=== PATIENT | female | born 1960 | race Caucasian/White ===

== ENCOUNTER 2017-05-23 08:36 | Emergency (ER) | payer MEDICARE, MEDICAID, SELFPAY | END 2017-05-23 10:45 | disposition still patient (30) | PROVIDERS: Emergency Provider Emergency Medicine; Family Provider Emergency Medicine; Visit Provider Emergency Medicine | DX: J10.1 Influenza due to other identified influenza virus with other respiratory manifestations (principal); F17.210 Nicotine dependence, cigarettes, uncomplicated; F41.9 Anxiety disorder, unspecified; I10 Essential (primary) hypertension; Z88.0 Allergy status to penicillin; J44.9 Chronic obstructive pulmonary disease, unspecified; H60.501 Unspecified acute noninfective otitis externa, right ear | CPT/HCPCS: 71020; 87275; 87276; 96372; 99283 ==

== ENCOUNTER → 2017-06-19 08:18 | Outpatient (CLI) | payer MEDICARE, MEDICAID, SELFPAY ==
--- NOTE | 2017-06-19 08:36 | MM_ITS ---
MM Dig screening mamm BI w/CAD CAD Screening COMPARISON: Digital mammograms 10/01/2012 and 09/14/2015 INDICATION: There is no personal or family history of breast cancer TECHNIQUE: Standard CC and MLO images were obtained. R2 CAD reviewed. FINDINGS: The breasts are composed primarily of fat with minimal scattered fibroglandular densities noted. There are prominent veins in each breast as noted previously. There is no suspicious lesion and there are no suspicious microcalcifications. There are stable tiny nodular densities in each breast. IMPRESSION: Fatty type breast parenchyma with no suspicious lesion seen recommend yearly follow-up BI-RADS Category: 2 Benign Finding(s) RECOMMENDED FOLLOW-UP: 1YR - 1 YEAR FOLLOW-UP (A letter has been sent to the patient regarding results of the study.)
[2017-06-20 13:37] LABS: Vitamin D 25 Hydroxy 33.8 ng/mL (30.0-100.0)
== END ==
PROVIDERS: Family Provider Emergency Medicine; PCP Emergency Medicine; Visit Provider Allergy & Immunology
DX: Z12.31 Encounter for screening mammogram for malignant neoplasm of breast (principal)
CPT/HCPCS: 36415; 77067; 82652

== ENCOUNTER → 2017-10-30 09:03 | Outpatient (REF) | payer MEDICARE, MEDICAID, SELFPAY ==
[2017-10-30 14:25] LABS: Basophils # 0.1 K/mm3 (0-0.2); Basophils % 0.6 % (0.1-2.0); Eosinophils # 0.2 K/mm3 (0.0-0.4); Eosinophils % 1.7 % (0.1-12.0); Hematocrit 50.7 % (37.0-47.0); Hemoglobin 15.1 g/dL (12.2-16.2); Lymphocytes # 3.1 K/mm3 (0.7-4.5); Lymphocytes % 30.5 K/mm3 (10-50); Mean Corpuscular HGB Conc 29.9 g/dL (31.8-35.4); Mean Corpuscular Hemoglobin 31.7 pg (27.0-31.2); Mean Corpuscular Volume 105.9 fl (81-99); Mean Platelet Volume 9.1 fl (7.4-10.4); Monocytes # 0.6 K/mm3 (0.1-1.0); Monocytes % 5.5 % (1.7-9.3); Neutrophils # 6.4 K/mm3 (1.8-7.8); Neutrophils % 61.7 % (37.0-80.0); Platelet Count 358 K/mm3 (142-424); Red Blood Count 4.78 M/mm3 (4.20-5.40); Red Cell Distribution Width 13.6 % (11.5-17.5); White Blood Count 10.3 K/mm3 (4.8-10.8)
[2017-10-30 14:26] LABS: Alanine Aminotransferase 23 U/L (12-78); Albumin Level 3.6 gm/dL (3.4-5.0); Albumin/Globulin Ratio 1.1 (1.1-1.8); Alkaline Phosphatase 92 U/L (46-116); Anion Gap 11.7 mEq/L (5-15); Aspartate Amino Transferase 15 U/L (15-37); Bilirubin,Total 0.4 mg/dL (0.2-1.0); Blood Urea Nitrogen 17 mg/dL (7-18); Carbon Dioxide 27 mmol/L (21.0-32.0); Chloride 104 mmol/L (98-107); Chol/HDL Ratio 2.7 (1-3.5); Cholesterol 176 mg/dL (140-200); Creatinine,Serum 0.66 mg/dL (0.55-1.02); Estimated Glomerular Filt Rate 92 ml/min (>60); GFR (African American) 111 ML/MIN (>60); Globulin 3.2 gm/dl (1.3-3.2); Glucose 94 mg/dL (74-106); HDL Cholesterol 65 mg/dL (29-89); LDL Cholesterol 86 mg/dL (0-130); Potassium 4.7 mmoL/L (3.5-5.1); Sodium 138 mmol/L (136-145); T4 (Thyroxine) 7.1 ug/dl (4.7-13.3); Thyroid Stimulating Hormone 0.66 uIU/ml (0.358-3.740); Total Protein,Serum 6.8 gm/dL (6.4-8.2); Triglycerides 126 mg/dL (30-200); VLDL Cholesterol 25 mg/dL (0-40)
[2017-10-31 10:08] LABS: Vitamin D 25 Hydroxy 27.7 ng/mL (30.0-100.0)
== END ==
LOC: LAB 09:03
PROVIDERS: Visit Provider Physician Assistant
DX: E55.9 Vitamin D deficiency, unspecified (principal); R68.89 Other general symptoms and signs; I10 Essential (primary) hypertension
CPT/HCPCS: 80053; 80061; 82652; 84436; 84443; 85025

== ENCOUNTER → 2018-02-01 09:04 | Outpatient (CLI) | payer MEDICARE, MEDICAID, SELFPAY ==
--- NOTE | 2018-02-01 09:04 | XR_ITS ---
XR foot wt bearing RT 3V HISTORY: ITS.REASON: toe pain ORDERING PHYSICIAN: Catrachita Javier DPM PATIENT AGE: 57 years COMPARISON: 08/23/2013 FINDINGS: There are mild osteoarthritic changes at the first metatarsophalangeal junction. No fracture or dislocation. No lytic or blastic change. There is an old fracture of the distal aspect of the proximal phalanx of the great toe. Normal alignment. 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
--- NOTE | 2018-02-01 09:04 | XR_ITS ---
XR foot wt bearing LT 3V HISTORY: ITS.REASON: toe pain ORDERING PHYSICIAN: Catrachita Javier DPM PATIENT AGE: 57 years COMPARISON: None FINDINGS: There are mild osteoarthritic changes at the first metatarsophalangeal joint. Normal alignment. No fracture or dislocation. IMPRESSION: Mild osteoarthritis of the first metatarsophalangeal joint
== END ==
PROVIDERS: Visit Provider Podiatrist
DX: L60.8 Other nail disorders (principal)
CPT/HCPCS: 73630; 87102; 87206; 87220

== ENCOUNTER → 2018-02-06 10:43 | Outpatient (CLI) | payer MEDICARE, MEDICAID, SELFPAY ==
--- NOTE | 2018-02-06 10:47 | US_ITS ---
US Arterial Ankle Brachial Ind History: Diminished pulses, current smoker, hypertension ITS.REASON: skin changes ORDERING PHYSICIAN: Catrachita Javier DPM PATIENT AGE: 57 years TECHNIQUE: Segmental pressures obtained of both right and left leg. These are compared to brachial blood pressure to yield index at each level sampled including summary MICK. The data sheets from the procedure are available in PACS FINDINGS Rest study only performed today No prior studies available for comparison. Blood pressures reported are in millimeters mercury. RIGHT LEG MICK = 0.92. RIGHT LEG TBI=0.57 Brachial BP: 131 Thigh BP: 123 Calf BP: 128 Ankle PT: 120 Ankle DP : 120 Digit =75 LEFT LEG MICK = 0.92 LEFT LEG TBI= 0.56 Brachial BPD: 11 Thigh BP: 117 Calf BP: 123 Ankle PT:121 Ankle DP: 112 Digit = 74 Pulses and waveforms: Normal IMPRESSION: The ABIs as reported above are within normal limits. Waveforms and pulses are also unremarkable. The TBI's are low bilaterally suggesting small vessel disease
== END ==
PROVIDERS: Family Provider Emergency Medicine; PCP Emergency Medicine; Visit Provider Podiatrist
DX: R09.89 Other specified symptoms and signs involving the circulatory and respiratory systems (principal)
CPT/HCPCS: 93922

== ENCOUNTER 2018-08-21 22:51 | Inpatient (IN) ==
--- NOTE | 2018-08-21 23:24 | Emergency Department Note ---
ED Disposition Clinical Impression: Renal colic on right side, Severe sepsis, Overweight (BMI 25.0-29.9), Diverticulosis, Tobacco use CAP (community acquired pneumonia) Qualifiers: Laterality: right Lung location: lower lobe of lung Qualified Code(s): J18.1 - Lobar pneumonia, unspecified organism COPD (chronic obstructive pulmonary disease) Qualifiers: COPD type: COPD with acute lower respiratory infection Qualified Code(s): J44.0 - Chronic obstructive pulmonary disease with acute lower respiratory infection Leukocytosis Qualifiers: Leukocytosis type: bandemia Qualified Code(s): D72.825 - Bandemia UTI (urinary tract infection) Qualifiers: Urinary tract infection type: site unspecified Hematuria presence: without hematuria Qualified Code(s): N39.0 - Urinary tract infection, site not specified Disposition: Admitted as Observation Condition on Discharge: Fair - Critical Care Critical Care Time: No Attestation: On 08/21/18, the high probability of a clinically significant, sudden or life threatening deterioration of the following system(s) required my full and direct attention, intervention and personal management. The time I documented below is in addition to time spent performing reported procedures but includes the following listed in this critical care notation. Medical Decision Making - Medical Records Medical records reviewed: Yes: I reviewed the patient's medical records. - Vikram Inquiry Pt receiving controlled substance: No Vital Signs: 08/21/18 22:52 08/22/18 00:11 Temperature 97.9 F 98.4 F Temperature Source Oral Oral Pulse Rate [Right Radial] 107 H 88 Respiratory Rate 18 22 Blood Pressure [Right Arm] 120/79 106/80 L Blood Pressure Mean [Right Arm] 92 88 Blood Pressure Source [Right Arm] Automatic Cuff Blood Pressure Position [Right Arm] Supine 02 Sat by Pulse Oximetry 100 93 L Oxygen Delivery Method Room Air - Lab Data Lab results reviewed: Yes: I reviewed the patient's lab results. Lab Results 08/21/18 23:15: Urine Color Yellow, Urine Appearance Clear, Urine pH 6.5, Ur Specific [place] <= 1.005, Urine Protein Negative, Urine Glucose (UA) Negative, Urine Ketones Negative, Urine Blood 2+, Urine Nitrate Positive, Urine Bilirubin Negative, Urine Urobilinogen 0.2, Ur Leukocyte Esterase 3+ A, Urine RBC 3-5, Urine WBC 10-20, Ur Squamous Epith Cells Occasional, Urine Bacteria Trace 08/21/18 23:15: WBC 18.8 H, RBC 4.60, Hgb 15.1, Hct 47.4 H, MCV 103.1 H, MCH 32.9 H, MCHC 31.9, RDW 13.4, Plt Count 325, MPV 7.7, Neut % (Auto) 85.5 H, Lymph % (Auto) 9.0 L, [place] % (Auto) 4.9, Eos % (Auto) 0.2, Baso % (Auto) 0.3, Neut # (Auto) 16.1 H, Lymph # (Auto) 1.7, [place] # (Auto) 0.9, Eos # (Auto) 0.0, Baso # (Auto) 0.1, Total Counted 100, Neutrophils % (Manual) 87 H, Lymphocytes % (Manual) 12, Monocytes % (Manual) 1 L, Platelet Estimate Normal, RBC Morphology Not Reportable, Anisocytosis 1+, Stomatocytes 1+ 08/21/18 23:15: Sodium 138, Potassium 3.5, Chloride 101, Carbon Dioxide 26, Anion Gap 14.5, BUN 10, Creatinine 0.66, Estimated Creat Clear 93, Estimated GFR 91, Est GFR ( Amer) 111, Glucose 113 H, Calcium 9.0, Total Bilirubin 0.5, AST 9 L, ALT 18, Alkaline Phosphatase 94, Total Protein 7.5, Albumin 3.4, Globulin 4.1 H, Albumin/Globulin Ratio 0.8 L 08/21/18 23:15: Influenza Type A Ag Negative, Influenza Type B Ag Negative 08/21/18 23:15: Lactate 1.8 Result diagrams: 08/21/18 23:15 08/21/18 23:15 Orders (Tests/Meds): ED MEDICATIONS Generic Name Dose Route Start Last Admin Trade Name Freq PRN Reason Stop Dose Admin Sodium Chloride 1,000 mls @ 999 mls/hr 08/21/18 23:00 08/21/18 23:26 Sod Chlor 0.9% 1000ml Bag IV 08/22/18 00:00 999 mls/hr .Q1H1M MANUEL Administration Clindamycin Phosphate 900 mg/ 106 mls @ 100 mls/hr 08/22/18 01:45 Sodium Chloride IV 09/05/18 01:44 Q8H MANUEL Protocol Ertapenem 1 gm/ Sodium 50 mls @ 100 mls/hr 08/22/18 01:45 Chloride IV 09/05/18 01:44 Q24H MANUEL Protocol Azithromycin 500 mg/ Sodium 250 mls @ 250 mls/hr 08/22/18 01:45 Chloride IV 09/05/18 01:44 Q24H MANUEL Protocol Sodium Chloride 10 ml 08/21/18 23:00 Saline Flush 10ml Syringe IV 09/20/18 22:59 NEEDED PRN Maintain IV Site Discontinued Medications Generic Name Dose Route Start Last Admin Trade Name Freq PRN Reason Stop Dose Admin Ketorolac Tromethamine 30 mg 08/21/18 23:00 08/21/18 23:26 Toradol 30mg/Ml Vial IV 08/21/18 23:01 30 mg ONCE ONE Administration Ondansetron HCl 4 mg 08/21/18 23:00 08/21/18 23:26 Zofran 4mg/2ml Vial IV 08/21/18 23:01 4 mg ONCE ONE Administration ORDERS Category Date Time Status CT abdomen pelvis wo con Stat Cat Scan 08/22/18 Taken XR chest portable Stat Exams 08/22/18 Ordered Blood Culture Stat Micro 08/21/18 21:15 Received Urine Culture Stat Micro 08/21/18 23:15 Received - Radiology Data #1 Image(s): Chest Image Reviewed: Yes I reviewed the patient's radiology image Preliminary Findings: Abnormal (rt lower lobe ) - CT Data CT Scan: Abdomen, Pelvis Time Received: 01:[address] Reviewed: Yes: I have viewed the radiologist's interpretation Preliminary Findings: Abnormal (see report ) Nausea/Vomiting/Diarrhea HPI - General Chief complaint: Abdominal Pain Stated complaint: PAIN WITH URINATION Time Seen by Provider: 08/21/18 23:10 Mode of Arrival: EMS Source of Information: Patient, EMS, Medical Record Limitations: No Limitations Description of Symptoms (Recalled from ER Triage Doc. by RN): PT STATES SHE IS HAVING DIFFICULTY VOIDING AND PAIN/BURNING WITH URINATION. PT STATES SHE HAS HAD A KIDNEY STONE IN THE PAST AND SHE THINKS SHE MAY HAVE ANOTHER. PT C/O RIGHT BACK PAIN BUT STATES THAT IT RADIATES DOWN HER HIP AND LEG. PT STATES SHE WAS RUNNING A FEVER EARLIER TODAY. - History of Present Illness HPI Narrative: pt reports about 2 days ago began with freq and rt flank pain with fever and increased pain which started tonight -has hx of kidney stone 3 yrs ago and has copd and tob use MD complaint: nausea, abdominal pain Onset (ago): day(s) Associated Abdominal Pain: Yes Location of pain: flank Severity: moderate Associated symptoms: cough, loss of appetite, weakness - Related Data Home Medications Medication Instructions Recorded Confirmed fluticasone furoate 200 1 inh INHALATION Q24H 06/19/17 07/27/18 mcg-vilanterol 25 mcg/dose inhalation powder umeclidinium 62.5 mcg/actuation 1 inh INHALATION Q24H 10/30/17 07/27/18 blister powder for inhalation Previous Rx's Medication Instructions Recorded terbinafine HCl 250 mg tablet 250 mg PO DAILY #30 tab 01/30/18 lisinopril 20 mg tablet 20 mg PO QDAY #90 tab 06/05/18 bisoprolol fumarate 5 mg tablet 5 mg PO DAILY #30 tab 06/12/18 phentermine 37.5 mg capsule 37.5 mg PO DAILY #30 cap 07/27/18 Allergies Allergy/AdvReac Type Severity Reaction Status Date / Time aspirin [ASPIRIN] Allergy Unknown STATES Verified 08/21/18 22:59 CHOOSES NOT TO USE BECAUSE NOT EFFECTIVE FOR PAIN levofloxacin [From LEVAQUIN] Allergy Unknown Verified 08/21/18 22:59 Penicillins [PENICILLINS] Allergy Unknown Verified 08/21/18 22:59 ceftriaxone [From Rocephin] Allergy Verified 08/21/18 22:59 [facility] History - Hepatitis A Screen Drug use history?: No High risk sexual behaviors?: No History of sexually transmitted infection?: No Currently employed?: No Childcare worker?: No Do you have indoor plumbing?: No Do you have electricity?: Yes Attestation statement:: This patient has been screened for Hepatitis A risk factors. I have reviewed the patient's past medical history: Yes Medical History: Reports:: Chronic Obstructive Pulmonary Disease (COPD), Hypertension Denies:: Cancer, Diabetes Mellitus Type 1, Diabetes Mellitus Type 2, MRSA Amputation: No Fractures: No Comment: Rt index finger - Social History Smoking Status: Current every day smoker Tobacco Type: cigarettes # Packs/Day (cigarettes): 1 Alcohol Intake: current Alcohol Intake Frequency:: holidays/special occasions only Substance Use Type: denies use Occupational Status: disabled Household Members: spouse - Psychiatric History Expresses thoughts of harming self/others: None Suicide Plan Description: No Plan Family Hx:: No significant family history ROS Obtained: Yes All systems reviewed & no additional complaints - Constitutional Constitutional: Reports fever(s) - Eyes Eyes: Denies change in vision - ENT Ears, Nose, Mouth, and Throat: Denies sore throat - Cardiovascular Cardiovascular: Denies chest pain, Denies dyspnea - Respiratory Respiratory: Yes change in phlegm color, Yes cough, No coughing up blood - Gastrointestinal Gastrointestingal: Reports: abdominal pain, nausea. Denies: diarrhea - Genitourinary Female Genitourinary: Denies hematuria - Musculoskeletal Musculoskeletal: Denies joint pain, Denies joint swelling - Integumentary/Breasts Skin/Breast: Denies rash - Neurologic Neurologic: Denies seizure-like activity Physical Exam - General General appearance: alert, in no apparent distress - Head Head exam: normocephalic - Eye Eye exam: Present: PERRL, EOMI. Absent: scleral icterus - ENT ENT exam: Present: mucous membranes dry - Neck Neck exam: Present: trachea midline - Respiratory Respiratory exam: Present: wheezes, other (rhonchi). Absent: respiratory distress - Cardiovascular Cardiovascular exam: Present: regular rate, systolic murmur, +S4 - Abdominal Exam Abdominal exam: Present: soft. Absent: tenderness - Extremities Exam Extremities exam: Present: full ROM - Back Exam Back exam: Present: CVA tenderness (R) - Neurological Exam Neurological exam: Present: alert, oriented X3, CN II-XII intact - Psychiatric Psychiatric exam: Present: normal affect - Skin Skin exam: Absent: rash
[2018-08-21 23:27] LABS: Basophils # 0.1 K/mm3 (0-0.2); Basophils % 0.3 % (0.1-2.0); Eosinophils % 0.2 % (0.1-12.0); Hematocrit 47.4 % (37.0-47.0); Hemoglobin 15.1 g/dL (12.2-16.2); Lymphocytes # 1.7 K/mm3 (0.7-4.5); Mean Corpuscular HGB Conc 31.9 g/dL (31.8-35.4); Mean Corpuscular Hemoglobin 32.9 pg (27.0-31.2); Mean Corpuscular Volume 103.1 fl (81-99); Mean Platelet Volume 7.7 fl (7.4-10.4); Microscopic, Urine URINE MICROSCOPIC (MICROSCOPIC); Monocytes # 0.9 K/mm3 (0.1-1.0); Monocytes % 4.9 % (1.7-9.3); Neutrophils # 16.1 K/mm3 (1.8-7.8); Neutrophils % 85.5 % (37.0-80.0); Platelet Count 325 K/mm3 (142-424); Red Cell Distribution Width 13.4 % (11.5-17.5); White Blood Count 18.8 K/mm3 (4.8-10.8)
[2018-08-21 23:29] LABS: Appearance,Urine CLEAR (Clear); Bilirubin,Urine Negative (Negative); Blood, Urine 2+ (Negative); Color,Urine YELLOW (Yellow); Glucose,Urine (UA) Negative (Negative); Ketones,Urine Negative (Negative); Leukocyte Esterase,Urine 3+ (Negative); PH,Urine 6.5 (5.0-8.5); Protein,Urine Negative (Negative); Specific Gravity, Urine <= 1.005 (1.005-1.030); Urobilinogen,Urine 0.2 EU/dl (0.2)
[2018-08-21 23:35] LABS: Bacteria,Urine Trace /lpf; Squamous Epithelial Cell,Urine Occasional #/hpf (0-5)
[2018-08-21 23:40] LABS: Albumin Level 3.4 gm/dL (3.4-5.0); Albumin/Globulin Ratio 0.8 (1.1-1.8); Anion Gap 14.5 mEq/L (5-15); Bilirubin,Total 0.5 mg/dL (0.2-1.0); Globulin 4.1 gm/dl (1.3-3.2); Potassium 3.5 mmoL/L (3.5-5.1); Total Protein,Serum 7.5 gm/dL (6.4-8.2)
[2018-08-22 00:39] LABS: Anisocytosis 1+; Lymphocytes % 12 % (10-50); Monocytes % 1 % (2-9); Neutrophils % 87 % (42-76); Stomatocytes 1+; Total Cells Counted 100
[2018-08-22 06:12] LABS: Basophils % 0.1 % (0.1-2.0); Eosinophils % 0.1 % (0.1-12.0); Hematocrit 44.4 % (37.0-47.0); Hemoglobin 14.1 g/dL (12.2-16.2); Lymphocytes # 0.6 K/mm3 (0.7-4.5); Lymphocytes % 3.1 % (10-50); Mean Corpuscular HGB Conc 31.8 g/dL (31.8-35.4); Mean Corpuscular Hemoglobin 32.9 pg (27.0-31.2); Mean Corpuscular Volume 103.4 fl (81-99); Mean Platelet Volume 7.9 fl (7.4-10.4); Monocytes # 0.5 K/mm3 (0.1-1.0); Monocytes % 2.5 % (1.7-9.3); Neutrophils # 19.5 K/mm3 (1.8-7.8); Neutrophils % 94.3 % (37.0-80.0); Platelet Count 297 K/mm3 (142-424); Red Blood Count 4.29 M/mm3 (4.20-5.40); Red Cell Distribution Width 13.4 % (11.5-17.5); White Blood Count 20.7 K/mm3 (4.8-10.8)
[2018-08-22 06:18] LABS: Calcium 8.4 mg/dL (8.5-10.1)
--- NOTE | 2018-08-22 08:09 | Pharmacy Consult Notes ---
[facility] Pharmacy VTE Monitoring - Patient Demographics Admission date: 08/22/18 Report Date: 08/22/18 Time: 08:08 Allergies/Adverse Reactions: Patient Allergies aspirin [ASPIRIN] Allergy (Unknown, Verified 08/21/18 22:59) STATES CHOOSES NOT TO USE BECAUSE NOT EFFECTIVE FOR PAIN levofloxacin [From LEVAQUIN] Allergy (Unknown, Verified 08/21/18 22:59) Penicillins [PENICILLINS] Allergy (Unknown, Verified 08/21/18 22:59) ceftriaxone [From Rocephin] Allergy (Verified 08/21/18 22:59) Height: 1.55 m Weight: 77.366 kg Patient Problems: Current Active Problems (Last Updated 10/31/17 @ 10:47 by SAMPSON Neil) Renal colic on right side (Acute) CAP (community acquired pneumonia) (Acute) COPD (chronic obstructive pulmonary disease) (Acute) Severe sepsis (Acute) Overweight (BMI 25.0-29.9) (Acute) Diverticulosis (Acute) Tobacco use (Acute) Leukocytosis (Acute) UTI (urinary tract infection) (Acute) - VTE Risk Labs: VTE Related Lab Results Hgb 14.1 g/dL (12.2-16.2) 08/22/18 05:25 Hct 44.4 % (37.0-47.0) 08/22/18 05:25 Plt Count 297 K/mm3 (142-424) 08/22/18 05:25 BUN 11 mg/dL (7-18) 08/22/18 05:25 Creatinine 0.90 mg/dL (0.55-1.02) D 08/22/18 05:25 Estimated Creat Clear 81 mL/min (50-200) 08/22/18 05:25 Was VTE Risk Assessment Performed: Yes VTE Risk Level: Low Risk Clinical Trial Participant: No - Prophylaxis VTE Prophylaxis Ordered?: Yes Types of VTE Prophylaxis: TEDS Knee High
--- NOTE | 2018-08-22 16:01 | History & Physical Report ---
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 and had abn ct and u/a and was admitted for ivf and abx and urology eval [facility] History I have reviewed the patient's past medical history: Yes Medical History: Reports:: Chronic Obstructive Pulmonary Disease (COPD), Hypert ension Denies:: Cancer, Diabetes Mellitus Type 1, Diabetes Mellitus Type 2, Internal Pacemaker, MRSA *Have you ever received a pneumonia vaccine?: Yes *Have you received a flu vaccine this season?: Yes Other Surgeries: No: Pacemaker Amputation: No Fractures: No - *Social History Educational Level: Attended High School Smoking Status: Current some day smoker Tobacco Type: cigarettes # Packs/Day (cigarettes): 0 Alcohol Intake: never Alcohol Intake Frequency:: holidays/special occasions only Substance Use Type: denies use *Occupational Status:: disabled Housing: house Household Members: spouse *Travel in the last 8 weeks: None - Psychiatric History Expresses thoughts of harming self/others: None Suicide Plan Description: No Plan Family Hx:: No significant family history Review of Systems - Review of Systems Review of systems:: pertinent systems reviewed and negative unless documented below - Constitutional Reports fever(s) - Eyes Denies change in vision - ENT Denies sore throat - *Cardiovascular Denies chest pain - *Respiratory Reports cough, Denies coughing up blood - *Gastrointestinal Reports abdominal pain, Reports nausea, Reports vomiting - *Genitourinary Denies blood in urine - *Musculoskeletal Denies joint pain - Integumentary/Breasts Denies rash - *Neurologic Denies headache(s), Denies seizure-like activity - Psychiatric Denies anxiety Meds Home Medications Medication Instructions Recorded Confirmed Type fluticasone furoate 200 1 inh INHALATION DAILY 06/19/17 08/22/18 History mcg-vilanterol 25 mcg/dose inhalation powder umeclidinium 62.5 mcg/actuation 1 inh INHALATION DAILY 10/30/17 08/22/18 History blister powder for inhalation bisoprolol fumarate 5 mg tablet 5 mg PO DAILY #30 tab 06/12/18 08/22/18 Rx phentermine 37.5 mg capsule 37.5 mg PO DAILY #30 cap 07/27/18 08/22/18 Rx Cholecalciferol (Vitamin D3) 50,000 unit PO WEEKLY 08/22/18 08/22/18 History [Vitamin D3 50,000 unit Cap] Lisinopril [Lisinopril 20mg Tab] 20 mg PO DAILY 08/22/18 08/22/18 History Allergies Allergy/AdvReac Type Severity Reaction Status Date / Time ceftriaxone [From Rocephin] Allergy Severe Hives Verified 08/22/18 10:00 levofloxacin [From LEVAQUIN] Allergy Severe Fainting Verified 08/22/18 10:00 Penicillins [PENICILLINS] Allergy Mild Rash Verified 08/22/18 10:00 Exam Vital signs and Labs for Last 24 Hours: Temp Pulse Resp BP Pulse Ox 98.8 F 92 H 20 120/62 99 08/22/18 12:00 08/22/18 12:00 08/22/18 12:00 08/22/18 12:00 08/22/18 12:00 Laboratory Results - last 24 hr 08/21/18 23:15: Urine Color Yellow, Urine Appearance Clear, Urine pH 6.5, Ur Specific [place] <= 1.005, Urine Protein Negative, Urine Glucose (UA) Negative, Urine Ketones Negative, Urine Blood 2+, Urine Nitrate Positive, Urine Bilirubin Negative, Urine Urobilinogen 0.2, Ur Leukocyte Esterase 3+ A, Urine RBC 3-5, Urine WBC 10-20, Ur Squamous Epith Cells Occasional, Urine Bacteria Trace 08/21/18 23:15: WBC 18.8 H, RBC 4.60, Hgb 15.1, Hct 47.4 H, MCV 103.1 H, MCH 32.9 H, MCHC 31.9, RDW 13.4, Plt Count 325, MPV 7.7, Neut % (Auto) 85.5 H, Lymph % (Auto) 9.0 L, [place] % (Auto) 4.9, Eos % (Auto) 0.2, Baso % (Auto) 0.3, Neut # (Auto) 16.1 H, Lymph # (Auto) 1.7, [place] # (Auto) 0.9, Eos # (Auto) 0.0, Baso # (Auto) 0.1, Total Counted 100, Neutrophils % (Manual) 87 H, Lymphocytes % (Manual) 12, Monocytes % (Manual) 1 L, Platelet Estimate Normal, RBC Morphology Not Reportable, Anisocytosis 1+, Stomatocytes 1+ 08/21/18 23:15: Sodium 138, Potassium 3.5, Chloride 101, Carbon Dioxide 26, Anion Gap 14.5, BUN 10, Creatinine 0.66, Estimated Creat Clear 93, Estimated GFR 91, Est GFR ( Amer) 111, Glucose 113 H, Calcium 9.0, Total Bilirubin 0.5, AST 9 L, ALT 18, Alkaline Phosphatase 94, Total Protein 7.5, Albumin 3.4, Globulin 4.1 H, Albumin/Globulin Ratio 0.8 L 08/21/18 23:15: Influenza Type A Ag Negative, Influenza Type B Ag Negative 08/21/18 23:15: Lactate 1.8 08/22/18 05:25: Troponin I < 0.02 08/22/18 05:25: WBC 20.7 H*, RBC 4.29, Hgb 14.1, Hct 44.4, MCV 103.4 H, MCH 32.9 H, MCHC 31.8, RDW 13.4, Plt Count 297, MPV 7.9, Neut % (Auto) 94.3 H, Lymph % (Auto) 3.1 L, [place] % (Auto) 2.5, Eos % (Auto) 0.1, Baso % (Auto) 0.1, Neut # (Auto) 19.5 H, Lymph # (Auto) 0.6 L, [place] # (Auto) 0.5, Eos # (Auto) 0.0, Baso # (Auto) 0.0 08/22/18 05:25: Sodium 140, Potassium 4.0, Chloride 106, Carbon Dioxide 25, Anion Gap 13.0, BUN 11, Creatinine 0.90 D, Estimated Creat Clear 81, Estimated GFR 64, Est GFR ( Amer) 77 D, Glucose 130 H, Calcium 8.4 L, Magnesium 1.7 08/22/18 07:55: Troponin I < 0.02 I & O for Last 24 hours: Intake & Output 08/20/18 08/21/18 08/22/18 08/23/18 11:59 11:59 11:59 11:59 Intake Total 1480 / 1480 240 / 240 Output Total 400 / 400 Balance 1080 / 1080 240 / 240 Weight 170 lb 9 oz Microbiology Reports for the Last 24 Hours: Microbiology 08/21/18 23:15 Urine,Clean Catch Urine Culture - Preliminary Gram Negative Rods 08/22/18 02:00 Sputum - Expectorated Sputum Gram Stain - Final - Constitutional no acute distress, obese - *Routine HEENT Exam Head: Present: normocephalic Eye: Present: EOMI, PERRL ENT: Present: mucous membranes dry - *Routine Neck Exam Absent: JVD - *Routine Respiratory Exam Present: rhonchi. Absent: respiratory distress - *Routine Cardiovascular Exam Present: RRR, murmur - *Routine Abdominal Exam Present: soft - *Routine Extremities Exam Absent: calf tenderness - Routine Back/Spine/Pelvis Exam Back/Spine: Present: CVA tenderness - *Routine Skin Exam Present: intact - *Routine Neurological Exam Present: alert, CN II-XII intact - Routine Psychiatric Exam Present: normal affect Assessment and Plan (1) Obesity (BMI 30.0-34.9) Current visit: Yes Status: Acute Category: Medical Code(s): E66.9 - Obesity, unspecified (2) Renal colic on right side Current visit: Yes Status: Acute Category: Medical Code(s): N23 - Unspecified renal colic (3) CAP (community acquired pneumonia) Current visit: Yes Status: Acute Qualifiers: Laterality: right Lung location: lower lobe of lung Qualified Code(s): J18.1 - Lobar pneumonia, unspecified organism Category: Medical Code(s): J18.9 - Pneumonia, unspecified organism (4) COPD (chronic obstructive pulmonary disease) Current visit: Yes Status: Acute Qualifiers: COPD type: COPD with acute lower respiratory infection Qualified Code(s): J44.0 - Chronic obstructive pulmonary disease with acute lower respiratory infection Category: Medical Code(s): J44.9 - Chronic obstructive pulmonary disease, unspecified (5) Severe sepsis Current visit: Yes Status: Acute Category: Medical Code(s): A41.9 - Sepsis, unspecified organism; R65.20 - Severe sepsis without septic shock (6) Tobacco use Current visit: Yes Status: Acute Category: Medical Code(s): Z72.0 - Tobacco use (7) Leukocytosis Current visit: Yes Status: Acute Qualifiers: Leukocytosis type: bandemia Qualified Code(s): D72.825 - Bandemia Category: Medical Code(s): D72.829 - Elevated white blood cell count, unspecified
[2018-08-23 11:36] LABS: Basophils % 0.2 % (0.1-2.0); Eosinophils # 0.1 K/mm3 (0.0-0.4); Eosinophils % 0.7 % (0.1-12.0); Hematocrit 38.6 % (37.0-47.0); Hemoglobin 12.2 g/dL (12.2-16.2); Lymphocytes # 1.4 K/mm3 (0.7-4.5); Lymphocytes % 8.5 % (10-50); Mean Corpuscular HGB Conc 31.6 g/dL (31.8-35.4); Mean Corpuscular Hemoglobin 32.9 pg (27.0-31.2); Mean Platelet Volume 8.9 fl (7.4-10.4); Monocytes # 0.6 K/mm3 (0.1-1.0); Monocytes % 3.6 % (1.7-9.3); Neutrophils # 13.8 K/mm3 (1.8-7.8); Platelet Count 266 K/mm3 (142-424); Red Blood Count 3.71 M/mm3 (4.20-5.40); Red Cell Distribution Width 13.5 % (11.5-17.5); White Blood Count 15.9 K/mm3 (4.8-10.8)
[2018-08-23 12:05] LABS: Lymphocytes % 8 % (10-50); Macrocytosis 1+; Monocytes % 4 % (2-9); Neutrophils % 88 % (42-76); Total Cells Counted 100
--- NOTE | 2018-08-23 12:54 | Consult Report ---
*Admission Date: 08/23/18 *Chief complaint: Right distal ureteral stone *History of present illness: This is a 66-year-old white female admitted 2 days ago with right renal colic. Her CT scan showed a 5 mm distal ureteral stone with evidence of hydronephrosis. Her white count on admission was elevated to 18.8. Yesterday it was 20.7 and today it is lower at 15.9. There was evidence of a urinary tract infection as well and her urine culture is growing out E. coli which is sensitive to her current antibiotic. Her creatinine was within normal limits. She looks well today and states she has had no significant pain since her admission from the emergency room. KUB today reveals that there remains a calcification that is 3 mm in the distal right ureter. [facility] History Medical History: Reports:: Chronic Obstructive Pulmonary Disease (COPD), Hypertension Denies:: Cancer, Diabetes Mellitus Type 1, Diabetes Mellitus Type 2, Internal Pacemaker, MRSA *Have you ever received a pneumonia vaccine?: Yes *Have you received a flu vaccine this season?: Yes Other Surgeries: No: Pacemaker Amputation: No Fractures: No - *Social History Educational Level: Attended High School Smoking Status: Current some day smoker Tobacco Type: cigarettes # Packs/Day (cigarettes): 0 Alcohol Intake: never Alcohol Intake Frequency:: holidays/special occasions only Substance Use Type: denies use *Occupational Status:: disabled Housing: house Household Members: spouse *Travel in the last 8 weeks: None - Psychiatric History Expresses thoughts of harming self/others: None Suicide Plan Description: No Plan Family Hx:: No significant family history Review of Systems - Constitutional Reports fatigue - *Gastrointestinal Reports nausea - *Genitourinary Reports side pain, Denies difficulty urinating, Denies blood in urine - *Musculoskeletal Reports joint pain - *Neurologic Denies headache(s), Denies seizure-like activity Meds Home Medications Medication Instructions Recorded Confirmed Type fluticasone furoate 200 1 inh INHALATION DAILY 06/19/17 08/22/18 History mcg-vilanterol 25 mcg/dose inhalation powder umeclidinium 62.5 mcg/actuation 1 inh INHALATION DAILY 10/30/17 08/22/18 History blister powder for inhalation bisoprolol fumarate 5 mg tablet 5 mg PO DAILY #30 tab 06/12/18 08/22/18 Rx phentermine 37.5 mg capsule 37.5 mg PO DAILY #30 cap 07/27/18 08/22/18 Rx Cholecalciferol (Vitamin D3) 50,000 unit PO WEEKLY 08/22/18 08/22/18 History [Vitamin D3 50,000 unit Cap] Lisinopril [Lisinopril 20mg Tab] 20 mg PO DAILY 08/22/18 08/22/18 History Allergies Allergy/AdvReac Type Severity Reaction Status Date / Time ceftriaxone [From Rocephin] Allergy Severe Hives Verified 08/22/18 10:00 levofloxacin [From LEVAQUIN] Allergy Severe Fainting Verified 08/22/18 10:00 Penicillins [PENICILLINS] Allergy Mild Rash Verified 08/22/18 10:00 Exam Vital signs and Labs for Last 24 Hours: Temp Pulse Resp BP Pulse Ox 98.3 F 72 16 104/78 L 98 08/23/18 11:42 08/23/18 11:42 08/23/18 11:42 08/23/18 11:42 08/23/18 11:42 Laboratory Results - last 24 hr 08/23/18 11:10: WBC 15.9 H, RBC 3.71 L, Hgb 12.2, Hct 38.6, MCV 104.0 H, MCH 32.9 H, MCHC 31.6 L, RDW 13.5, Plt Count 266, MPV 8.9, Neut % (Auto) 87.0 H, Lymph % (Auto) 8.5 L, [place] % (Auto) 3.6, Eos % (Auto) 0.7, Baso % (Auto) 0.2, Neut # (Auto) 13.8 H, Lymph # (Auto) 1.4, [place] # (Auto) 0.6, Eos # (Auto) 0.1, Baso # (Auto) 0.0, Total Counted 100, Neutrophils % (Manual) 88 H, Lymphocytes % (Manual) 8 L, Monocytes % (Manual) 4, Platelet Estimate Normal, Macrocytosis 1+ I & O for Last 24 hours: Intake & Output 08/20/18 08/21/18 08/22/18 08/23/18 23:59 23:59 23:59 23:59 Intake Total 3502 / 3502 3018 / 3018 Output Total 1100 / 1100 Balance 2402 / 2402 3018 / 3018 Weight 65.317 kg 77.366 kg 78.953 kg Microbiology Reports for the Last 24 Hours: Microbiology 08/22/18 02:00 Sputum - Expectorated Sputum Gram Stain - Final 08/22/18 02:00 Sputum - Expectorated Sputum Sputum Culture - Preliminary 08/21/18 23:15 Urine,Clean Catch Urine Culture - Final Escherichia coli Narrative: Well-nourished white female in no apparent distress Pupils equal round reactive to light Abdomen soft and normal visual inspection Normal respiratory effort Alert and oriented x3 Internal Medicine - CN: Reslt - Labs CBC & Chem 7: 08/23/18 11:10 08/22/18 05:25 Labs: Short CBC 08/23/18 Range/Units 11:10 WBC 15.9 H (4.8-10.8) K/mm3 Hgb 12.2 (12.2-16.2) g/dL Hct 38.6 (37.0-47.0) % Plt Count 266 (142-424) K/mm3 Assessment and Plan (1) Obesity (BMI 30.0-34.9) Current visit: Yes Status: Acute Category: Medical Code(s): E66.9 - Obesity, unspecified (2) Renal colic on right side Current visit: Yes Status: Acute Category: Medical Code(s): N23 - Unspecified renal colic (3) CAP (community acquired pneumonia) Current visit: Yes Status: Acute Qualifiers: Laterality: right Lung location: lower lobe of lung Qualified Code(s): J18.1 - Lobar pneumonia, unspecified organism Category: Medical Code(s): J18.9 - Pneumonia, unspecified organism (4) COPD (chronic obstructive pulmonary disease) Current visit: Yes Status: Acute Qualifiers: COPD type: COPD with acute lower respiratory infection Qualified Code(s): J44.0 - Chronic obstructive pulmonary disease with acute lower respiratory infection Category: Medical Code(s): J44.9 - Chronic obstructive pulmonary disease, unspecified (5) Severe sepsis Current visit: Yes Status: Acute Category: Medical Code(s): A41.9 - Sepsis, unspecified organism; R65.20 - Severe sepsis without septic shock (6) Tobacco use Current visit: Yes Status: Acute Category: Medical Code(s): Z72.0 - Tobacco use (7) Leukocytosis Current visit: Yes Status: Acute Qualifiers: Leukocytosis type: bandemia Qualified Code(s): D72.825 - Bandemia Category: Medical Code(s): D72.829 - Elevated white blood cell count, unspecified - Assessment and plan all Dx Assessment and Plan for all problems:: 58-year-old white female with a distal right ureteral stone. Her white blood cell count is trending downwards today and she looks well and denies any pain fevers nausea or hematuria. Discussed continuing a trial of passage at home and she is to strain her urine at home and push fluids. I gave her a prescription for Percocet and she should go home with appropriate antibiotics as well. She is to return to see Dr. Eaton next Monday as I am out of town.
--- NOTE | 2018-08-23 13:15 | Discharge Summary ---
General - General Admission date:: 08/22/18 Discharge date: 08/23/18 HPI HPI: this wf has progressive rt flank pain with fever and urinary sx and presented to ed for eval - pt also with diamond setter cough and had dec po intake and had abn ct and u/a and was admitted for ivf and abx and urology eval Hospital Course Hospital Course: kub:IMPRESSION: 3 mm right ureterovesical junction stone ct scan: IMPRESSION: 1. 5 mm right ureterovesical junction stone with moderate right hydroureteronephrosis and stranding in the right perinephric and periureteral fat. 2. Bilateral nephrolithiasis. 3. Other nonacute findings as described above urology consult- see note, per note Discussed continuing a trial of passage at home and she is to strain her urine at home and push fluids. I gave her a prescription for Percocet and she should go home with appropriate antibiotics as well. She is to return to see Dr. Eaton next Monday as I am out of town. Will dc home on Bactrim ds and follow up with yehuda and in office after antibiotics to have c&s to ensure ecoli has been completely clear. Objective Vital signs: Temp Pulse Resp BP Pulse Ox 98.3 F 72 16 104/78 L 98 08/23/18 11:42 08/23/18 11:42 08/23/18 11:42 08/23/18 11:42 08/23/18 11:42 no acute distress - *Routine HEENT Exam Head: Present: normocephalic Eye: Present: PERRL ENT: Present: mucous membranes moist - *Routine Neck Exam Present: full ROM - *Routine Respiratory Exam Present: CTA bilaterally - *Routine Cardiovascular Exam Present: RRR - *Routine Abdominal Exam Present: soft, normoactive bowel sounds - *Routine Extremities Exam Present: full ROM - *Routine Skin Exam Present: intact - *Routine Neurological Exam Present: alert, oriented X3 - Routine Psychiatric Exam Present: normal affect Results Labs on day of discharge: Labs from last 24 hours 08/23/18 11:10 WBC 15.9 H RBC 3.71 L Hgb 12.2 Hct 38.6 MCV 104.0 H MCH 32.9 H MCHC 31.6 L RDW 13.5 Plt Count 266 MPV 8.9 Neut % (Auto) 87.0 H Lymph % (Auto) 8.5 L [place] % (Auto) 3.6 Eos % (Auto) 0.7 Baso % (Auto) 0.2 Neut # (Auto) 13.8 H Lymph # (Auto) 1.4 [place] # (Auto) 0.6 Eos # (Auto) 0.1 Baso # (Auto) 0.0 Total Counted 100 Neutrophils % (Manual) 88 H Lymphocytes % (Manual) 8 L Monocytes % (Manual) 4 Platelet Estimate Normal Macrocytosis 1+ Preliminary micro results at discharge 08/22/18 02:00 Sputum Culture - Preliminary Sputum - Expectorated Sputum - Additional Comments rounded with emil all orders per meil DS: Diagnosis - Discharge Diagnosis (1) Obesity (BMI 30.0-34.9) Status: Acute (2) Renal colic on right side Status: Acute (3) CAP (community acquired pneumonia) Status: Acute (4) COPD (chronic obstructive pulmonary disease) Status: Acute (5) Severe sepsis Status: Acute (6) Tobacco use Status: Acute (7) Leukocytosis Status: Acute (8) E-coli UTI Status: Acute Discharge Plan - Patient Discharge Instructions ACTIVITY: Continue current activity DIET: continue same diet Patient Instructions: DI for Chronic Obstructive Pulmonary Disease, DI for Pneumonia -- Adult, DI for Urinary Tract Infection (UTI) - Follow up Plan Follow up with: Mingo Bryant MD [Emergency Provider] - 08/28/18 Estevan Eaton MD [Staff Physician] - 08/28/18 Disposition: Home, Self-Snf Medications: Home Medications Medication Instructions Recorded Confirmed Type fluticasone furoate 200 1 inh INHALATION DAILY 06/19/17 08/22/18 History mcg-vilanterol 25 mcg/dose inhalation powder umeclidinium 62.5 mcg/actuation 1 inh INHALATION DAILY 10/30/17 08/22/18 History blister powder for inhalation bisoprolol fumarate 5 mg tablet 5 mg PO DAILY #30 tab 06/12/18 08/22/18 Rx phentermine 37.5 mg capsule 37.5 mg PO DAILY #30 cap 07/27/18 08/22/18 Rx Cholecalciferol (Vitamin D3) 50,000 unit PO WEEKLY 08/22/18 08/22/18 History [Vitamin D3 50,000 unit Cap] Lisinopril [Lisinopril 20mg Tab] 20 mg PO DAILY 08/22/18 08/22/18 History Sulfamethoxazole/Trimethoprim 1 each PO BID 7 Days #14 tablet 08/23/18 Rx [Bactrim DS tablet] Prescriptions/Medication Reconciliation: New Albuterol Sulfate [Albuterol 0.083% 2.5mg/3mL neb] 2.5 mg IH Q6RT vial.neb Sulfamethoxazole/Trimethoprim [Bactrim DS tablet] 1 each PO BID 7 Days #14 tablet Continue fluticasone furoate 200 mcg-vilanterol 25 mcg/dose inhalation powder 1 inh INHALATION DAILY bisoprolol fumarate 5 mg tablet 5 mg PO DAILY #30 tab phentermine 37.5 mg capsule 37.5 mg PO DAILY #30 cap umeclidinium 62.5 mcg/actuation blister powder for inhalation 1 inh INHALATION DAILY Lisinopril [Lisinopril 20mg Tab] 20 mg PO DAILY Cholecalciferol (Vitamin D3) [Vitamin D3 50,000 unit Cap] 50,000 unit PO WEEKLY
== END 2018-08-23 14:15 | disposition home or self-care (01) | DRG 190 ==
LOC: 2ND 22:51 → ER 22:51 → 2ND 08-22 02:23
PROVIDERS: ADMIT Emergency Medicine; ATTEND Emergency Medicine
CPT/HCPCS: 36415; 71010; 71045; 74000; 74018; 74176; 80048; 80053; 81001; 83605; 83735; 84484; 85007; 85025; 87040; 87070; 87086; 87088; 87186; 87205; 87275; 87276; 94640; 94761; 96365; 96367; 96375; 99285; J0456; J1335; J2405

== ENCOUNTER → 2018-08-28 12:19 | Outpatient (CLI) | payer MEDICARE, MEDICAID, SELFPAY ==
--- NOTE | 2018-08-28 12:27 | XR_ITS ---
XR KUB HISTORY: ITS.REASON: kidney stones ORDERING PHYSICIAN: Estevan Eaton MD PATIENT AGE: 58 years COMPARISON: KUB 08/23/2018 FINDINGS: The bowel gas pattern is unremarkable. No obvious obstruction.. The tiny possible calcification near the expected UV junction seen on the KUB of 08/23/2018 is not deftly seen though could possibly be obscured by overlying stool within the rectum. No other suspicious calcifications are seen overlying either kidney or in the pelvis. IMPRESSION: Probable interval passage of the right-sided distal ureteral calculus
== END ==
PROVIDERS: PCP Emergency Medicine; Visit Provider Urology
DX: N20.0 Calculus of kidney (principal)
CPT/HCPCS: 74018

== ENCOUNTER → 2019-06-05 11:11 | Outpatient (CLI) | payer MEDICARE, MEDICAID, SELFPAY ==
--- NOTE | 2019-06-05 11:24 | XR_ITS ---
PROCEDURE: XR CHEST 2V CLINICAL HISTORY: Puffiness in neck COMPARISON: CXR-PICC CHEST PORTABLE-PICC PLACEMENT from 04/27/2016 CXR-PICC CHEST PORTABLE-PICC PLACEMENT from 04/27/[address] CHEST W/WO CONTRAST from 03/21/2017 CXR CHEST(2 VIEWS-NOT PORTABLE) from 05/23/2017 CXR1VP XR chest portable from 08/22/2018 FINDINGS: The cardiomediastinal silhouette and pulmonary vascularity are within normal limits. There is increased density in the right lung base medially consistent with a prominent pericardial fat pad. In addition, there is superimposed increased density in the right perihilar region. This may be related to perihilar infiltrate or even mass. Consider chest CT with contrast for further evaluation. No acute bony abnormalities. IMPRESSION: Increased density in the right mid lung zone which may be due to an area of pneumonia versus developing nodule or fibrosis. Recommend chest CT with contrast for further evaluation Dictated by: Elfego Gastelum MD 06/05/2019 12:41 Electronically signed by Elfego Gastelum MD in [place] 06/05/2019 12:41
== END ==
PROVIDERS: PCP Physician Assistant; Visit Provider Physician Assistant
DX: R22.1 Localized swelling, mass and lump, neck (principal)
CPT/HCPCS: 71046

== ENCOUNTER → 2019-07-01 10:28 | Outpatient (CLI) | payer MEDICARE, MEDICAID, SELFPAY ==
--- NOTE | 2019-07-01 10:39 | CT_ITS ---
PROCEDURE: CT CHEST W CON CLINCAL INDICATION: increased lung density right mid lobe Follow-up abnormal chest x-ray COMPARISON: [facility]WO CT CHEST W/WO CONTRAST from 03/21/2017 CXR1VP XR chest portable from 08/22/[id number] abdomen pelvis wo con from 08/22/2018 XR CHEST 2V from 06/05/2019 TECHNIQUE: IV Contrast: 75ml Optiray 350 Axial images obtained with sagittal and coronal reformats. All CT scans at the facility use one or more dose reduction, viz: automated exposure control, ma/kV adjustment per patient size (including targeted exams where dose is matched to indication, i.e. head), or iterative reconstruction technique. FINDINGS: No mediastinal or hilar mass or adenopathy. Normal heart size without evidence of pericardial effusion. There are mild centrilobular and paraseptal emphysematous changes. There has been interval development of an irregular spiculated nodule in the right middle lobe laterally and anteriorly abutting the minor fissure measuring 1.7 by 1.9 cm. There is some mild cavitation posteriorly. There is some mild scarring in the right middle lobe medially. Calcified granulomas present in the left lung base posteriorly. The left lung is clear. No acute finding in the upper abdomen. No acute bony findings. IMPRESSION: 1. 1.9 cm spiculated lesion in the right middle lobe with some peripheral cavitation. This is suspicious for neoplasm. Suggest PET-CT and pulmonary consult. 2. Centrilobular emphysema with COPD Dictated by: Elfego Gastelum MD 07/02/2019 08:21 Electronically signed by Elfego Gastelum MD in [facility] 07/02/2019 08:21
[2019-07-01 10:55] LABS: Blood Urea Nitrogen 21 mg/dL (7-18); Creatinine,Serum 0.82 mg/dL (0.55-1.02); Estimated Glomerular Filt Rate 71 ml/min (>60); GFR (African American) 86 ML/MIN (>60)
== END ==
PROVIDERS: PCP Physician Assistant; Visit Provider Physician Assistant
DX: R93.89 Abnormal findings on diagnostic imaging of other specified body structures (principal)
CPT/HCPCS: 36415; 71260; 82565; 84520; Q9967

== ENCOUNTER → 2019-08-08 15:18 | Outpatient (CLI) | payer MEDICARE, MEDICAID, SELFPAY ==
--- NOTE | 2019-08-08 15:30 | ECG_ITS ---
APPROVED REPORT Exam: Resting ECG HR:109 bpm ECG Measurements Heart Rate 109 AXES SC 138 P 66 QRSd 76 QRS -25 QT 364 T 26 QTc 490 <Conclusion> Sinus tachycardia with frequent premature ventricular complexes Low voltage QRS Borderline ECG Electronically signed by : Ji Muñiz, 08/16/2019 08:00:58
[2019-08-08 15:33] LABS: Basophils # 0.1 K/mm3 (0-0.2); Basophils % 0.6 % (0.1-2.0); Eosinophils # 0.3 K/mm3 (0.0-0.4); Hematocrit 44.9 % (37.0-47.0); Hemoglobin 14.4 g/dL (12.2-16.2); Lymphocytes # 3.1 K/mm3 (0.7-4.5); Lymphocytes % 23.2 % (10-50); Mean Corpuscular HGB Conc 32.1 g/dL (31.8-35.4); Mean Corpuscular Hemoglobin 32.7 pg (27.0-31.2); Mean Corpuscular Volume 101.7 fl (81-99); Mean Platelet Volume 8.1 fl (7.4-10.4); Monocytes # 0.9 K/mm3 (0.1-1.0); Monocytes % 6.7 % (1.7-9.3); Neutrophils # 9.1 K/mm3 (1.8-7.8); Neutrophils % 67.4 % (37.0-80.0); Platelet Count 357 K/mm3 (142-424); Red Blood Count 4.41 M/mm3 (4.20-5.40); Red Cell Distribution Width 13.1 % (11.5-17.5); White Blood Count 13.5 K/mm3 (4.8-10.8)
[2019-08-08 17:04] LABS: Alanine Aminotransferase 23 U/L (12-78); Albumin Level 4.3 g/dl (3.5-5.0); Albumin/Globulin Ratio 1.7 (1.1-1.8); Alkaline Phosphatase 76 U/L (38-126); Anion Gap 16.9 mEq/L (5-15); Aspartate Amino Transferase 23 U/L (14-36); Blood Urea Nitrogen 21 mg/dl (7-17); Calcium 10.2 mg/dl (8.4-10.2); Carbon Dioxide 24 mmol/L (22.0-30.0); Chloride 103 mmol/L (98-107); Estimated Glomerular Filt Rate 85 ml/min (>60); GFR (African American) 103 ML/MIN (>60); Globulin 2.5 g/dL (1.3-3.2); Glucose 99 mg/dl (74-100); Potassium 4.9 mmoL/L (3.5-5.1); Sodium 139 mmol/L (136-145); Total Protein,Serum 6.8 g/dl (6.3-8.2)
[2019-08-08 17:09] LABS: Bilirubin,Total < 0.1 mg/dl (0.2-1.3)
== END ==
PROVIDERS: Visit Provider Otolaryngology
DX: Z01.818 Encounter for other preprocedural examination (principal); C09.9 Malignant neoplasm of tonsil, unspecified
CPT/HCPCS: 36415; 80053; 85025; 93005

== ENCOUNTER → 2019-09-24 08:40 | Outpatient (CLI) | payer MEDICARE, MEDICAID, SELFPAY ==
--- NOTE | 2019-09-24 08:40 | MR_ITS ---
PROCEDURE: MR HEAD/BRAIN W CON CLINICAL INDICATION: lung cancer Lung cancer, evaluate for metastatic disease COMPARISON: LDCTLCAS LDCT FOR LUNG CA SCREEN from 12/19/[address] CHEST W/WO CONTRAST from 03/21/2017 CT CHEST W CON from 07/01/2019 TECHNIQUE: Routine multiplanar multi echo sequences are performed without and with gadolinium enhancement. FINDINGS: No midline shift, mass effect, intracranial hemorrhage, or hydrocephalus is evident.. There are a few scattered periventricular and subcortical T2 white matter hyperintensities. A small area T2 white matter hyperintensities noted in the mid aspect of the right parietal lobe. This area shows some very faint contrast enhancement. This is not as well circumscribed as what 1 would expect for mass lesion. Continued follow-up is suggested. This could represent a subacute area of ischemia as there is only slight increased diffusion signal at this area. On series 9, image 20 there is a small focus of rounded increased signal intensity in the para fall seen region which is felt to be due to partial volume averaging artifact from an overlying vessel and not a true enhancing lesion. This is not duplicated on the coronal images The cerebellopontine angle, cerebellum, and brainstem are unremarkable there is partial empty sella as a normal variant. The optic chiasm, corpus callosum, and craniocervical junction have an unremarkable appearance. No mastoid effusion or sinus air-fluid level. There is some mild mucosal thickening of the right and left maxillary sinus with retention cyst in the right maxillary sinus at 1 cm. IMPRESSION: 1. There is a faint area of contrast enhancement in the central white matter of the right parietal lobe showing some slight increased T2 signal at this area. This is of questionable clinical significance and not a typical appearance for metastatic focus possibly due to subacute ischemic change. Suggest 3 month follow-up without and with contrast. 2. Otherwise essentially negative MRI of the brain without and with contrast Dictated by: Elfego Gastelum MD 09/25/2019 11:17 Electronically signed by Elfego Gastelum MD in [facility] 09/25/2019 11:17
[2019-09-24 09:24] LABS: Chloride 103 mmol/L (98-107); Potassium 4.7 mmoL/L (3.5-5.1); Sodium 138 mmol/L (136-145)
[2019-09-24 09:27] LABS: Anion Gap 10.7 mEq/L (5-15); Blood Urea Nitrogen 23 mg/dl (7-17); Calcium 9.9 mg/dl (8.4-10.2); Carbon Dioxide 29 mmol/L (22.0-30.0); Estimated Glomerular Filt Rate 50 ml/min (>60); GFR (African American) 61 ML/MIN (>60); Glucose 100 mg/dl (74-100)
--- NOTE | 2019-10-16 14:19 | SW/DCPLANNER ---
I have provided this patient with information via Dr Bryant office staff regarding [employer].
== END ==
PROVIDERS: PCP Physician Assistant; Visit Provider Physician Assistant
DX: C34.90 Malignant neoplasm of unspecified part of unspecified bronchus or lung (principal); Z01.818 Encounter for other preprocedural examination
CPT/HCPCS: 36415; 70552; 80048; A9576

== ENCOUNTER → 2019-12-07 08:49 | Outpatient (CLI) | payer MEDICARE, MEDICAID, SELFPAY ==
[2019-12-07 11:02] LABS: 25-OH Vitamin D, Total 77.4 ng/mL (30-100)
== END ==
PROVIDERS: Visit Provider Nurse Practitioner
DX: E55.9 Vitamin D deficiency, unspecified (principal)
CPT/HCPCS: 36415; 82306

== ENCOUNTER → 2020-02-05 09:13 | Outpatient (CLI) | payer MEDICARE, MEDICAID, SELFPAY ==
[2020-02-05 09:33] LABS: Chloride 107 mmol/L (98-107); Potassium 4.4 mmoL/L (3.5-5.1); Sodium 138 mmol/L (136-145)
[2020-02-05 09:36] LABS: Anion Gap 14.4 mEq/L (5-15); Blood Urea Nitrogen 27 mg/dl (7-17); Carbon Dioxide 21 mmol/L (22.0-30.0); Estimated Glomerular Filt Rate 85 ml/min (>60); GFR (African American) 103 ML/MIN (>60); Glucose 150 mg/dl (74-100)
[2020-02-05 09:37] LABS: Calcium 8.9 mg/dl (8.4-10.2)
--- NOTE | 2020-02-05 10:22 | MR_ITS ---
PROCEDURE: MR HEAD/BRAIN WO/W CON CLINICAL INDICATION: Lung cancer, evaluate for metastatic disease, follow-up abnormal brain MRI 3 month f/u to prior MRI brain done 09/24/19. 17 ml prohance used for contrast lot#[id number] EXP:2022. BUN: 27 CREAT:.07 GFR:85 COMPARISON: MR MR HEAD/BRAIN W CON from 09/24/2019 TECHNIQUE: Routine multiplanar multi echo sequences are performed without gadolinium enhancement. FINDINGS: There is mild degree of motion artifact. No midline shift or acute infarction evident. There remains a small area increased FLAIR signal in the right parietal lobe white matter similar to the previous exam. This does demonstrate some minimal contrast enhancement as before overall not significantly changed. No new areas of enhancement are apparent. The cerebellopontine angles, cerebellum, and brainstem are unremarkable. The pituitary, optic chiasm, corpus callosum, and craniocervical junction have an unremarkable appearance. No mastoid effusion or sinus air-fluid level. IMPRESSION: Stable MRI appearance of the brain. There remains a small area of increased STIR signal with minimal enhancement in the deep white matter of the right parietal lobe not significantly changed the with no new lesions apparent. Dictated by: Elfego Gastelum MD 02/06/2020 12:03 Elfego Gastelum MD in [facility] 02/06/2020 12:03
== END ==
PROVIDERS: PCP Physician Assistant; Visit Provider Physician Assistant
DX: Z01.818 Encounter for other preprocedural examination (principal); C34.90 Malignant neoplasm of unspecified part of unspecified bronchus or lung; R93.0 Abnormal findings on diagnostic imaging of skull and head, not elsewhere classified
CPT/HCPCS: 36415; 70553; 80048; A9576

== ENCOUNTER → 2020-02-18 15:10 | Outpatient (CLI) | payer MEDICARE, MEDICAID, SELFPAY ==
--- NOTE | 2020-02-18 15:18 | XR_ITS ---
PROCEDURE: XR CHEST PORTABLE CLINICAL HISTORY: COVID TESTING COMPARISON: CR CXR CHEST(2 VIEWS-NOT PORTABLE) from 05/23/2017 CR CXR1VP XR chest portable from 08/22/2018 DX XR CHEST 2V from 06/05/[address] CHEST W CON from 07/01/2019 FINDINGS: The cardiomediastinal silhouette and pulmonary vascularity are within normal limits. There are prominent bilateral pericardial fat pads with resultant increased density in the pericardial region on both sides. In addition there is increased density in the right lower lung zone. This may be related to superimposed pulmonary mass which was seen on 07/01/[address] may confirm. Upper lobes are clear. No acute bony abnormalities. IMPRESSION: Prominent pericardial fat pads with superimpose density in the right lower lung zone which may be related to superimposed mass which may be confirmed with CT. Dictated by: Elfego Gastelum MD 02/18/2020 16:15 Elfego Gastelum MD in [facility] 02/18/2020 16:15
[2020-02-20 15:16] LABS: Covid-19 Nasal PCR Sendout Lex Not Detected
== END ==
PROVIDERS: PCP Physician Assistant; Visit Provider Physician Assistant
DX: Z20.828 Contact with and (suspected) exposure to other viral communicable diseases (principal)
CPT/HCPCS: 71045; U0004

== ENCOUNTER → 2020-04-17 08:09 | Outpatient (CLI) | payer MEDICARE, MEDICAID, SELFPAY ==
--- NOTE | 2020-04-17 08:09 | MM_ITS ---
PROCEDURE: MM DIG SCREENING MAMM BI W/CAD Digital Breast Tomosynthesis Included CLINICAL INDICATION: breast cancer screenig COMPARISON: MG DMSB DIGITAL MAMM-SCREEN BILATERAL from 10/01/2012 MG DMSB DIG MAMM-SCREEN VANIA from 09/14/2015 MG SCBI MM Dig screening mamm BI w/CAD from 06/19/2017 TECHNIQUE: Standard CC and MLO images and 3D Tomosynthesis was obtained. R2 CAD reviewed. FINDINGS: Average fibroglandular tissue. No malignant appearing mass or malignant-appearing microcalcification. Bilateral benign-appearing nodular opacities unchanged. Small nodes in the axilla IMPRESSION: BI-RAD Category: 2 Benign Finding(s) FOLLOW-UP: 1YR 1 Year Follow-up (A letter has been sent to the patient regarding results of the study.) Dictated by: Elfego Gastelum MD 04/22/2020 11:37 Elfego Gastelum MD in [place] 04/22/2020 11:37
--- NOTE | 2020-04-17 08:09 | XR_ITS ---
PROCEDURE: XR DEXA AXIAL SKELETON CLINICAL HISTORY: osteoporosis screening The patient is postmenopausal and currently taking vitamin-D. The patient has had recent radiation treatments to the upper abdomen COMPARISON: No exams were available for comparison FINDINGS: The right hip BMD is 0.737 grams/centimeters squared with a T-score of -1.7. The left hip BMD is 0.673 grams/centimeter squared with a T-score of -2.2. The lumbar spine BMD is 0.685 grams/centimeter squared with a T-score of -3.3. IMPRESSION: Right hip osteopenia Left hip Lumbar spine osteoporosis Based on these results a follow-up exam is recommended in 1-2 years year. Dictated by: Dr. Ronak Graham MD 04/17/2020 11:51 Dr. Ronak Graham MD in [facility] 04/17/2020 11:51
== END ==
PROVIDERS: PCP Physician Assistant; Visit Provider Physician Assistant
DX: Z12.31 Encounter for screening mammogram for malignant neoplasm of breast (principal); Z78.0 Asymptomatic menopausal state
CPT/HCPCS: 77063; 77067; 77080

== ENCOUNTER → 2020-06-01 13:25 | Outpatient (CLI) | payer MEDICARE, MEDICAID, SELFPAY ==
[2020-06-01 13:40] LABS: Basophils # 0.1 K/mm3 (0-0.2); Basophils % 0.8 % (0.1-2.0); Eosinophils # 0.1 K/mm3 (0.0-0.4); Eosinophils % 1.3 % (0.1-12.0); Hemoglobin 16.2 g/dL (12.2-16.2); Lymphocytes # 1.1 K/mm3 (0.7-4.5); Lymphocytes % 15.1 % (10-50); Mean Corpuscular HGB Conc 31.3 g/dL (31.8-35.4); Mean Corpuscular Hemoglobin 33.1 pg (27.0-31.2); Mean Corpuscular Volume 106.1 fl (81-99); Monocytes # 0.5 K/mm3 (0.1-1.0); Monocytes % 7.2 % (1.7-9.3); Neutrophils # 5.3 K/mm3 (1.8-7.8); Neutrophils % 75.6 % (37.0-80.0); Platelet Count 347 K/mm3 (142-424); Red Cell Distribution Width 14.5 % (11.5-17.5)
[2020-06-01 14:09] LABS: Alanine Aminotransferase 21 U/L (12-78); Albumin Level 4.1 g/dl (3.5-5.0); Albumin/Globulin Ratio 1.5 (1.1-1.8); Alkaline Phosphatase 97 U/L (38-126); Anion Gap 13.7 mEq/L (5-15); Aspartate Amino Transferase 24 U/L (14-36); Bilirubin,Total 0.4 mg/dl (0.2-1.3); Blood Urea Nitrogen 12 mg/dl (7-17); Calcium 9.2 mg/dl (8.4-10.2); Carbon Dioxide 25 mmol/L (22.0-30.0); Chloride 104 mmol/L (98-107); Chol/HDL Ratio 2.9 (1-3.5); Cholesterol 213 mg/dl (140-200); Estimated Glomerular Filt Rate 85 ml/min (>60); GFR (African American) 103 ML/MIN (>60); Globulin 2.7 g/dL (1.3-3.2); Glucose 104 mg/dl (74-100); HDL Cholesterol 74 mg/dl (40-60); Potassium 4.7 mmoL/L (3.5-5.1); Sodium 138 mmol/L (136-145); Total Protein,Serum 6.8 g/dl (6.3-8.2); Triglycerides 287 mg/dl (30-150); VLDL Cholesterol 57 mg/dL (0-40)
[2020-06-01 14:20] LABS: Direct LDL Cholesterol 101.19 mg/dL (100-129)
[2020-06-01 14:25] LABS: 25-OH Vitamin D, Total 71.8 ng/mL (30-100)
[2020-06-01 14:26] LABS: Free T4 (Free Thyroxine) 1.21 ng/dl (0.78-2.19)
[2020-06-01 14:39] LABS: Thyroid Stimulating Hormone 1.32 uIU/mL (0.465-4.68)
== END ==
PROVIDERS: Visit Provider Physician Assistant
DX: C34.90 Malignant neoplasm of unspecified part of unspecified bronchus or lung (principal); E55.9 Vitamin D deficiency, unspecified; I10 Essential (primary) hypertension
CPT/HCPCS: 80053; 80061; 82306; 84439; 84443; 85025

== ENCOUNTER → 2020-07-29 14:08 | Outpatient (CLI) | payer MEDICARE, MEDICAID, SELFPAY ==
[2020-07-29 14:40] LABS: Amphetamine/Metha Screen,Urine Negative ng/ml (<1000)
[2020-07-29 14:41] LABS: Barbiturates Screen,Urine Negative ng/ml (<200)
[2020-07-29 14:42] LABS: Benzodiazepines Screen,Urine Negative ng/ml (<200); Cannabinoid Screen,Urine Positive ng/ml (<50)
[2020-07-29 14:45] LABS: Cocaine Screen,Urine Negative ng/ml (<300); Methadone Screen,Urine Negative ng/ml (<300)
[2020-07-29 14:46] LABS: Opiate Screen,Urine Negative ng/ml (<300)
[2020-07-29 14:47] LABS: Phencyclidine Screen,Urine Negative ng/ml (<25)
== END ==
PROVIDERS: Visit Provider Physician Assistant
DX: Z79.899 Other long term (current) drug therapy (principal)
CPT/HCPCS: 80305

== ENCOUNTER 2020-08-03 08:05 | Outpatient (CLI) | payer MEDICARE, MEDICAID, SELFPAY ==
[2020-08-03 08:13] VITALS: BMI 34.0
[2020-08-03 08:46] LABS: Basophils # 0.1 K/mm3 (0-0.2); Basophils % 0.6 % (0.1-2.0); Eosinophils # 0.1 K/mm3 (0.0-0.4); Eosinophils % 0.9 % (0.1-12.0); Hematocrit 42.5 % (37.0-47.0); Hemoglobin 13.4 g/dL (12.2-16.2); Lymphocytes # 1.5 K/mm3 (0.7-4.5); Lymphocytes % 11.4 % (10-50); Mean Corpuscular HGB Conc 31.6 g/dL (31.8-35.4); Mean Corpuscular Hemoglobin 32.8 pg (27.0-31.2); Mean Corpuscular Volume 103.9 fl (81-99); Monocytes # 0.8 K/mm3 (0.1-1.0); Monocytes % 6.1 % (1.7-9.3); Neutrophils # 10.9 K/mm3 (1.8-7.8); Platelet Count 356 K/mm3 (142-424); Red Blood Count 4.09 M/mm3 (4.20-5.40); Red Cell Distribution Width 14.8 % (11.5-17.5); White Blood Count 13.4 K/mm3 (4.8-10.8)
[2020-08-03 08:50] LABS: Alanine Aminotransferase 21 U/L (12-78); Albumin Level 3.8 g/dl (3.5-5.0); Albumin/Globulin Ratio 1.5 (1.1-1.8); Alkaline Phosphatase 71 U/L (38-126); Anion Gap 9.1 mEq/L (5-15); Aspartate Amino Transferase 22 U/L (14-36); Bilirubin,Total 0.3 mg/dl (0.2-1.3); Blood Urea Nitrogen 24 mg/dl (7-17); Calcium 9.2 mg/dl (8.4-10.2); Carbon Dioxide 26 mmol/L (22.0-30.0); Chloride 108 mmol/L (98-107); Creatinine Clearance Estimated 76 mL/min (50-200); Estimated Glomerular Filt Rate 85 ml/min (>60); GFR (African American) 103 ML/MIN (>60); Globulin 2.5 g/dL (1.3-3.2); Glucose 99 mg/dl (74-100); Potassium 4.1 mmoL/L (3.5-5.1); Sodium 139 mmol/L (136-145); Total Protein,Serum 6.3 g/dl (6.3-8.2)
[2020-08-03 09:40] VITALS: BP 116/72; PULSE 86; RESP 18; TEMP 36.3; O2SAT 96
[2020-08-03 09:55] VITALS: BP 136/78; PULSE 98; RESP 18
[2020-08-03 10:10] VITALS: BP 119/79; PULSE 83; RESP 18
[2020-08-03 10:25] VITALS: BP 126/78; PULSE 80; RESP 18
[2020-08-03 10:50] VITALS: BP 122/73; PULSE 81; RESP 18
[2020-08-04 17:35] LABS: Adrenocorticotropic Hormone 2.9 pg/mL (7.2-63.3)
== END 2020-08-03 10:50 | disposition home or self-care (01) ==
LOC: INF 08:11
PROVIDERS: Visit Provider Internal Medicine Medical Oncology
DX: Z51.11 Encounter for antineoplastic chemotherapy (principal); C34.91 Malignant neoplasm of unspecified part of right bronchus or lung; Z79.899 Other long term (current) drug therapy
CPT/HCPCS: 80053; 82024; 82533; 84443; 85025; 96413; J9173

== ENCOUNTER 2020-08-27 08:13 | Outpatient (CLI) | payer MEDICARE, MEDICAID, SELFPAY ==
[2020-08-27 08:17] VITALS: BMI 32.1
[2020-08-27 09:02] LABS: Basophils % 0.4 % (0.1-2.0); Eosinophils # 0.1 K/mm3 (0.0-0.4); Hematocrit 41.3 % (37.0-47.0); Hemoglobin 12.5 g/dL (12.2-16.2); Lymphocytes # 0.6 K/mm3 (0.7-4.5); Lymphocytes % 5.8 % (10-50); Mean Corpuscular HGB Conc 30.3 g/dL (31.8-35.4); Mean Corpuscular Hemoglobin 32.7 pg (27.0-31.2); Mean Corpuscular Volume 107.9 fl (81-99); Monocytes # 0.5 K/mm3 (0.1-1.0); Monocytes % 4.4 % (1.7-9.3); Neutrophils # 9.6 K/mm3 (1.8-7.8); Neutrophils % 88.4 % (37.0-80.0); Platelet Count 352 K/mm3 (142-424); Red Blood Count 3.83 M/mm3 (4.20-5.40); Red Cell Distribution Width 14.9 % (11.5-17.5); White Blood Count 10.8 K/mm3 (4.8-10.8)
[2020-08-27 09:06] LABS: MANUAL DIFFERENTIAL MANUAL DIFFERENTIAL (MANUAL DIFF)
[2020-08-27 09:19] LABS: Eosinophils % 4 % (0-3); Lymphocytes % 8 % (10-50); Monocytes % 6 % (2-9); Neutrophils % 82 % (42-76); Total Cells Counted 100
[2020-08-27 09:20] LABS: Macrocytosis 2+; Platelet Estimate Normal
[2020-08-27 09:59] LABS: Chloride 107 mmol/L (98-107); Potassium 4.2 mmoL/L (3.5-5.1); Sodium 138 mmol/L (136-145)
[2020-08-27 10:02] LABS: Alanine Aminotransferase 19 U/L (12-78); Albumin Level 3.9 g/dl (3.5-5.0); Albumin/Globulin Ratio 1.4 (1.1-1.8); Alkaline Phosphatase 78 U/L (38-126); Anion Gap 7.2 mEq/L (5-15); Aspartate Amino Transferase 24 U/L (14-36); Bilirubin,Total 0.6 mg/dl (0.2-1.3); Blood Urea Nitrogen 14 mg/dl (7-17); Carbon Dioxide 28 mmol/L (22.0-30.0); Creatinine Clearance Estimated 71 mL/min (50-200); Estimated Glomerular Filt Rate 101 ml/min (>60); GFR (African American) 123 ML/MIN (>60); Globulin 2.7 g/dL (1.3-3.2); Total Protein,Serum 6.6 g/dl (6.3-8.2)
[2020-08-27 10:03] LABS: Calcium 9.4 mg/dl (8.4-10.2); Glucose 124 mg/dl (74-100)
[2020-08-27 10:10] VITALS: BP 116/57; PULSE 95; RESP 20; TEMP 36.4; O2SAT 96
[2020-08-27 10:25] VITALS: BP 113/77; PULSE 91; RESP 18
[2020-08-27 10:34] LABS: Thyroid Stimulating Hormone 0.75 uIU/mL (0.465-4.68)
[2020-08-27 10:40] VITALS: BP 123/78; PULSE 87; RESP 18
[2020-08-27 10:55] VITALS: BP 102/70; PULSE 95; RESP 18
[2020-08-27 11:10] VITALS: BP 139/94; PULSE 102; RESP 18
[2020-08-27 11:25] VITALS: BP 117/78; PULSE 96; RESP 18
[2020-08-29 14:51] LABS: Adrenocorticotropic Hormone 35.5 pg/mL (7.2-63.3)
== END 2020-08-27 11:25 | disposition home or self-care (01) ==
LOC: INF 08:16
PROVIDERS: Visit Provider Internal Medicine Medical Oncology
DX: Z51.11 Encounter for antineoplastic chemotherapy (principal); Z79.899 Other long term (current) drug therapy; C34.91 Malignant neoplasm of unspecified part of right bronchus or lung
CPT/HCPCS: 80053; 82024; 82533; 84443; 85007; 85025; 96413; J2405; J9173

== ENCOUNTER 2020-10-15 08:38 | Outpatient (CLI) | payer MEDICARE, MEDICAID, SELFPAY ==
[2020-10-15 08:42] VITALS: BMI 32.8
[2020-10-15 08:57] LABS: Basophils # 0.1 K/mm3 (0-0.2); Basophils % 1.1 % (0.1-2.0); Eosinophils # 0.3 K/mm3 (0.0-0.4); Eosinophils % 2.9 % (0.1-12.0); Hematocrit 46.9 % (37.0-47.0); Hemoglobin 15.3 g/dL (12.2-16.2); Lymphocytes # 1.5 K/mm3 (0.7-4.5); Lymphocytes % 16.6 % (10-50); Mean Corpuscular HGB Conc 32.5 g/dL (31.8-35.4); Mean Corpuscular Hemoglobin 33.5 pg (27.0-31.2); Mean Platelet Volume 7.9 fl (7.4-10.4); Monocytes # 0.6 K/mm3 (0.1-1.0); Monocytes % 6.9 % (1.7-9.3); Neutrophils # 6.6 K/mm3 (1.8-7.8); Neutrophils % 72.6 % (37.0-80.0); Platelet Count 413 K/mm3 (142-424); Red Blood Count 4.55 M/mm3 (4.20-5.40); Red Cell Distribution Width 14.6 % (11.5-17.5); White Blood Count 9.1 K/mm3 (4.8-10.8)
[2020-10-15 09:05] LABS: Chloride 104 mmol/L (98-107); Potassium 4.4 mmoL/L (3.5-5.1); Sodium 138 mmol/L (136-145)
[2020-10-15 09:08] LABS: Alanine Aminotransferase 22 U/L (12-78); Albumin Level 4.4 g/dl (3.5-5.0); Albumin/Globulin Ratio 1.6 (1.1-1.8); Alkaline Phosphatase 75 U/L (38-126); Anion Gap 11.4 mEq/L (5-15); Aspartate Amino Transferase 24 U/L (14-36); Bilirubin,Total 0.3 mg/dl (0.2-1.3); Blood Urea Nitrogen 17 mg/dl (7-17); Carbon Dioxide 27 mmol/L (22.0-30.0); Creatinine Clearance Estimated 73 mL/min (50-200); Estimated Glomerular Filt Rate 73 ml/min (>60); GFR (African American) 88 ML/MIN (>60); Globulin 2.7 g/dL (1.3-3.2); Total Protein,Serum 7.1 g/dl (6.3-8.2)
[2020-10-15 09:09] LABS: Calcium 9.4 mg/dl (8.4-10.2); Glucose 108 mg/dl (74-100)
[2020-10-15 09:39] LABS: Thyroid Stimulating Hormone 1.27 uIU/mL (0.465-4.68)
[2020-10-15 10:55] VITALS: BP 89/64; PULSE 94; RESP 20; TEMP 36.4; O2SAT 95
[2020-10-15 11:15] VITALS: BP 97/57; PULSE 94; RESP 18
[2020-10-15 11:30] VITALS: BP 89/63; PULSE 97; RESP 18
[2020-10-15 11:45] VITALS: BP 101/63; PULSE 98; RESP 18
[2020-10-15 13:24] VITALS: BP 104/68; PULSE 100; RESP 18
== END 2020-10-15 12:00 | disposition home or self-care (01) ==
LOC: INF 08:38
PROVIDERS: Visit Provider Internal Medicine Medical Oncology
DX: C34.90 Malignant neoplasm of unspecified part of unspecified bronchus or lung (principal); Z79.899 Other long term (current) drug therapy; Z51.11 Encounter for antineoplastic chemotherapy
CPT/HCPCS: 80053; 82024; 82533; 84443; 85025; 96413; J2405; J9173

== ENCOUNTER → 2020-10-29 08:07 | Outpatient (CLI) | payer MEDICARE, MEDICAID, SELFPAY ==
[2020-10-29 09:02] LABS: Blood Urea Nitrogen 19 mg/dl (7-17); Estimated Glomerular Filt Rate 85 ml/min (>60); GFR (African American) 103 ML/MIN (>60)
== END ==
PROVIDERS: Visit Provider Internal Medicine Medical Oncology
DX: Z01.812 Encounter for preprocedural laboratory examination (principal); C34.90 Malignant neoplasm of unspecified part of unspecified bronchus or lung
CPT/HCPCS: 36415; 82565; 84520

== ENCOUNTER → 2020-11-06 08:37 | Outpatient (CLI) | payer MEDICARE, MEDICAID, SELFPAY ==
--- NOTE | 2020-11-06 08:47 | CT_ITS ---
PROCEDURE INFORMATION: Exam: CT Chest With Contrast; Diagnostic Exam date and time: 11/06/2020 8:47 AM Age: 60 years old Clinical indication: Condition or disease; Lung condition and disease; Cancer of the lung; Right; Other: . ; Follow-up oncological assessment; Patient HX: Follow up lung CA, PT on immunotherapy TECHNIQUE: Imaging protocol: Diagnostic computed tomography of the chest with contrast. Radiation optimization: All CT scans at this facility use at least one of these dose optimization techniques: automated exposure control; mA and/or kV adjustment per patient size (includes targeted exams where dose is matched to clinical indication); or iterative reconstruction. Contrast material: ISOVUE 370; Contrast volume: 75 ml; Contrast route: IV; COMPARISON: CT CHEST W CON 07/01/2019 11:08 AM FINDINGS: Thyroid: A hyperdense/hyperenhancing left thyroid nodule of approximately 1.4 cm series 4, image 3, unchanged in the interval. Lungs: A spiculated nodular density in the right middle lobe seen on the previous CT from 07/01/2019 appears much less well-defined compared with the prior exam, this measured approximate 1.9 x 1.9 x 1.2 cm diameter by my measurement on the prior exam (axial image 41 and coronal image 29 of the prior study) but today the lesion is not well differentiated from adjacent dense platelike atelectasis in the right middle lobe; compare sagittal series 602, image 26 of the prior study to sagittal series 602, image 30 of today's exam.. Cannot accurately measure the lesion on this exam. PET CT may help to differentiate atelectasis from underlying neoplasm. There are also increased areas of linear subsegmental atelectasis in the anterior right upper lobe, see series 4, images 36-40. There is a chronic calcified granuloma at the posterior left lung base series 4, image 61, and another lateral to the left hilum series 4, image 33. No new masses . Overall pulmonary hyperinflation, diaphragms appear flattened on the release coordinator topogram. Pleural spaces: Unremarkable. No pneumothorax. No pleural effusion. Heart: The heart is not enlarged. No significant pericardial effusion. A few coronary artery calcifications. Aorta: Some calcified plaques in the aorta.There is no aortic aneurysm.. Lymph nodes: Chronic calcified left hilar lymph nodes and tiny calcified mediastinal nodes.No significantly enlarged lymph nodes by short axis criteria. Kidneys and ureters: Left renal cortical thinning/atrophy, e.g. series 4, images 77-80. Bones/joints: Thoracic spine degenerative changes with multilevel disc disease, spondylosis, vacuum phenomenon. No acute appearing fracture or high-grade listhesis, as visualized.There are no lytic skeletal lesions seen. Soft tissues: There are no soft tissue masses or fluid collections. IMPRESSION: 1. There is new dense subsegmental atelectasis/partial collapse in the anteromedial right middle lobe and new atelectasis in the anterior right upper lobe, compared with 07/01/2019. 2. A 1.9 cm right middle lobe nodule seen on the prior exam is poorly delineated today, likely located within dense collapsed lung; cannot accurately measure this to determine if the lesion has enlarged, decreased or remained stable due to the surrounding atelectasis. Comparison with PET-CT may help to more accurately differentiate underlying neoplasm from atelectatic lung. 3. Chronic pulmonary hyperinflation and granulomatous changes. No new masses. 4. Chronic calcified mediastinal and left hilar nodes, no suspicious adenopathy in the interval. 5. Additional nonemergency and chronic findings as above. COMMENTS: Consistent with the [facility]
--- NOTE | 2020-11-06 08:47 | CT_ITS ---
PROCEDURE INFORMATION: Exam: CT Abdomen And Pelvis With Contrast Exam date and time: 11/06/2020 8:47 AM Age: 60 years old Clinical indication: Condition or disease; Cancer; Follow-up oncological assessment; Patient HX: F/u lung CA; PT on immunotherapy TECHNIQUE: Imaging protocol: Computed tomography of the abdomen and pelvis with contrast. Radiation optimization: All CT scans at this facility use at least one of these dose optimization techniques: automated exposure control; mA and/or kV adjustment per patient size (includes targeted exams where dose is matched to clinical indication); or iterative reconstruction. Contrast material: ISOVUE 370; Contrast volume: 75 ml; Contrast route: IV; Other contrast: Oral, redicat, 450ml; COMPARISON: ABDPELWO CT abdomen pelvis wo con 08/22/2018 12:19 AM FINDINGS: Liver: The liver is normal size. Parenchyma is slightly heterogeneous which could be due to mild patchy fatty change. No discrete mass. Gallbladder and bile ducts: The gallbladder is unremarkable. No calcified stones or biliary dilatation. Pancreas: Fatty atrophic changes in the pancreas. No mass or ductal dilatation. Spleen: The spleen is normal. Adrenal glands: The adrenal glands are normal. Kidneys and ureters: Areas of left renal cortical atrophy/scarring which are new compared with 2016, most prominent in the medial upper pole series 5, images 31-33. Multiple small left renal cortical cystic appearing lesions, largest approximately 1.4 cm in the anterior left kidney series 5, image 40 with simple benign appearance and enhanced HU density of 14. Subcentimeter lesions in the kidney are too small to accurately characterize. Some likely punctate nonobstructing right renal calculi, versus artifact from dense excreted contrast, see coronal series 604, images 52-53. A 4 x 3 x 3 mm calcified stone in the distal right ureter, located approximately 3-4 cm above the right ureterovesical junction, coronal series 604 image 58 and axial series 5 image 87. This has HU density measurement of 368, but is poorly seen on the service counter cashier topogram due to tiny size of the stone. There is minimal right pyelocaliectasis and proximal right ureterectasis compared with left. No calcified obstructing stones, hydronephrosis or hydroureter on the left. Stomach and bowel: Mild diverticulosis coli, no CT findings of acute diverticulitis.There is no evidence of intestinal perforation or obstruction. The stomach is normal. Appendix: No findings of appendicitis. Intraperitoneal space: There is no significant free intraperitoneal fluid. There is no free intraperitoneal air. Vasculature: The vasculature demonstrates scattered mild atherosclerotic calcification. There is no aortic aneurysm. No portal venous gas. Lymph nodes: No significantly enlarged lymph nodes by short axis criteria. Urinary bladder: The bladder is normal. Reproductive: Uterus and adnexa are unremarkable for age. No acute findings. Bones/joints: Spinal degenerative changes, multilevel disc disease, spondylosis and facet arthropathy. No acute appearing fracture or high-grade listhesis. Soft tissues: There is a tiny fatty umbilical hernia; no herniated bowel loops. There are no soft tissue masses or fluid collections. Other findings: For chest findings, please see the chest CT report. IMPRESSION: 1. 4 mm distal right ureteral stone, with minimal right pyelocaliectasis and ureterectasis compared with left. Some additional tiny punctate nonobstructing right renal calculi. 2. No other acute findings or metastatic disease seen in the abdomen or pelvis. 3. Additional nonemergency and chronic findings as above, including
== END ==
PROVIDERS: PCP Physician Assistant; Visit Provider Internal Medicine Medical Oncology
DX: C34.90 Malignant neoplasm of unspecified part of unspecified bronchus or lung (principal); Z03.89 Encounter for observation for other suspected diseases and conditions ruled out
CPT/HCPCS: 71260; 74177; Q9967

== ENCOUNTER 2020-11-13 08:16 | Outpatient (CLI) | payer MEDICARE, MEDICAID, SELFPAY ==
[2020-11-13 08:19] VITALS: BMI 33.2
[2020-11-13 08:42] LABS: Basophils # 0.1 K/mm3 (0-0.2); Basophils % 0.6 % (0.1-2.0); Eosinophils # 0.1 K/mm3 (0.0-0.4); Eosinophils % 1.1 % (0.1-12.0); Hemoglobin 14.7 g/dL (12.2-16.2); Lymphocytes # 1.4 K/mm3 (0.7-4.5); Lymphocytes % 11.8 % (10-50); Mean Corpuscular HGB Conc 32.7 g/dL (31.8-35.4); Mean Corpuscular Hemoglobin 33.6 pg (27.0-31.2); Mean Corpuscular Volume 102.8 fl (81-99); Mean Platelet Volume 7.8 fl (7.4-10.4); Monocytes # 0.6 K/mm3 (0.1-1.0); Monocytes % 5.2 % (1.7-9.3); Neutrophils # 9.4 K/mm3 (1.8-7.8); Neutrophils % 81.3 % (37.0-80.0); Platelet Count 308 K/mm3 (142-424); Red Blood Count 4.38 M/mm3 (4.20-5.40); Red Cell Distribution Width 14.3 % (11.5-17.5); White Blood Count 11.6 K/mm3 (4.8-10.8)
[2020-11-13 08:51] LABS: Chloride 107 mmol/L (98-107); Potassium 3.7 mmoL/L (3.5-5.1); Sodium 140 mmol/L (136-145)
[2020-11-13 08:53] LABS: Alanine Aminotransferase 18 U/L (12-78); Aspartate Amino Transferase 21 U/L (14-36); Blood Urea Nitrogen 17 mg/dl (7-17); Creatinine Clearance Estimated 74 mL/min (50-200); Estimated Glomerular Filt Rate 101 ml/min (>60); GFR (African American) 123 ML/MIN (>60)
[2020-11-13 08:54] LABS: Albumin Level 3.9 g/dl (3.5-5.0); Albumin/Globulin Ratio 1.5 (1.1-1.8); Alkaline Phosphatase 63 U/L (38-126); Anion Gap 10.7 mEq/L (5-15); Bilirubin,Total 0.4 mg/dl (0.2-1.3); Calcium 9.1 mg/dl (8.4-10.2); Carbon Dioxide 26 mmol/L (22.0-30.0); Globulin 2.6 g/dL (1.3-3.2); Glucose 111 mg/dl (74-100); Total Protein,Serum 6.5 g/dl (6.3-8.2)
[2020-11-13 09:25] LABS: Thyroid Stimulating Hormone 1.32 uIU/mL (0.465-4.68)
[2020-11-13 10:01] VITALS: BP 124/83; PULSE 86; RESP 17; TEMP 36.4; O2SAT 96
[2020-11-13 10:15] VITALS: BP 114/76; PULSE 90; O2SAT 99
[2020-11-13 10:30] VITALS: BP 116/83; PULSE 83; O2SAT 96
[2020-11-13 10:45] VITALS: BP 130/92; PULSE 85; O2SAT 99
[2020-11-13 11:00] VITALS: BP 134/90; PULSE 86; O2SAT 98
[2020-11-13 11:18] VITALS: BP 122/86; PULSE 87; RESP 17; TEMP 36.4; O2SAT 97
== END 2020-11-13 11:21 | disposition home or self-care (01) ==
LOC: INF 08:16
PROVIDERS: Visit Provider Internal Medicine Medical Oncology
DX: C34.90 Malignant neoplasm of unspecified part of unspecified bronchus or lung (principal); Z51.11 Encounter for antineoplastic chemotherapy; Z79.899 Other long term (current) drug therapy
CPT/HCPCS: 80053; 82024; 82533; 84443; 85025; 96413; J9173

== ENCOUNTER → 2020-12-08 09:30 | Outpatient (CLI) | payer MEDICARE, MEDICAID, SELFPAY ==
--- NOTE | 2020-12-08 09:32 | XR_ITS ---
PROCEDURE: XR KUB CLINICAL INDICATION: kidney stone COMPARISON: CT CT ABDOMEN PELVIS W CON from 11/06/2020 FINDINGS: Faint areas of increased density are present overlying the left kidney 1 of which is felt to be due to a kidney stone at 2 mm. The other areas may be due to contrast within the bowel within diverticula. Two calcific densities are present in the right pelvic region 1 which is felt to be due to phleboliths at 4 mm. A 3 mm calcific density is noted superior to this region and could be due to a distal ureteral stone. There is some cortical irregularity of the symphysis pubis suggesting osteitis pubis. IMPRESSION: Suspect residual right distal ureteral stone and left nephrolithiasis Dictated by: Elfego Gastelum MD 12/08/2020 10:00 Elfego Gastelum MD in [facility] 12/08/2020 10:00
== END ==
PROVIDERS: PCP Physician Assistant; Visit Provider Urology
DX: N20.0 Calculus of kidney (principal)
CPT/HCPCS: 74018

== ENCOUNTER 2020-12-10 08:10 | Outpatient (CLI) | payer MEDICARE, MEDICAID, SELFPAY ==
[2020-12-10] VITALS (7 sets, daily range): BP systolic 107–128; BP diastolic 71–88; PULSE 83–91; RESP 16–17; TEMP 36.9; O2SAT 97–98; BMI 32.1
[2020-12-10 08:31] LABS: Basophils # 0.1 K/mm3 (0-0.2); Basophils % 0.6 % (0.1-2.0); Eosinophils # 0.1 K/mm3 (0.0-0.4); Hematocrit 44.8 % (37.0-47.0); Hemoglobin 13.9 g/dL (12.2-16.2); Lymphocytes # 0.9 K/mm3 (0.7-4.5); Mean Corpuscular HGB Conc 30.9 g/dL (31.8-35.4); Mean Corpuscular Hemoglobin 32.8 pg (27.0-31.2); Monocytes # 0.5 K/mm3 (0.1-1.0); Monocytes % 4.5 % (1.7-9.3); Neutrophils # 8.8 K/mm3 (1.8-7.8); Neutrophils % 84.9 % (37.0-80.0); Platelet Count 313 K/mm3 (142-424); Red Blood Count 4.23 M/mm3 (4.20-5.40); Red Cell Distribution Width 14.1 % (11.5-17.5); White Blood Count 10.4 K/mm3 (4.8-10.8)
[2020-12-10 08:40] LABS: Alanine Aminotransferase 19 U/L (12-78); Albumin/Globulin Ratio 1.5 (1.1-1.8); Alkaline Phosphatase 67 U/L (38-126); Anion Gap 9.9 mEq/L (5-15); Aspartate Amino Transferase 20 U/L (14-36); Bilirubin,Total 0.6 mg/dl (0.2-1.3); Blood Urea Nitrogen 17 mg/dl (7-17); Calcium 8.6 mg/dl (8.4-10.2); Carbon Dioxide 27 mmol/L (22.0-30.0); Chloride 108 mmol/L (98-107); Creatinine Clearance Estimated 71 mL/min (50-200); Estimated Glomerular Filt Rate 85 ml/min (>60); GFR (African American) 103 ML/MIN (>60); Globulin 2.6 g/dL (1.3-3.2); Glucose 94 mg/dl (74-100); Potassium 3.9 mmoL/L (3.5-5.1); Sodium 141 mmol/L (136-145); Total Protein,Serum 6.6 g/dl (6.3-8.2)
[2020-12-10 09:11] LABS: Thyroid Stimulating Hormone 0.78 uIU/mL (0.465-4.68)
--- NOTE | 2020-12-10 10:08 | PC.NURSE ---
1008-pt refused Zofran at this time. she stated she has medication at home she can take if she doesnt feel well.
[2020-12-11 16:26] LABS: Adrenocorticotropic Hormone 9.1 pg/mL (7.2-63.3)
== END 2020-12-10 12:07 | disposition home or self-care (01) ==
LOC: INF 08:10
PROVIDERS: Visit Provider Internal Medicine Medical Oncology
DX: Z51.11 Encounter for antineoplastic chemotherapy (principal); C34.91 Malignant neoplasm of unspecified part of right bronchus or lung; Z79.899 Other long term (current) drug therapy
CPT/HCPCS: 80053; 82024; 82533; 84443; 85025; 96413; 96415; J9173

== ENCOUNTER → 2021-01-04 14:12 | Outpatient (CLI) | payer MEDICARE, MEDICAID, SELFPAY | PROVIDERS: Visit Provider Physician Assistant | DX: R35.0 Frequency of micturition (principal) | CPT/HCPCS: 87086; 87088; 87186 ==

== ENCOUNTER 2021-01-08 08:29 | Outpatient (CLI) | payer MEDICARE, MEDICAID, SELFPAY ==
[2021-01-08 08:30] VITALS: BMI 32.1
[2021-01-08 09:04] LABS: Chloride 109 mmol/L (98-107); Potassium 4.3 mmoL/L (3.5-5.1); Sodium 141 mmol/L (136-145)
[2021-01-08 09:07] LABS: Alanine Aminotransferase 22 U/L (12-78); Albumin Level 3.9 g/dl (3.5-5.0); Albumin/Globulin Ratio 1.5 (1.1-1.8); Alkaline Phosphatase 70 U/L (38-126); Anion Gap 11.3 mEq/L (5-15); Aspartate Amino Transferase 32 U/L (14-36); Basophils # 0.1 K/mm3 (0-0.2); Basophils % 0.8 % (0.1-2.0); Bilirubin,Total 0.4 mg/dl (0.2-1.3); Blood Urea Nitrogen 11 mg/dl (7-17); Carbon Dioxide 25 mmol/L (22.0-30.0); Creatinine Clearance Estimated 71 mL/min (50-200); Eosinophils # 0.2 K/mm3 (0.0-0.4); Eosinophils % 2.1 % (0.1-12.0); Estimated Glomerular Filt Rate 85 ml/min (>60); GFR (African American) 103 ML/MIN (>60); Globulin 2.6 g/dL (1.3-3.2); Hematocrit 40.9 % (37.0-47.0); Hemoglobin 13.7 g/dL (12.2-16.2); Lymphocytes % 13.2 % (10-50); Mean Corpuscular HGB Conc 33.4 g/dL (31.8-35.4); Mean Corpuscular Hemoglobin 34.5 pg (27.0-31.2); Mean Corpuscular Volume 103.1 fl (81-99); Mean Platelet Volume 8.4 fl (7.4-10.4); Monocytes # 0.4 K/mm3 (0.1-1.0); Monocytes % 4.8 % (1.7-9.3); Neutrophils % 79.1 % (37.0-80.0); Platelet Count 364 K/mm3 (142-424); Red Blood Count 3.96 M/mm3 (4.20-5.40); Red Cell Distribution Width 15.8 % (11.5-17.5); Total Protein,Serum 6.5 g/dl (6.3-8.2); White Blood Count 7.6 K/mm3 (4.8-10.8)
[2021-01-08 09:08] LABS: Calcium 8.4 mg/dl (8.4-10.2); Glucose 87 mg/dl (74-100)
[2021-01-08 09:39] LABS: Thyroid Stimulating Hormone 0.98 uIU/mL (0.465-4.68)
[2021-01-08 10:15] VITALS: BP 104/67; PULSE 104; RESP 18; TEMP 36.8; O2SAT 98
[2021-01-08 10:30] VITALS: BP 109/78; PULSE 97; RESP 18
[2021-01-08 10:45] VITALS: BP 91/38; PULSE 104; RESP 18
[2021-01-08 11:00] VITALS: BP 112/76; PULSE 96; RESP 18
[2021-01-08 11:15] VITALS: BP 115/78; PULSE 99; RESP 16
[2021-01-11 14:39] LABS: Adrenocorticotropic Hormone 13.8 pg/mL (7.2-63.3)
== END 2021-01-08 11:30 | disposition home or self-care (01) ==
LOC: INF 08:29
PROVIDERS: Visit Provider Internal Medicine Medical Oncology
DX: Z51.11 Encounter for antineoplastic chemotherapy (principal); C34.91 Malignant neoplasm of unspecified part of right bronchus or lung; Z79.899 Other long term (current) drug therapy
CPT/HCPCS: 80053; 82024; 82533; 84443; 85025; 96413; J9173

== ENCOUNTER → 2021-01-22 08:08 | Outpatient (CLI) | payer MEDICARE, MEDICAID, SELFPAY ==
--- NOTE | 2021-01-22 08:20 | CT_ITS ---
PROCEDURE: CT CHEST W CON CLINCAL INDICATION: LUNG CA Follow-up lung cancer COMPARISON: CT CT CHEST W CON from 07/01/[address] CHEST W CON from 11/06/2020 TECHNIQUE: IV Contrast: 75ml Isovue 370 Axial images obtained with sagittal and coronal reformats. All CT scans at the facility use one or more dose reduction, viz: automated exposure control, ma/kV adjustment per patient size (including targeted exams where dose is matched to indication, i.e. head), or iterative reconstruction technique. FINDINGS: HEART AND MEDIASTINAL STRUCTURES: Hyperenhancing left thyroid nodule incompletely imaged on today's exam measuring 1.2 cm in AP dimension. No mediastinal or hilar mass or adenopathy. No evidence of aortic aneurysm or dissection or central pulmonary embolus. LUNGS AND PLEURAL SPACES: COPD changes with paraseptal and centrilobular emphysema with scattered areas of scarring. Increased bronchovascular markings noted in the right upper lobe in the perihilar region centrally and anteriorly. This could be inflammatory or infectious or post radiation changes. Has the patient had interval radiation therapy? Volume loss once again noted in the right middle lobe similar to the previous exam. The previously noted mass in the right middle lobe is obscured by the underlying volume loss similar to the previous exam. No new nodules apparent. No effusions. BONY STRUCTURES: No acute bony abnormalities apparent. UPPER ABDOMEN: Unremarkable. ADDITIONAL FINDINGS: No other significant abnormalities. IMPRESSION: Overall no significant change in the partial collapse of the right middle lobe. Previously noted right middle lobe lesion is mostly obscured by the right middle lobe volume loss. No mediastinal or hilar adenopathy. There are new increased markings in the right perihilar region which could be post inflammatory or infectious or due to radiation changes. Dictated by: Elfego Gastelum MD 01/25/2021 08:37 Elfego Gastelum MD in [facility] 01/25/2021 08:37
--- NOTE | 2021-01-22 08:20 | CT_ITS ---
PROCEDURE: CT ABDOMEN PELVIS W CON CLINICAL INDICATION: LUNG CA COMPARISON: CT CT ABDOMEN PELVIS W CON from 11/06/2020 TECHNIQUE: IV Contrast: 75ML Isovue 370 Oral Contrast 450ml Redicat Axial images obtained with sagittal and coronal reformats. All CT scans at the facility use one or more dose reduction, viz: automated exposure control, ma/kV adjustment per patient size (including targeted exams where dose is matched to indication, i.e. head), or iterative reconstruction technique. FINDINGS: The liver, spleen, adrenal glands, and pancreas have an unremarkable appearance. Nonobstructing stone is present in the mid polar region of the right kidney at 4 mm. Left renal cortical cyst noted with left renal cortical scarring. No intestinal obstruction or free air. Unremarkable appendix. There is colonic diverticulosis but no evidence of diverticulitis. Previously noted right distal ureteral calculus no longer apparent. No pelvic mass or abnormal fluid collection. There is a small umbilical hernia containing fat. No acute bony anomalies. IMPRESSION: No evidence intra-abdominal or pelvic metastasis. Dictated by: Elfego Gastelum MD 01/25/2021 08:43 Elfego Gastelum MD in [facility] 01/25/2021 08:43
[2021-01-22 08:34] LABS: Basophils # 0.1 K/mm3 (0-0.2); Eosinophils # 0.2 K/mm3 (0.0-0.4); Eosinophils % 1.4 % (0.1-12.0); Hematocrit 46.9 % (37.0-47.0); Hemoglobin 14.9 g/dL (12.2-16.2); Lymphocytes # 1.4 K/mm3 (0.7-4.5); Lymphocytes % 12.9 % (10-50); Mean Corpuscular HGB Conc 31.8 g/dL (31.8-35.4); Mean Corpuscular Hemoglobin 34.6 pg (27.0-31.2); Mean Corpuscular Volume 108.7 fl (81-99); Mean Platelet Volume 8.9 fl (7.4-10.4); Monocytes # 0.5 K/mm3 (0.1-1.0); Monocytes % 4.9 % (1.7-9.3); Neutrophils # 8.7 K/mm3 (1.8-7.8); Neutrophils % 79.8 % (37.0-80.0); Platelet Count 376 K/mm3 (142-424); Red Blood Count 4.31 M/mm3 (4.20-5.40); Red Cell Distribution Width 15.1 % (11.5-17.5); White Blood Count 10.9 K/mm3 (4.8-10.8)
[2021-01-22 08:41] LABS: Alanine Aminotransferase 21 U/L (12-78); Albumin Level 4.2 g/dl (3.5-5.0); Albumin/Globulin Ratio 1.4 (1.1-1.8); Alkaline Phosphatase 70 U/L (38-126); Aspartate Amino Transferase 24 U/L (14-36); Bilirubin,Total 0.4 mg/dl (0.2-1.3); Blood Urea Nitrogen 14 mg/dl (7-17); Calcium 9.1 mg/dl (8.4-10.2); Carbon Dioxide 24 mmol/L (22.0-30.0); Chloride 101 mmol/L (98-107); Estimated Glomerular Filt Rate 73 ml/min (>60); GFR (African American) 88 ML/MIN (>60); Glucose 104 mg/dl (74-100); Sodium 136 mmol/L (136-145); Total Protein,Serum 7.2 g/dl (6.3-8.2)
== END ==
PROVIDERS: PCP Physician Assistant; Visit Provider Internal Medicine Medical Oncology
DX: C34.91 Malignant neoplasm of unspecified part of right bronchus or lung (principal)
CPT/HCPCS: 36415; 71260; 74177; 80053; 85025; Q9967

== ENCOUNTER 2021-02-18 08:24 | Outpatient (CLI) | payer MEDICARE, MEDICAID, SELFPAY ==
[2021-02-18 08:30] VITALS: BMI 32.5
[2021-02-18 08:53] LABS: Basophils # 0.1 K/mm3 (0-0.2); Basophils % 0.9 % (0.1-2.0); Eosinophils # 0.2 K/mm3 (0.0-0.4); Eosinophils % 2.2 % (0.1-12.0); Hematocrit 47.8 % (37.0-47.0); Hemoglobin 14.6 g/dL (12.2-16.2); Lymphocytes # 1.5 K/mm3 (0.7-4.5); Lymphocytes % 14.9 % (10-50); Mean Corpuscular HGB Conc 30.6 g/dL (31.8-35.4); Mean Corpuscular Hemoglobin 34.6 pg (27.0-31.2); Mean Corpuscular Volume 113.3 fl (81-99); Mean Platelet Volume 8.6 fl (7.4-10.4); Monocytes # 0.6 K/mm3 (0.1-1.0); Monocytes % 5.9 % (1.7-9.3); Neutrophils # 7.7 K/mm3 (1.8-7.8); Neutrophils % 76.1 % (37.0-80.0); Platelet Count 404 K/mm3 (142-424); Red Blood Count 4.22 M/mm3 (4.20-5.40); Red Cell Distribution Width 15.2 % (11.5-17.5); White Blood Count 10.1 K/mm3 (4.8-10.8)
[2021-02-18 08:57] LABS: Chloride 108 mmol/L (98-107)
[2021-02-18 08:58] LABS: Potassium 4.2 mmoL/L (3.5-5.1); Sodium 142 mmol/L (136-145)
[2021-02-18 09:00] LABS: Blood Urea Nitrogen 14 mg/dl (7-17); Creatinine Clearance Estimated 72 mL/min (50-200); Estimated Glomerular Filt Rate 73 ml/min (>60); GFR (African American) 88 ML/MIN (>60)
[2021-02-18 09:01] LABS: Alanine Aminotransferase 21 U/L (12-78); Albumin Level 3.9 g/dl (3.5-5.0); Albumin/Globulin Ratio 1.6 (1.1-1.8); Alkaline Phosphatase 76 U/L (38-126); Anion Gap 12.2 mEq/L (5-15); Aspartate Amino Transferase 26 U/L (14-36); Bilirubin,Total 0.3 mg/dl (0.2-1.3); Calcium 8.7 mg/dl (8.4-10.2); Carbon Dioxide 26 mmol/L (22.0-30.0); Globulin 2.5 g/dL (1.3-3.2); Glucose 98 mg/dl (74-100); Total Protein,Serum 6.4 g/dl (6.3-8.2)
[2021-02-18 09:32] LABS: Thyroid Stimulating Hormone 0.79 uIU/mL (0.465-4.68)
[2021-02-18 10:45] VITALS: BP 104/64; PULSE 95; RESP 18; TEMP 35.9; O2SAT 94
[2021-02-18 11:00] VITALS: BP 113/76; PULSE 98; RESP 16
[2021-02-18 11:15] VITALS: BP 114/78; PULSE 92; RESP 16
[2021-02-18 11:30] VITALS: BP 109/79; PULSE 89; RESP 16
[2021-02-18 11:45] VITALS: BP 111/74; PULSE 96; RESP 16
[2021-02-19 13:09] LABS: Adrenocorticotropic Hormone 27.1 pg/mL (7.2-63.3)
== END 2021-02-18 12:00 | disposition home or self-care (01) ==
LOC: INF 08:26
PROVIDERS: PCP Physician Assistant; Visit Provider Internal Medicine Medical Oncology
DX: Z51.11 Encounter for antineoplastic chemotherapy (principal); C34.90 Malignant neoplasm of unspecified part of unspecified bronchus or lung; Z79.899 Other long term (current) drug therapy
CPT/HCPCS: 80053; 82024; 82533; 84443; 85025; 96413; J9173

== ENCOUNTER 2021-03-18 08:24 | Outpatient (CLI) | payer MEDICARE, MEDICAID, SELFPAY ==
[2021-03-18 08:33] VITALS: BMI 31.5
[2021-03-18 08:56] LABS: Basophils # 0.1 K/mm3 (0-0.2); Basophils % 0.6 % (0.1-2.0); Eosinophils # 0.2 K/mm3 (0.0-0.4); Eosinophils % 1.5 % (0.1-12.0); Hematocrit 46.3 % (37.0-47.0); Hemoglobin 14.6 g/dL (12.2-16.2); Lymphocytes # 1.4 K/mm3 (0.7-4.5); Lymphocytes % 12.6 % (10-50); Mean Corpuscular HGB Conc 31.5 g/dL (31.8-35.4); Mean Corpuscular Hemoglobin 35.9 pg (27.0-31.2); Mean Corpuscular Volume 113.9 fl (81-99); Mean Platelet Volume 8.2 fl (7.4-10.4); Monocytes # 0.6 K/mm3 (0.1-1.0); Monocytes % 5.3 % (1.7-9.3); Neutrophils # 8.7 K/mm3 (1.8-7.8); Platelet Count 361 K/mm3 (142-424); Red Blood Count 4.06 M/mm3 (4.20-5.40); Red Cell Distribution Width 14.7 % (11.5-17.5); White Blood Count 10.9 K/mm3 (4.8-10.8)
[2021-03-18 09:14] LABS: Chloride 106 mmol/L (98-107); Sodium 140 mmol/L (136-145)
[2021-03-18 09:15] LABS: Potassium 4.1 mmoL/L (3.5-5.1)
[2021-03-18 09:17] LABS: Alanine Aminotransferase 20 U/L (12-78); Albumin Level 3.6 g/dl (3.5-5.0); Albumin/Globulin Ratio 1.4 (1.1-1.8); Alkaline Phosphatase 73 U/L (38-126); Anion Gap 8.1 mEq/L (5-15); Aspartate Amino Transferase 26 U/L (14-36); Bilirubin,Total 0.2 mg/dl (0.2-1.3); Blood Urea Nitrogen 15 mg/dl (7-17); Carbon Dioxide 30 mmol/L (22.0-30.0); Creatinine Clearance Estimated 70 mL/min (50-200); Estimated Glomerular Filt Rate 101 ml/min (>60); GFR (African American) 123 ML/MIN (>60); Globulin 2.6 g/dL (1.3-3.2); Total Protein,Serum 6.2 g/dl (6.3-8.2)
[2021-03-18 09:18] LABS: Calcium 9.4 mg/dl (8.4-10.2); Glucose 104 mg/dl (74-100)
[2021-03-18 09:49] LABS: Thyroid Stimulating Hormone 1.02 uIU/mL (0.465-4.68)
[2021-03-18 09:51] VITALS: BP 117/81; PULSE 87; RESP 17; TEMP 36.4; O2SAT 94
[2021-03-18 10:30] VITALS: BP 121/82; PULSE 68
[2021-03-18 10:51] VITALS: BP 129/82; PULSE 83
[2021-03-18 11:12] VITALS: BP 141/84; PULSE 82; RESP 17; TEMP 36.6; O2SAT 98
[2021-03-19 13:10] LABS: Adrenocorticotropic Hormone 27.9 pg/mL (7.2-63.3)
== END 2021-03-18 11:15 | disposition home or self-care (01) ==
LOC: INF 08:26
PROVIDERS: PCP Physician Assistant; Visit Provider Internal Medicine Medical Oncology
DX: Z51.11 Encounter for antineoplastic chemotherapy (principal); C34.90 Malignant neoplasm of unspecified part of unspecified bronchus or lung; Z79.899 Other long term (current) drug therapy
CPT/HCPCS: 80053; 82024; 82533; 84443; 85025; 96413; J9173

== ENCOUNTER 2021-04-16 08:04 | Outpatient (CLI) | payer MEDICARE, MEDICAID, SELFPAY ==
[2021-04-16 08:12] VITALS: BMI 32.1
[2021-04-16 08:35] LABS: Basophils # 0.1 K/mm3 (0-0.2); Basophils % 0.7 % (0.1-2.0); Eosinophils # 0.1 K/mm3 (0.0-0.4); Eosinophils % 0.7 % (0.1-12.0); Hemoglobin 13.8 g/dL (12.2-16.2); Lymphocytes # 1.5 K/mm3 (0.7-4.5); Lymphocytes % 11.8 % (10-50); Mean Corpuscular HGB Conc 32.8 g/dL (31.8-35.4); Mean Corpuscular Hemoglobin 36.1 pg (27.0-31.2); Mean Corpuscular Volume 109.8 fl (81-99); Mean Platelet Volume 8.4 fl (7.4-10.4); Monocytes # 0.7 K/mm3 (0.1-1.0); Monocytes % 5.8 % (1.7-9.3); Neutrophils # 10.2 K/mm3 (1.8-7.8); Neutrophils % 80.9 % (37.0-80.0); Platelet Count 358 K/mm3 (142-424); Red Blood Count 3.83 M/mm3 (4.20-5.40); Red Cell Distribution Width 14.5 % (11.5-17.5); White Blood Count 12.6 K/mm3 (4.8-10.8)
[2021-04-16 08:48] LABS: Alanine Aminotransferase 19 U/L (12-78); Albumin Level 3.9 g/dl (3.5-5.0); Albumin/Globulin Ratio 1.6 (1.1-1.8); Alkaline Phosphatase 58 U/L (38-126); Anion Gap 7.7 mEq/L (5-15); Aspartate Amino Transferase 24 U/L (14-36); Bilirubin,Total 0.3 mg/dl (0.2-1.3); Blood Urea Nitrogen 15 mg/dl (7-17); Calcium 8.5 mg/dl (8.4-10.2); Carbon Dioxide 27 mmol/L (22.0-30.0); Chloride 108 mmol/L (98-107); Creatinine Clearance Estimated 71 mL/min (50-200); Estimated Glomerular Filt Rate 101 ml/min (>60); GFR (African American) 123 ML/MIN (>60); Globulin 2.4 g/dL (1.3-3.2); Glucose 94 mg/dl (74-100); Potassium 3.7 mmoL/L (3.5-5.1); Sodium 139 mmol/L (136-145); Total Protein,Serum 6.3 g/dl (6.3-8.2)
[2021-04-16 09:18] LABS: Thyroid Stimulating Hormone 1.42 uIU/mL (0.465-4.68)
[2021-04-16 10:17] VITALS: BP 125/82; PULSE 86; RESP 18; TEMP 36.2; O2SAT 98
[2021-04-16 10:35] VITALS: BP 123/68; PULSE 92; RESP 18
[2021-04-16 10:50] VITALS: BP 118/74; PULSE 87; RESP 18
[2021-04-16 11:05] VITALS: BP 123/78; PULSE 84; RESP 18
[2021-04-16 11:30] VITALS: BP 122/73; PULSE 84; RESP 18
[2021-04-17 13:29] LABS: Adrenocorticotropic Hormone 34.4 pg/mL (7.2-63.3)
== END 2021-04-16 11:30 | disposition home or self-care (01) ==
LOC: INF 08:06
PROVIDERS: Internal Medicine Medical Oncology; PCP Internal Medicine Adolescent Medicine; Visit Provider Internal Medicine Adolescent Medicine
DX: Z51.11 Encounter for antineoplastic chemotherapy (principal); C34.90 Malignant neoplasm of unspecified part of unspecified bronchus or lung; Z79.899 Other long term (current) drug therapy
CPT/HCPCS: 80053; 82024; 82533; 84443; 85025; 96413; J9173

== ENCOUNTER 2021-05-13 08:23 | Outpatient (CLI) | payer MEDICARE, MEDICAID, SELFPAY ==
[2021-05-13 08:27] VITALS: BMI 31.7
[2021-05-13 08:51] LABS: Basophils # 0.1 K/mm3 (0-0.2); Basophils % 0.5 % (0.1-2.0); Eosinophils # 0.2 K/mm3 (0.0-0.4); Eosinophils % 1.6 % (0.1-12.0); Hemoglobin 14.2 g/dL (12.2-16.2); Lymphocytes # 1.1 K/mm3 (0.7-4.5); Lymphocytes % 9.5 % (10-50); Mean Corpuscular HGB Conc 32.3 g/dL (31.8-35.4); Mean Corpuscular Hemoglobin 35.4 pg (27.0-31.2); Mean Corpuscular Volume 109.5 fl (81-99); Mean Platelet Volume 8.4 fl (7.4-10.4); Monocytes # 0.7 K/mm3 (0.1-1.0); Monocytes % 5.8 % (1.7-9.3); Neutrophils # 9.2 K/mm3 (1.8-7.8); Neutrophils % 82.6 % (37.0-80.0); Platelet Count 407 K/mm3 (142-424); Red Blood Count 4.02 M/mm3 (4.20-5.40); White Blood Count 11.2 K/mm3 (4.8-10.8)
[2021-05-13 08:53] LABS: Chloride 108 mmol/L (98-107); Potassium 3.8 mmoL/L (3.5-5.1); Sodium 140 mmol/L (136-145)
[2021-05-13 08:56] LABS: Alanine Aminotransferase 19 U/L (12-78); Albumin Level 3.8 g/dl (3.5-5.0); Albumin/Globulin Ratio 1.4 (1.1-1.8); Alkaline Phosphatase 69 U/L (38-126); Anion Gap 9.8 mEq/L (5-15); Aspartate Amino Transferase 22 U/L (14-36); Bilirubin,Total 0.6 mg/dl (0.2-1.3); Blood Urea Nitrogen 14 mg/dl (7-17); Calcium 8.7 mg/dl (8.4-10.2); Carbon Dioxide 26 mmol/L (22.0-30.0); Creatinine Clearance Estimated 70 mL/min (50-200); Estimated Glomerular Filt Rate 101 ml/min (>60); GFR (African American) 123 ML/MIN (>60); Globulin 2.7 g/dL (1.3-3.2); Glucose 98 mg/dl (74-100); Total Protein,Serum 6.5 g/dl (6.3-8.2)
[2021-05-13 09:28] LABS: Thyroid Stimulating Hormone 0.82 uIU/mL (0.465-4.68)
[2021-05-13 09:33] VITALS: BP 112/73; PULSE 91; RESP 18; TEMP 36.3; O2SAT 97
[2021-05-13 10:04] VITALS: BP 110/80; PULSE 89; RESP 18; O2SAT 97
[2021-05-13 10:34] VITALS: BP 111/73; PULSE 80; RESP 18; O2SAT 98
[2021-05-13 11:20] VITALS: BP 112/86; PULSE 84; RESP 18; O2SAT 98
[2021-05-14 12:26] LABS: Adrenocorticotropic Hormone 21.8 pg/mL (7.2-63.3)
== END 2021-05-13 11:25 | disposition home or self-care (01) ==
LOC: INF 08:24
PROVIDERS: PCP Physician Assistant; Visit Provider Internal Medicine Medical Oncology
DX: Z51.11 Encounter for antineoplastic chemotherapy (principal); C34.90 Malignant neoplasm of unspecified part of unspecified bronchus or lung; Z79.899 Other long term (current) drug therapy
CPT/HCPCS: 80053; 82024; 82533; 84443; 85025; 96413; J9173

== ENCOUNTER 2021-06-21 08:25 | Outpatient (CLI) | payer MEDICARE, MEDICAID, SELFPAY ==
[2021-06-21 08:37] VITALS: BMI 31.7
[2021-06-21 08:54] LABS: Basophils # 0.1 K/mm3 (0-0.2); Basophils % 0.9 % (0.1-2.0); Eosinophils # 0.2 K/mm3 (0.0-0.4); Eosinophils % 1.8 % (0.1-12.0); Hematocrit 46.6 % (37.0-47.0); Hemoglobin 14.7 g/dL (12.2-16.2); Lymphocytes # 1.2 K/mm3 (0.7-4.5); Lymphocytes % 11.1 % (10-50); Mean Corpuscular HGB Conc 31.6 g/dL (31.8-35.4); Mean Platelet Volume 8.6 fl (7.4-10.4); Monocytes # 0.6 K/mm3 (0.1-1.0); Monocytes % 5.6 % (1.7-9.3); Neutrophils # 8.9 K/mm3 (1.8-7.8); Neutrophils % 80.5 % (37.0-80.0); Platelet Count 419 K/mm3 (142-424); Red Blood Count 4.09 M/mm3 (4.20-5.40); Red Cell Distribution Width 14.4 % (11.5-17.5); White Blood Count 11.1 K/mm3 (4.8-10.8)
[2021-06-21 09:03] LABS: Alanine Aminotransferase 19 U/L (12-78); Albumin/Globulin Ratio 1.7 (1.1-1.8); Alkaline Phosphatase 73 U/L (38-126); Anion Gap 10.8 mEq/L (5-15); Aspartate Amino Transferase 22 U/L (14-36); Bilirubin,Total 0.3 mg/dl (0.2-1.3); Blood Urea Nitrogen 19 mg/dl (7-17); Calcium 9.1 mg/dl (8.4-10.2); Carbon Dioxide 27 mmol/L (22.0-30.0); Chloride 102 mmol/L (98-107); Creatinine Clearance Estimated 70 mL/min (50-200); Estimated Glomerular Filt Rate 101 ml/min (>60); GFR (African American) 123 ML/MIN (>60); Globulin 2.4 g/dL (1.3-3.2); Glucose 101 mg/dl (74-100); Potassium 3.8 mmoL/L (3.5-5.1); Sodium 136 mmol/L (136-145); Total Protein,Serum 6.4 g/dl (6.3-8.2)
[2021-06-21 09:34] LABS: Thyroid Stimulating Hormone 1.13 uIU/mL (0.465-4.68)
[2021-06-21 10:24] VITALS: BP 108/76; PULSE 78; RESP 20; TEMP 36.4; O2SAT 96
[2021-06-21 11:32] VITALS: BP 99/78; PULSE 98; RESP 20; O2SAT 97
[2021-06-22 13:26] LABS: Adrenocorticotropic Hormone 24.4 pg/mL (7.2-63.3)
== END 2021-06-21 11:32 | disposition home or self-care (01) ==
LOC: INF 08:28
PROVIDERS: PCP Physician Assistant; Visit Provider Internal Medicine Medical Oncology
DX: Z51.11 Encounter for antineoplastic chemotherapy (principal); C34.90 Malignant neoplasm of unspecified part of unspecified bronchus or lung; Z79.899 Other long term (current) drug therapy
CPT/HCPCS: 80053; 82024; 82533; 84443; 85025; 96413; J9173

== ENCOUNTER 2021-06-30 10:01 | Outpatient (CLI) | payer MEDICARE, MEDICAID, SELFPAY ==
[2021-06-30 10:21] VITALS: BMI 31.9
[2021-06-30 10:46] LABS: Chloride 103 mmol/L (98-107); Potassium 4.4 mmoL/L (3.5-5.1); Sodium 133 mmol/L (136-145)
[2021-06-30 10:48] LABS: Alanine Aminotransferase 24 U/L (12-78); Aspartate Amino Transferase 29 U/L (14-36); Blood Urea Nitrogen 18 mg/dl (7-17); Creatinine Clearance Estimated 71 mL/min (50-200); Estimated Glomerular Filt Rate 73 ml/min (>60); GFR (African American) 88 ML/MIN (>60)
[2021-06-30 10:49] LABS: Albumin Level 4.2 g/dl (3.5-5.0); Albumin/Globulin Ratio 1.5 (1.1-1.8); Alkaline Phosphatase 82 U/L (38-126); Anion Gap 8.4 mEq/L (5-15); Bilirubin,Total 0.8 mg/dl (0.2-1.3); Calcium 10.1 mg/dl (8.4-10.2); Carbon Dioxide 26 mmol/L (22.0-30.0); Globulin 2.8 g/dL (1.3-3.2); Glucose 113 mg/dl (74-100)
--- NOTE | 2021-06-30 13:35 | PC.NURSE ---
06/30/21 1030 pt here to pickup oral contrast for ct scan scheduled for next monday07/09/21. 1 bottle of oral contrast given. pt requests blood be drawn for labs for the ct to be done today so that the day of the procedure goes faster. Cmp drawn today per md order.
== END 2021-06-30 10:35 | disposition home or self-care (01) ==
LOC: INF 10:03
PROVIDERS: PCP Internal Medicine Medical Oncology; Visit Provider Internal Medicine Medical Oncology
DX: C34.90 Malignant neoplasm of unspecified part of unspecified bronchus or lung (principal)
CPT/HCPCS: 80053

== ENCOUNTER → 2021-06-30 17:50 | Outpatient (CLI) | payer MEDICARE, MEDICAID, SELFPAY | PROVIDERS: Visit Provider Physician Assistant | DX: R43.2 Parageusia (principal); Z11.52 Encounter for screening for COVID-19 | CPT/HCPCS: 80053; C9803; U0003; U0005 ==

== ENCOUNTER → 2021-07-09 08:22 | Outpatient (CLI) | payer MEDICARE, MEDICAID, SELFPAY ==
--- NOTE | 2021-07-09 08:28 | CT_ITS ---
FINAL REPORT CLINICAL HISTORY: LUNG CA COMPARISON: January 22, 2021 FINDINGS: Axial CT images of the chest were obtained with contrast. Coronal reformatted images were also obtained. This study was performed with techniques to keep radiation doses as low as reasonably achievable, (ALARA). Individualized dose reduction techniques using automated exposure control or adjustment of mA and/or KV according to the patient's size were employed. There are small mediastinal lymph nodes, stable. No mediastinal mass or adenopathy is identified. There is no evidence of hilar mass or adenopathy.No axillary mass or adenopathy is identified. On lung window images, there is moderate emphysema. There is significant worsening of right lung opacities favoring post treatment change. There is increasing consolidation of the right middle lobe and right lower lobe which could obscure a mass or nodule. There is new mild patchy ground-glass opacities in the left lung which may represent edema or pneumonia. IMPRESSION: Significant worsening of right lung opacities favoring post treatment change. Increasing consolidation the right middle and right lower lobes which could obscure a mass or nodule. New, mild patchy ground-glass opacities in the left lung, may represent edema or pneumonia. Reviewed, Interpreted and Dictated by Bran Domínguez III, MD Transcribed by Fanta Neumann Authenticated by Bran Domínguez III, MD on 07/09/2021 11:04:49 AM [facility]
--- NOTE | 2021-07-09 08:28 | CT_ITS ---
FINAL REPORT CLINICAL HISTORY: LUNG CA COMPARISON: January 22, 2021 FINDINGS: CT OF THE ABDOMEN AND PELVIS WITH CONTRAST Axial CT images of the abdomen and pelvis were obtained after the administration of oral and iv contrast. Coronal reformatted images were also obtained and reviewed.This study was performed with techniques to keep radiation doses as low as reasonably achievable (ALARA). Individualized dose reduction techniques using automated exposure control or adjustment of mA and/or kV according to the patient's size were employed. Abdomen: The heart is normal in size. The liver has an unremarkable appearance, without evidence of mass or biliary ductal dilatation. The gallbladder is present. The spleen is unremarkable. No adrenal mass is present. The pancreas has an unremarkable appearance. There is a small nonobstructing right renal stone. There is moderate left renal scarring. There are small left renal cysts, stable. The aorta is normal in caliber. There is no free fluid or adenopathy. No mass or abnormal fluid collection is seen. Pelvis: The appendix is normal appearing. The urinary bladder is unremarkable. There is descending and sigmoid diverticulosis without evidence of diverticulitis. There is no evidence of mass or adenopathy. There is no evidence of bowel obstruction. IMPRESSION: Stable left renal scarring. Small nonobstructing right renal stones. No new masses or adenopathy to suggest neoplastic involvement. Reviewed, Interpreted and Dictated by Bran Domínguez III, MD Transcribed by Fanta Neumann Authenticated by Bran Domínguez III, MD on 07/09/2021 11:05:11 AM [facility]
== END ==
PROVIDERS: PCP Physician Assistant; Visit Provider Internal Medicine Medical Oncology
DX: C34.90 Malignant neoplasm of unspecified part of unspecified bronchus or lung (principal); Z03.89 Encounter for observation for other suspected diseases and conditions ruled out
CPT/HCPCS: 71260; 74177; Q9967

== ENCOUNTER 2021-07-16 08:00 | Outpatient (CLI) | payer MEDICARE, MEDICAID, SELFPAY ==
[2021-07-16 08:09] VITALS: BMI 37.0
[2021-07-16 08:29] LABS: Basophils # 0.1 K/mm3 (0-0.2); Basophils % 0.5 % (0.1-2.0); Eosinophils # 0.2 K/mm3 (0.0-0.4); Eosinophils % 1.9 % (0.1-12.0); Hematocrit 44.9 % (37.0-47.0); Hemoglobin 14.3 g/dL (12.2-16.2); Lymphocytes # 1.1 K/mm3 (0.7-4.5); Lymphocytes % 11.2 % (10-50); Mean Corpuscular HGB Conc 31.9 g/dL (31.8-35.4); Mean Corpuscular Hemoglobin 34.5 pg (27.0-31.2); Mean Corpuscular Volume 108.3 fl (81-99); Monocytes # 0.5 K/mm3 (0.1-1.0); Monocytes % 5.5 % (1.7-9.3); Neutrophils # 7.9 K/mm3 (1.8-7.8); Platelet Count 423 K/mm3 (142-424); Red Blood Count 4.15 M/mm3 (4.20-5.40); Red Cell Distribution Width 13.4 % (11.5-17.5); White Blood Count 9.7 K/mm3 (4.8-10.8)
[2021-07-16 08:43] LABS: Chloride 105 mmol/L (98-107); Potassium 4.3 mmoL/L (3.5-5.1); Sodium 135 mmol/L (136-145)
[2021-07-16 08:45] LABS: Alanine Aminotransferase 19 U/L (12-78); Aspartate Amino Transferase 25 U/L (14-36); Blood Urea Nitrogen 16 mg/dl (7-17); Creatinine Clearance Estimated 82 mL/min (50-200); Estimated Glomerular Filt Rate 73 ml/min (>60); GFR (African American) 88 ML/MIN (>60)
[2021-07-16 08:46] LABS: Albumin Level 3.9 g/dl (3.5-5.0); Albumin/Globulin Ratio 1.4 (1.1-1.8); Alkaline Phosphatase 78 U/L (38-126); Anion Gap 6.3 mEq/L (5-15); Bilirubin,Total 0.6 mg/dl (0.2-1.3); Calcium 8.4 mg/dl (8.4-10.2); Carbon Dioxide 28 mmol/L (22.0-30.0); Globulin 2.7 g/dL (1.3-3.2); Glucose 99 mg/dl (74-100); Total Protein,Serum 6.6 g/dl (6.3-8.2)
[2021-07-16 09:17] LABS: Thyroid Stimulating Hormone 1.75 uIU/mL (0.465-4.68)
[2021-07-16 09:56] VITALS: BP 111/78; PULSE 67; RESP 18; TEMP 36.4; O2SAT 97
[2021-07-16 11:17] VITALS: BP 101/71; PULSE 83; RESP 20; O2SAT 99
[2021-07-17 14:25] LABS: Adrenocorticotropic Hormone 23.1 pg/mL (7.2-63.3)
== END 2021-07-16 11:18 | disposition home or self-care (01) ==
LOC: INF 08:02
PROVIDERS: PCP Physician Assistant; Visit Provider Internal Medicine Medical Oncology
DX: Z51.11 Encounter for antineoplastic chemotherapy (principal); C34.90 Malignant neoplasm of unspecified part of unspecified bronchus or lung; Z79.899 Other long term (current) drug therapy
CPT/HCPCS: 80053; 82024; 82533; 84443; 85025; 96413; J9173

== ENCOUNTER → 2021-07-30 11:32 | Outpatient (CLI) | payer MEDICARE, MEDICAID, SELFPAY | PROVIDERS: PCP Physician Assistant; Visit Provider Internal Medicine Pulmonary Disease | DX: C34.90 Malignant neoplasm of unspecified part of unspecified bronchus or lung (principal) ==

== ENCOUNTER → 2021-08-09 08:41 | Outpatient (CLI) | payer MEDICARE, MEDICAID, SELFPAY | PROVIDERS: Visit Provider Internal Medicine Pulmonary Disease | DX: Z01.812 Encounter for preprocedural laboratory examination (principal); Z11.52 Encounter for screening for COVID-19 | CPT/HCPCS: C9803; U0003; U0005 ==

== ENCOUNTER 2021-08-11 08:31 | Day surgery (SDC) | payer MEDICARE, MEDICAID, SELFPAY ==
[2021-08-10 11:48] VITALS: BMI 28.3
[2021-08-11] VITALS (11 sets, daily range): BP systolic 103–141; BP diastolic 58–85; PULSE 96–101; RESP 18–22; TEMP 36.2–36.9; O2SAT 90–96
--- NOTE | 2021-08-11 | XR_ITS ---
FINAL REPORT TECHNIQUE: Fluoroscopy was provided for the surgical services CLINICAL HISTORY: LUNG BX IN OR 55.47 mGy 2.17 fluoro time FINDINGS: Limited images of the lung were obtained. Three spot films were obtained. Fluoroscopy Time: 2.17 minutes IMPRESSION: 2.17 minutes of fluoroscopy time. Reviewed, Interpreted and Dictated by Bran Domínguez III, MD Transcribed by Asa Barros Authenticated by Bran Domínguez III, MD on 08/11/2021 12:31:07 PM [facility]
--- NOTE | 2021-08-11 09:23 | HMH.ANESCL ---
[facility] Anesthesia Checklist - Patient Identification Patient Identification: Arm Band - Structural Data Planned Operative Procedure/s: Bronch Consent for Planned Operative Procedure(s) Verified: Yes - NPO Status Verified Time NPO: 06:00 (Water) - Additional verifications Anesthesia Reactions: No Hx Blood Transfusions: No - Cardiovascular Assessment Heart Sounds: S1 & S2 Pulse Strength: Baseline Pulse Rhythm: Regular - Respiratory Assessment Bilateral Throughout Breath Sounds: Clear - Airway Assessment C-Spine Mobility Assessed: Yes TMJ Mobility Assessed: Yes Dentition: Poor Dentition (Few teeth remaining. None loose) - Neurological Assessment Level of Consciousness: Awake Hx Seizures: No Numbness or tingling in extremities: No - Anesthesia Plan Anesthesia Risk discussed: Yes Anesthesia Plan: Verified ASA Class: III Anesthesia Type: General [facility] History I have reviewed the patient's past medical history: Yes Medical History: Reports:: Cancer, Chronic Obstructive Pulmonary Disease (COPD), Coronary Artery Disease, Hyperlipidemia, Hypertension Denies:: Diabetes Mellitus Type 1, Diabetes Mellitus Type 2, Internal Pacemaker, MRSA, Seizures *Have you ever received a pneumonia vaccine?: Yes *Have you received a flu vaccine this season?: No Other Medical History: Reports: Chemotherapy, Radiation Therapy Anesthesia experience/problems:: None Laterality Cases: Bilateral: Tonsillectomy Other Surgeries: Yes: No Previous Surgery, Cancer Surgery, Colonoscopy, Other. No: Pacemaker Amputation: No Fractures: Yes (right middle finger) - *Social History Last grade of school completed: 11th or 12th Smoking Status: Current every day smoker Tobacco Type: cigarettes # Packs/Day (cigarettes): 1 Alcohol Intake: current Alcohol Intake Frequency:: holidays/special occasions only Substance Use Type: denies use *Occupational Status:: disabled Housing: house Household Members: spouse *Travel in the last 8 weeks: None Family Hx:: No significant family history
--- NOTE | 2021-08-11 10:54 | HMH.ANESI ---
[facility] Anesthesia Record Part I Intake, IV Amount: 900 Estimated blood loss (mL): 10 Urine output (mL): 0 Blood Pressure: 141/76 SaO2: 93 Pulse Rate: 101 Respiratory Rate: 22 Temperature: 97.9 F Patient is:: Drowsy Stable to PACU at:: 10:51
--- NOTE | 2021-08-11 11:04 | HMH.BRONCH ---
- Procedure: Date: 08/11/21 Patient Date of :: 1960 Procedure Performed:: Bronchoscopy with airway examination, bronchoalveolar lavage and transbronchial biopsy Indications:: Atypical pneumonia, history of cancer Performing Provider:: Jason Anglin MD Referring Provider:: Dr. Diego Sedation:: General anesthesia Procedure:: Bronchoscopy with airway examination, bronchoalveolar lavage and transbronchial biopsy Clean therapeutic bronchoscope advanced ET tube and airways were examined up to segmental bronchi. No mucous plugging or copious secretions noted. No evidence of bleeding or blood clots noted. BAL was performed the right lower lobe superior segment with a total of 60 cc of normal saline instilled with return of 20 cc. BAL fluid were sent for cell count differential, Gram stain fungal AFB stain culture along with cytopathology. Transbronchial biopsies were performed the right middle lobe with a total of 5 biopsies which were sent in formalin for cytopathological examination. Transbronchial biopsies were also performed in the right lower lobe superior segment with a total of 7 biopsies performed, 5 biopsy samples were sent in formalin for cytopathological examination, 2 biopsy samples, 1 biopsy sample in each was sent in normal saline for AFB fungal and bacterial stain culture. I have also requested to perform AFB and fungal staining's on the cytopathological examination specimens on the cytopathology sheet. Findings:: Please see the procedure note. Recommendations:: Please see the procedure note. Follow in pulmonary clinic as previously scheduled. Complications:: None Estimated blood obtained (mL): 10
--- NOTE | 2021-08-11 11:11 | PC.NURSE ---
1105-respiratory therapy at bedside at this time administering duoneb breathing treatment as ordered by anesthesia
--- NOTE | 2021-08-11 11:21 | PC.NURSE ---
1118-detailed report called to TRISTON Emmanuel 1121-pt transported to post op via stretcher w/maira rails up and left in care of TRISTON Emmanuel with bed locked in lowest position, vss, pt stable
[2021-08-12 13:29] VITALS: BP 108/60; PULSE 99; TEMP 36.4
--- NOTE | 2021-08-12 13:29 | P.PN_ITS ---
[facility] Anesthesia Record Part II Discharge Time: 11:21 Destination: Surgical Day Care (OP Surgery) PACU nurse assessment reviewed?: Yes Patient Condition:: Good Anesthesia Complications:: None Swallowing reflex intact?: Yes Cyanosis?: No Blood Pressure: 108/60 Pulse Rate: 99 Temperature: 97.6 F Mental Status: Alert & Oriented Pain level:: 0 Nausea and/or vomitting:: None Intake, IV Amount: 0
== END 2021-08-11 12:18 | disposition home or self-care (01) ==
LOC: OR 08:33
PROVIDERS: PCP Physician Assistant; Visit Provider Internal Medicine Pulmonary Disease
DX: J18.9 Pneumonia, unspecified organism (principal); R06.00 Dyspnea, unspecified; C34.92 Malignant neoplasm of unspecified part of left bronchus or lung; Z87.01 Personal history of pneumonia (recurrent); Z88.0 Allergy status to penicillin; Z79.899 Other long term (current) drug therapy; F17.210 Nicotine dependence, cigarettes, uncomplicated; J44.9 Chronic obstructive pulmonary disease, unspecified; I25.10 Atherosclerotic heart disease of native coronary artery without angina pectoris; I10 Essential (primary) hypertension
CPT/HCPCS: 31624; 31628; 71045; 76000; 87070; 87077; 87102; 87116; 87186; 87205; 87206; 88112; 88305; 89051; 94640

== ENCOUNTER 2021-08-19 10:47 | Outpatient (CLI) | payer MEDICARE, MEDICAID, SELFPAY ==
--- NOTE | 2021-08-19 10:55 | PC.NURSE ---
1055-COLLECTED LABS VIA PERIPHERAL STICK. PT D/C HOME
[2021-08-19 11:16] LABS: Basophils # 0.1 K/mm3 (0-0.2); Basophils % 0.8 % (0.1-2.0); Eosinophils # 0.2 K/mm3 (0.0-0.4); Eosinophils % 1.4 % (0.1-12.0); Hematocrit 44.7 % (37.0-47.0); Hemoglobin 14.2 g/dL (12.2-16.2); Lymphocytes # 1.5 K/mm3 (0.7-4.5); Lymphocytes % 14.6 % (10-50); Mean Corpuscular HGB Conc 31.6 g/dL (31.8-35.4); Mean Corpuscular Hemoglobin 34.4 pg (27.0-31.2); Mean Corpuscular Volume 108.7 fl (81-99); Mean Platelet Volume 8.7 fl (7.4-10.4); Monocytes # 0.8 K/mm3 (0.1-1.0); Monocytes % 7.6 % (1.7-9.3); Neutrophils # 7.8 K/mm3 (1.8-7.8); Neutrophils % 75.6 % (37.0-80.0); Platelet Count 357 K/mm3 (142-424); Red Blood Count 4.12 M/mm3 (4.20-5.40); Red Cell Distribution Width 13.7 % (11.5-17.5); White Blood Count 10.3 K/mm3 (4.8-10.8)
== END 2021-08-19 11:00 | disposition home or self-care (01) ==
LOC: LAB 10:48 → INF 10:53
PROVIDERS: PCP Physician Assistant; Visit Provider Internal Medicine Pulmonary Disease
DX: J45.909 Unspecified asthma, uncomplicated (principal); R06.00 Dyspnea, unspecified
CPT/HCPCS: 85025; 86140

== ENCOUNTER → 2021-09-29 07:57 | Outpatient (CLI) | payer MEDICARE, MEDICAID, SELFPAY ==
--- NOTE | 2021-09-29 07:57 | MM_ITS ---
PROCEDURE INFORMATION: Exam: MG Bilateral Screening 3D Mammography Exam date and time: 09/29/2021 7:59 AM Age: 61 years old Clinical indication: Screening examination. Personal history of lung cancer. No family history of breast cancer. TECHNIQUE: Imaging protocol: Bilateral Screening tomosynthesis and 2D mammography including computer-aided detection (CAD) when performed. COMPARISON: 1. MG MM DIG SCREENING MAMM BI W/CAD 04/17/2020 8:29 AM 2. MG SCBI MM Dig screening mamm BI w/CAD 06/19/2017 8:42 AM 3. MG DMSB DIG MAMM-SCREEN VANIA 09/14/2015 8:16 AM 4. MG DMSB DIGITAL MAMM-SCREEN BILATERAL 10/01/2012 8:24 AM FINDINGS: MAMMOGRAPHY: Breast composition: The breasts are almost entirely fatty. Mass: No suspicious mass. Architectural distortion: None. Calcifications: No suspicious calcifications. Asymmetric density: None. Skin thickening: None. Axillary adenopathy: None. IMPRESSION: No mammographic evidence of malignancy. Annual screening is recommended unless otherwise clinically indicated. ASSESSMENT: BI-RADS Category 1: Negative
== END ==
PROVIDERS: PCP Physician Assistant; Visit Provider Physician Assistant
DX: Z12.31 Encounter for screening mammogram for malignant neoplasm of breast (principal)
CPT/HCPCS: 77063; 77067

== ENCOUNTER 2021-09-29 08:58 | Emergency (ER) | payer MEDICARE, MEDICAID, SELFPAY ==
[2021-09-29 09:05] VITALS: BP 119/76; PULSE 95; RESP 18; TEMP 37.1; O2SAT 94; BMI 27.4
--- NOTE | 2021-09-29 09:30 | CA_ITS ---
FINAL REPORT TECHNIQUE: Color Doppler, duplex Doppler and compression sonography of the right lower extremity venous system was performed. CLINICAL HISTORY: pain and swelling right lower extremity FINDINGS: There is no evidence of deep venous thrombosis from the level of the groin to the calf. The veins are patent and compressible. IMPRESSION: No evidence of deep venous thrombosis right lower extremity. Reviewed, Interpreted and Dictated by Bran Domínguez III, MD Transcribed by Tiara Pepe Authenticated by Bran Domínguez III, MD on 09/29/2021 11:58:35 AM [facility]
[2021-09-29 09:44] LABS: Uric Acid 4.5 mg/dl (2.5-6.2)
--- NOTE | 2021-09-29 09:45 | HMH.EDUTC ---
[facility] [place] Clinical Impression: Swelling of left foot Disposition: Home, Self-Care Condition on Discharge: Good Instructions: DI for Dependent Edema, DI for Foot Pain Additional Instructions: Follow up with your Family Doctor Return if needed Straight to ER if any life threatening symptoms Referrals: Felisa Brown PA [Primary Care Provider] - As needed Time of Disposition: 10:43 Medical Decision Making - Vikram Inquiry Pt receiving controlled substance: No Vikram was queried for this patient: No Vital Signs: 09/29/21 09:05 09/29/21 10:35 Temperature 98.7 F 98.7 F Temperature Source Oral Pulse Rate 95 H Pulse Rate [Right Brachial] 95 H Respiratory Rate 18 18 Blood Pressure 119/76 Blood Pressure [Right Arm] 119/76 Blood Pressure Mean [Right Arm] 90 Blood Pressure Source [Right Arm] Automatic Cuff Blood Pressure Position [Right Arm] Sitting 02 Sat by Pulse Oximetry 94 L Oxygen Delivery Method Room Air - Lab Data Lab Results 09/29/21 09:30: Uric Acid 4.5 - US Data US Images: Lower Extremity ED US Reviewed: Yes: I have viewed radiologist's interpretation Findings Narrative: IMPRESSION: No evidence of deep venous thrombosis right lower extremity. Medical Decision Narrative: Patient not wanting to stay for venous Doppler and as she was leaving staff arrived to do the doppler and patient agreed to stay to get it completed Patient reporting to staff of CV lab that she did not want to return to the [facility] after her test CV if it was negative test, CV called and patient results neg and patient wanting to leave from the lab she said she had to go home she had other errands Patient advised to make sure to follow up with her PCP for further treatment and testing [facility] [place] - General Stated complaint: right foot swollen and painful, no accident Time Seen by Provider: 09/29/21 09:45 Mode of Arrival: Ambulatory Source of Information: Patient Limitations: No Limitations Description of Symptoms (Recalled from Triage Doc. by RN): PATIENT C/O SWELLING TO RIGHT FOOT X 3 WEEKS HEENT Symptoms (Recalled from RN notes): No Resp Symptoms (Recalled from RN notes): No Skin Symptoms (Recalled from RN notes): No MS Symptoms (Recalled from RN notes): Yes Functional Status (Recalled from RN notes): WNL - History of Present Illness Provider Complaint: Patient states that she has been having pain and swelling on and off in her right foot for about 3 weeks and hurts when it acts up States that she has spoken with her PCP and they told her she needed to come in and get it checked several days ago but she was unable to get here until today States that swelling is better today after she kept it up last night - Related Data Home Medications Medication Instructions Recorded Confirmed ipratropium 20 mcg-albuterol 100 1 spray INHALATION DAILY 08/08/19 08/25/21 mcg/actuation mist for inhalation Atorvastatin Calcium [Lipitor 10mg 10 mg PO DAILY 12/10/20 08/25/21 Tab] guaiFENesin [Mucinex] 1,200 mg PO BID 12/10/20 08/25/21 Ergocalciferol (Vitamin D2) 50,000 unit PO WEEKLY 08/03/21 08/25/21 [Vitamin D2] calcium carbonate 600 mg-vitamin See Rx Instructions .ROUTE .COMPLEX 08/25/21 08/25/21 D3 10 mcg (400 unit) tablet Previous Rx's Medication Instructions Recorded ipratropium 20 mcg-albuterol 100 1 puff INHALATION Q6H PRN 90 Days 07/30/21 mcg/actuation mist for inhalation #4 g doxycycline hyclate 100 mg capsule 100 mg PO BID 5 Days #10 cap 08/19/21 prednisone 20 mg tablet 20 mg PO DAILY 14 Days #14 tab 08/19/21 prednisone 20 mg tablet 40 mg PO DAILY 28 Days #56 tab 08/19/21 ipratropium 0.5 mg-albuterol 3 mg See Rx Instructions .ROUTE 08/24/21 (2.5 mg base)/3 mL nebulization .COMPLEX #180 ml soln alendronate 70 mg tablet 70 mg PO WEEKLY #14 tab 08/25/21 lorazepam 0.5 mg tablet 0.5 mg PO BID PRN #40 tab 08/25/21 nystatin 100,000 unit/mL oral 10 ml PO QID 10 Days #400 ml 08/25/21
[2021-09-29 10:35] VITALS: BP 119/76; PULSE 95; RESP 18; TEMP 37.1; O2SAT 94
== END 2021-09-29 10:40 | disposition home or self-care (01) ==
PROVIDERS: Emergency Provider Nurse Practitioner; PCP Physician Assistant
DX: M79.89 Other specified soft tissue disorders; M79.671 Pain in right foot; Z12.31 Encounter for screening mammogram for malignant neoplasm of breast; Z85.118 Personal history of other malignant neoplasm of bronchus and lung; I10 Essential (primary) hypertension; J44.9 Chronic obstructive pulmonary disease, unspecified; E78.5 Hyperlipidemia, unspecified; Z79.899 Other long term (current) drug therapy; Z79.51 Long term (current) use of inhaled steroids; I25.10 Atherosclerotic heart disease of native coronary artery without angina pectoris; Z88.0 Allergy status to penicillin; Z88.1 Allergy status to other antibiotic agents; Z87.891 Personal history of nicotine dependence
CPT/HCPCS: 77063; 77067; 84550; 93971; 99284

== ENCOUNTER → 2021-10-18 10:04 | Outpatient (CLI) | payer MEDICARE, MEDICAID, SELFPAY ==
--- NOTE | 2021-10-18 10:04 | CA_ITS ---
APPROVED REPORT EXAM: Comprehensive 2D, Doppler, and color-flow Echocardiogram [employer] Tester: Selam Whitaker RVT Ht: 5 ft 4 in Wt: 181lbs BSA: 1.88 BP: 110/78 mmHg Indications: DYSPENA,CAD,COPD,HTN,SMOKER,EDEMA,HLD 2D Dimensions LVOT 1.92 cm (M/F) 1.5-2.5 LA Volume 20.40 mL LA Volume Index 10.90 mL/m2 (M/F) 16-34 M-Mode Dimensions RVDd 3.69 cm (0.9-2.6) LA Diam 3.37 cm (1.9-4.0) LVDd 4.18 cm (3.5-5.7) Ao Diam 3.18 cm (2.0-3.7) LVDs 2.55 cm (3.5-5.7) IVSd 1.18 cm (0.6-1.1) PWd 0.95 cm (0.6-1.1) EF (Teich) 69.90% FS 39.00% EDV (Teich) 77.70 mL TAPSE 1.78 (<1.7) ESV (Teich) 23.40 mL LV Diastology E Decel Time 240.00 (160-240 msec) E/A Ratio 0.6 MED E' 7.00 (< 7 cm/sec) E'/MED E' Ratio 9.56 (>14) LAT E' 10.10 (<10 cm/sec) E/LAT E' Ratio 6.62 (>14) Aortic Valve AO Peak GR. 6.00 mmHg Mitral Valve MV E Max Robert. 67.00 (40-130 cm/s) MV A Velocity 108.00 (40-130 cm/s) E/A Ratio 0.62 MV Decel. Time 240.00 (160-240 ms) MV PHT 70.00 ms Pulmonary Valve PV Peak Velocity 98.00 (50-150 cm/s) Left Ventricle Left atrium is mildly enlarged, left ventricle is normal size, mild concentric left ventricular hypertrophy, estimated ejection fraction 55% with no regional wall motion abnormality, grade 1 diastolic dysfunction seen without tissue Doppler evidence of raise left atrial pressure. Right Ventricle Right atrium and right ventricle are mildly enlarged with normal contractility. Aortic Valve Aortic valve is minimally thickened and fibrosed, there is no aortic stenosis or aortic insufficiency. Mitral Valve Mitral valve grossly normal, there is trace mitral regurgitation. Tricuspid Valve Tricuspid valve grossly normal, there is trace tricuspid regurgitation, tricuspid regurgitation jet velocity is inadequate for calculation of the right ventricular systolic pressure. Pulmonic Valve Pulmonic valve is poorly visualized. Great Vessels Aortic root is normal size. Inferior vena cava is poorly visualized. Pericardium No significant pericardial effusion noted. Conclusion 1. Mild biatrial enlargement, normal left ventricular size, mild concentric left ventricular hypertrophy, estimated ejection fraction 55% with no regional wall motion abnormality, grade 1 diastolic dysfunction seen without tissue Doppler evidence of raise left atrial pressure. 2. Mildly enlarged right ventricle with normal contractility. 3. Trace mitral and tricuspid regurgitation. 4. No significant pericardial effusion noted. 5. Inferior vena cava is poorly visualized. Electronically signed by : Hunter Marin MD 10/18/2021 20:43:13
--- NOTE | 2021-10-18 10:04 | US_ITS ---
FINAL REPORT CLINICAL HISTORY: diminsihed pulses feet, hyperlipidemia, current smoker, HTN, right claudication, right rest pain, bilateral skin color changes. FINDINGS: BILATERAL ANKLE BRACHIAL INDICES HISTORY: Claudication. Pressure indices are as follows are: RIGHT LOWER EXTREMITY Ankle brachial pressure index: 1.12 Toe brachial pressure index: 0.78 COMMENTS: Normal LEFT LOWER EXTREMITY Ankle brachial pressure index: 1.2 Toe brachial pressure index: 0.8 COMMENTS: Normal IMPRESSION: No evidence of significant obstructive peripheral vascular disease of the lower extremities. Reviewed, Interpreted and Dictated by Seema Ibarra MD Transcribed by Anais Munoz Authenticated by Seema Ibarra MD on 10/18/2021 01:22:04 PM [facility]
== END ==
PROVIDERS: PCP Physician Assistant; Visit Provider Physician Assistant
DX: R06.00 Dyspnea, unspecified (principal); M79.606 Pain in leg, unspecified; R09.89 Other specified symptoms and signs involving the circulatory and respiratory systems
CPT/HCPCS: 93306; 93923

== ENCOUNTER → 2021-11-26 06:25 | Outpatient (CLI) | payer MEDICARE, MEDICAID, SELFPAY ==
--- NOTE | 2021-11-26 06:25 | CT_ITS ---
FINAL REPORT TECHNIQUE: Axial images were obtained from the lung apex to the mid abdomen by computed tomography. Coronal reformatted images were obtained. This study was performed with techniques to keep radiation doses as low as reasonably achievable, (ALARA). Individualized dose reduction techniques using automated exposure control or adjustment of mA and/or kV according to the patient''s size were employed. CLINICAL HISTORY: History of lung cancer, radiation and chemo, smoker COMPARISON: July 09, 2021 and November 06, 2020 FINDINGS: There is a left thyroid nodule measuring 10 mm which is stable to slightly smaller. There is no axillary adenopathy. There is no hilar or mediastinal adenopathy. Heart size is normal. There is no pericardial or pleural effusion. Limited images of the upper abdomen demonstrates 3 mm or less right renal stones. On the lung window images there are moderate changes of emphysema and moderate pulmonary scarring. There is persistent medial right thorax consolidation favoring post treatment fibrosis. Alveolar opacities in both lungs have resolved. There are several calcified granulomas. IMPRESSION: Stable medial right thorax opacities consistent with post treatment change. Resolved alveolar opacities. No new abnormality identified. Reviewed, Interpreted and Dictated by Bran Domínguez III, MD Transcribed by Fanta Neumann Authenticated and [facility]
== END ==
PROVIDERS: PCP Physician Assistant; Visit Provider Internal Medicine Pulmonary Disease
DX: Z85.118 Personal history of other malignant neoplasm of bronchus and lung (principal)
CPT/HCPCS: 71250

== ENCOUNTER → 2021-12-22 15:54 | Outpatient (CLI) | payer MEDICARE, MEDICAID, SELFPAY ==
--- NOTE | 2021-12-22 16:11 | XR_ITS ---
PROCEDURE INFORMATION: Exam: XR Chest Exam date and time: 12/22/2021 4:06 PM Age: 61 years old Clinical indication: Condition or disease; Other: Possible covid patient; Additional info: Cough with HX if lung cancer TECHNIQUE: Imaging protocol: Radiologic exam of the chest. Views: 2 views. COMPARISON: CT CHEST WO CON 11/26/2021 6:28 AM FINDINGS: Lungs: No acute airspace consolidation. Atelectasis in the right perihilar region. Pleural spaces: Unremarkable. No pleural effusion. No pneumothorax. Heart/Mediastinum: Unremarkable. No cardiomegaly. Vasculature: Aortic tortuosity. Bones/joints: Unremarkable. IMPRESSION: Right perihilar region atelectasis.
[2021-12-22 16:32] LABS: Adenovirus,PCR Not Detected (NotDetected); Bordetella Pertussis Not Detected (NotDetected); Chlamydophila Pneumoniae, PCR Not Detected (NotDetected); Coronavirus 19, PCR Not Detected (NotDetected); Coronavirus 229E Not Detected (NotDetected); Coronavirus NL63 Not Detected (NotDetected); Coronavirus OC43 Not Detected (NotDetected); Coronovirus HKU1,PCR Not Detected (NotDetected); Human Metapneumovirus Not Detected (NotDetected); Influenza A, PCR Not Detected (NotDetected); Influenza AH1, 2009 Not Detected (NotDetected); Influenza AH1, PCR Not Detected (NotDetected); Influenza AH3,PCR Not Detected (NotDetected); Influenza B, PCR Not Detected (NotDetected); Mycoplasma Pneumoniae, PCR Not Detected (NotDetected); Parainfluenza 1, PCR Not Detected (NotDetected); Parainfluenza 2, PCR Not Detected (NotDetected); Parainfluenza 3, PCR Not Detected (NotDetected); Parainfluenza 4, PCR Not Detected (NotDetected); Respiratory Syncytial Virus Not Detected (NotDetected); Rhinovirus/Enterovirus Not Detected (NotDetected)
== END ==
PROVIDERS: PCP Physician Assistant; Visit Provider Physician Assistant
DX: R05.9 Cough, unspecified (principal); Z85.118 Personal history of other malignant neoplasm of bronchus and lung; R69 Illness, unspecified; Z20.822 Contact with and (suspected) exposure to COVID-19
CPT/HCPCS: 71046; 87581; 87632; 87798; C9803; U0003; U0005

== ENCOUNTER → 2022-01-21 13:50 | Outpatient (CLI) | payer MEDICARE, MEDICAID, SELFPAY ==
[2022-01-21 17:21] LABS: Blood Urea Nitrogen 12 mg/dl (7-17); Estimated Glomerular Filt Rate 85 ml/min (>60); GFR (African American) 102 ML/MIN (>60)
== END ==
PROVIDERS: PCP Physician Assistant; Visit Provider Physician Assistant
DX: Z01.812 Encounter for preprocedural laboratory examination (principal)
CPT/HCPCS: 36415; 82565; 84520

== ENCOUNTER → 2022-01-28 08:08 | Outpatient (CLI) | payer MEDICARE, MEDICAID, SELFPAY ==
--- NOTE | 2022-01-28 08:08 | CT_ITS ---
FINAL REPORT CLINICAL HISTORY: abn MICK, small vessel disease, painful/purple feet FINDINGS: Thin section axial CT images of the abdomen, pelvis and lower extremities were obtained with contrast. Multiplanar reformatted images were also obtained and reviewed. ABDOMEN AND PELVIS: There is no abdominal aortic aneurysm or dissection. The inferior mesenteric artery is patent. There is no significant stenosis of the right common iliac artery or external right iliac artery. There is no significant stenosis of the left common iliac artery or external left iliac artery. The internal iliac arteries are patent. RIGHT LOWER EXTREMITY: There is no significant stenosis of the right common femoral or superficial femoral arteries. The right deep femoral artery is patent. The right popliteal artery is patent. There is three-vessel runoff to the distal lower leg. LEFT LOWER EXTREMITY: There is no significant stenosis of the left common femoral or superficial femoral arteries. The left deep femoral artery is patent. The left popliteal artery is patent. There is three-vessel runoff to the distal lower leg. OTHER FINDINGS: Left renal atrophy is noted. There is a 15 mm cyst in the left kidney. A 4 mm nonobstructing stone is seen in the right kidney. The appendix is normal. There is diverticulosis of the descending and sigmoid colon. IMPRESSION: No significant vascular disease. Reviewed, Interpreted and Dictated by Bran Domínguez III, MD Transcribed by Asa Barros Authenticated and [facility]
== END ==
PROVIDERS: PCP Physician Assistant; Visit Provider Physician Assistant
DX: I73.9 Peripheral vascular disease, unspecified (principal); M79.671 Pain in right foot; M79.672 Pain in left foot; R68.89 Other general symptoms and signs
CPT/HCPCS: 73701; Q9967

== ENCOUNTER 2022-02-10 07:36 | Emergency (ER) | payer MEDICARE, MEDICAID, SELFPAY ==
[2022-02-10] VITALS (9 sets, daily range): BP systolic 98–196; BP diastolic 70–140; PULSE 20–117; RESP 17–19; TEMP 36.9–37.1; O2SAT 91–99; BMI 32.5
--- NOTE | 2022-02-10 07:39 | PC.NURSE ---
pt stopping at restroom for ua sample
--- NOTE | 2022-02-10 07:51 | PC.NURSE ---
will recheck pt bp. pt exacerbated from walking to room from restroom. pt reports she gets winded on exertion at baseline.
--- NOTE | 2022-02-10 07:58 | PC.NURSE ---
IV established and blood sent to the lab.
[2022-02-10 08:04] LABS: Appearance,Urine SL CLOUDY (Clear); Blood, Urine Negative (Negative); Color,Urine YELLOW (Yellow); Glucose,Urine (UA) Negative (Negative); Ketones,Urine TRACE (Negative); Leukocyte Esterase,Urine Negative (Negative); Nitrate,Urine Negative (Negative); Protein,Urine 2+ (Negative); Specific Gravity, Urine 1.025 (1.005-1.030); Urobilinogen,Urine 0.2 EU/dl (0.2)
[2022-02-10 08:05] LABS: Microscopic, Urine URINE MICROSCOPIC (MICROSCOPIC)
[2022-02-10 08:05] LABS: Coronavirus 19, PCR Not Detected (NotDetected); Influenza A, PCR Not Detected (NotDetected); Influenza B, PCR Not Detected (NotDetected)
[2022-02-10 08:08] LABS: Basophils # 0.2 K/mm3 (0-0.2); Basophils % 1.7 % (0.1-2.0); Eosinophils # 0.2 K/mm3 (0.0-0.4); Eosinophils % 1.6 % (0.1-12.0); Hematocrit 51.8 % (37.0-47.0); Hemoglobin 16.4 g/dL (12.2-16.2); Lymphocytes # 1.5 K/mm3 (0.7-4.5); Lymphocytes % 12.1 % (10-50); Mean Corpuscular HGB Conc 31.6 g/dL (31.8-35.4); Mean Corpuscular Hemoglobin 32.2 pg (27.0-31.2); Mean Platelet Volume 8.3 fl (7.4-10.4); Monocytes % 8.4 % (1.7-9.3); Neutrophils # 9.2 K/mm3 (1.8-7.8); Neutrophils % 76.2 % (37.0-80.0); Platelet Count 409 K/mm3 (142-424); Red Blood Count 5.08 M/mm3 (4.20-5.40); Red Cell Distribution Width 14.3 % (11.5-17.5); White Blood Count 12.1 K/mm3 (4.8-10.8)
[2022-02-10 08:13] LABS: Chloride 101 mmol/L (98-107)
[2022-02-10 08:16] LABS: Alanine Aminotransferase 24 U/L (12-78); Albumin Level 4.2 g/dl (3.5-5.0); Albumin/Globulin Ratio 1.4 (1.1-1.8); Alkaline Phosphatase 100 U/L (38-126); Anion Gap 16.1 mEq/L (5-15); Aspartate Amino Transferase 25 U/L (14-36); Bilirubin,Total 0.3 mg/dl (0.2-1.3); Blood Urea Nitrogen 15 mg/dl (7-17); Calcium 9.3 mg/dl (8.4-10.2); Carbon Dioxide 27 mmol/L (22.0-30.0); Creatinine Clearance Estimated 71 mL/min (50-200); Estimated Glomerular Filt Rate 72 ml/min (>60); GFR (African American) 88 ML/MIN (>60); Glucose 109 mg/dl (74-100); Potassium 4.1 mmoL/L (3.5-5.1); Sodium 140 mmol/L (136-145); Total Protein,Serum 7.2 g/dl (6.3-8.2)
[2022-02-10 08:17] LABS: Lipase 134 U/L (23-300)
[2022-02-10 08:18] LABS: Bacteria,Urine Trace /lpf; Bilirubin,Urine 1+ (Negative); Calcium Oxalate Crystals,Urine 1+ /lpf; WBC,Urine Occasional #/hpf (0-3)
--- NOTE | 2022-02-10 08:19 | PC.NURSE ---
at the bedside
--- NOTE | 2022-02-10 08:22 | CT_ITS ---
FINAL REPORT CLINICAL HISTORY: R flank and abdo pain FINDINGS: CT OF THE ABDOMEN AND PELVIS WITH CONTRAST Axial CT images of the abdomen and pelvis were obtained after the administration of oral and iv contrast. Coronal reformatted images were also obtained and reviewed.This study was performed with techniques to keep radiation doses as low as reasonably achievable (ALARA). Individualized dose reduction techniques using automated exposure control or adjustment of mA and/or kV according to the patient's size were employed. Abdomen: There is bibasilar atelectasis or scarring. The heart is normal in size. The liver has an unremarkable appearance, without evidence of mass or biliary ductal dilatation. The gallbladder is present. The spleen is unremarkable. No adrenal mass is present. The pancreas has an unremarkable appearance. There is a 3 mm nonobstructing right renal stone. There is moderate left renal scarring. There is a small cyst in the left kidney. The aorta is normal in caliber. There is no free fluid or adenopathy. There is mild vascular calcification. Pelvis: The appendix is normal. There is descending and sigmoid diverticulosis without evidence of diverticulitis. The urinary bladder is unremarkable. There is no evidence of bowel obstruction. IMPRESSION: 3 mm nonobstructing right renal stone. Small left renal cyst. Moderate left renal scarring. Reviewed, Interpreted and Dictated by Bran Domínguez III, MD Transcribed by Fanta Neumann Authenticated and . [facility]
--- NOTE | 2022-02-10 08:23 | HMH.EDGENADL ---
Discharge Plan Disposition Patient Disposition: Home, Self-Care Condition: Good Chief Complaint: Nausea/Vomiting/Diarrhea Prescriptions Prescriptions: No Action alendronate 70 mg tablet 70 mg PO WEEKLY Qty: 14 3RF Combivent Respimat 20-100 mcg/actuation mist 1 puff INHALATION Q6H PRN (Reason: shortness of breath or wheezing) 90 Days Qty: 4 3RF atorvastatin 10 mg tablet 10 mg PO DAILY Qty: 90 1RF Rx Instructions: TAKE ONE TABLET BY MOUTH AT BEDTIME Breo Ellipta 200-25 mcg/dose blister with device See Rx Instructions .ROUTE .COMPLEX Qty: 60 2RF Dose Instruction: INHALE 1 PUFF BY MOUTH ONCE A DAY Rx Instructions: INHALE 1 PUFF BY MOUTH ONCE A DAY ergocalciferol (vitamin D2) 1,250 mcg (50,000 unit) capsule See Rx Instructions .ROUTE .COMPLEX Qty: 4 3RF Dose Instruction: TAKE ONE CAPSULE BY MOUTH EVERY WEEK Rx Instructions: TAKE ONE CAPSULE BY MOUTH EVERY WEEK fluticasone propionate [Flonase Allergy Relief] 50 mcg/actuation spray,suspension 1 spray NS QDAY 30 Days Qty: 9.9 0RF Rx Instructions: administer into each nostril furosemide [Lasix] 20 mg tablet 20 mg PO DAILY Qty: 90 3RF nystatin 100,000 unit/mL suspension 10 ml PO QID 10 Days Qty: 400 0RF Rx Instructions: swish and swallow Biotene Dry Mouth Oral Rinse Mouthwash 15 ml MUCOUS MEM 5XD PRN (Reason: dry mouth) Qty: 1000 0RF Rx Instructions: swish for 15-30 secs , then spit out; do not swallow Spiriva Respimat 2.5 mcg/actuation mist See Rx Instructions .ROUTE .COMPLEX Qty: 4 2RF Dose Instruction: INHALE 1 PUFF BY MOUTH ONCE A DAY FOR BREATHING PROBLEMS Rx Instructions: INHALE 1 PUFF BY MOUTH ONCE A DAY FOR BREATHING PROBLEMS lisinopril 20 mg tablet See Rx Instructions .ROUTE .COMPLEX Qty: 90 3RF Dose Instruction: TAKE ONE TABLET BY MOUTH ONCE A DAY FOR HYPERTENSION Rx Instructions: TAKE ONE TABLET BY MOUTH ONCE A DAY FOR HYPERTENSION calcium carbonate-vitamin D3 600 mg-10 mcg (400 unit) tablet 1 tab PO DAILY Qty: 90 3RF lorazepam [Ativan] 0.5 mg tablet 0.5 mg PO BID PRN (Reason: anxiety) Qty: 40 1RF ipratropium-albuterol 0.5 mg-3 mg(2.5 mg base)/3 mL solution for nebulization See Rx Instructions .ROUTE .COMPLEX Qty: 180 3RF Dose Instruction: INHALE CONTENTS OF 1 VIAL VIA NEBULIZER FOUR TIMES A DAY NEEDED FOR SHORTNESS OF BREATH OR WHEEZING Rx Instructions: INHALE CONTENTS OF 1 VIAL VIA NEBULIZER FOUR TIMES A DAY NEEDED FOR SHORTNESS OF BREATH OR WHEEZING oxycodone-acetaminophen [Percocet] 5-325 mg tablet 1 tab PO Q8H PRN (Reason: pain) Qty: 60 0RF Referrals Follow up/Referrals: Felisa Brown PA [Primary Care Provider] - See instructions Activity Restrictions/Add. Instructions Additional Instructions/Restrictions: Tylenol or ibuprofen for pain or fever. Zofran as needed for nausea and vomiting. Follow-up with primary care provider, call to make appointment. Return to the emergency department if symptoms worsen. Clinical Impressions Clinical Impression: Acute flank pain, Vomiting, Fever Instructions Patient Instructions: DI for Nausea -- Adult, DI for Flank Pain, DI for Fever (Symptom) -- Adult, DI for Vomiting -- Adult Discharge ED Provider: Jordin Looney General Adult HPI General Chief complaint: Nausea/Vomiting/Diarrhea Stated complaint: Vomitting, fever, RT side abdominal pain Time Seen by Provider: 02/10/22 08:10 Mode of Arrival: Ambulatory Source of Information: Patient Limitations: No Limitations Description of Symptoms (Recalled from ER Triage Doc. by RN): pt to ed c/o right sided flank pain, abd discomfort, nausea and vomiting sincy yesterday. pt reports a headache that started today. pt denies diarrhea. pt denies cp. pt reports feeling more soa today, however pt reports copd and a hx of lung cancer. pt states she is typically soa at baseline. History of Prese
--- NOTE | 2022-02-10 08:26 | PC.NURSE ---
pt resting, continues to c/o pain. pt states nausea improved with meds given. call light within reach
--- NOTE | 2022-02-10 08:33 | PC.NURSE ---
pt to ct at this time
--- NOTE | 2022-02-10 08:39 | XR_ITS ---
FINAL REPORT CLINICAL HISTORY: recent pneumonia, fever COMPARISON: December 22, 2021 FINDINGS: TWO-VIEW CHEST Two views of the chest were obtained. The heart size and pulmonary vascularity are within normal limits. The mediastinum is normal. There are linear opacities in both lungs which likely represent atelectasis. There is no pneumothorax. The bony thorax is intact. IMPRESSION: Linear opacities in both lungs, likely represents atelectasis and is similar to the prior exam. Reviewed, Interpreted and Dictated by Bran Domínguez III, MD Transcribed by Fanta Neumann Authenticated and [facility]
--- NOTE | 2022-02-10 09:27 | PC.NURSE ---
assesed pt pain at this time. pt reports she is comfortable. gave pt a blanket for comfort. no other needs voiced at this time.
--- NOTE | 2022-02-10 09:32 | US_ITS ---
FINAL REPORT CLINICAL HISTORY: R flank and abdo pain, fever COMPARISON: CT from the same day FINDINGS: Sonographic images of the right upper quadrant were obtained. The pancreas is partially obscured. There is mild fatty infiltration of the liver. There is a small amount of sludge in the gallbladder. There is no evidence of biliary ductal dilatation.The common duct measures 3 mm. Limited images of the right kidney are unremarkable. IMPRESSION: Mild fatty infiltration of the liver. Small amount of sludge in the gallbladder. Reviewed, Interpreted and Dictated by Bran Domínguez III, MD Transcribed by Asa Barros Authenticated and [facility]
--- NOTE | 2022-02-10 09:40 | PC.NURSE ---
pt states she has not had oral intake since 0600. pt states she has had sips of water since then but nothing to eat. notified for u/s
--- NOTE | 2022-02-10 09:49 | PC.NURSE ---
pt placed in a gown for u/s
--- NOTE | 2022-02-10 09:50 | PC.NURSE ---
u/s notified of order
--- NOTE | 2022-02-10 09:53 | PC.NURSE ---
fluids finished. pt IV saline locked at this time.
--- NOTE | 2022-02-10 10:19 | PC.NURSE ---
updated pt u/s will be down shortly, per ton
--- NOTE | 2022-02-10 10:31 | PC.NURSE ---
Yadi from /s here to transport pt via wheelchair to radiology
--- NOTE | 2022-02-10 10:54 | PC.NURSE ---
pt back from ultrasound
--- NOTE | 2022-02-10 11:13 | PC.NURSE ---
spoke with ton in u/s for preliminary u/s report. notified of findings. acknowledged.
--- NOTE | 2022-02-10 11:52 | PC.NURSE ---
pt given verbal and written d/c instructions. IV d/c
== END 2022-02-10 11:54 | disposition home or self-care (01) ==
PROVIDERS: Emergency Provider Emergency Medicine; PCP Physician Assistant
DX: R10.9 Unspecified abdominal pain (principal); R06.02 Shortness of breath; J44.9 Chronic obstructive pulmonary disease, unspecified; N28.1 Cyst of kidney, acquired; N20.0 Calculus of kidney; Z85.118 Personal history of other malignant neoplasm of bronchus and lung; Z20.822 Contact with and (suspected) exposure to COVID-19
CPT/HCPCS: 71046; 74177; 76705; 80053; 81001; 83690; 85025; 96361; 96374; 96375; 96376; 99285; C9803; J2405; Q9967; U0003; U0005

== ENCOUNTER → 2022-03-01 08:35 | Outpatient (CLI) | payer MEDICARE, MEDICAID, SELFPAY ==
--- NOTE | 2022-03-01 08:40 | CT_ITS ---
FINAL REPORT CLINICAL HISTORY: LUNG CANCER COMPARISON: 11/26/2021 FINDINGS: Axial images through the chest was performed with and without contrast by computed tomography. Sagittal and coronal images were obtained and reviewed. This study was performed with techniques to keep radiation doses as low as reasonably achievable (ALARA). Individualized dose reduction techniques using automated exposure control or adjustment of mA and/or kV according to the patient's size were employed. There are small mediastinal nodes, stable. The heart is normal in size. There is no pleural or pericardial effusion. There are moderate changes of emphysema. There opacities in the right lung which are stable, favor post treatment change. There is a mild opacity in the lingula, favor scarring. There is a calcified granuloma in the left lung base. Limited images of the upper abdomen reveal left renal scarring. There are multiple presumed hemangiomas in the thoracic spine, stable. IMPRESSION: No acute process. Reviewed, Interpreted and Dictated by Bran Domínguez III, MD Transcribed by Tiara Pepe Authenticated and [facility]
== END ==
PROVIDERS: PCP Physician Assistant; Visit Provider Internal Medicine Medical Oncology
DX: C34.91 Malignant neoplasm of unspecified part of right bronchus or lung (principal)
CPT/HCPCS: 71270; Q9967

== ENCOUNTER → 2022-03-14 14:19 | Outpatient (CLI) | payer MEDICARE, MEDICAID, SELFPAY ==
[2022-03-14 13:49] LABS: Amphetamine/Metha Screen,Urine Negative ng/ml (<1000)
[2022-03-14 13:50] LABS: Barbiturates Screen,Urine Negative ng/ml (<200); Benzodiazepines Screen,Urine Negative ng/ml (<200)
[2022-03-14 13:51] LABS: Cannabinoid Screen,Urine Negative ng/ml (<50)
[2022-03-14 13:52] LABS: Cocaine Screen,Urine Negative ng/ml (<300); Methadone Screen,Urine Negative ng/ml (<300)
[2022-03-14 13:54] LABS: Phencyclidine Screen,Urine Negative ng/ml (<25)
[2022-03-14 13:55] LABS: Opiate Screen,Urine Negative ng/ml (<300)
== END ==
PROVIDERS: PCP Physician Assistant; Visit Provider Physician Assistant
DX: Z79.899 Other long term (current) drug therapy (principal)
CPT/HCPCS: 80305

== ENCOUNTER → 2022-08-25 07:48 | Outpatient (CLI) | payer MEDICARE, MEDICAID, SELFPAY ==
--- NOTE | 2022-08-25 07:49 | US_ITS ---
FINAL REPORT TECHNIQUE: Sonographic images of the right upper quadrant were obtained. CLINICAL HISTORY: postprandial vomiting COMPARISON: 02/10/2022 FINDINGS: PANCREAS: Unremarkable. LIVER: There is mild fatty infiltration.. No focal hepatic lesion. No intrahepatic biliary ductal dilatation. GALLBLADDER: No gallstones. No gallbladder wall thickening or pericholecystic fluid. COMMON DUCT: 3 mm. Normal for age. RIGHT KIDNEY: The right kidney measures 10.8 cm. There is mild right hydronephrosis.. FREE FLUID: None. IMPRESSION: Fatty infiltration of the liver. Mild right hydronephrosis. Reviewed, Interpreted and Dictated by Seema Ibarra MD Transcribed by Izabel Hanna Authenticated and [facility]
== END ==
PROVIDERS: PCP Physician Assistant; Visit Provider Physician Assistant
DX: R11.10 Vomiting, unspecified (principal)
CPT/HCPCS: 76705

== ENCOUNTER → 2022-08-27 08:09 | Outpatient (CLI) | payer MEDICARE, MEDICAID, SELFPAY ==
[2022-08-27 08:24] LABS: Microscopic, Urine URINE MICROSCOPIC (MICROSCOPIC)
[2022-08-27 09:27] LABS: Appearance,Urine CLEAR (Clear); Bilirubin,Urine Negative (Negative); Blood, Urine Negative (Negative); Color,Urine YELLOW (Yellow); Glucose,Urine (UA) Negative (Negative); Ketones,Urine Negative (Negative); Leukocyte Esterase,Urine Negative (Negative); Nitrate,Urine Negative (Negative); Protein,Urine Negative (Negative); Specific Gravity, Urine 1.015 (1.005-1.030); Urobilinogen,Urine 0.2 EU/dl (0.2)
[2022-08-27 10:14] LABS: WBC,Urine Occasional #/hpf (0-3)
== END ==
PROVIDERS: PCP Physician Assistant; Visit Provider Physician Assistant
DX: N13.30 Unspecified hydronephrosis (principal)
CPT/HCPCS: 81001

== ENCOUNTER 2022-09-16 22:32 | Emergency (ER) | payer MEDICARE, MEDICAID, SELFPAY ==
[2022-09-16 22:33] VITALS: BP 110/68; PULSE 93; RESP 16; TEMP 36.7; O2SAT 96; BMI 28.3
--- NOTE | 2022-09-16 22:47 | XR_ITS ---
PROCEDURE INFORMATION: Exam: XR Right Wrist Exam date and time: 09/16/2022 11:02 PM Age: 62 years old Clinical indication: Injury or trauma; Fall TECHNIQUE: Imaging protocol: Radiologic exam of the right wrist. Views: 3 or more views. COMPARISON: CR Hand R 09/16/2022 11:00 PM FINDINGS: Bones/joints: There is comminuted distal radial metaphyseal fracture with dorsal angulation of the distal fragment. The ulna is intact. The carpal bones are normally aligned and unremarkable. Soft tissues: Soft tissue swelling is evident. IMPRESSION: Comminuted distal right radial metaphyseal fracture with dorsal angulation of the distal fragment.
--- NOTE | 2022-09-16 22:47 | XR_ITS ---
PROCEDURE INFORMATION: Exam: XR Right Hand Exam date and time: 09/16/2022 11:00 PM Age: 62 years old Clinical indication: Injury or trauma; Fall TECHNIQUE: Imaging protocol: Radiologic exam of the right hand. Views: 3 or more views. COMPARISON: No relevant prior studies available. FINDINGS: Bones/joints: The phalanges and metacarpals are intact. There is no acute fracture. The carpal bones are normally aligned without acute fracture. Comminuted radial metaphyseal fracture is noted with dorsal angulation of the distal fragment. Soft tissues: Ventral soft tissue swelling of the wrist and distal forearm. IMPRESSION: 1. No fracture of the metacarpals or phalanges. 2. Comminuted distal radial metaphyseal fracture with dorsal angulation of the distal fragment.
--- NOTE | 2022-09-16 22:47 | XR_ITS ---
PROCEDURE INFORMATION: Exam: XR Right Forearm Exam date and time: 09/16/2022 11:05 PM Age: 62 years old Clinical indication: Injury or trauma; Fall TECHNIQUE: Imaging protocol: Radiologic exam of the right forearm. Views: 2 views. COMPARISON: CR XR WRIST RT MIN 3V 09/16/2022 11:02 PM FINDINGS: Bones/joints: There is a comminuted distal right radial metaphyseal fracture with dorsal angulation distal fragment. The proximal extent of the radius is normal. The ulna is intact and unremarkable. Carpal bones are normally aligned. The elbow is normally aligned. Soft tissues: Soft tissue swelling of the wrist. IMPRESSION: Comminuted distal right radial metaphyseal fracture with dorsal angulation of the distal fragment.
--- NOTE | 2022-09-16 23:12 | HMH.EDUPEXT ---
Discharge Plan Disposition Patient Disposition: Home, Self-Care Chief Complaint: Extremity Injury, Upper Prescriptions Prescriptions: No Action fluticasone propionate [Flonase Allergy Relief] 50 mcg/actuation spray,suspension 1 spray NS QDAY 30 Days Qty: 9.9 0RF Rx Instructions: administer into each nostril nystatin 100,000 unit/mL suspension 10 ml PO QID 10 Days Qty: 400 0RF Rx Instructions: swish and swallow Biotene Dry Mouth Oral Rinse Mouthwash 15 ml MUCOUS MEM 5XD PRN (Reason: dry mouth) Qty: 1000 0RF Rx Instructions: swish for 15-30 secs , then spit out; do not swallow famotidine [Pepcid] 20 mg tablet 20 mg PO DAILY Qty: 90 0RF Lactaid Fast Act 9,000 unit tablet,chewable 9,000 unit PO QAC Qty: 90 0RF Rx Instructions: administer with first bite of dairy food calcium carbonate-vitamin D3 600 mg-10 mcg (400 unit) tablet 1 tab PO DAILY Qty: 90 3RF Breo Ellipta 200-25 mcg/dose blister with device See Rx Instructions .ROUTE .COMPLEX Qty: 60 2RF Dose Instruction: INHALE 1 PUFF BY MOUTH ONCE A DAY Rx Instructions: INHALE 1 PUFF BY MOUTH ONCE A DAY Spiriva Respimat 2.5 mcg/actuation mist See Rx Instructions .ROUTE .COMPLEX Qty: 4 2RF Dose Instruction: INHALE 1 PUFF BY MOUTH ONCE A DAY FOR BREATHING PROBLEMS Rx Instructions: INHALE 1 PUFF BY MOUTH ONCE A DAY FOR BREATHING PROBLEMS Combivent Respimat 20-100 mcg/actuation mist 1 puff INHALATION Q6H PRN (Reason: shortness of breath or wheezing) 90 Days Qty: 4 3RF furosemide [Lasix] 20 mg tablet 20 mg PO DAILY Qty: 90 3RF lisinopril 20 mg tablet See Rx Instructions .ROUTE .COMPLEX Qty: 90 3RF Dose Instruction: TAKE ONE TABLET BY MOUTH ONCE A DAY FOR HYPERTENSION Rx Instructions: TAKE ONE TABLET BY MOUTH ONCE A DAY FOR HYPERTENSION ergocalciferol (vitamin D2) 1,250 mcg (50,000 unit) capsule See Rx Instructions .ROUTE .COMPLEX Qty: 4 0RF Dose Instruction: TAKE ONE CAPSULE BY MOUTH EVERY WEEK Rx Instructions: TAKE ONE CAPSULE BY MOUTH EVERY WEEK atorvastatin 10 mg tablet 10 mg PO DAILY Qty: 90 1RF Rx Instructions: TAKE ONE TABLET BY MOUTH AT BEDTIME lorazepam [Ativan] 0.5 mg tablet 0.5 mg PO BID PRN (Reason: anxiety) Qty: 40 1RF oxycodone-acetaminophen [Percocet] 5-325 mg tablet 1 tab PO Q8H PRN (Reason: pain) Qty: 60 0RF ipratropium-albuterol 0.5 mg-3 mg(2.5 mg base)/3 mL solution for nebulization See Rx Instructions .ROUTE .COMPLEX Qty: 180 2RF Dose Instruction: INHALE CONTENTS OF 1 VIAL VIA NEBULIZER FOUR TIMES A DAY NEEDED FOR SHORTNESS OF BREATH OR WHEEZING Rx Instructions: INHALE CONTENTS OF 1 VIAL VIA NEBULIZER FOUR TIMES A DAY NEEDED FOR SHORTNESS OF BREATH OR WHEEZING alendronate 70 mg tablet See Rx Instructions .ROUTE .COMPLEX Qty: 4 0RF Dose Instruction: TAKE ONE TABLET BY MOUTH ONCE EVERY WEEK FOR BONES Rx Instructions: TAKE ONE TABLET BY MOUTH ONCE EVERY WEEK FOR BONES Referrals Follow up/Referrals: Felisa Brown PA [Primary Care Provider] - See instructions Jayson Hazel JR, MD [Physician] - See instructions Clinical Impressions Clinical Impression: Fracture of wrist, closed Instructions Patient Instructions: DI for Wrist Fracture Discharge ED Provider: Annette (ED)Mingo Upper Extremity HPI General Chief Complaint: Extremity Injury, Upper Stated Complaint: AO 09/16@2130 R hand and arm Time Seen by Provider: 09/16/22 23:12 Mode of Arrival: Ambulatory Source of Information: Patient and Medical Record Limitations: Physical Limitations Description of Symptoms (Recalled from ER Triage Doc. by RN): Pt arrives to ED with c/o right hand/wrist/arm pain r/t falling outside tonight around 2200 and landing on that extremity. Pt denies LOC and does not use blood thinners. Pt states her fall was r/t the ground being wet and muddy due to the rain.
--- NOTE | 2022-09-16 23:38 | PC.NURSE ---
paged Dr. Hazel at this time
--- NOTE | 2022-09-16 23:53 | XR_ITS ---
PROCEDURE INFORMATION: Exam: XR Right Wrist Exam date and time: 09/16/2022 11:55 PM Age: 62 years old Clinical indication: Injury or trauma; Fall; Additional info: Post reduction TECHNIQUE: Imaging protocol: Radiologic exam of the right wrist. Views: 1 or 2 views. COMPARISON: CR XR WRIST RT MIN 3V 09/16/2022 11:02 PM FINDINGS: Bones/joints: The right wrist is now in a cast. The dorsal angulation of the distal radial metaphyseal fracture fragment has been reduced. The distal fragment is displaced dorsally approximately 2 mm. The remainder of the osseous structures are intact. Soft tissues: Soft tissue swelling is evident. IMPRESSION: A cast is now in place over the right wrist with reduction of the dorsally angulated distal metaphyseal fracture fragment. The distal fragment is dorsally displaced approximally 2 mm.
[2022-09-17 00:27] VITALS: BP 105/66; PULSE 66; RESP 16; TEMP 36.9; O2SAT 98
== END 2022-09-17 00:29 | disposition home or self-care (01) ==
PROVIDERS: Emergency Provider Emergency Medicine; PCP Physician Assistant
DX: S52.511A Displaced fracture of right radial styloid process, initial encounter for closed fracture (principal); F17.210 Nicotine dependence, cigarettes, uncomplicated; W19.XXXA Unspecified fall, initial encounter
CPT/HCPCS: 25605; 29125; 73090; 73100; 73110; 73130; 99284

== ENCOUNTER → 2022-09-23 07:40 | Outpatient (CLI) | payer MEDICARE, MEDICAID, SELFPAY ==
--- NOTE | 2022-09-23 07:52 | XR_ITS ---
FINAL REPORT CLINICAL HISTORY: pre op- right wrist surgery. htn, smoker FINDINGS: Two views of the chest were obtained. The heart size and pulmonary vascularity are within normal limits. The mediastinum is normal. Bilateral pulmonary opacities may represent atelectasis or scarring.. There is no pneumothorax. The bony thorax is intact. IMPRESSION: Bilateral pulmonary opacities favored to represent atelectasis or scarring. Reviewed, Interpreted and Dictated by Bran Domínguez III, MD Transcribed by Anais Munoz Authenticated and [facility]
[2022-09-23 07:54] LABS: Basophils # 0.1 K/mm3 (0-0.2); Basophils % 0.5 % (0.1-2.0); Eosinophils # 0.3 K/mm3 (0.0-0.4); Eosinophils % 2.4 % (0.1-12.0); Hematocrit 45.1 % (37.0-47.0); Hemoglobin 13.6 g/dL (12.2-16.2); Lymphocytes # 1.7 K/mm3 (0.7-4.5); Mean Corpuscular HGB Conc 30.3 g/dL (31.8-35.4); Mean Corpuscular Hemoglobin 31.9 pg (27.0-31.2); Mean Corpuscular Volume 105.4 fl (81-99); Mean Platelet Volume 8.2 fl (7.4-10.4); Monocytes # 0.6 K/mm3 (0.1-1.0); Monocytes % 5.5 % (1.7-9.3); Neutrophils # 8.7 K/mm3 (1.8-7.8); Neutrophils % 76.6 % (37.0-80.0); Platelet Count 407 K/mm3 (142-424); Red Blood Count 4.28 M/mm3 (4.20-5.40); Red Cell Distribution Width 14.1 % (11.5-17.5); White Blood Count 11.4 K/mm3 (4.8-10.8)
--- NOTE | 2022-09-23 08:12 | ECG_ITS ---
APPROVED REPORT Exam: Resting ECG HR:96 bpm ECG Measurements Heart Rate 96 AXES AR 148 P 57 QRSd 86 QRS -15 QT 340 T 18 QTc 393 Conclusion SINUS RHYTHM LOW QRS VOLTAGE IN PRECORDIAL LEADS [QRS DEFLECTION < 1.0 mV IN CHEST LEADS] POSSIBLE RIGHT VENTRICULAR CONDUCTION DELAY [RSR (QR) IN V1/V2] BORDERLINE ECG UNCONFIRMED REPORT Electronically signed by : Ji Muñiz MD 09/23/2022 14:26:00
[2022-09-23 08:26] LABS: Chloride 103 mmol/L (98-107); Potassium 4.2 mmoL/L (3.5-5.1); Sodium 138 mmol/L (136-145)
[2022-09-23 08:28] LABS: Alanine Aminotransferase 23 U/L (12-78); Aspartate Amino Transferase 23 U/L (14-36); Blood Urea Nitrogen 13 mg/dl (7-17); Estimated Glomerular Filt Rate 101 ml/min (>60); GFR (African American) 122 ML/MIN (>60)
[2022-09-23 08:29] LABS: Albumin Level 3.8 g/dl (3.5-5.0); Albumin/Globulin Ratio 1.6 (1.1-1.8); Alkaline Phosphatase 70 U/L (38-126); Anion Gap 12.2 mEq/L (5-15); Bilirubin,Total 0.5 mg/dl (0.2-1.3); Carbon Dioxide 27 mmol/L (22.0-30.0); Globulin 2.4 g/dL (1.3-3.2); Glucose 112 mg/dl (74-100); Total Protein,Serum 6.2 g/dl (6.3-8.2)
== END ==
PROVIDERS: PCP Physician Assistant; Visit Provider Physician Assistant Surgical
DX: I10 Essential (primary) hypertension; S62.101A Fracture of unspecified carpal bone, right wrist, initial encounter for closed fracture; Z01.818 Encounter for other preprocedural examination
CPT/HCPCS: 36415; 71046; 80053; 85025; 93005

== ENCOUNTER 2022-09-26 09:56 | Day surgery (SDC) | payer MEDICARE, MEDICAID, SELFPAY ==
[2022-09-26] VITALS (9 sets, daily range): BP systolic 90–143; BP diastolic 53–92; PULSE 74–108; RESP 18–25; TEMP 36.6–37.3; O2SAT 93–96; BMI 30.2
--- NOTE | 2022-09-26 13:36 | P.PN_ITS ---
[facility] Disclaimer: The information contained in this section may have been updated after the patient was seen, as this information can be updated by other users. 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 Depression Diverticulosis History of chemotherapy History of fracture of finger History of radiation therapy Hypertension Lung cancer Primary lung adenocarcinoma Toenail deformity Vitamin D deficiency Surgical History History of lung biopsy History of tonsillectomy Family History Other No significant family history Social History Smoking Status: Current every day smoker tobacco type: cigarettes packs per day: 1 years smoked: 40 second hand exposure: Yes alcohol intake: current substance use type: denies use current occupational status: disabled Travel in the last 8 weeks: None household members: spouse housing: house lives independently: No marital status: education level: high school service: No mcc: No caffeine: No special hector needs: No agree to transfusion: No do you feel safe at home: Yes victim of physical abuse: No victim of emotional abuse: No victim of sexual abuse: No would you like helpful sources: No [facility] Anesthesia Checklist Patient Identification Patient Identification: Arm Band and Verbal (Name & ) Structural Data Admitted From: Home Planned Operative Procedure/s: ORIF wrist Consent for Planned Operative Procedure(s) Verified: Yes NPO Status Verified Time NPO: 00:00 Additional verifications Anesthesia Reactions: No Hx Blood Transfusions: No Blood Transfusion Reaction: No Airway Assessment C-Spine Mobility Assessed: Yes TMJ Mobility Assessed: Yes Dentition: Poor Dentition Neurological Assessment Level of Consciousness: Awake Hx Seizures: No Numbness or tingling in extremities: No Anesthesia Plan Anesthesia Risk discussed: Yes Anesthesia Plan: Verified ASA Class: III Anesthesia Type: General w/block
--- NOTE | 2022-09-26 14:34 | XR_ITS ---
FINAL REPORT CLINICAL HISTORY: ORIF using c-arm guidance FINDINGS: FLUORO TIME PROCEDURE: Fluoroscopy in the operating room. FINDINGS: Fluoroscopy time was provided by the radiology department for the clinical service. Two films were obtained for ORIF of the right wrist. Fluoroscopy exposure time: 0.7 seconds IMPRESSION: See above Reviewed, Interpreted and Dictated by Buddy Hsu MD Transcribed by Anais Munoz Authenticated and [facility]
--- NOTE | 2022-09-26 14:54 | EXP.OP.NOTE ---
Date of procedure: 09/26/22 Pre-op Diagnosis:: Right distal radius fracture Post-op Diagnosis:: Same Procedure performed:: Open reduction internal fixation right distal radius fracture with volar plating Surgeon:: Max Gómez DO CERTIFIED MASTER SAFECRACKER:: Justin Harding Anesthesia: GETA and regional Estimated blood loss (mL): 0 Clinical Note:: 62-year-old female who fell on her wrist suffering a unstable distal radius fracture she was splinted and seen in the clinic and indicated for surgical intervention given the unstable nature of the fracture. Presented today for such. Operative findings:: Implants Synthes distal radius set narrow plate right side Operative note:: Patient is identified preoperatively. Left wrist marked with a yes and my initials. Underwent a block with anesthesia. Then transferred operative suite placed upon the operating bed. General anesthesia administered airway secured. Right upper extremity was then prepped and draped in normal sterile fashion. Once prepped and draped final operative timeout performed. To identify proper patient procedure and extremity. Everyone involved in the case agreed. No counter indications to beginning. She did receive preoperative antibiotics with clindamycin. Marking pen was used to toney plan incision over the volar wrist. The radial artery was marked. Esmarch was used to exsanguinate extremity pneumatic tourniquet inflated to 150 mmHg. Skin knife is used to incise through skin to identify the FCR tendon. FCR tendon sheath was opened. FCR tendon was retracted radially throughout the procedure to protect the radial artery. Floor of the FCR was opened. Pronator quadratus was split in L-type fashion off the distal radius and fracture site was encountered hematoma was evacuated. Preliminary reduction was performed with the help of a freer elevator and reduction maneuver. This got the radius out to length with proper alignment. This was preliminarily held with K wire. Narrow plate was selected from the Synthes volar plate set. Plate was placed on the radius with a cortical screw proper alignment was confirmed AP lateral views of the x-ray. And then distal holes were filled. 2 additional screws were then placed in the shaft this gave good amish of length and alignment of the wrist. Wrist was taken through range of motion and found to be very stable. Copious irrigation of the wound was performed. Skin was closed with deep layers with Vicryl stitch. 3-0 nylon stitch in the skin for closure. Sterile dressing placed with a well-padded volar splint placed in a sling. Patient waken anesthesia taken recovery in stable condition. Condition: stable Disposition: PACU Complications:: None apparent
--- NOTE | 2022-09-26 14:59 | EXP.ANES.I ---
[facility] Anesthesia Record Part I Anesthesia Record I Intake, IV Amount: 800 Estimated blood loss (mL): 10 Urine output (mL): 0 Blood Pressure: 143/92 SaO2: 93 Pulse Rate: 103 Respiratory Rate: 25 Temperature: 97.8 F Patient is:: Awake Stable to PACU at:: 14:57
--- NOTE | 2022-09-26 15:37 | SUR.PHASEII ---
multiple attempts to call surgery office to make follow up appointment, unable to get ahold of anyone. will instruct patient and family on calling office when they open tomorrow.
--- NOTE | 2022-09-28 09:11 | P.PNANES_ITS ---
[facility] Anesthesia Record Part II Anesthesia Record Part II Discharge Time: 15:27 Destination: Surgical Day Care (OP Surgery) PACU nurse assessment reviewed?: Yes Patient Condition:: Good Anesthesia Complications:: None Swallowing reflex intact?: Yes Cyanosis?: No Blood Pressure: 107/64 Pulse Rate: 92 Temperature: 97.8 F Mental Status: Alert & Oriented Pain level:: 0 Nausea and/or vomitting:: None Intake, IV Amount: 0
[2022-09-28 09:12] VITALS: BP 107/64; PULSE 92; TEMP 36.6
== END 2022-09-26 16:00 | disposition home or self-care (01) ==
PROVIDERS: PCP Physician Assistant; Visit Provider Orthopaedic Surgery
PROC: (CPT 25608; principal; 2022-09-26 12:00)
DX: S52.511A Displaced fracture of right radial styloid process, initial encounter for closed fracture (principal); F17.210 Nicotine dependence, cigarettes, uncomplicated; S52.591A Other fractures of lower end of right radius, initial encounter for closed fracture; W01.0XXA Fall on same level from slipping, tripping and stumbling without subsequent striking against object, initial encounter; Y92.017 Garden or yard in single-family (private) house as the place of occurrence of the external cause
CPT/HCPCS: 25608; 73100; 76000; 94640; 96372; 96374; C1713; C1776; J2405

== ENCOUNTER → 2022-10-13 08:17 | Outpatient (CLI) | payer MEDICARE, MEDICAID, SELFPAY ==
--- NOTE | 2022-10-13 08:21 | XR_ITS ---
FINAL REPORT CLINICAL HISTORY: right wrist fx, follow-up FINDINGS: RIGHT FOREARM Two views of the right forearm were obtained. There has been interval postoperative change from ORIF of the comminuted distal radial fracture. A screw plate and multiple screws are seen. A splint obscures some of the detail. There are [id number] degenerative changes of the wrist. IMPRESSION: Interval postoperative changes of a comminuted distal radial fracture. Reviewed, Interpreted and Dictated by Bran Domínguez III, MD Transcribed by Anais Munoz Authenticated and [facility]
== END ==
PROVIDERS: PCP Physician Assistant; Visit Provider Orthopaedic Surgery
DX: S62.101A Fracture of unspecified carpal bone, right wrist, initial encounter for closed fracture (principal)
CPT/HCPCS: 73090

== ENCOUNTER 2022-10-13 09:30 | Outpatient (RCR) | payer MEDICARE, MEDICAID, SELFPAY | END 2022-10-13 10:30 | disposition home or self-care (01) | LOC: OT 09:30 | PROVIDERS: Visit Provider Orthopaedic Surgery | DX: M25.531 Pain in right wrist (principal); S52.91XA Unspecified fracture of right forearm, initial encounter for closed fracture; S62.101A Fracture of unspecified carpal bone, right wrist, initial encounter for closed fracture | CPT/HCPCS: 97763 ==

== ENCOUNTER → 2022-10-27 08:41 | Outpatient (CLI) | payer MEDICARE, MEDICAID, SELFPAY ==
--- NOTE | 2022-10-27 08:57 | XR_ITS ---
FINAL REPORT CLINICAL HISTORY: rt wrist pain COMPARISON: 10/13/2022 FINDINGS: RIGHT WRIST Three views of the right wrist were obtained. Since the prior examination of 518 the cast has been removed. The orthopedic plate and screws noted bridging the distal radial fracture on the prior exam remain present. There is healing fracture deformity of the distal radial metaphysis. There is slight irregularity of the ulnar styloid and there may be a small ulnar styloid fracture present as well. IMPRESSION: No acute bony abnormality. Cast removal and healing fracture deformity of the distal right radial metaphysis with bridging orthopedic plate and screws remains present. Reviewed, Interpreted and Dictated by Buddy Hsu MD Transcribed by Patricia Pickens Authenticated and [facility]
== END ==
PROVIDERS: PCP Physician Assistant; Visit Provider Orthopaedic Surgery
DX: M25.531 Pain in right wrist (principal)
CPT/HCPCS: 73110

== ENCOUNTER → 2022-11-24 08:15 | Outpatient (CLI) | payer MEDICARE, MEDICAID, SELFPAY ==
--- NOTE | 2022-11-24 08:19 | XR_ITS ---
FINAL REPORT CLINICAL HISTORY: Rt wrist fx COMPARISON: 10/27/2022 FINDINGS: RIGHT WRIST Three views demonstrate postoperative changes in the distal radius. There is osteopenia. Degenerative changes are noted. IMPRESSION: Postoperative and degenerative changes similar to the prior exam. Reviewed, Interpreted and Dictated by Bran Domínguez III, MD Transcribed by Anais Munoz Authenticated and [facility]
== END ==
PROVIDERS: PCP Physician Assistant; Visit Provider Orthopaedic Surgery
DX: S52.91XA Unspecified fracture of right forearm, initial encounter for closed fracture (principal); M25.531 Pain in right wrist
CPT/HCPCS: 73110

== ENCOUNTER 2023-06-01 10:18 | Outpatient (CLI) | payer MEDICARE, MEDICAID, SELFPAY ==
[2023-06-01 22:22] LABS: Amphetamine/Metha Screen,Urine Negative ng/ml (<1000); Barbiturates Screen,Urine Negative ng/ml (<200); Cannabinoid Screen,Urine Positive ng/ml (<50); Cocaine Screen,Urine Negative ng/ml (<300); Methadone Screen,Urine Negative ng/ml (<300); Phencyclidine Screen,Urine Negative ng/ml (<25)
[2023-06-01 22:33] LABS: Benzodiazepines Screen,Urine Negative ng/ml (<200); Opiate Screen,Urine Negative ng/ml (<300)
[2023-06-07 11:05] LABS: Opiates Negative (Cutoff=100); Oxycodone (GC/MS) 303 ng/mL (Cutoff=100); Oxymorphone (GC/MS) 391 ng/mL (Cutoff=100)
== END 2023-06-01 23:59 ==
LOC: LAB.DROPOF 06-02 10:50
PROVIDERS: PCP Physician Assistant; Visit Provider Physician Assistant
DX: Z79.899 Other long term (current) drug therapy (principal); G89.3 Neoplasm related pain (acute) (chronic)
CPT/HCPCS: 80307; 80361; 80365; G0480

== ENCOUNTER 2023-08-09 09:47 | Outpatient (CLI) | payer MEDICARE, MEDICAID, SELFPAY ==
--- NOTE | 2023-08-09 09:49 | NM_ITS ---
FINAL REPORT CLINICAL HISTORY: postprandial nausea/vomiting 10:10am 8.88 mci tc choletec 1.6 mcg cck slight nausea with cck, no pain COMPARISON: None FINDINGS: Sequential anterior projection images of the abdomen were obtained after the intravenous injection of 8.88 mCi technetium 99m Choletec. There is normal uptake of radiotracer by the liver. The bile ducts are visualized by 10 minutes. Gallbladder activity is seen by 10 minutes. Bowel activity is noted by 25 minutes. After 1 hour, 1.6 ?g of CCK was injected intravenously for calculation of gallbladder ejection fraction. The gallbladder ejection fraction is 77%, which is within normal limits. IMPRESSION: No evidence of cystic duct or bile duct obstruction. Normal gallbladder ejection fraction of 77%. Reviewed, Interpreted and Dictated by Bran Domínguez III, MD Transcribed by Patricia Pickens Authenticated and [facility]
[2023-08-09] MEDS: SODIUM CHLORIDE 0.9% 10ML SYR (RAD ONLY) 10 ML IV (10:10)
[2023-08-09] MEDS: SINCALIDE 1.6 MCG in 0.9 % SODIUM CHLORIDE 50 ML 100 MCG IV (11:10)
[2023-08-09] MEDS: ISOTOPE CHOLETECH;1 DOSE (UP TO 15 MCI) IV (11:42)
== END 2023-08-09 23:59 ==
LOC: RAD 09:49
PROVIDERS: PCP Physician Assistant; Visit Provider Physician Assistant
DX: R11.10 Vomiting, unspecified (principal)
CPT/HCPCS: 78227; A9537; J2805

== ENCOUNTER 2023-08-18 07:45 | Outpatient (CLI) | payer MEDICARE, MEDICAID, SELFPAY ==
--- NOTE | 2023-08-18 07:46 | MM_ITS ---
PROCEDURE INFORMATION: Exam: MG Bilateral Screening 3D Mammography Exam date and time: 08/18/2023 7:52 AM Age: 63 years old Clinical indication: Screening examination TECHNIQUE: Imaging protocol: Bilateral Screening tomosynthesis and 2D mammography including computer-aided detection (CAD) when performed. COMPARISON: 1. MG MM DIG SCREENING MAMM BI W/CAD 09/29/2021 7:59 AM 2. MG MM DIG SCREENING MAMM BI W/CAD 04/17/2020 8:29 AM FINDINGS: MAMMOGRAPHY: Breast composition: There are scattered areas of fibroglandular density. Mass: None. Architectural distortion: None. Calcifications: No suspicious calcifications. Asymmetric density: None. Skin thickening: None. Axillary adenopathy: None. IMPRESSION: No mammographic evidence of malignancy. Annual screening is recommended unless otherwise clinically indicated. ASSESSMENT: BI-RADS Category 1: Negative
== END 2023-08-18 23:59 ==
LOC: RAD 07:46
PROVIDERS: PCP Physician Assistant; Visit Provider Physician Assistant
DX: Z12.31 Encounter for screening mammogram for malignant neoplasm of breast (principal)
CPT/HCPCS: 77063; 77067

== ENCOUNTER 2023-12-13 02:29 | Emergency (ER) | payer MEDICARE, MEDICAID, SELFPAY ==
[2023-12-13 02:30] VITALS: BP 99/69; PULSE 73; RESP 20; TEMP 36.4; O2SAT 95; BMI 30.2
--- NOTE | 2023-12-13 02:32 | XR_ITS ---
PROCEDURE INFORMATION: Exam: XR Right Forearm Exam date and time: 12/13/2023 2:47 AM Age: 63 years old Clinical indication: Pain; Lower or forearm; Right; Additional info: Fall, R shoulder pain TECHNIQUE: Imaging protocol: Radiologic exam of the right forearm. Views: 2 views. COMPARISON: CR XR FOREARM RT 2V 10/13/2022 :23 AM FINDINGS: Bones/joints: Osteoarthritic degenerative changes of the hand. Diffuse osteopenia. Prior ORIF distal radius. Soft tissues: Normal. IMPRESSION: Osteoarthritic degenerative changes of the hand. Diffuse osteopenia. Prior ORIF distal radius.
--- NOTE | 2023-12-13 02:32 | XR_ITS ---
PROCEDURE INFORMATION: Exam: XR Right Humerus Exam date and time: 12/13/2023 2:47 AM Age: 63 years old Clinical indication: Pain; Upper arm; Right; Additional info: Fall, R shoulder pain TECHNIQUE: Imaging protocol: Radiologic exam of the right humerus. Views: 2 or more views. COMPARISON: CR XR SHOULDER RT MIN 2V 12/13/2023 2:47 AM FINDINGS: Bones/joints: Fracture through the neck of the humerus is identified. There is angulation at the fracture site. Soft tissues: Normal. IMPRESSION: Fracture through the neck of the humerus is identified. There is angulation at the fracture site.
--- NOTE | 2023-12-13 02:32 | XR_ITS ---
PROCEDURE INFORMATION: Exam: XR Chest Exam date and time: 12/13/2023 2:47 AM Age: 63 years old Clinical indication: Chest wall pain; Additional info: Fall, R shoulder pain TECHNIQUE: Imaging protocol: Radiologic exam of the chest. Views: 1 view. COMPARISON: CR XR CHEST PORTABLE 12/13/2023 2:47 AM FINDINGS: Lungs: Stable mid chest atelectasis. Pleural spaces: Unremarkable. No pleural effusion. No pneumothorax. Heart/Mediastinum: Unremarkable. No cardiomegaly. Bones/joints: Right humeral fracture. IMPRESSION: Stable mid chest atelectasis. Right humeral fracture.
--- NOTE | 2023-12-13 02:32 | XR_ITS ---
PROCEDURE INFORMATION: Exam: XR Right Shoulder Exam date and time: 12/13/2023 2:47 AM Age: 63 years old Clinical indication: Pain; Shoulder; Right; Additional info: Fall, R shoulder pain TECHNIQUE: Imaging protocol: Radiologic exam of the right shoulder. Views: 2 or more views. COMPARISON: CR XR HUMERUS RT 12/13/2023 2:47 AM FINDINGS: Bones/joints: Fracture through the humeral neck. There is distraction and angulation at the fracture site. Soft tissues: Normal. IMPRESSION: Fracture through the humeral neck. There is distraction and angulation at the fracture site.
--- NOTE | 2023-12-13 02:34 | ED_ITS ---
Discharge Plan Disposition Patient Disposition: Home, Self-Care Condition: Good Prescriptions Prescriptions: New oxycodone 5 mg tablet 5 mg PO Q8H PRN (Reason: pain) Qty: 10 0RF No Action Linzess 72 mcg capsule 72 mcg PO DAILY Qty: 30 2RF propranolol 60 mg capsule,extended release 24 hr 60 mg PO DAILY Qty: 30 2RF diclofenac sodium [Arthritis Pain (diclofenac)] 1 % gel 2 g topical QID PRN (Reason: pain) Qty: 100 2RF Rx Instructions: apply to single elbow, wrist or hand; for hand includes palm/fingers/back of hand oxycodone-acetaminophen 5-325 mg tablet 1 tab PO TID Qty: 90 0RF calcium carbonate-vitamin D3 600 mg-10 mcg (400 unit) tablet See Rx Instructions .ROUTE .COMPLEX Qty: 30 3RF Dose Instruction: TAKE ONE TABLET BY MOUTH ONCE A DAY FOR SUPPLEMENT Rx Instructions: TAKE ONE TABLET BY MOUTH ONCE A DAY FOR SUPPLEMENT ipratropium-albuterol 0.5 mg-3 mg(2.5 mg base)/3 mL solution for nebulization See Rx Instructions .ROUTE .COMPLEX Qty: 180 3RF Dose Instruction: INHALE CONTENTS OF 1 VIAL VIA NEBULIZER FOUR TIMES A DAY NEEDED FOR SHORTNESS OF BREATH OR WHEEZING Rx Instructions: INHALE CONTENTS OF 1 VIAL VIA NEBULIZER FOUR TIMES A DAY NEEDED FOR SHORTNESS OF BREATH OR WHEEZING atorvastatin 10 mg tablet See Rx Instructions .ROUTE .COMPLEX Qty: 90 3RF Dose Instruction: TAKE ONE TABLET BY MOUTH AT BEDTIME Rx Instructions: TAKE ONE TABLET BY MOUTH AT BEDTIME alendronate 70 mg tablet See Rx Instructions .ROUTE .COMPLEX Qty: 14 3RF Dose Instruction: TAKE ONE TABLET BY MOUTH ONCE EVERY WEEK FOR BONES Rx Instructions: TAKE ONE TABLET BY MOUTH ONCE EVERY WEEK FOR BONES famotidine 20 mg tablet See Rx Instructions .ROUTE .COMPLEX Qty: 90 3RF Dose Instruction: TAKE ONE TABLET BY MOUTH ONCE A DAY Rx Instructions: TAKE ONE TABLET BY MOUTH ONCE A DAY lisinopril 20 mg tablet See Rx Instructions .ROUTE .COMPLEX Qty: 90 2RF Dose Instruction: TAKE ONE TABLET BY MOUTH ONCE A DAY FOR HYPERTENSION Rx Instructions: TAKE ONE TABLET BY MOUTH ONCE A DAY FOR HYPERTENSION Combivent Respimat 20-100 mcg/actuation mist See Rx Instructions .ROUTE .COMPLEX Qty: 4 0RF Dose Instruction: INHALE 1 PUFF BY MOUTH EVERY 6 HOURS NEEDED FOR SHORTNESS OF BREATH OR WHEEZING Rx Instructions: INHALE 1 PUFF BY MOUTH EVERY 6 HOURS NEEDED FOR SHORTNESS OF BREATH OR WHEEZING fluticasone furoate-vilanterol [Breo Ellipta] 200-25 mcg/dose blister with device 1 inh inhalation DAILY Qty: 60 4RF ergocalciferol (vitamin D2) 1,250 mcg (50,000 unit) capsule See Rx Instructions .ROUTE .COMPLEX Qty: 4 0RF Dose Instruction: TAKE ONE CAPSULE BY MOUTH EVERY WEEK Rx Instructions: TAKE ONE CAPSULE BY MOUTH EVERY WEEK Spiriva Respimat 2.5 mcg/actuation mist See Rx Instructions .ROUTE .COMPLEX Qty: 4 0RF Dose Instruction: INHALE 1 PUFF BY MOUTH ONCE A DAY FOR BREATHING PROBLEMS Rx Instructions: INHALE 1 PUFF BY MOUTH ONCE A DAY FOR BREATHING PROBLEMS ondansetron 8 mg tablet,disintegrating See Rx Instructions .ROUTE .COMPLEX Qty: 30 0RF Dose Instruction: DISSOLVE 1 TABLET ON THE TONGUE EVERY 8 HOURS NEEDED FOR NAUSEA/VOMITING Rx Instructions: DISSOLVE 1 TABLET ON THE TONGUE EVERY 8 HOURS NEEDED FOR NAUSEA/VOMITING fluticasone propionate 50 mcg/actuation spray,suspension See Rx Instructions .ROUTE .COMPLEX Qty: 16 2RF Dose Instruction: USE 1 SPRAY IN EACH NOSTRIL ONCE A DAY Rx Instructions: USE 1 SPRAY IN EACH NOSTRIL ONCE A DAY furosemide [Lasix] 20 mg tablet 20 mg PO DAILY Lactaid Fast Act 9,000 unit tablet,chewable 9,000 unit PO QAC Rx Instructions: administer with first bite of dairy food Referrals Follow up/Referrals: Max Gómez DO [Staff Physician] - See instructions Provider,Referral, [Referring] - See instructions Activity Restrictions/Add. Instructions Additional Instructions/Restrictions: You were evaluated in the emergency department today. It is important to note that you declined CT scans of your head and cervical spine at this time, so we were not able to exclude other traumatic injuries such as brain bleed or neck fracture. Please keep your cuff and collar in place on the right upper extremity for support. Follow-up closely with orthopedics. Call their clinic in the morning to schedule an appointment. 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 Use caution, especially considering you already take narcotic pain medication at home. Follow-up with your primary care provider as well. Please refrain from using alcohol. Return to the emergency department for new or worsening symptoms. Clinical Impressions Clinical Impression: Closed fracture of proximal end of right humerus Qualifiers: Encounter type: initial encounter Stand Alone Forms Stand Alone Forms: Work/School Release Instructions Patient Instructions: How to Prevent Falls, DI for Arm Pain, Humeral Shaft Fracture Discharge ED Provider: Dora Anne General Adult HPI General Chief complaint: Fall Stated complaint: Fall r/t EOTH Time Seen by Provider: 12/13/23 02:32 History of Present Illness HPI narrative: This patient is a 63-year-old female with a history of COPD, obesity, prior right wrist injury presenting to the emergency department for evaluation with concern for fall with right shoulder pain. Patient reports that she had had 2 mixed drinks this evening and went to her bathroom with socks on. She states she had just mopped the floor earlier, slipped on the floor, and fell onto her right elbow. She did not hit her head or lose consciousness. No concerns or complaints aside from right shoulder/upper arm pain. She was well prior to the fall and denies any issues otherwise. Patient arrives by EMS who noted that she was stable en route. They states she does have soft pressures, but responded well to IV fluids. She also had nausea, for which they gave her IV Zofran. She had some wheezing in the setting of chronic COPD, so they gave her a breathing treatment prior to arrival. Related Data Home Medications Medication Instructions Recorded Confirmed furosemide 20 mg tablet (Lasix) 20 mg PO DAILY Fluid 09/23/22 11/29/23 lactase 9,000 unit chewable tablet 9,000 unit PO QAC probiotic 09/23/22 11/29/23 (Lactaid Fast Act) Previous Rx's Medication Instructions Recorded calcium carbonate 600 mg-vitamin See Rx Instructions .Route 06/06/23 D3 10 mcg (400 unit) tablet .COMPLEX #30 tabs ipratropium 0.5 mg-albuterol 3 mg See Rx Instructions .Route 06/06/23 (2.5 mg base)/3 mL nebulization .COMPLEX #180 mL soln alendronate 70 mg tablet See Rx Instructions .Route 07/24/23 .COMPLEX #14 tabs atorvastatin 10 mg tablet See Rx Instructions .Route 07/24/23 .COMPLEX #90 tabs famotidine 20 mg tablet See Rx Instructions .Route 08/23/23 .COMPLEX #90 tabs lisinopril 20 mg tablet See Rx Instructions .Route 09/29/23 .COMPLEX #90 tabs linaclotide 72 mcg capsule 72 mcg PO DAILY #30 caps 10/03/23 (Linzess) ipratropium 20 mcg-albuterol 100 See Rx Instructions .Route 11/07/23 mcg/actuation mist for inhalation .COMPLEX #4 grams (Combivent Respimat) fluticasone furoate 200 1 inh inhalation DAILY COPD #60 ea 11/13/23 mcg-vilanterol 25 mcg/dose inhalation powder (Breo Ellipta) diclofenac sodium 1 % topical gel 2 g topical QID PRN pain #100 grams 11/29/23 (Arthritis Pain (diclofenac)) oxycodone-acetaminophen 5 mg-325 1 tab PO TID #90 tabs 11/29/23 mg tablet propranolol 60 mg capsule,24 60 mg PO DAILY #30 caps 11/29/23 hr,extended release ergocalciferol (vitamin D2) 1,250 See Rx Instructions .Route 12/04/23 mcg (50,000 unit) capsule .COMPLEX #4 caps fluticasone propionate 50 See Rx Instructions .Route 12/06/23 mcg/actuation nasal .COMPLEX #16 grams spray,suspension ondansetron 8 mg disintegrating See Rx Instructions .Route 12/06/23 tablet .COMPLEX #30 tabs tiotropium bromide 2.5 See Rx Instructions .Route 12/06/23 mcg/actuation mist for inhalation .COMPLEX #4 grams (Spiriva Respimat) oxycodone 5 mg tablet 5 mg PO Q8H PRN pain #10 tabs 12/13/23 Allergies Allergy/AdvReac Type Severity Reaction Status Date / Time ceftriaxone [From Rocephin] Allergy Severe Hives Verified 11/29/23 08:27 levofloxacin [From LEVAQUIN] Allergy Severe Fainting Verified 11/29/23 08:27 Penicillins [PENICILLINS] Allergy Mild Rash Verified 11/29/23 08:27 [facility] Disclaimer: The information contained in this section may have been updated after the patient was seen, as this information can be updated by other users. Medical History History of chemotherapy History of radiation therapy Lung cancer History of fracture of finger Bronchiolitis obliterans organizing pneumonia Depression Cancer related pain Anxiety Primary lung adenocarcinoma BMI 32.0-32.9,adult Abnormal weight Diverticulosis Toenail deformity BMI 31.0-31.9,adult Vitamin D deficiency Hypertension Surgical History History of lung biopsy History of tonsillectomy Family History Other No significant family history Social History Smoking Status: Current every day smoker tobacco type: cigarettes packs per day: 1 years smoked: 40 second hand exposure: Yes alcohol intake: current alcohol intake frequency: holidays/special occasions only substance use type: denies use current occupational status: disabled Travel in the last 8 weeks: None household members: spouse housing: house lives independently: No marital status: education level: high school service: No [place] [facility]: No caffeine: No special hector needs: No agree to transfusion: No do you feel safe at home: Yes victim of physical abuse: No victim of emotional abuse: No victim of sexual abuse: No would you like helpful sources: No ROS Obtained: Yes All systems reviewed & no additional complaints except as documented Physical Exam General General appearance: alert and in no apparent distress Head Head exam: atraumatic and normocephalic Eye Eye exam: Present normal appearance, PERRL and EOMI ENT ENT exam: Present normal exam, normal oropharynx, mucous membranes moist and normal external ear exam Neck Neck exam: Present normal inspection, full ROM and trachea midline; Absent tenderness Chest Chest inspection: Present normal inspection and symmetric chest wall rise; Absent tenderness Respiratory Respiratory exam: Present normal lung sounds bilaterally; Absent respiratory distress, wheezes, stridor or accessory muscle use Cardiovascular Cardiovascular exam: Present regular rate and normal rhythm Abdominal Exam Abdominal exam: Present soft; Absent distention, tenderness or guarding Extremities Exam Extremities exam: Present tenderness (Tenderness to palpation of the proximal right humerus.), normal capillary refill and other (All compartments soft, neurovascularly intact distally in all 4 extremities); Absent full ROM (Limited range of motion of right upper extremity secondary to pain) or edema Back Exam Back exam: Present normal inspection and full ROM; Absent tenderness Neurological Exam Neurological exam: Present alert, oriented X3, CN II-XII intact and normal gait; Absent motor sensory deficit Psychiatric Psychiatric exam: Present normal affect and normal mood Skin Skin exam: Present warm and dry Medical Decision Making Medical Records Medical records reviewed: Yes I reviewed the patient's medical records. Vikram Inquiry Pt receiving controlled substance: Yes Vikram was queried for this patient: Yes Risks and benefits of using a controlled substance: were discussed with pt by me Vital Signs: 12/13/23 02:30 Temperature 97.6 F Temperature Source Oral Pulse Rate [Left Radial] 73 Respiratory Rate 20 Blood Pressure [Left Arm] 99/69 L Blood Pressure Mean [Left Arm] 79 Blood Pressure Source [Left Arm] Automatic Cuff Blood Pressure Position [Left Arm] Sitting 02 Sat by Pulse Oximetry 95 Oxygen Delivery Method Room Air Lab Data Lab results reviewed: Yes I reviewed the patient's lab results. Orders (Tests/Meds): ED MEDICATIONS Generic Name Dose Route Start Last Admin Trade Name Freq PRN Reason Stop Dose Admin Oxycodone HCl 5 mg 12/13/23 03:26 Oxycodone 5mg Immediate Release Tablet PO 12/13/23 03:27 ONCE ONE Discontinued Medications Generic Name Dose Route Start Last Admin Trade Name Freq PRN Reason Stop Dose Admin Acetaminophen 1,000 mg 12/13/23 02:32 12/13/23 02:44 Acetaminophen 500mg Tab PO 12/13/23 02:33 1,000 mg ONCE ONE Administration Fentanyl Citrate 25 mcg 12/13/23 02:32 12/13/23 02:47 Fentanyl 100mcg/2ml Vial IV 12/13/23 02:33 25 mcg ONCE ONE Administration ORDERS Category Date Time Status CXR --portable [XR chest portable] Stat Exams 12/13/23 02:32 Taken Forearm XR right 2 views [XR forearm RT 2V] Stat Exams 12/13/23 02:32 Taken Humerus XR right [XR humerus RT] Stat Exams 12/13/23 02:32 Taken Shoulder XR right miminum 2 views [XR shoulder RT min Exams 12/13/23 02:32 Taken 2V] Stat Medical Decision Narrative: In summary, this patient is a 63-year-old female presenting to the Emergency Department for evaluation of right arm pain after a mechanical ground-level fall. Differential diagnoses considered include but are not limited to fracture, contusion, strain/pain, intracranial hemorrhage, C-spine fracture, polytrauma. Ruling out the most morbid conditions drove assessment. It should be noted patient's history includes COPD which may or may not be at goal therapy. This complicates all aspects of care by increasing patient's risk for morbidity. On exam, the patient is well-appearing. She is alert and oriented and neurologically intact with vital signs normal on cardiac telemetry. She does not appear clinically intoxicated. Workup included head, CT C-spine, chest x- ray, and x-rays of the injured right upper extremity. She was given oral Ty lenol and a small dose of IV fentanyl for pain control for x-rays. Patient refused CT scans, stating she is only here for her shoulder and just wants shoulder x-rays to save money for insurance purposes. I advised the patient of risk of missed injury, such as intracranial hemorrhage, C-spine fracture, or other issues resulting in permanent neurologic dysfunction and potentially even . She expressed understanding agreement and states that she still does not want CT scans, as she is certain nothing is wrong. Patient demonstrates good competency and understanding, so CT scans were canceled. She also refused XR of the distal RUE including elbow once she got to XR, so only shoulder and humerus were done. I independently interpreted x-ray prior to the radiologist read and noted proxi mal humerus fracture. Please see their read for final interpretation. Patient was placed in a cuff and collar given her proximal humerus fracture for stabilization. She remained neurovascularly intact afterward. She was given oral oxycodone for continued pain. At this time, after reassuring workup and exam, I feel that she is appropriate for discharge home. I did advise to her that we did not exclude brain bleed, cervical spine fracture, or other acute pathology since she declined CT scans. She expressed understanding and agreement. She called a ride and was discharged home to the care of family in stable condition. She was given prescription for oxycodone to take at home for severe breakthrough pain, though on review of her Vikram I do see that she takes Percocet daily. She was counseled on opiate use and safety precautions. Strict return precautions were given as well as instructions for close follow-up with orthopedics. Procedures Orthopedic Splinting/Casting Injury #1: Side: right Upper Extremity Injury Location: shoulder Upper Extremity Immobilizer: sling/shoulder immobilizer Post Cast/Splinting Neuro Status: intact and no change Post Cast/Splinting Vasc Status: intact and no change Critical Care Critical Care Time Critical Care Time: No
[2023-12-13] MEDS: ACETAMINOPHEN 500MG TAB 1000 MG PO (02:44)
[2023-12-13] MEDS: FENTANYL 100MCG/2ML VIAL 25 MCG IV (02:47)
--- NOTE | 2023-12-13 02:49 | PC.NURSE ---
Pt refusing Head and neck CT provider speaking with pt
--- NOTE | 2023-12-13 02:56 | PC.NURSE ---
Pt refused ct scans after speaking with provider
[2023-12-13 03:46] VITALS: BP 85/60; PULSE 64; RESP 21; TEMP 36.6; O2SAT 93
[2023-12-13] MEDS: OXYCODONE 5MG IMMEDIATE RELEASE TABLET 5 MG PO (03:51)
== END 2023-12-13 04:37 | disposition home or self-care (01) ==
PROVIDERS: Emergency Provider Emergency Medicine; PCP Physician Assistant
DX: S42.201A Unspecified fracture of upper end of right humerus, initial encounter for closed fracture (principal); M25.511 Pain in right shoulder; F17.210 Nicotine dependence, cigarettes, uncomplicated; W01.10XA Fall on same level from slipping, tripping and stumbling with subsequent striking against unspecified object, initial encounter
CPT/HCPCS: 71045; 73030; 73060; 73090; 96372; 96374; 99284; J3010

== ENCOUNTER 2023-12-14 09:53 | Outpatient (CLI) | payer MEDICARE, MEDICAID, SELFPAY ==
--- NOTE | 2023-12-14 10:00 | CT_ITS ---
FINAL REPORT TECHNIQUE: Thin section axial images were obtained through the right upper extremity without contrast. Reconstruction images were obtained from the axial data. Exam was performed using dose reduction technique. CLINICAL HISTORY: Rt Humerus Fx COMPARISON: None FINDINGS: There is a comminuted fracture of the humeral neck with medial and anterior displacement of the dominant fragment. No dislocation is identified. The acromioclavicular joint is unremarkable. There is mild degenerative change present. There is hemarthrosis of the shoulder, as well as soft tissue edema in the anterior muscles and subcutaneous soft tissues. The portions of the right lung visualized are unremarkable in appearance. IMPRESSION: Comminuted fracture of the humeral neck as described, without evidence of dislocation. Hemarthrosis of the shoulder and marked soft tissue edema as described. Reviewed, Interpreted and Dictated by Seema Ibarra MD Transcribed by Patricia Pickens Authenticated and [facility]
== END 2023-12-14 23:59 | disposition home or self-care (01) ==
LOC: RAD 09:56
PROVIDERS: PCP Physician Assistant; Visit Provider Orthopaedic Surgery
DX: M79.621 Pain in right upper arm (principal); S42.211A Unspecified displaced fracture of surgical neck of right humerus, initial encounter for closed fracture
CPT/HCPCS: 73200

== ENCOUNTER 2023-12-27 10:28 | Observation (INO) | payer MEDICARE, MEDICAID, SELFPAY ==
[2023-12-27] VITALS (11 sets, daily range): BP systolic 93–118; BP diastolic 55–77; PULSE 62–87; RESP 17–22; TEMP 36.5–37.5; O2SAT 90–96; BMI 31.7; BMI 33.8
--- NOTE | 2023-12-27 10:32 | ECG_ITS ---
APPROVED REPORT Exam: Resting ECG HR:85 bpm ECG Measurements Heart Rate 85 AXES KS 147 P 68 QRSd 90 QRS -7 QT 344 T 19 QTc 387 Conclusion SINUS RHYTHM LOW QRS VOLTAGE IN PRECORDIAL LEADS [QRS DEFLECTION < 1.0 mV IN CHEST LEADS] MODERATE ST DEPRESSION [0.05+ mV ST DEPRESSION] ABNORMAL ECG Artifact in baseline difficult to interpret, no STEMI Electronically signed by : JONO CHAKRABORTY, 12/27/2023 16:13:39
--- NOTE | 2023-12-27 10:45 | XR_ITS ---
FINAL REPORT CLINICAL HISTORY: recent surgery/pain COMPARISON: 12/13/2023 FINDINGS: Right shoulder Four views were obtained. There has been interval sideplate and screw fixation of the proximal humerus. Fracture fragments have been reduced. The glenohumeral joint is intact. There is linear atelectasis in the right mid lung, probably due to atelectasis. This is new since previous. IMPRESSION: Postsurgical changes as above. Reviewed, Interpreted and Dictated by Buddy Hsu MD Transcribed by Tiara Pepe Authenticated and . [facility]
--- NOTE | 2023-12-27 10:45 | CT_ITS ---
FINAL REPORT TECHNIQUE: The patient was injected with IV contrast. Axial images were obtained through the chest in a PE protocol. 3-D reconstruction images were also performed. Individualized dose reduction techniques using automated exposure control or adjustment of the MA and/or KV according to patient's size were employed. CLINICAL HISTORY: chest pain-recent surgery COMPARISON: 03/01/2022 FINDINGS: Mediastinal vasculature is adequately opacified. No pulmonary artery filling defects are identified to suggest PE. There is no aortic dissection. There is no axillary adenopathy. There are few small scattered mediastinal lymph nodes. The heart size is normal. There is no pericardial effusion. There is consolidation in the right middle lobe and left lower lobe. Trace left effusion is identified. Streak artifact is seen in the proximal right humerus consistent with fixation hardware. Limited images of the upper abdomen reveal a benign-appearing left renal cyst. IMPRESSION: No pulmonary embolus or dissection. Consolidation in the right middle lobe and left lower lobe. Reviewed, Interpreted and Dictated by Buddy Hsu MD Transcribed by Tiara Pepe Authenticated and [facility]
[2023-12-27 10:49] LABS: Lactate Venous 1.2 mmol/L (0.4-2.0); VBG Base Excess 3.9 mmol/L (-2.4-2.3); VBG HCO3 28.6 mmol/L (23-30); VBG Oxygen Saturation 72.4 % (50-70); VBG PCO2 46.3 mmol/L (35-51); VBG PH 7.41 mmol/L (7.31-7.41); VBG PO2 37.6 mmol/L (28-40)
[2023-12-27 10:50] LABS: Adenovirus,PCR Not Detected (NotDetected); Bordetella Pertussis Not Detected (NotDetected); Chlamydophila Pneumoniae, PCR Not Detected (NotDetected); Coronavirus 19, PCR Not Detected (NotDetected); Coronavirus 229E Not Detected (NotDetected); Coronavirus NL63 Not Detected (NotDetected); Coronavirus OC43 Not Detected (NotDetected); Coronovirus HKU1,PCR Not Detected (NotDetected); Human Metapneumovirus Not Detected (NotDetected); Influenza A, PCR Not Detected (NotDetected); Influenza AH1, 2009 Not Detected (NotDetected); Influenza AH1, PCR Not Detected (NotDetected); Influenza AH3,PCR Not Detected (NotDetected); Influenza B, PCR Not Detected (NotDetected); Mycoplasma Pneumoniae, PCR Not Detected (NotDetected); Parainfluenza 1, PCR Not Detected (NotDetected); Parainfluenza 2, PCR Not Detected (NotDetected); Parainfluenza 3, PCR Not Detected (NotDetected); Parainfluenza 4, PCR Not Detected (NotDetected); Respiratory Syncytial Virus Not Detected (NotDetected); Rhinovirus/Enterovirus Not Detected (NotDetected)
--- NOTE | 2023-12-27 10:54 | PC.NURSE ---
notified provider of CODE SEPSIS
[2023-12-27 10:56] LABS: Basophils # 0.1 K/mm3 (0-0.2); Basophils % 0.4 % (0.1-2.0); Eosinophils # 0.1 K/mm3 (0.0-0.4); Eosinophils % 0.7 % (0.1-12.0); Hematocrit 39.2 % (37.0-47.0); Hemoglobin 12.2 g/dL (12.2-16.2); Lymphocytes # 1.4 K/mm3 (0.7-4.5); Lymphocytes % 7.3 % (10-50); Mean Corpuscular Hemoglobin 34.3 pg (27.0-31.2); Mean Corpuscular Volume 110.5 fl (81-99); Mean Platelet Volume 8.2 fl (7.4-10.4); Monocytes # 1.1 K/mm3 (0.1-1.0); Monocytes % 6.1 % (1.7-9.3); Neutrophils # 15.6 K/mm3 (1.8-7.8); Neutrophils % 85.4 % (37.0-80.0); Platelet Count 504 K/mm3 (142-424); Red Blood Count 3.55 M/mm3 (4.20-5.40); Red Cell Distribution Width 15.4 % (11.5-17.5); White Blood Count 18.3 K/mm3 (4.8-10.8)
[2023-12-27 10:59] LABS: INR 0.99 (0.9-1.1); Prothrombin Time 11.1 seconds (10.1-12.5)
[2023-12-27 11:00] LABS: MANUAL DIFFERENTIAL MANUAL DIFFERENTIAL (MANUAL DIFF)
[2023-12-27] MEDS: OXYCODONE 7.5MG W/APAP 325MG TABLET 1 EACH PO (11:01)
[2023-12-27 11:05] LABS: Alanine Aminotransferase 24 U/L (12-78); Albumin Level 3.5 g/dl (3.5-5.0); Albumin/Globulin Ratio 1.2 (1.1-1.8); Alkaline Phosphatase 82 U/L (38-126); Anion Gap 6.1 mEq/L (5-15); Aspartate Amino Transferase 17 U/L (14-36); Bilirubin,Total 0.7 mg/dl (0.2-1.3); Blood Urea Nitrogen 10 mg/dl (7-17); Calcium 8.7 mg/dl (8.4-10.2); Carbon Dioxide 30 mmol/L (22.0-30.0); Chloride 102 mmol/L (98-107); Creatinine Clearance Estimated 67 mL/min (50-200); Estimated Glomerular Filt Rate 100 ml/min (>60); GFR (African American) 121 ML/MIN (>60); Glucose 105 mg/dl (74-100); Potassium 4.1 mmoL/L (3.5-5.1); Sodium 134 mmol/L (136-145); Total Protein,Serum 6.5 g/dl (6.3-8.2)
[2023-12-27] MEDS: SODIUM CHLORIDE 0.9% 10ML SYR (RAD ONLY) 10 ML IV (11:17)
[2023-12-27] MEDS: IOPAMIDOL-370 (76%);100ML BOTTLE 70 ML IV (11:17)
[2023-12-27] MEDS: 0.9 % SODIUM CHLORIDE 50 ML VIAL 40 ML IV (11:17)
[2023-12-27 11:23] LABS: Troponin I < 0.01 ng/ml (0.00-0.034)
--- NOTE | 2023-12-27 11:25 | ED_ITS ---
Discharge Plan Disposition Patient Disposition: Admitted Prescriptions Prescriptions: No Action Linzess 72 mcg capsule 72 mcg PO DAILY Qty: 30 2RF propranolol 60 mg capsule,extended release 24 hr 60 mg PO DAILY Qty: 30 2RF diclofenac sodium [Arthritis Pain (diclofenac)] 1 % gel 2 g topical QID PRN (Reason: pain) Qty: 100 2RF Rx Instructions: apply to single elbow, wrist or hand; for hand includes palm/fingers/back of hand oxycodone-acetaminophen 5-325 mg tablet 1 tab PO TID Qty: 90 0RF calcium carbonate-vitamin D3 600 mg-10 mcg (400 unit) tablet See Rx Instructions .ROUTE .COMPLEX Qty: 30 3RF Dose Instruction: TAKE ONE TABLET BY MOUTH ONCE A DAY FOR SUPPLEMENT Rx Instructions: TAKE ONE TABLET BY MOUTH ONCE A DAY FOR SUPPLEMENT ipratropium-albuterol 0.5 mg-3 mg(2.5 mg base)/3 mL solution for nebulization See Rx Instructions .ROUTE .COMPLEX Qty: 180 3RF Dose Instruction: INHALE CONTENTS OF 1 VIAL VIA NEBULIZER FOUR TIMES A DAY NEEDED FOR SHORTNESS OF BREATH OR WHEEZING Rx Instructions: INHALE CONTENTS OF 1 VIAL VIA NEBULIZER FOUR TIMES A DAY NEEDED FOR SHORTNESS OF BREATH OR WHEEZING atorvastatin 10 mg tablet See Rx Instructions .ROUTE .COMPLEX Qty: 90 3RF Dose Instruction: TAKE ONE TABLET BY MOUTH AT BEDTIME Rx Instructions: TAKE ONE TABLET BY MOUTH AT BEDTIME alendronate 70 mg tablet See Rx Instructions .ROUTE .COMPLEX Qty: 14 3RF Dose Instruction: TAKE ONE TABLET BY MOUTH ONCE EVERY WEEK FOR BONES Rx Instructions: TAKE ONE TABLET BY MOUTH ONCE EVERY WEEK FOR BONES famotidine 20 mg tablet See Rx Instructions .ROUTE .COMPLEX Qty: 90 3RF Dose Instruction: TAKE ONE TABLET BY MOUTH ONCE A DAY Rx Instructions: TAKE ONE TABLET BY MOUTH ONCE A DAY lisinopril 20 mg tablet See Rx Instructions .ROUTE .COMPLEX Qty: 90 2RF Dose Instruction: TAKE ONE TABLET BY MOUTH ONCE A DAY FOR HYPERTENSION Rx Instructions: TAKE ONE TABLET BY MOUTH ONCE A DAY FOR HYPERTENSION Combivent Respimat 20-100 mcg/actuation mist See Rx Instructions .ROUTE .COMPLEX Qty: 4 0RF Dose Instruction: INHALE 1 PUFF BY MOUTH EVERY 6 HOURS NEEDED FOR SHORTNESS OF BREATH OR WHEEZING Rx Instructions: INHALE 1 PUFF BY MOUTH EVERY 6 HOURS NEEDED FOR SHORTNESS OF BREATH OR WHEEZING fluticasone furoate-vilanterol [Breo Ellipta] 200-25 mcg/dose blister with device 1 inh inhalation DAILY Qty: 60 4RF Spiriva Respimat 2.5 mcg/actuation mist See Rx Instructions .ROUTE .COMPLEX Qty: 4 0RF Dose Instruction: INHALE 1 PUFF BY MOUTH ONCE A DAY FOR BREATHING PROBLEMS Rx Instructions: INHALE 1 PUFF BY MOUTH ONCE A DAY FOR BREATHING PROBLEMS ondansetron 8 mg tablet,disintegrating See Rx Instructions .ROUTE .COMPLEX Qty: 30 0RF Dose Instruction: DISSOLVE 1 TABLET ON THE TONGUE EVERY 8 HOURS NEEDED FOR NAUSEA/VOMITING Rx Instructions: DISSOLVE 1 TABLET ON THE TONGUE EVERY 8 HOURS NEEDED FOR NAUSEA/VOMITING fluticasone propionate 50 mcg/actuation spray,suspension See Rx Instructions .ROUTE .COMPLEX Qty: 16 2RF Dose Instruction: USE 1 SPRAY IN EACH NOSTRIL ONCE A DAY Rx Instructions: USE 1 SPRAY IN EACH NOSTRIL ONCE A DAY ergocalciferol (vitamin D2) 1,250 mcg (50,000 unit) capsule See Rx Instructions .ROUTE .COMPLEX Qty: 14 3RF Dose Instruction: TAKE ONE CAPSULE BY MOUTH EVERY WEEK Rx Instructions: TAKE ONE CAPSULE BY MOUTH EVERY WEEK furosemide [Lasix] 20 mg tablet 20 mg PO DAILY Lactaid Fast Act 9,000 unit tablet,chewable 9,000 unit PO QAC Rx Instructions: administer with first bite of dairy food lidocaine [Lidoderm] 5 % adhesive patch,medicated 1 patch topical DAILY Qty: 15 0RF Rx Instructions: leave on most painful area for up to 12 hrs oxycodone-acetaminophen 10-325 mg tablet 1 tab PO Q4H PRN (Reason: post op pain) Qty: 42 0RF Referrals Follow up/Referrals: Provider,Referral, [Referring] - See instructions Clinical Impressions Clinical Impression: Sepsis, Pneumonia Print Language Print Language: Tajik Discharge ED Provider: Erica Pruitt General Chief Complaint: Chest Pain Stated Complaint: Chest Pain Time Seen by Provider: 12/27/23 10:48 Mode of Arrival: Wheelchair Source of Information: Patient Limitations: No Limitations Description of Symptoms (Recalled from ER Triage Doc. by RN): pt reports she had R shoulder surgery here by Dr. Gómez on 12/21. pt states since she woke up she has been having R chest pain that radiates from that R shoulder. pt states the pain is excruciating, sharp and a 10/10. pt also reports a cough, chest congestion, and SOA. pt reports that she thinks she has pneumonia. pt reports on 12/21 she was started on home oxygen by her PCP Juanito BRADEN. pt states she was SOA after surgery and they wanted to admit her, however, she refused. pt reports her chest pain worsens with coughing. pt was 89-90% on RA and 95% on 2LNC History of Present Illness HPI narrative: 63-year-old female presents to the ER for concerns of right-sided chest pain radiating from her right shoulder. Patient states she had right shoulder surgery here with plates and screws by Dr. Gómez on 12/21. She woke up from surgery with this pain. She has also been having worsening cough. Patient states cough, chest congestion, shortness of breath have been ongoing since before surgery but were dramatically worse after surgery. Her friend at bedside states patient was not supposed to leave after surgery, however she insisted so she went home with oxygen which she has never required before. Patient does have a history of COPD and takes rescue inhaler as needed. Patient is concerned she has pneumonia, she states she gets it annually and her symptoms are identical at this time. Patient's chest pain is worse with coughing. Patient reports she has not taken her oxycodone today. Related Data Home Medications ?Medication ?Instructions ?Recorded ?Confirmed furosemide 20 mg tablet (Lasix) 20 mg PO DAILY Fluid 09/23/22 12/27/23 lactase 9,000 unit chewable tablet 9,000 unit PO QAC probiotic 09/23/22 12/27/23 (Lactaid Fast Act) Previous Rx's ?Medication ?Instructions ?Recorded calcium carbonate 600 mg-vitamin See Rx Instructions .Route 06/06/23 D3 10 mcg (400 unit) tablet .COMPLEX #30 tabs ipratropium 0.5 mg-albuterol 3 mg See Rx Instructions .Route 06/06/23 (2.5 mg base)/3 mL nebulization .COMPLEX #180 mL soln alendronate 70 mg tablet See Rx Instructions .Route 07/24/23 .COMPLEX #14 tabs atorvastatin 10 mg tablet See Rx Instructions .Route 07/24/23 .COMPLEX #90 tabs famotidine 20 mg tablet See Rx Instructions .Route 08/23/23 .COMPLEX #90 tabs lisinopril 20 mg tablet See Rx Instructions .Route 09/29/23 .COMPLEX #90 tabs linaclotide 72 mcg capsule 72 mcg PO DAILY #30 caps 10/03/23 (Linzess) ipratropium 20 mcg-albuterol 100 See Rx Instructions .Route 11/07/23 mcg/actuation mist for inhalation .COMPLEX #4 grams (Combivent Respimat) fluticasone furoate 200 1 inh inhalation DAILY COPD #60 ea 11/13/23 mcg-vilanterol 25 mcg/dose inhalation powder (Breo Ellipta) diclofenac sodium 1 % topical gel 2 g topical QID PRN pain #100 grams 11/29/23 (Arthritis Pain (diclofenac)) oxycodone-acetaminophen 5 mg-325 1 tab PO TID #90 tabs 11/29/23 mg tablet propranolol 60 mg capsule,24 60 mg PO DAILY #30 caps 11/29/23 hr,extended release fluticasone propionate 50 See Rx Instructions .Route 12/06/23 mcg/actuation nasal .COMPLEX #16 grams spray,suspension ondansetron 8 mg disintegrating See Rx Instructions .Route 12/06/23 tablet .COMPLEX #30 tabs tiotropium bromide 2.5 See Rx Instructions .Route 12/06/23 mcg/actuation mist for inhalation .COMPLEX #4 grams (Spiriva Respimat) lidocaine 5 % topical patch 1 patch topical DAILY #15 ea 12/13/23 (Lidoderm) oxycodone-acetaminophen 10 mg-325 1 tab PO Q4H PRN post op pain #42 12/22/23 mg tablet tabs ergocalciferol (vitamin D2) 1,250 See Rx Instructions .Route 12/23/23 mcg (50,000 unit) capsule .COMPLEX #14 caps Allergies Allergy/AdvReac Type Severity Reaction Status Date / Time ceftriaxone [From Rocephin] Allergy Severe Hives Verified 12/27/23 11:02 levofloxacin [From LEVAQUIN] Allergy Severe Fainting Verified 12/27/23 11:02 Penicillins [PENICILLINS] Allergy Mild Hives Verified 12/27/23 11:02 [facility] Disclaimer: The information contained in this section may have been updated after the patient was seen, as this information can be updated by other users. Medical History History of chemotherapy History of radiation therapy Lung cancer History of fracture of finger right middle Bronchiolitis obliterans organizing pneumonia Depression Cancer related pain Patient needs f/u with Dr Cramer to establish care here but is currently in remission Anxiety Primary lung adenocarcinoma BMI 32.0-32.9,adult Abnormal weight Diverticulosis Toenail deformity BMI 31.0-31.9,adult Vitamin D deficiency Hypertension Surgical History History of lung biopsy History of tonsillectomy Family History Other No significant family history Social History Smoking Status: Current every day smoker tobacco type: cigarettes packs per day: 1 years smoked: 40 second hand exposure: Yes alcohol intake: never substance use type: denies use current occupational status: disabled Travel in the last 8 weeks: None household members: spouse housing: house lives independently: No marital status: education level: high school service: No half-way: No caffeine: No special hector needs: No agree to transfusion: No do you feel safe at home: Yes victim of physical abuse: No victim of emotional abuse: No victim of sexual abuse: No would you like helpful sources: No ROS Obtained: Yes All systems reviewed & no additional complaints except as documented Constitutional Constitutional: Reports chills, Denies fever(s), Denies headache(s) and Denies weakness Eyes Eyes: Denies change in vision ENT Ears, Nose, Mouth, and Throat: Denies dizziness, Denies headache(s), Denies nasal congestion and Denies sore throat Cardiovascular Cardiovascular: Reports chest pain, Reports dyspnea and Denies leg edema Respiratory Respiratory: Reports cough and Reports dyspnea Gastrointestinal Gastrointestingal: Denies constipation, diarrhea, nausea or vomiting Genitourinary Female Genitourinary: Denies dysuria Musculoskeletal Musculoskeletal: Denies arthralgias, Denies myalgias, Denies numbness and Denies tingling Integumentary/Breasts Skin/Breast: Denies change in pigmentation Neurologic Neurologic: Denies dizziness, Denies headache(s), Denies numbness, Denies tingling and Denies weakness Physical Exam General General appearance: alert and in no apparent distress Head Head exam: atraumatic and normocephalic Eye Eye exam: Present PERRL and EOMI ENT ENT exam: Present mucous membranes moist Neck Neck exam: Present normal inspection and full ROM Chest Chest inspection: Present symmetric chest wall rise and tenderness (Anterior chest wall) Respiratory Respiratory exam: Present wheezes (Right lung worse than left); Absent respiratory distress or stridor Cardiovascular Cardiovascular exam: Present regular rate and normal rhythm Abdominal Exam Abdominal exam: Present soft; Absent distention, tenderness, guarding or rebound Extremities Exam Extremities exam: Present other (Right shoulder in sling, has pain and tenderness.); Absent edema Neurological Exam Neurological exam: Present alert and oriented X3; Absent motor sensory deficit Psychiatric Psychiatric exam: Present normal affect and normal mood Skin Skin exam: Present warm and dry HEART Score HEART Score HEART Score assessment performed?: Yes History (anamnesis): Slightly suspicious ECG: Non-specific disturbance Age: 45-65 years Risk factors: 3 or more risk factors Troponin: </= normal limit HEART Score: 4 Critical Care Critical Care Time Critical Care Time: Yes Attestation: On 12/27/23, the high probability of a clinically significant, sudden or life threatening deterioration of the following system(s) (respiratory, cardiac) required my full and direct attention, intervention and personal management. The time I documented below is in addition to time spent performing reported procedures but includes the following listed in this critical care notation. Total Time Total Critical Care Time: 35 Medical Decision Making Medical Records Medical records reviewed: Yes I reviewed the patient's medical records. Vikram Inquiry Pt receiving controlled substance: No Vital Signs Vital Signs: 12/27/23 10:34 12/27/23 10:48 12/27/23 11:31 Temperature 99.5 F Temperature Source Oral Pulse Rate 87 Pulse Rate [Left] 85 Respiratory Rate 22 17 Blood Pressure 118/77 102/61 L Blood Pressure [Right Arm] 118/77 Blood Pressure Mean [Right Arm] 90 Blood Pressure Source [Right Arm] Automatic Cuff Blood Pressure Position [Right Arm] Sitting 02 Sat by Pulse Oximetry 90 L 90 L 94 L Oxygen Delivery Method Nasal Cannula Room Air Nasal Cannula Oxygen Flow Rate (LPM) 2 2 12/27/23 11:40 12/27/23 11:52 Temperature Temperature Source Pulse Rate 84 Pulse Rate [Left] Respiratory Rate 19 Blood Pressure 93/67 L Blood Pressure [Right Arm] Blood Pressure Mean [Right Arm] Blood Pressure Source [Right Arm] Blood Pressure Position [Right Arm] 02 Sat by Pulse Oximetry Oxygen Delivery Method Oxygen Flow Rate (LPM) Lab Data Labs: Lab Results 12/27/23 10:40: WBC 18.3 H, RBC 3.55 L, Hgb 12.2, Hct 39.2, MCV 110.5 H, MCH 34.3 H, MCHC 31.0 L, RDW 15.4, Plt Count 504 H, MPV 8.2, Neut % (Auto) 85.4 H, L ymph % (Auto) 7.3 L, [place] % (Auto) 6.1, Eos % (Auto) 0.7, Baso % (Auto) 0.4, N eut # (Auto) 15.6 H, Lymph # (Auto) 1.4, [place] # (Auto) 1.1 H, Eos # (Auto) 0.1, Baso # (Auto) 0.1, Total Counted 100, Neutrophils % (Manual) 87 H, Lymphocytes % (Manual) 10, Monocytes % (Manual) 3, Platelet Estimate Slight increase, Anisocytosis 1+, Macrocytosis 2+, PT 11.1, INR 0.99, Sodium 134 L, Potassium 4.1, Chloride 102, Carbon Dioxide 30, Anion Gap 6.1, BUN 10, Creatinine 0.60, Estimated Creat Clear 67, Estimated GFR 100, Est GFR ( Amer) 121, Glucose 105 H, Calcium 8.7, Total Bilirubin 0.7, AST 17, ALT 24, Alkaline Phosphatase 82, Troponin I < 0.01, Total Protein 6.5, Albumin 3.5, Globulin 3.0, Albumin/Globulin Ratio 1.2 12/27/23 10:45: VBG pH 7.41, VBG pCO2 46.3, VBG pO2 37.6, VBG HCO3 28.6, VBG Total CO2 30.0 H, VBG O2 Saturation 72.4 H, VBG Base Excess 3.9 H, VBG Lactic Acid 1.2 12/27/23 10:40 12/27/23 10:40 Response Orders (Tests/Meds): ED MEDICATIONS Generic Name Dose Route Start Last Admin Trade Name Freq PRN Reason Stop Dose Admin Lactated Ringer's 2,290 mls @ 1,145 mls/hr 12/27/23 12:24 Lactated Ringer's 1000 Ml Bag 30 ml/kg infuse over 2 hr (2290 ml) 12/27/23 14:23 IV .Q2H ONE Vancomycin/PEG/NADA/Lysine/Water 1.75 gm in 350 mls @ 175 mls/hr 12/27/23 12:30 Vancomycin 1.75gm/350ml (Peg) Premix IV 12/27/23 14:29 ONCE ONE Meropenem 1 gm/ Sodium 100 mls @ 100 mls/hr 12/27/23 13:00 Chloride IV 01/06/24 12:59 Q8H MANUEL Discontinued Medications Generic Name Dose Route Start Last Admin Trade Name Freq PRN Reason Stop Dose Admin Albuterol/Ipratropium 9 ml 12/27/23 11:27 12/27/23 11:39 Ipratropium/Albuterol 3 Ml Neb IH 12/27/23 11:28 9 ml ONCE ONE Administration Iopamidol 70 ml 12/27/23 11:15 12/27/23 11:17 Iopamidol-370 (76%);100ml Bottle IV 12/27/23 11:16 70 ml ONCE ONE Administration Methocarbamol 500 mg 12/27/23 11:31 12/27/23 11:52 Methocarbamol 500mg Tablet PO 12/27/23 11:32 500 mg ONCE ONE Administration Miscellaneous 1 each 12/27/23 12:30 Vancomycin Consult Request NOTAPPLIC 01/26/24 12:29 CONSULT PHARM[facility]Y [facility] Oxycodone/Acetaminophen 1 each 12/27/23 10:47 12/27/23 11:01 Oxycodone 7.5mg W/Apap 325mg Tablet PO 12/27/23 10:48 1 each ONCE ONE Administration Sodium Chloride 40 ml 12/27/23 11:15 12/27/23 11:17 0.9 % Sodium Chloride 50 Ml Vial IV 12/27/23 11:16 40 ml ONCE ONE Administration Sodium Chloride 10 ml 12/27/23 11:15 12/27/23 11:17 Sodium Chloride 0.9% 10ml Syr (Rad Only) IV 12/27/23 11:16 10 ml ONCE ONE Administration ORDERS Category Date Time Status CT angio chest PE protocol Stat Cat Scan 12/27/23 10:45 Completed XR shoulder RT min 2V Stat Exams 12/27/23 10:45 Completed BNP [NT Pro Brain Natriuretic Pep.] Stat Lab 12/27/23 10:40 Received Complete Blood Count Auto Diff AMLAB Lab 12/28/23 06:00 Ordered Complete Blood Count Auto Diff Stat Lab 12/27/23 10:40 Completed Comprehensive Metabolic Panel AMLAB Lab 12/28/23 06:00 Ordered Comprehensive Metabolic Panel Stat Lab 12/27/23 10:40 Completed Full Resp Panel w/COVID ([facility]) Routine Lab 12/27/23 10:58 Ordered Magnesium AMLAB Lab 12/28/23 06:00 Ordered Prothrombin Time INR Stat Lab 12/27/23 10:40 Completed Troponin I Q3H Lab 12/27/23 14:00 Ordered Troponin I Q3H Lab 12/27/23 17:00 Ordered Troponin I Stat Lab 12/27/23 10:40 Completed Urinalysis and Microscopic Stat Lab 12/27/23 12:24 Ordered Blood Culture Stat Micro 12/27/23 11:34 Received VBG [Venous Blood Gas] Stat RT 12/27/23 10:45 Completed MDM Narrative Medical Decision Narrative: In summary, this 63-year-old female presents to the emergency department today with right-sided chest pain, cough. On initial evaluation patient is hemodynamically stable, afebrile, mildly tachypneic, slightly hypoxic, requiring 2 L nasal cannula, wheezes in the right lung as well as presence of cough, tenderness to the anterior chest wall, no peripheral edema or leg swelling. Differential diagnosis includes but is not limited to ACS, PE, pneumonia, pneumothorax, postoperative pain, muscle spasm. Patient has multiple comorbidities of her current condition including a history of COPD, hypertension, previous pneumonia, recent surgery. These increase her risk of pneumonia and COPD exacerbation, ACS, and PE. Based on these concerns, I ordered cardiac workup, serum labs, CTA PE. ECG personally interpreted demonstrates normal sinus rhythm, rate 85, patient has abnormalities of the ST segment in leads I and aVL but these do not meet criteria and she does not have reciprocal or contiguous changes.. Patient received DuoNebs, oxycodone, methocarbamol for treatment. Labs personally reviewed demonstrate significant increase leukocytosis now 18.3 compared to 11.3 on the day of surgery, patient does not have any findings of anemia, mild thrombocythemia, PT/INR normal, lactate normal at 1.2, pH normal at 7.41, CMP nonactionable at this time without findings of kidney or liver dysfunction, initial troponin undetectably low at less than 0.01. X-ray right shoulder demonstrates postoperative changes on my personal interpretation, see radiology read for final interpretation. CTA PE personally interpreted does not demonstrate findings of PE, however there are multiple consolidation areas in the right and left lung consistent with pneumonia. While in the ER, patient's blood pressure started to downtrend and with the identification of a source given patient's abnormalities in the lungs on CT, patient now meets criteria for sepsis. She is receiving a full sepsis bolus. I consulted pharmacy and discussed with them patient's multiple antibiotic allergies. They are recommending vancomycin and meropenem at this time until cultures and other labs have finalized. I told the patient I wanted her to be admitted for continued management of sepsis, oxygen requirement, chest pain, shortness of breath, pneumonia. She stated she wanted to go home. I had a blunt conversation with the patient that she had already demanded to be discharged after her surgery despite the recommendation to be admitted and then only 5 days later she wound up in the ER due to her symptoms. I explained to her that it did not seem suresh to go home with the symptoms that brought her to the ER, especially now with a diagnosis of sepsis that could rapidly progress. I explained to her that she would have to sign out AGAINST MEDICAL ADVICE if she wanted to do discharge since it was strongly against my recommendation. Patient agreed to admission. I had interactive discussion with Dr. Dunaway the hospitalist regarding patient's symptoms, sepsis criteria, oxygen requirement, and slightly soft blood pressures. He excepted the patient for admission.
[2023-12-27 11:33] LABS: Lymphocytes % 10 % (10-50); Monocytes % 3 % (2-9); Neutrophils % 87 % (42-76); Total Cells Counted 100
[2023-12-27 11:34] LABS: Anisocytosis 1+; Macrocytosis 2+; Platelet Estimate Slight Increase
[2023-12-27] MEDS: IPRATROPIUM/ALBUTEROL 3 ML NEB 9 ML IH (11:39)
[2023-12-27] MEDS: METHOCARBAMOL 500MG TABLET 500 MG PO (11:52)
[2023-12-27] MEDS: LACTATED RINGERS 1145 ML IV (12:24)
--- NOTE | 2023-12-27 12:24 | PC.NURSE ---
pt is sitting in the chair and refusing to wear ekg monitor and pulse ox. She will allow to wearing bp cuff.
--- NOTE | 2023-12-27 12:43 | PC.NURSE ---
I s/w Toni Anderson in the pharmacy for vancomycin dosing. I also discussed with him his recommendation for gram negative infections and broad coverage. He recommends Invanz 1 g q day or Meropenem 1g q8h. He suggests the Meropenem. I let Dr. Pruitt know this and she will place these orders.
[2023-12-27 12:49] LABS: NT Pro Brain Natriuretic Pep. 1640 pg/mL (0-125)
[2023-12-27] MEDS: MEROPENEM 1 GM in 0.9 % SODIUM CHLORIDE 100 ML IV ×2 (13:04→20:05)
--- NOTE | 2023-12-27 13:12 | [facility].PHAINT1 ---
Pharmacy Intervention Comments: MEDICATION RECONCILIATION COMPLETED ON PATIENT USING EXTERNAL FILL HISTORY FROM PHARMACY AND [facility]ACH REPORT. -PEDRO GUTIÉRREZ, ROWENAD
--- NOTE | 2023-12-27 13:35 | PC.NURSE ---
arrived by w/c from ED
[2023-12-27 13:50] LABS: Microscopic, Urine URINE MICROSCOPIC (MICROSCOPIC)
[2023-12-27 13:57] LABS: Appearance,Urine CLEAR (Clear); Bilirubin,Urine Negative (Negative); Blood, Urine Negative (Negative); Color,Urine YELLOW (Yellow); Glucose,Urine (UA) Negative (Negative); Ketones,Urine Negative (Negative); Leukocyte Esterase,Urine 2+ (Negative); Nitrate,Urine Negative (Negative); PH,Urine 7.5 (5.0-8.5); Protein,Urine Negative (Negative)
[2023-12-27 14:15] LABS: Bacteria,Urine Trace /lpf
--- NOTE | 2023-12-27 14:29 | PC.NURSE ---
Message left for SAMPSON Romero per patient request informing her that patient has been admitted to [facility].
[2023-12-27] MEDS: VANCOMYCIN/WATER FOR INJ (PEG) 1.75 GM/350 ML PIGGYBACK IV (14:34)
--- NOTE | 2023-12-27 14:43 | PC.NURSE ---
Family member will bring home medications in this evening.
[2023-12-27 15:32] LABS: Troponin I < 0.01 ng/ml (0.00-0.034)
--- NOTE | 2023-12-27 15:57 | P.HP_ITS ---
History of Present Illness *Admission Date: 12/27/23 *Reason for visit:: Shortness of breath, chest pain *History of present illness: Ms. Houston is a 3-year-old female who presented to the ER because of worsening right-sided chest pain and shortness of breath. She had surgery on Thursday 12/[address] Gómez on her right shoulder. Attempts were made at that time to admit her to the hospital because of shortness of breath thought to be due to her nerve block. She did not want to stay and went home. States her congestion and shortness of breath is gotten worse over the past few days. Was started on oxygen by her primary care when she went home last Monday. On arrival to the ER, she is 95% on 2 L oxygen. She denies any nausea, vomiting, diarrhea. Having pain in her shoulder but also in her right chest. Nonproductive cough for the past few days. Workup in the ER with CTA of her chest showed right upper and left lower lobe consolidations. Found to have elevated white count at 18. Respiratory rate of 22 on arrival. Given image findings, leukocytosis, tachypnea, meeting criteria for sepsis. Initiated on antibiotics and fluids. Medicine consulted for admission and further management of sepsis and pneumonia. Upon arrival to the floor, patient is stable on 2 L oxygen. Currently on meropenem and vancomycin due to penicillin, ceftriaxone, fluoroquinolone allergy. Cultures obtained and pending. [facility] Disclaimer: The information contained in this section may have been updated after the patient was seen, as this information can be updated by other users. Medical History History of chemotherapy History of radiation therapy Lung cancer History of fracture of finger Bronchiolitis obliterans organizing pneumonia Depression Cancer related pain Anxiety Primary lung adenocarcinoma BMI 32.0-32.9,adult Abnormal weight Diverticulosis Toenail deformity BMI 31.0-31.9,adult Vitamin D deficiency Hypertension Surgical History History of lung biopsy History of tonsillectomy Family History Other No significant family history Social History Smoking Status: Current every day smoker tobacco type: cigarettes packs per day: 1 years smoked: 40 second hand exposure: Yes alcohol intake: never substance use type: denies use current occupational status: disabled Travel in the last 8 weeks: None household members: spouse housing: house lives independently: No marital status: education level: high school service: No intermediate: No caffeine: No special hector needs: No agree to transfusion: No do you feel safe at home: Yes victim of physical abuse: No victim of emotional abuse: No victim of sexual abuse: No would you like helpful sources: No Review of Systems Review of Systems Review of systems (narrative): 14 point review of systems performed, pertinent positives and negatives as per HPI Constitutional Constitutional: Denies headache(s) and Denies weakness ENT Ears, Nose, Mouth, and Throat: Denies dizziness and Denies headache(s) *Musculoskeletal Musculoskeletal: Denies numbness and Denies tingling *Neurologic Neurologic: Denies dizziness, Denies headache(s), Denies numbness, Denies tingling and Denies weakness Meds Home Medications and Allergies Home Medications ?Medication ?Instructions ?Recorded ?Confirmed ?Type linaclotide 72 mcg capsule 72 mcg PO DAILY #30 caps 10/03/23 12/27/23 Rx (Linzess) fluticasone furoate 200 1 inh inhalation DAILY COPD #60 ea 11/13/23 12/27/23 Rx mcg-vilanterol 25 mcg/dose inhalation powder (Breo Ellipta) propranolol 60 mg capsule,24 60 mg PO DAILY #30 caps 11/29/23 12/27/23 Rx hr,extended release lidocaine 5 % topical patch 1 patch topical DAILY #15 ea 12/13/23 12/27/23 Rx (Lidoderm) alendronate 70 mg tablet 70 mg PO WEEKLY 12/27/23 12/27/23 History atorvastatin 10 mg tablet 10 mg PO HS 12/27/23 12/27/23 History diclofenac sodium 1 % topical gel 2 g topical QIDP PRN Mild Pain 12/27/23 12/27/23 History (Arthritis Pain (diclofenac)) (Scale Score 1-4) ergocalciferol (vitamin D2) 1,250 1,250 mcg PO WEEKLY 12/27/23 12/27/23 History mcg (50,000 unit) capsule famotidine 20 mg tablet 20 mg PO DAILY 12/27/23 12/27/23 History ipratropium 20 mcg-albuterol 100 1 puff inhalation Q6HP PRN 12/27/23 12/27/23 History mcg/actuation mist for inhalation Shortness Of Breath (Combivent Respimat) lisinopril 20 mg tablet 20 mg PO DAILY 12/27/23 12/27/23 History ondansetron 8 mg disintegrating 8 mg PO TIDP PRN Nausea And 12/27/23 12/27/23 History tablet Vomiting oxycodone-acetaminophen 5 mg-325 1 tab PO TID 12/27/23 12/27/23 History mg tablet tiotropium bromide 2.5 1 puff inhalation DAILY 12/27/23 12/27/23 History mcg/actuation mist for inhalation (Spiriva Respimat) New Prescriptions to Start Prescriptions: Allergies Allergy/AdvReac Type Severity Reaction Status Date / Time ceftriaxone [From Rocephin] Allergy Severe Hives Verified 12/27/23 11:02 levofloxacin [From LEVAQUIN] Allergy Severe Fainting Verified 12/27/23 11:02 Penicillins [PENICILLINS] Allergy Mild Hives Verified 12/27/23 11:02 Exam Data for Last 24 hours Vital signs and Labs for Last 24 Hours: Temp Pulse Resp BP Pulse Ox O2 Del Method O2 Flow Rate 99.5 F 82 18 105/62 L 96 Room Air 2 12/27/23 14:00 12/27/23 14:00 12/27/23 14:00 12/27/23 14:00 12/27/23 14:00 12/27/23 14:48 12/27/23 13:40 Laboratory Results - last 24 hr 12/27/23 10:40: WBC 18.3 H, RBC 3.55 L, Hgb 12.2, Hct 39.2, MCV 110.5 H, MCH 34.3 H, MCHC 31.0 L, RDW 15.4, Plt Count 504 H, MPV 8.2, Neut % (Auto) 85.4 H, Lymph % (Auto) 7.3 L, [place] % (Auto) 6.1, Eos % (Auto) 0.7, Baso % (Auto) 0.4, Neut # (Auto) 15.6 H, Lymph # (Auto) 1.4, [place] # (Auto) 1.1 H, Eos # (Auto) 0.1, Baso # (Auto) 0.1, Total Counted 100, Neutrophils % (Manual) 87 H, Lymphocytes % (Manual) 10, Monocytes % (Manual) 3, Platelet Estimate Slight increase, Anisocytosis 1+, Macrocytosis 2+, PT 11.1, INR 0.99, Sodium 134 L, Potassium 4.1, Chloride 102, Carbon Dioxide 30, Anion Gap 6.1, BUN 10, Creatinine 0.60, Estimated Creat Clear 67, Estimated GFR 100, Est GFR ( Amer) 121, Glucose 105 H, Calcium 8.7, Total Bilirubin 0.7, AST 17, ALT 24, Alkaline Phosphatase 82, Troponin I < 0.01, NT-Pro-B Natriuret Pep 1640 H, Total Protein 6.5, Albumin 3.5, Globulin 3.0, Albumin/Globulin Ratio 1.2 12/27/23 10:44: Chlamy pneumoniae PCR Not detected, Adenovirus (PCR) Not detected, B. pertussis DNA (PCR) Not detected, Coronavirus OC43 (PCR) Not detected, Coronavirus HKU1 (PCR) Not detected, Coronavirus 229E (PCR) Not detected, SARS-CoV-2 (PCR) Not detected, Coronavirus NL63 (PCR) Not detected, Human Metapneumovir PCR Not detected, Influenza A (H1) PCR Not detected, Influ A (H1N1/09) PCR Not detected, Influenza A (H3) PCR Not detected, Influenza Type A (PCR) Not detected, Influenza Type B (PCR) Not detected, M. pneumoniae (PCR) Not detected, Parainfluenza 1 (PCR) Not detected, Parainfluenza 2 (PCR) Not detected, Parainfluenza 3 (PCR) Not detected, Parainfluenza 4 (PCR) Not detected, RSV (PCR) Not detected, Entero/Rhino (PCR) Not detected 12/27/23 10:45: VBG pH 7.41, VBG pCO2 46.3, VBG pO2 37.6, VBG HCO3 28.6, VBG Total CO2 30.0 H, VBG O2 Saturation 72.4 H, VBG Base Excess 3.9 H, VBG Lactic Acid 1.2 12/27/23 13:45: Urine Color Yellow, Urine Appearance Clear, Urine pH 7.5, Ur Specific [place] 1.010, Urine Protein Negative, Urine Glucose (UA) Negative, Urine Ketones Negative, Urine Blood Negative, Urine Nitrate Negative, Urine Bilirubin Negative, Urine Urobilinogen 2.0, Ur Leukocyte Esterase 2+ A, Urine RBC None, Urine WBC 10-20, Ur Squamous Epith Cells 3-5, Urine Bacteria Trace 12/27/23 14:50: Troponin I < 0.01 I & O for Last 24 hours: Intake & Output 12/24/23 12/25/23 12/26/23 12/27/23 23:59 23:59 23:59 23:59 Output Total 250 / 250 Balance -250 / -250 Weight 81.221 kg Constitutional Constitutional: no acute distress, obese, chronically ill appearing, disheveled and cooperative Comments: Smells of smoke *Routine HEENT Exam Head: Present normocephalic Eye: Present EOMI and PERRL ENT: Present mucous membranes moist *Routine Neck Exam Neck: Present supple; Absent lymphadenopathy *Routine Respiratory Exam Respiratory: Present prolonged expiratory phase and crackles (Left posterior lung field); Absent respiratory distress, rhonchi, wheezes or diminished air movement *Routine Cardiovascular Exam Cardiovascular: Present RRR *Routine Abdominal Exam Abdominal: Present soft and normoactive bowel sounds; Absent tenderness *Routine Rectal Exam Rectal:: deferred *Routine Genitalia Exam Genitalia:: deferred *Routine Extremities Exam Extremities: Absent cyanosis, clubbing or edema Comments: Right arm in sling, right shoulder with clean dry and intact incision from recent shoulder surgery. *Routine Skin Exam Skin: Present intact and warm; Absent cyanosis or rash *Routine Neurological Exam Neurological: Present alert, oriented X3 and moving all extremities; Absent altered mental status Assessment and Plan *Assessment and plan (1) Sepsis: Status: Acute Category: Medical Code(s): A41.9 - Sepsis, unspecified organism (2) Pneumonia: Status: Acute Category: Medical Code(s): J18.9 - Pneumonia, unspecified organism (3) COPD (chronic obstructive pulmonary disease): Problem Comment: Currently stable. No recent exacerbations. Status: Chronic Qualifiers: COPD type: COPD with acute lower respiratory infection Qualified Code(s): J44.0 - Chronic obstructive pulmonary disease with acute lower respiratory infection Category: Medical Code(s): J44.9 - Chronic obstructive pulmonary disease, unspecified (4) Obesity (BMI 30.0-34.9): Status: Acute Category: Medical Code(s): E66.9 - Obesity, unspecified (5) Depression: Status: Chronic Qualifiers: Active/Remission status: currently active Depression Type: major depressive disorder Major depression episode severity: moderate Major depression recurrence: single episode Qualified Code(s): F32.1 - Major depressive disorder, single episode, moderate Category: Medical Code(s): F32.9 - Major depressive disorder, single episode, unspecified (6) Anxiety: Status: Chronic Category: Medical Code(s): F41.9 - Anxiety disorder, unspecified (7) Primary lung adenocarcinoma: Status: Chronic Qualifiers: Laterality: left Qualified Code(s): C34.92 - Malignant neoplasm of unspecified part of left bronchus or lung Category: Medical Code(s): C34.90 - Malignant neoplasm of unspecified part of unspecified bronchus or lung (8) Hypertension: Status: Chronic Qualifiers: Hypertension type: essential hypertension Qualified Code(s): I10 - Essential (primary) hypertension Category: Medical Code(s): I10 - Essential (primary) hypertension (9) Status post shoulder surgery: Status: Acute Category: Surgical Code(s): Z98.890 - Other specified postprocedural states (10) Tobacco use: Status: Acute Category: Social Hx Code(s): Z72.0 - Tobacco use Plan 63-year-old female with recent shoulder surgery who presented with shortness of breath. Found to have sepsis criteria and pneumonia on imaging. Initiated on meropenem and vancomycin. Continues to require inpatient management. Discussed case with ER physician, request admission for IV antibiotics and further treatment of her sepsis. I agreed to admit. Currently on 2 L oxygen. Problems addressed as follows: Sepsis Healthcare associated pneumonia -Per my review of chest imaging, consolidation in right upper lobe and left lower lobe. Initiated on meropenem every 8 hours IV and vancomycin due to antibiotic allergies and healthcare acquired risks -White count of 18,000, repeat ordered for the morning. -Supplemental oxygen as needed, goal sats greater than 90%. Wean as tolerated. Currently on 2 L -Blood cultures pending, sputum culture -Status post bolus IV fluids. Tolerating p.o. intake. Holding on further fluids. COPD History of lung cancer - adenocarcinoma of lung- stage III; pet positive 2.4 cm rul lung mass and 2 hilar lymph nodes; treated with radiation only at completed 03/2020; consolidation IO using durvulamab completed 07/16/2021 -Has not seen oncology since March 2022. Needs follow-up when stable at discharge. -DuoNebs every 6 hours scheduled -Continue Breo Allyson daily Status post right shoulder surgery: -Surgery performed on Monday. Shoulder stable. Wound clean dry and intact. -Resume oxycodone every 6 hours as needed for pain, monitor for toxicity Hyperlipidemia: Continue Lipitor 10 mg nightly GERD: Continue famotidine 10mg daily Holding home hypertensive regimen in the setting of hypotension. Tobacco use disorder: Smokes half pack week; Initiate nicotine patch 14 mg daily Class I obesity, complicates all aspects of her care Full code Lovenox 40 mg subcu daily Cardiac diet
--- NOTE | 2023-12-27 16:40 | PC.NURSE ---
Pt resting in bed. Currently on 2L O2 NC. Rhonchi and wheezing noted to lung black. Pt c/o soa at times. DSG to (R) shoulder changed. Incision site site looks clean and dry. No erythema noted. Call light within reach.
[2023-12-27] MEDS: OXYCODONE 5MG W/APAP 325MG TABLET 1 EACH PO (17:35)
[2023-12-27] MEDS: IPRATROPIUM/ALBUTEROL 3 ML NEB IH (18:08)
[2023-12-27 18:42] LABS: Troponin I < 0.01 ng/ml (0.00-0.034)
[2023-12-27] MEDS: ATORVASTATIN 10MG TABLET 10 MG PO (20:06)
[2023-12-28] VITALS (12 sets, daily range): BP systolic 97–107; BP diastolic 61–70; PULSE 43–89; RESP 16–19; TEMP 36.6–37.1; O2SAT 92–98; BMI 33.8
[2023-12-28] MEDS: IPRATROPIUM/ALBUTEROL 3 ML NEB IH ×4 (00:49→18:19)
[2023-12-28] MEDS: OXYCODONE 5MG W/APAP 325MG TABLET 1 EACH PO ×3 (01:22→19:49)
[2023-12-28] MEDS: MEROPENEM 1 GM in 0.9 % SODIUM CHLORIDE 100 ML IV ×3 (04:08→22:51)
--- NOTE | 2023-12-28 05:50 | PC.NURSE ---
MEDICATED AT 0122 WITH PERCOCET 5/325 MG PO FOR C/O RIGHT SHOULDER PAIN. DRSG C/D/I AND ARM IN SLING. 02 AT 1LNC.02 SATS HIGH 90s.
--- NOTE | 2023-12-28 06:13 | PC.NURSE ---
Sputum collected and sent to lab at 0620.
[2023-12-28 07:04] LABS: Basophils # 0.1 K/mm3 (0-0.2); Basophils % 0.6 % (0.1-2.0); Eosinophils # 0.2 K/mm3 (0.0-0.4); Eosinophils % 1.6 % (0.1-12.0); Hematocrit 37.7 % (37.0-47.0); Lymphocytes # 1.3 K/mm3 (0.7-4.5); Lymphocytes % 9.6 % (10-50); Mean Corpuscular HGB Conc 31.7 g/dL (31.8-35.4); Mean Corpuscular Hemoglobin 36.6 pg (27.0-31.2); Mean Corpuscular Volume 115.3 fl (81-99); Mean Platelet Volume 9.1 fl (7.4-10.4); Monocytes # 0.9 K/mm3 (0.1-1.0); Neutrophils # 10.7 K/mm3 (1.8-7.8); Neutrophils % 81.2 % (37.0-80.0); Platelet Count 308 K/mm3 (142-424); Red Blood Count 3.27 M/mm3 (4.20-5.40); Red Cell Distribution Width 16.1 % (11.5-17.5); White Blood Count 13.2 K/mm3 (4.8-10.8)
--- NOTE | 2023-12-28 07:59 | EXP.PHA.CONS ---
Pharmacy Consult Date: 12/28/23 Time: 07:59 Referring provider: DR. NG Reason for Consult:: VANCOMYCIN DOSING Allergies Allergy/AdvReac Type Severity Reaction Status Date / Time ceftriaxone [From Rocephin] Allergy Severe Hives Verified 12/27/23 11:02 levofloxacin [From LEVAQUIN] Allergy Severe Fainting Verified 12/27/23 11:02 Penicillins [PENICILLINS] Allergy Mild Hives Verified 12/27/23 11:02 Home Medications ?Medication ?Instructions ?Recorded ?Confirmed ?Type linaclotide 72 mcg capsule 72 mcg PO DAILY #30 caps 10/03/23 12/27/23 Rx (Linzess) fluticasone furoate 200 1 inh inhalation DAILY COPD #60 ea 11/13/23 12/27/23 Rx mcg-vilanterol 25 mcg/dose inhalation powder (Breo Ellipta) propranolol 60 mg capsule,24 60 mg PO DAILY #30 caps 11/29/23 12/27/23 Rx hr,extended release lidocaine 5 % topical patch 1 patch topical DAILY #15 ea 12/13/23 12/27/23 Rx (Lidoderm) alendronate 70 mg tablet 70 mg PO WEEKLY 12/27/23 12/27/23 History atorvastatin 10 mg tablet 10 mg PO HS 12/27/23 12/27/23 History diclofenac sodium 1 % topical gel 2 g topical QIDP PRN Mild Pain 12/27/23 12/27/23 History (Arthritis Pain (diclofenac)) (Scale Score 1-4) ergocalciferol (vitamin D2) 1,250 1,250 mcg PO WEEKLY 12/27/23 12/27/23 History mcg (50,000 unit) capsule famotidine 20 mg tablet 20 mg PO DAILY 12/27/23 12/27/23 History ipratropium 20 mcg-albuterol 100 1 puff inhalation Q6HP PRN 12/27/23 12/27/23 History mcg/actuation mist for inhalation Shortness Of Breath (Combivent Respimat) lisinopril 20 mg tablet 20 mg PO DAILY 12/27/23 12/27/23 History ondansetron 8 mg disintegrating 8 mg PO TIDP PRN Nausea And 12/27/23 12/27/23 History tablet Vomiting oxycodone-acetaminophen 5 mg-325 1 tab PO TID 12/27/23 12/27/23 History mg tablet tiotropium bromide 2.5 1 puff inhalation DAILY 12/27/23 12/27/23 History mcg/actuation mist for inhalation (Spiriva Respimat) New Prescriptions to Start Prescriptions: Height: 1.55 m Weight: 81.25 kg Laboratory Results:: Laboratory Results - last 24 hr 12/27/23 10:40: WBC 18.3 H, RBC 3.55 L, Hgb 12.2, Hct 39.2, MCV 110.5 H, MCH 34.3 H, MCHC 31.0 L, RDW 15.4, Plt Count 504 H, MPV 8.2, Neut % (Auto) 85.4 H, Lymph % (Auto) 7.3 L, [place] % (Auto) 6.1, Eos % (Auto) 0.7, Baso % (Auto) 0.4, Neut # (Auto) 15.6 H, Lymph # (Auto) 1.4, [place] # (Auto) 1.1 H, Eos # (Auto) 0.1, Baso # (Auto) 0.1, Total Counted 100, Neutrophils % (Manual) 87 H, Lymphocytes % (Manual) 10, Monocytes % (Manual) 3, Platelet Estimate Slight increase, Anisocytosis 1+, Macrocytosis 2+, PT 11.1, INR 0.99, Sodium 134 L, Potassium 4.1, Chloride 102, Carbon Dioxide 30, Anion Gap 6.1, BUN 10, Creatinine 0.60, Estimated Creat Clear 67, Estimated GFR 100, Est GFR ( Amer) 121, Glucose 105 H, Calcium 8.7, Total Bilirubin 0.7, AST 17, ALT 24, Alkaline Phosphatase 82, Troponin I < 0.01, NT-Pro-B Natriuret Pep 1640 H, Total Protein 6.5, Albumin 3.5, Globulin 3.0, Albumin/Globulin Ratio 1.2 12/27/23 10:44: Chlamy pneumoniae PCR Not detected, Adenovirus (PCR) Not detected, B. pertussis DNA (PCR) Not detected, Coronavirus OC43 (PCR) Not detected, Coronavirus HKU1 (PCR) Not detected, Coronavirus 229E (PCR) Not detected, SARS-CoV-2 (PCR) Not detected, Coronavirus NL63 (PCR) Not detected, Human Metapneumovir PCR Not detected, Influenza A (H1) PCR Not detected, Influ A (H1N1/09) PCR Not detected, Influenza A (H3) PCR Not detected, Influenza Type A (PCR) Not detected, Influenza Type B (PCR) Not detected, M. pneumoniae (PCR) Not detected, Parainfluenza 1 (PCR) Not detected, Parainfluenza 2 (PCR) Not detected, Parainfluenza 3 (PCR) Not detected, Parainfluenza 4 (PCR) Not detected, RSV (PCR) Not detected, Entero/Rhino (PCR) Not detected 12/27/23 10:45: VBG pH 7.41, VBG pCO2 46.3, VBG pO2 37.6, VBG HCO3 28.6, VBG Total CO2 30.0 H, VBG O2 Saturation 72.4 H, VBG Base Excess 3.9 H, VBG Lactic Acid 1.2 12/27/23 13:45: Urine Color Yellow, Urine Appearance Clear, Urine pH 7.5, Ur Specific [place] 1.010, Urine Protein Negative, Urine Glucose (UA) Negative, Urine Ketones Negative, Urine Blood Negative, Urine Nitrate Negative, Urine Bilirubin Negative, Urine Urobilinogen 2.0, Ur Leukocyte Esterase 2+ A, Urine RBC None, Urine WBC 10-20, Ur Squamous Epith Cells 3-5, Urine Bacteria Trace 12/27/23 14:50: Troponin I < 0.01 12/27/23 17:58: Troponin I < 0.01 12/28/23 05:24: WBC 13.2 H D, RBC 3.27 L, Hgb 12.0 L, Hct 37.7, MCV 115.3 H, MCH 36.6 H, MCHC 31.7 L, RDW 16.1, Plt Count 308 D, MPV 9.1, Neut % (Auto) 81.2 H, Lymph % (Auto) 9.6 L, [place] % (Auto) 7.0, Eos % (Auto) 1.6, Baso % (Auto) 0.6, Neut # (Auto) 10.7 H, Lymph # (Auto) 1.3, [place] # (Auto) 0.9, Eos # (Auto) 0.2, Baso # (Auto) 0.1 Medical History: Medical History (Updated 12/27/23 @ 12:50 by Erica Pruitt MD) History of chemotherapy History of radiation therapy Lung cancer History of fracture of finger Bronchiolitis obliterans organizing pneumonia Depression Cancer related pain Anxiety Primary lung adenocarcinoma BMI 32.0-32.9,adult Abnormal weight Diverticulosis Toenail deformity BMI 31.0-31.9,adult Vitamin D deficiency Hypertension Assessment and Plan Assessment and plan all Dx Assessment and Plan for all problems:: Pharmacokinetic dosing service Objective: Patient: Floor: Age: 63 yo Serum creatinine: 0.60 mg/dL Height: 61.0 Inches Weight (kg): 81.3 Assessment: IBW (kg): 47.80 Dosing wt(kg): 81.3 Estimated Creatinine clearance (ml/min): 70.5 CRCL method: Cockcroft and Gault using ibw(default). Drug selected: Vancomycin Loading dose (mg): Vd (liters): 65.0 (factor used: 0.8 L/kg) Tristin (hr-1): 0.063 Half life (hrs): 11.00 CLvanco=?? 4.095 L/hr Recommended dose: 1000 mg Interval: 12 hrs Infusion time (hrs): 2.0 Predicted peak (mcg/mL): 27.2 Predicted trough (mcg/mL): 14.49 Total body weight is being used for vancomycin dosing. Recommendations: Give Vancomycin 1000 mg q 12 hrs with an expected Cpeak of 27.2 mcg/ml and an expected Ctrough of 14.49 mcg/ml AUC 0-24 /MICHELLE Data: MICHELLE 0.5 mcg/mL:?? AUC/MICHELLE:? 976.8 MICHELLE 1.0 mcg/mL:?? AUC/MICHELLE:? 488.4 --------- MICHELLE 1.5 mcg/mL:?? AUC/MICHELLE:? 325.6 MICHELLE 2.0 mcg/mL:?? AUC/MICHELLE:? 244.2 Thank you for the consult, will continue to follow. -PEDRO GUTIÉRREZ, ROWENAD
[2023-12-28 08:39] LABS: Alanine Aminotransferase 24 U/L (12-78); Albumin Level 3.4 g/dl (3.5-5.0); Albumin/Globulin Ratio 1.1 (1.1-1.8); Alkaline Phosphatase 82 U/L (38-126); Aspartate Amino Transferase 21 U/L (14-36); Bilirubin,Total 0.7 mg/dl (0.2-1.3); Blood Urea Nitrogen 12 mg/dl (7-17); Calcium 8.6 mg/dl (8.4-10.2); Carbon Dioxide 25 mmol/L (22.0-30.0); Chloride 106 mmol/L (98-107); Creatinine Clearance Estimated 72 mL/min (50-200); Estimated Glomerular Filt Rate 124 ml/min (>60); GFR (African American) 150 ML/MIN (>60); Globulin 3.1 g/dL (1.3-3.2); Glucose 106 mg/dl (74-100); Magnesium 1.9 mg/dl (1.6-2.3); Sodium 138 mmol/L (136-145); Total Protein,Serum 6.5 g/dl (6.3-8.2)
[2023-12-28] MEDS: VANCOMYCIN HCL 1,000 MG in 0.9 % SODIUM CHLORIDE 250 ML 125 MG IV ×2 (08:40→20:35)
[2023-12-28] MEDS: BUMETANIDE 1MG/4ML VIAL 1 MG IV (08:41)
[2023-12-28] MEDS: FAMOTIDINE 20MG TABLET 20 MG PO (08:41)
[2023-12-28] MEDS: PROPRANOLOL 20MG TAB 20 MG PO ×2 (10:04→20:35)
[2023-12-28] MEDS: TIOTROPIUM 18MCG/PUFF INHALER 1 CAP IH (10:04)
--- NOTE | 2023-12-28 13:43 | P.PN_ITS ---
Subjective *Date: 12/28/23 *Time: 13:49 Interval history: 63-year-old who presented yesterday with pneumonia. Doing better today. Still requiring oxygen. Chest pain improving. No nausea or vomiting. Disappointed she is not going home today however encouraged her that she is showing im provement and response to antibiotics. Cough nonproductive. Tolerating p.o. intake. No fevers Medical Exam Vital signs and Labs for Last 24 Hours: Vital Signs Temp Pulse Pulse Resp BP Pulse Ox O2 Del Method 12/28/23 13:00 Room Air 12/28/23 12:00 98.1 F 43 L 19 106/70 L 94 L Room Air 12/28/23 11:16 85 12/28/23 11:16 78 12/28/23 11:16 98 Nasal Cannula 12/28/23 11:00 Nasal Cannula 12/28/23 09:00 Room Air 12/28/23 07:58 98.2 F 68 18 106/61 L 94 L Room Air 12/28/23 07:45 94 L Room Air 12/28/23 06:39 Nasal Cannula 12/28/23 06:12 76 16 12/28/23 06:07 81 12/28/23 06:07 76 12/28/23 06:07 95 Nasal Cannula 12/28/23 05:00 Nasal Cannula 12/28/23 04:00 97.9 F 77 18 102/70 L 95 Nasal Cannula 12/28/23 03:00 Nasal Cannula 12/28/23 01:00 Nasal Cannula 12/28/23 00:49 84 12/28/23 00:49 89 12/28/23 00:00 98.2 F 79 18 97/68 L 95 Nasal Cannula 12/27/23 23:00 Nasal Cannula 12/27/23 21:00 Nasal Cannula 12/27/23 20:17 79 18 12/27/23 20:00 94 L Nasal Cannula 12/27/23 20:00 97.7 F 76 18 93/55 L 94 L Nasal Cannula 12/27/23 18:35 Nasal Cannula 12/27/23 18:09 79 12/27/23 18:09 83 12/27/23 18:09 94 L Nasal Cannula 12/27/23 16:40 Nasal Cannula 12/27/23 16:00 98.3 F 81 18 97/59 L 95 Nasal Cannula 12/27/23 14:48 Room Air 12/27/23 14:00 99.5 F 82 18 105/62 L 96 Room Air O2 Flow Rate 12/28/23 13:00 12/28/23 12:00 12/28/23 11:16 12/28/23 11:16 12/28/23 11:16 1 12/28/23 11:00 1.5 12/28/23 09:00 12/28/23 07:58 12/28/23 07:45 12/28/23 06:39 12/28/23 06:12 12/28/23 06:07 12/28/23 06:07 12/28/23 06:07 1 12/28/23 05:00 1 12/28/23 04:00 12/28/23 03:00 1 12/28/23 01:00 1 12/28/23 00:49 12/28/23 00:49 12/28/23 00:00 1 12/27/23 23:00 1 12/27/23 21:00 1 12/27/23 20:17 12/27/23 20:00 1 12/27/23 20:00 1 12/27/23 18:35 1 12/27/23 18:09 12/27/23 18:09 12/27/23 18:09 1 12/27/23 16:40 1 12/27/23 16:00 1 12/27/23 14:48 12/27/23 14:00 Intake and Output 12/27/23 12/28/23 12/28/23 23:59 07:59 15:59 Intake Total 510 / 850 440 / 1000 560 / 1000 Output Total 0 / 250 0 / 1100 1100 / 1100 Balance 510 / 600 440 / -100 -540 / -100 Intake: Intake, Oral Amount 510 / 750 240 / 800 560 / 800 Intake, Total IV Amount 200 / 200 Meropenem 1 gm In 0.9 % Sodium 200 / 200 Chloride 100 ml @ 100 mls/hr IV Q8H [facility] Rx#:[id number] Output: Output, Urine Amount 0 / 250 0 / 1100 1100 / 1100 Other: Number of Unmeasured Voids 1 1 1 Weight 81.25 kg 81.25 kg Patient Weight 12/28/23 23:59 Weight 81.25 kg Laboratory Results - last 24 hr 12/27/23 13:45: Urine Color Yellow, Urine Appearance Clear, Urine pH 7.5, Ur Specific Mosier 1.010, Urine Protein Negative, Urine Glucose (UA) Negative, Urine Ketones Negative, Urine Blood Negative, Urine Nitrate Negative, Urine Bilirubin Negative, Urine Urobilinogen 2.0, Ur Leukocyte Esterase 2+ A, Urine RBC None, Urine WBC 10-20, Ur Squamous Epith Cells 3-5, Urine Bacteria Trace 12/27/23 14:50: Troponin I < 0.01 12/27/23 17:58: Troponin I < 0.01 12/28/23 05:24: WBC 13.2 H D, RBC 3.27 L, Hgb 12.0 L, Hct 37.7, MCV 115.3 H, MCH 36.6 H, MCHC 31.7 L, RDW 16.1, Plt Count 308 D, MPV 9.1, Neut % (Auto) 81.2 H, Lymph % (Auto) 9.6 L, Lyman % (Auto) 7.0, Eos % (Auto) 1.6, Baso % (Auto) 0.6, Neut # (Auto) 10.7 H, Lymph # (Auto) 1.3, Lyman # (Auto) 0.9, Eos # (Auto) 0.2, Baso # (Auto) 0.1 12/28/23 07:38: Sodium 138, Potassium 4.0, Chloride 106, Carbon Dioxide 25, Anion Gap 11.0, BUN 12, Creatinine 0.50 L, Estimated Creat Clear 72, Estimated GFR 124, Est GFR ( Amer) 150 D, Glucose 106 H, Calcium 8.6, Magnesium 1.9, Total Bilirubin 0.7, AST 21, ALT 24, Alkaline Phosphatase 82, Total Protein 6.5, Albumin 3.4 L, Globulin 3.1, Albumin/Globulin Ratio 1.1 I & O for Labs for Last 24 Hours: Intake & Output 12/25/23 12/26/23 12/27/23 12/28/23 23:59 23:59 23:59 23:59 Intake Total 510 / 850 1000 / 1000 Output Total 250 / 250 1100 / 1100 Balance 260 / 600 -100 / -100 Weight 81.221 kg 81.25 kg Microbiology Reports for the Last 24 Hours: Microbiology 12/28/23 06:15 Sputum - Expectorated Sputum Gram Stain - Final 12/27/23 11:34 Blood Blood Culture - Preliminary NO GROWTH AFTER 24 HOURS 12/27/23 10:40 Blood Blood Culture - Preliminary NO GROWTH AFTER 24 HOURS Constitutional: Present no acute distress, obese and cooperative Head: Present atraumatic ENT: Present normal exam Neck: Present normal inspection Respiratory: Present crackles (Improved to left lower lung field) and normal respiratory effort; Absent rhonchi or wheezes Cardiac: Present Reg Rate and Rhythm GI: Present soft and normal bowel sounds; Absent distention or tenderness Extremities: Present normal inspection and full ROM (Except right upper extremity) Comment:: Right arm in sling, surgical site clean dry and intact Skin: Present intact; Absent erythema Neuro: Present Grossly Intact, alert, awake, oriented x 3 and moves all extremities Assessment and Plan *Assessment and plan (1) Sepsis: Status: Acute Category: Medical Code(s): A41.9 - Sepsis, unspecified organism (2) Pneumonia: Status: Acute Category: Medical Code(s): J18.9 - Pneumonia, unspecified organism (3) COPD (chronic obstructive pulmonary disease): Problem Comment: Currently stable. No recent exacerbations. Status: Chronic Qualifiers: COPD type: COPD with acute lower respiratory infection Qualified Code(s): J44.0 - Chronic obstructive pulmonary disease with acute lower respiratory infection Category: Medical Code(s): J44.9 - Chronic obstructive pulmonary disease, unspecified (4) Obesity (BMI 30.0-34.9): Status: Acute Category: Medical Code(s): E66.9 - Obesity, unspecified (5) Depression: Status: Chronic Qualifiers: Active/Remission status: currently active Depression Type: major depressive disorder Major depression episode severity: moderate Major depression recurrence: single episode Qualified Code(s): F32.1 - Major depressive disorder, single episode, moderate Category: Medical Code(s): F32.9 - Major depressive disorder, single episode, unspecified (6) Anxiety: Status: Chronic Category: Medical Code(s): F41.9 - Anxiety disorder, unspecified (7) Primary lung adenocarcinoma: Status: Chronic Qualifiers: Laterality: left Qualified Code(s): C34.92 - Malignant neoplasm of unspecified part of left bronchus or lung Category: Medical Code(s): C34.90 - Malignant neoplasm of unspecified part of unspecified bronchus or lung (8) Hypertension: Status: Chronic Qualifiers: Hypertension type: essential hypertension Qualified Code(s): I10 - Essential (primary) hypertension Category: Medical Code(s): I10 - Essential (primary) hypertension (9) Status post shoulder surgery: Status: Acute Category: Surgical Code(s): Z98.890 - Other specified postprocedural states (10) Tobacco use: Status: Acute Category: Social Hx Code(s): Z72.0 - Tobacco use Plan 63-year-old female with recent shoulder surgery who presented with shortness of breath. Found to have sepsis criteria and pneumonia on imaging. Initiated on meropenem and vancomycin. Continues to require inpatient management. Discussed case with ER physician, request admission for IV antibiotics and further treatment of her sepsis. I agreed to admit. Currently on 2 L oxygen. Clinically improving. White cell count improving. Continues to require inpatient management for IV antibiotics. Anticipate discharge in the next day or 2. Problems addressed as follows: Sepsis [facility] associated pneumonia -White count down from 18-13. Continues to require supplemental oxygen, goal sats greater than 90%. Wean as tolerated. Currently on 2 L -Blood cultures pending, sputum culture -I have ordered CBC, CMP, magnesium for the morning. Kidney function normal with BUN 12, creatinine 0.5. -Continue meropenem every 8 hours and vancomycin daily. Awaiting cultures to wean to oral regimen at discharge -Elevated BNP on admission. Will diurese x 1 today with Bumex 1 mg IV. COPD History of lung cancer - adenocarcinoma of lung- stage III; pet positive 2.4 cm rul lung mass and 2 hilar lymph nodes; treated with radiation only at completed 03/2020; consolidation IO using durvulamab completed 07/16/2021 -Has not seen oncology since March 2022. Needs follow-up when stable at discharge. -DuoNebs every 6 hours scheduled -Continue Breo Allyson daily Status post right shoulder surgery: -Surgery performed on Monday. Shoulder stable. Wound clean dry and intact. - oxycodone every 6 hours as needed for pain, monitor for toxicity; 3 doses in the past 24 hours Hyperlipidemia: Continue Lipitor 10 mg nightly GERD: Continue famotidine 10mg daily Holding home hypertensive regimen in the setting of hypotension. Tobacco use disorder: Smokes half pack week; Initiate nicotine patch 14 mg daily Class I obesity, complicates all aspects of her care Full code Lovenox 40 mg subcu daily Cardiac diet
--- NOTE | 2023-12-28 14:43 | HMH.OTEV ---
OT Inpatient Evaluation Rehab OT IP Evaluation Start: 12/28/23 11:28 Freq: ONCE Status: Active Protocol: Document 12/28/23 14:39 [facility] (Rec: 12/28/23 14:43 [facility] [id number]) Rehab OT IP Assessment Subjective History Pt oriented x 3 on arrival. Pt agreeable to engage in therapy evaluation. Pt admitted on 12/27/23 due to PNA . History and Physical report: Ms. Houston is a 3-year-old female who presented to the ER because of worsening right- sided chest pain and shortness of breath. She had surgery on Thursday 12/[address] Gómez on her right shoulder. Attempts were made at that time to admit her to the hospital because of shortness of breath thought to be due to her nerve block. She did not want to stay and went home. States her congestion and shortness of breath is gotten worse over the past few days. Was started on oxygen by her primary care when she went home last Monday. On arrival to the ER, she is 95% on 2 L oxygen. She denies any nausea , vomiting, diarrhea. Having pain in her shoulder but also in her right chest. Nonproductive cough for the past few days. Workup in the ER with CTA of her chest showed right upper and left lower lobe consolidations. Found to have elevated white count at 18. Respiratory rate of 22 on arrival. Given image findings, leukocytosis, tachypnea, meeting criteria for sepsis. Initiated on antibiotics and fluids. Medicine consulted for admission and further management of sepsis and pneumonia. Subjective I still garden. Prior to being in the hospital , pt lived at home with her . Pt claims normally she is independent with all ADLS and IADLs. Pt did not require any type of AE during functional transfers. Pt also still drove. Objective Patient Orientation Person,Place,Birthday Right Upper Extremity Gross ROM Sev Limitation >75% Left Upper Extremity Gross ROM WFL Shoulder ROM Limitations Muscle Weakness Elbow ROM Limitations Muscle Weakness Wrist Limitations of Range of Motion Muscle Weakness Bed Mobility bed mobility-scooting,bed mobility - supine/sit Assist Level Supervision/Stand by Transfer Training Sit/Stand Transfer Assist Level Supervision/Stand by Chair Transfer Ability Supervision/Stand by Chair Transfer Technique Sit to/from Ambulatory Chair Transfer Assistive Devices None Rehab OT IP prob,goals,plan Problems Date of Evaluation: 12/28/23 Rehab Potential Rehab Potential Innapropriate for Skilled Therapy Discharge Plan OT Discharge Plan At this time, pt appears to be at her baseline with functional transfers and ADL independence. Pt can return home with once she is medically stable per physician . Eval Complexity Eval Charge Codes 19701 - Moderate Complexity PHYSICIAN CERTIFICATION: I certify the specified therapy services for Hillary Houston are required, authorized, and reviewed every 30 days.
--- NOTE | 2023-12-28 15:18 | HMH.PTEV ---
Physical Therapy Evaluation Rehab PT IP Evaluation Start: 12/28/23 11:28 Freq: ONCE Status: Active Protocol: Document 12/28/23 14:52 GREGORIO (Rec: 12/28/23 15:18 PHOTEODORA [id number]) Subjective/History History History Patient Hillary Houston is a 63 yof who was admitted on (12/27/23) for SOB and chest pain. Her PMH is consistent with but not limited to the following Lung cancer, Hx of fx of finger, Depression, Cancer related pain, Anxiety, Primary lung adenocarcinoma, Abnormal weight, Diverticulosis, Vitamin D deficiency, and Hypertension. Patient states she lives at home with her and dog and is able to complete all typically task such as cooking, cleaning, and bathing on her own. She does not use a walker or any other AD to ambulate within the community or her home. She had a recent fall and was wearing a sling on the R shoulder upon presentation, her main concern is when will she get to go home. Subjective Subjective Patient had no complaints or concerns at this time, she was cooperative during PT session and was ready to get back to her bed and watch TV. New diagnosis of cancer in past 12 No months? Rehab PT IP Eval Objective Appearance Patient Behavior Appropriate,Cooperative, Talkative Patient Orientation Person,Place,Name,Age,Birthday ,Situation Difficulty following instructions none Speech Pattern Clear,Appropriate Ambulation Patient Able to Ambulate Yes Ambulation Observation IP General Gait Pattern Observation No Deviations/Normal Ambulation Distance (feet) 55 Ambulation Assistive Device None Ambulation Ability Independent Balance Ability to Arise Able, uses arms to help Sitting Balance Steady, safe Standing Balance Steady, wide stance Dynamic Sitting Balance Ability Good Dynamic Standing Balance Ability Good Transfers Bed Transfer Ability Independent Sit to Stand Bed Transfer Ability Independent Rehab PT IP prob,goals,plan Problems Date of Evaluation: 12/28/23 Rehab Potential Rehab Potential Innapropriate for Skilled Therapy Discharge Plan PT Discharge Plan Patient is not appropriate at this time for skilled PT, she is able to complete transfers and ambulation safely and independently. Patient is able to return home once medically stable. Eval Complexity Eval Charge Codes 68656 - High Complexity PHYSICIAN CERTIFICATION: I certify the specified therapy services for Hillary Fortuneey are required, authorized, and reviewed every 30 days.
--- NOTE | 2023-12-28 15:51 | PC.NURSE ---
Pt has been up to the chair this shift. Has ambulated around her room and to BR. Education on Incentive spirometer given and pt observed using it. She is currently on RA at this time although, she has needed 1-1.5 L at times this shift. Has complained of soa at times and discomfort to (R) arm . Medication administered per jul. She is diuresing well. Call light within reach.
[2023-12-28] MEDS: FLUTICASONE/SALMETEROL 500/50MCG DISKUS 1 PUFF IH (18:19)
[2023-12-28] MEDS: ATORVASTATIN 10MG TABLET 10 MG PO (20:35)
[2023-12-29] VITALS: BP 100/67; PULSE 85; RESP 16; TEMP 36.7; O2SAT 95
[2023-12-29] MEDS: IPRATROPIUM/ALBUTEROL 3 ML NEB IH ×3 (00:16→11:26)
[2023-12-29 00:24] VITALS: PULSE 76; PULSE 80
[2023-12-29 04:00] VITALS: BP 120/77; PULSE 79; RESP 16; TEMP 37.2; O2SAT 97; BMI 33.6
--- NOTE | 2023-12-29 04:02 | PC.NURSE ---
63 yo female pt admitted with pneumonia/sepsis, pt is a/o X 4. She has been ambulating to BR through shift although she becomes SOA after ambulating. She has been utilizing 02 most of the shift due to SOA. Antibiotics given per JUL. She has been medicated for pain X 1 this shift.
[2023-12-29] MEDS: OXYCODONE 5MG W/APAP 325MG TABLET 1 EACH PO ×2 (04:29→11:41)
[2023-12-29] MEDS: MEROPENEM 1 GM in 0.9 % SODIUM CHLORIDE 100 ML IV (04:30)
[2023-12-29] MEDS: FLUTICASONE/SALMETEROL 500/50MCG DISKUS 1 PUFF IH (06:57)
[2023-12-29 06:58] LABS: Albumin Level 3.2 g/dl (3.5-5.0); Chloride 106 mmol/L (98-107); Potassium 4.1 mmoL/L (3.5-5.1); Sodium 138 mmol/L (136-145)
[2023-12-29] MEDS: TIOTROPIUM 18MCG/PUFF INHALER 1 CAP IH (06:58)
[2023-12-29 07:00] VITALS: PULSE 88; O2SAT 94
[2023-12-29 07:01] LABS: Alanine Aminotransferase 20 U/L (12-78); Albumin/Globulin Ratio 1.2 (1.1-1.8); Alkaline Phosphatase 82 U/L (38-126); Anion Gap 6.1 mEq/L (5-15); Aspartate Amino Transferase 18 U/L (14-36); Bilirubin,Total 0.4 mg/dl (0.2-1.3); Blood Urea Nitrogen 12 mg/dl (7-17); Calcium 8.4 mg/dl (8.4-10.2); Carbon Dioxide 30 mmol/L (22.0-30.0); Creatinine Clearance Estimated 72 mL/min (50-200); Estimated Glomerular Filt Rate 100 ml/min (>60); GFR (African American) 121 ML/MIN (>60); Globulin 2.7 g/dL (1.3-3.2); Glucose 121 mg/dl (74-100); Magnesium 1.8 mg/dl (1.6-2.3); Total Protein,Serum 5.9 g/dl (6.3-8.2)
[2023-12-29 07:22] LABS: Basophils # 0.1 K/mm3 (0-0.2); Basophils % 0.5 % (0.1-2.0); Eosinophils # 0.2 K/mm3 (0.0-0.4); Eosinophils % 1.7 % (0.1-12.0); Hematocrit 37.3 % (37.0-47.0); Hemoglobin 11.6 g/dL (12.2-16.2); Lymphocytes # 1.5 K/mm3 (0.7-4.5); Lymphocytes % 12.4 % (10-50); Mean Corpuscular HGB Conc 31.2 g/dL (31.8-35.4); Mean Corpuscular Hemoglobin 34.2 pg (27.0-31.2); Mean Corpuscular Volume 109.7 fl (81-99); Mean Platelet Volume 8.9 fl (7.4-10.4); Monocytes # 0.9 K/mm3 (0.1-1.0); Monocytes % 7.6 % (1.7-9.3); Neutrophils # 9.1 K/mm3 (1.8-7.8); Neutrophils % 77.8 % (37.0-80.0); Platelet Count 541 K/mm3 (142-424); Red Cell Distribution Width 15.5 % (11.5-17.5); White Blood Count 11.7 K/mm3 (4.8-10.8)
--- NOTE | 2023-12-29 07:55 | PC.WOUNDNOTE ---
o2 saturation 88% on room air
[2023-12-29 08:00] VITALS: BP 122/82; RESP 21; TEMP 36.6; O2SAT 94
[2023-12-29] MEDS: PROPRANOLOL 20MG TAB 20 MG PO (08:54)
[2023-12-29] MEDS: FAMOTIDINE 20MG TABLET 20 MG PO (08:54)
--- NOTE | 2023-12-29 09:04 | EXP.PHA.CONS ---
Pharmacy Consult Date: 12/29/23 Time: 09:05 Referring provider: DR. NG Reason for Consult:: VANCOMYCIN LEVEL Allergies Allergy/AdvReac Type Severity Reaction Status Date / Time ceftriaxone [From Rocephin] Allergy Severe Hives Verified 12/27/23 11:02 levofloxacin [From LEVAQUIN] Allergy Severe Fainting Verified 12/27/23 11:02 Penicillins [PENICILLINS] Allergy Mild Hives Verified 12/27/23 11:02 Home Medications ?Medication ?Instructions ?Recorded ?Confirmed ?Type linaclotide 72 mcg capsule 72 mcg PO DAILY #30 caps 10/03/23 12/27/23 Rx (Linzess) fluticasone furoate 200 1 inh inhalation DAILY COPD #60 ea 11/13/23 12/27/23 Rx mcg-vilanterol 25 mcg/dose inhalation powder (Breo Ellipta) propranolol 60 mg capsule,24 60 mg PO DAILY #30 caps 11/29/23 12/27/23 Rx hr,extended release lidocaine 5 % topical patch 1 patch topical DAILY #15 ea 12/13/23 12/27/23 Rx (Lidoderm) alendronate 70 mg tablet 70 mg PO WEEKLY 12/27/23 12/27/23 History atorvastatin 10 mg tablet 10 mg PO HS 12/27/23 12/27/23 History diclofenac sodium 1 % topical gel 2 g topical QIDP PRN Mild Pain 12/27/23 12/27/23 History (Arthritis Pain (diclofenac)) (Scale Score 1-4) ergocalciferol (vitamin D2) 1,250 1,250 mcg PO WEEKLY 12/27/23 12/27/23 History mcg (50,000 unit) capsule famotidine 20 mg tablet 20 mg PO DAILY 12/27/23 12/27/23 History ipratropium 20 mcg-albuterol 100 1 puff inhalation Q6HP PRN 12/27/23 12/27/23 History mcg/actuation mist for inhalation Shortness Of Breath (Combivent Respimat) lisinopril 20 mg tablet 20 mg PO DAILY 12/27/23 12/27/23 History oxycodone-acetaminophen 5 mg-325 1 tab PO TIDP PRN Pain, Severe 12/27/23 12/28/23 History mg tablet tiotropium bromide 2.5 1 puff inhalation DAILY 12/27/23 12/27/23 History mcg/actuation mist for inhalation (Spiriva Respimat) New Prescriptions to Start Prescriptions: Height: 1.55 m Weight: 80.83 kg Laboratory Results:: Laboratory Results - last 24 hr 12/29/23 06:20: WBC 11.7 H, RBC 3.40 L, Hgb 11.6 L, Hct 37.3, MCV 109.7 H, MCH 34.2 H, MCHC 31.2 L, RDW 15.5, Plt Count 541 H D, MPV 8.9, Neut % (Auto) 77.8, Lymph % (Auto) 12.4, Carbon % (Auto) 7.6, Eos % (Auto) 1.7, Baso % (Auto) 0.5, Neut # (Auto) 9.1 H, Lymph # (Auto) 1.5, Carbon # (Auto) 0.9, Eos # (Auto) 0.2, Baso # (Auto) 0.1, Sodium 138, Potassium 4.1, Chloride 106, Carbon Dioxide 30, Anion Gap 6.1, BUN 12, Creatinine 0.60, Estimated Creat Clear 72, Estimated GFR 100, Est GFR ( Amer) 121, Glucose 121 H, Calcium 8.4, Magnesium 1.8, Total Bilirubin 0.4, AST 18, ALT 20, Alkaline Phosphatase 82, Total Protein 5.9 L, Albumin 3.2 L, Globulin 2.7, Albumin/Globulin Ratio 1.2 12/29/23 07:33: Vancomycin Trough 11.0 H Medical History: Medical History (Updated 12/27/23 @ 12:50 by Erica Pruitt MD) History of chemotherapy History of radiation therapy Lung cancer History of fracture of finger Bronchiolitis obliterans organizing pneumonia Depression Cancer related pain Anxiety Primary lung adenocarcinoma BMI 32.0-32.9,adult Abnormal weight Diverticulosis Toenail deformity BMI 31.0-31.9,adult Vitamin D deficiency Hypertension Assessment and Plan Assessment and plan all Dx Assessment and Plan for all problems:: PATIENT'S VANCOMYCIN TROUGH LEVEL WAS 11.0 MCG/ML THIS MORNING. RECOMMEND CONTINUING WITH CURRENT DOSE OF VANCOMYCIN 1000 MG Q12H.
[2023-12-29] MEDS: SULFA/TRIMETHOPRIM 1 TABLET 1 EACH PO (11:41)
--- NOTE | 2023-12-29 11:51 | EXP.DC.SUM ---
General Admission date:: 12/27/23 Discharge date: 12/29/23 HPI HPI HPI: Ms. Houston is a 3-year-old female who presented to the ER because of worsening right-sided chest pain and shortness of breath. She had surgery on Thursday 12/[address] Gómez on her right shoulder. Attempts were made at that time to admit her to the hospital because of shortness of breath thought to be due to her nerve block. She did not want to stay and went home. States her congestion and shortness of breath is gotten worse over the past few days. Was started on oxygen by her primary care when she went home last Monday. On arrival to the ER, she is 95% on 2 L oxygen. She denies any nausea, vomiting, diarrhea. Having pain in her shoulder but also in her right chest. Nonproductive cough for the past few days. Workup in the ER with CTA of her chest showed right upper and left lower lobe consolidations. Found to have elevated white count at 18. Respiratory rate of 22 on arrival. Given image findings, leukocytosis, tachypnea, meeting criteria for sepsis. Initiated on antibiotics and fluids. Medicine consulted for admission and further management of sepsis and pneumonia. Upon arrival to the floor, patient is stable on 2 L oxygen. Currently on meropenem and vancomycin due to penicillin, ceftriaxone, fluoroquinolone allergy. Cultures obtained and pending. Hospital Course Hospital Course Hospital Course: 63-year-old female with recent shoulder surgery who presented with shortness of breath. Found to have sepsis criteria and pneumonia on imaging. Initiated on meropenem and vancomycin. Continues to require inpatient management. Discussed case with ER physician, request admission for IV antibiotics and further treatment of her sepsis. I agreed to admit. Initiated on supplemental oxygen and antibiotics for pneumonia. Showed gradual improvement. Continuing to require oxygen on day of discharge. Room air saturation of 88% at rest. Stable to discharge home to continue antibiotics and continue to wean oxygen. Problems are addressed as follows: Sepsis Healthcare associated pneumonia -White count elevated on admission. Improved from 18-11 on day of discharge. Continued on supplemental oxygen. Weaned to 2 L but continues to require and based on room air saturation as stated above. Cultures did not return positive. Based on patient's allergies, was treated with meropenem and vancomycin. Weaned to Bactrim twice daily to complete 5 additional days of antibiotics at discharge. Overall doing better. No fever or productive cough on day of discharge. COPD History of lung cancer - adenocarcinoma of lung- stage III; pet positive 2.4 cm rul lung mass and 2 hilar lymph nodes; treated with radiation only at completed 03/2020; consolidation IO using durvulamab completed 07/16/2021 -Has not seen oncology since March 2022. Needs follow-up when stable at discharge. Will refer patient to Dr. Cramer for further evaluation -DuoNebs every 6 hours after discharge. Responded well during admission. -Continue Breo and spiriva daily Status post right shoulder surgery: -Surgery performed on Monday. Shoulder stable. Wound clean dry and intact. - oxycodone every 6 hours as needed for pain, monitor for toxicity; 3 doses in the past 24 hours Hyperlipidemia: Continue Lipitor 10 mg nightly GERD: Continue famotidine 10mg daily See med rec for full meds continued and held due to normal blood pressure. Total time spent on discharge 32 minutes in counseling, documentation, chart review, and direct care with patient. Exam Data for Last 24 hours Vital signs and Labs for Last 24 Hours: Temp Pulse Resp BP Pulse Ox O2 Del Method O2 Flow Rate 97.9 F 88 21 122/82 94 L Nasal Cannula 2 12/29/23 08:00 12/29/23 07:00 12/29/23 08:00 12/29/23 08:00 12/29/23 08:00 12/29/23 11:00 12/29/23 11:00 Laboratory Results - last 24 hr 12/29/23 06:20: WBC 11.7 H, RBC 3.40 L, Hgb 11.6 L, Hct 37.3, MCV 109.7 H, MCH 34.2 H, MCHC 31.2 L, RDW 15.5, Plt Count 541 H D, MPV 8.9, Neut % (Auto) 77.8, Lymph % (Auto) 12.4, [place] % (Auto) 7.6, Eos % (Auto) 1.7, Baso % (Auto) 0.5, Neut # (Auto) 9.1 H, Lymph # (Auto) 1.5, [place] # (Auto) 0.9, Eos # (Auto) 0.2, Baso # (Auto) 0.1, Sodium 138, Potassium 4.1, Chloride 106, Carbon Dioxide 30, Anion Gap 6.1, BUN 12, Creatinine 0.60, Estimated Creat Clear 72, Estimated GFR 100, Est GFR ( Amer) 121, Glucose 121 H, Calcium 8.4, Magnesium 1.8, Total Bilirubin 0.4, AST 18, ALT 20, Alkaline Phosphatase 82, Total Protein 5.9 L, Albumin 3.2 L, Globulin 2.7, Albumin/Globulin Ratio 1.2 12/29/23 07:33: Vancomycin Trough 11.0 H I & O for Last 24 hours: Intake & Output 12/26/23 12/27/23 12/28/23 12/29/23 23:59 23:59 23:59 23:59 Intake Total 510 / 850 1590 / 2060 920 / 920 Output Total 250 / 250 1300 / 1502 402 / 402 Balance 260 / 600 290 / 558 518 / 518 Weight 81.221 kg 81.25 kg 80.83 kg Microbiology Reports for the Last 24 Hours: Microbiology 12/27/23 11:34 Blood Blood Culture - Preliminary NO GROWTH AFTER 48 HOURS 12/27/23 10:40 Blood Blood Culture - Preliminary NO GROWTH AFTER 48 HOURS 12/28/23 06:15 Sputum - Expectorated Sputum Gram Stain - Final Constitutional Constitutional: no acute distress, obese, chronically ill appearing and cooperative *Routine HEENT Exam Head: Present normocephalic Eye: Present EOMI and PERRL ENT: Present mucous membranes moist *Routine Neck Exam Neck: Present supple; Absent lymphadenopathy *Routine Respiratory Exam Respiratory: Present prolonged expiratory phase, wheezes and crackles; Absent rhonchi *Routine Cardiovascular Exam Cardiovascular: Present RRR *Routine Abdominal Exam Abdominal: Present soft and normoactive bowel sounds; Absent tenderness *Routine Rectal Exam Patient deferred: visual exam *Routine Exam Patient deferred: external exam *Routine Extremities Exam Extremities: Present edema (trace); Absent cyanosis or clubbing *Routine Skin Exam Skin: Present warm; Absent rash *Routine Neurological Exam Neurological: Present alert, oriented X3 and moving all extremities; Absent altered mental status Results Data Completed and Pending Labs on day of discharge: Labs from last 24 hours 12/29/23 12/29/23 07:33 06:20 WBC 11.7 H RBC 3.40 L Hgb 11.6 L Hct 37.3 MCV 109.7 H MCH 34.2 H MCHC 31.2 L RDW 15.5 Plt Count 541 H D MPV 8.9 Neut % (Auto) 77.8 Lymph % (Auto) 12.4 [place] % (Auto) 7.6 Eos % (Auto) 1.7 Baso % (Auto) 0.5 Neut # (Auto) 9.1 H Lymph # (Auto) 1.5 [place] # (Auto) 0.9 Eos # (Auto) 0.2 Baso # (Auto) 0.1 Sodium 138 Potassium 4.1 Chloride 106 Carbon Dioxide 30 Anion Gap 6.1 BUN 12 Creatinine 0.60 Estimated Creat Clear 72 Estimated GFR 100 Est GFR ( Amer) 121 Glucose 121 H Calcium 8.4 Magnesium 1.8 Total Bilirubin 0.4 AST 18 ALT 20 Alkaline Phosphatase 82 Total Protein 5.9 L Albumin 3.2 L Globulin 2.7 Albumin/Globulin Ratio 1.2 Vancomycin Trough 11.0 H Preliminary micro results at discharge 12/27/23 11:34 Blood Culture - Preliminary Blood NO GROWTH AFTER 48 HOURS 12/27/23 10:40 Blood Culture - Preliminary Blood NO GROWTH AFTER 48 HOURS DS: Diagnosis Discharge Diagnosis (1) Sepsis: Status: Resolved Code(s): A41.9 - Sepsis, unspecified organism (2) Pneumonia: Status: Acute Code(s): J18.9 - Pneumonia, unspecified organism (3) COPD (chronic obstructive pulmonary disease): Status: Chronic Code(s): J44.9 - Chronic obstructive pulmonary disease, unspecified Qualifiers: COPD type: COPD with acute lower respiratory infection Qualified Code(s): J44.0 - Chronic obstructive pulmonary disease with acute lower respiratory infection Problem details: Currently stable. No recent exacerbations. (4) Obesity (BMI 30.0-34.9): Status: Acute Code(s): E66.9 - Obesity, unspecified (5) Depression: Status: Chronic Code(s): F32.9 - Major depressive disorder, single episode, unspecified Qualifiers: Active/Remission status: currently active Depression Type: major depressive disorder Major depression episode severity: moderate Major depression recurrence: single episode Qualified Code(s): F32.1 - Major depressive disorder, single episode, moderate (6) Anxiety: Status: Chronic Code(s): F41.9 - Anxiety disorder, unspecified (7) Primary lung adenocarcinoma: Status: Chronic Code(s): C34.90 - Malignant neoplasm of unspecified part of unspecified bronchus or lung Qualifiers: Laterality: left Qualified Code(s): C34.92 - Malignant neoplasm of unspecified part of left bronchus or lung (8) Hypertension: Status: Chronic Code(s): I10 - Essential (primary) hypertension Qualifiers: Hypertension type: essential hypertension Qualified Code(s): I10 - Essential (primary) hypertension (9) Status post shoulder surgery: Status: Acute Code(s): Z98.890 - Other specified postprocedural states (10) Tobacco use: Status: Acute Code(s): Z72.0 - Tobacco use Meds Home Medications and Allergies Home Medications ?Medication ?Instructions ?Recorded ?Confirmed ?Type linaclotide 72 mcg capsule 72 mcg PO DAILY #30 caps 10/03/23 12/27/23 Rx (Linzess) fluticasone furoate 200 1 inh inhalation DAILY COPD #60 ea 11/13/23 12/27/23 Rx mcg-vilanterol 25 mcg/dose inhalation powder (Breo Ellipta) propranolol 60 mg capsule,24 60 mg PO DAILY #30 caps 11/29/23 12/27/23 Rx hr,extended release lidocaine 5 % topical patch 1 patch topical DAILY #15 ea 12/13/23 12/27/23 Rx (Lidoderm) alendronate 70 mg tablet 70 mg PO WEEKLY 12/27/23 12/27/23 History atorvastatin 10 mg tablet 10 mg PO HS 12/27/23 12/27/23 History diclofenac sodium 1 % topical gel 2 g topical QIDP PRN Mild Pain 12/27/23 12/27/23 History (Arthritis Pain (diclofenac)) (Scale Score 1-4) ergocalciferol (vitamin D2) 1,250 1,250 mcg PO WEEKLY 12/27/23 12/27/23 History mcg (50,000 unit) capsule famotidine 20 mg tablet 20 mg PO DAILY 12/27/23 12/27/23 History ipratropium 20 mcg-albuterol 100 1 puff inhalation Q6HP PRN 12/27/23 12/27/23 History mcg/actuation mist for inhalation Shortness Of Breath (Combivent Respimat) lisinopril 20 mg tablet 20 mg PO DAILY 12/27/23 12/27/23 History oxycodone-acetaminophen 5 mg-325 1 tab PO TIDP PRN Pain, Severe 12/27/23 12/28/23 History mg tablet tiotropium bromide 2.5 1 puff inhalation DAILY 12/27/23 12/27/23 History mcg/actuation mist for inhalation (Spiriva Respimat) nicotine 14 mg/24 hr daily 14 mg transdermal DAILYP PRN 12/29/23 Rx transdermal patch Nicotine Cravings 28 days #28 ea sulfamethoxazole 800 1 tab PO BID 5 days #10 tabs 12/29/23 Rx mg-trimethoprim 160 mg tablet New Prescriptions to Start Prescriptions: Charanjit Weir sulfamethoxazole-trimethoprim Charanjit Dunaway Allergies Allergy/AdvReac Type Severity Reaction Status Date / Time ceftriaxone [From Rocephin] Allergy Severe Hives Verified 12/27/23 11:02 levofloxacin [From LEVAQUIN] Allergy Severe Fainting Verified 12/27/23 11:02 Penicillins [PENICILLINS] Allergy Mild Hives Verified 12/27/23 11:02 Discharge Plan Disposition Patient Disposition: Home Health Service Condition: Fair Discharge Order Discharge Orders: Discharge Order (Routine); Ordered 12/29/23 Ordered By: Charanjit Dunaway Follow up Plan Follow up with: Felisa Brown PA [Primary Care Provider] - 01/04/24 9:45 am Max Gómez DO [Staff Physician] - 01/04/24 8:45 am Mingo Cramer MD [Staff Physician] - 01/11/24 10:00 am Prescriptions/Medication Reconciliation: New nicotine 14 mg/24 hr Patch 24 Hour 14 mg transdermal DAILYP PRN (Reason: Nicotine Cravings) 28 Days Qty: 28 0RF sulfamethoxazole-trimethoprim 800-160 mg Tablet 1 tab PO BID 5 Days Qty: 10 0RF Continued Linzess 72 mcg capsule 72 mcg PO DAILY Qty: 30 2RF propranolol 60 mg capsule,extended release 24 hr 60 mg PO DAILY Qty: 30 2RF fluticasone furoate-vilanterol [Breo Ellipta] 200-25 mcg/dose blister with device 1 inh inhalation DAILY Qty: 60 4RF lidocaine [Lidoderm] 5 % adhesive patch,medicated 1 patch topical DAILY Qty: 15 0RF Rx Instructions: leave on most painful area for up to 12 hrs oxycodone-acetaminophen 5-325 mg tablet 1 tab PO TIDP PRN (Reason: Pain, Severe) atorvastatin 10 mg tablet 10 mg PO HS alendronate 70 mg tablet 70 mg PO WEEKLY famotidine 20 mg tablet 20 mg PO DAILY ergocalciferol (vitamin D2) 1,250 mcg (50,000 unit) capsule 1,250 mcg PO WEEKLY diclofenac sodium [Arthritis Pain (diclofenac)] 1 % gel 2 g topical QIDP PRN (Reason: Mild Pain (Scale Score 1-4)) Rx Instructions: apply to single elbow, wrist or hand; for hand includes palm/fingers/back of hand Spiriva Respimat 2.5 mcg/actuation mist 1 puff inhalation DAILY Combivent Respimat 20-100 mcg/actuation mist 1 puff inhalation Q6HP PRN (Reason: Shortness Of Breath) Held lisinopril 20 mg tablet 20 mg PO DAILY Hold Instructions: Do not take while taking antibiotic. May resume after finishing antibiotic course Other Ambulatory Orders: Home Medical Equipment (Routine) Location: None Selected Ordered By: Charanjit Dunaway Problem Reconciliation Problems Reviewed?: Yes Patient Discharge Instructions ACTIVITY: Continue current activity DIET: continue same diet Patient Instructions: DI for Pneumonia -- Adult, DI for Sepsis -- Adult Print Language: Bulgarian Providers Primary Care Provider: Felisa Brown Admit Provider: Charanjit Dunaway Attending Provider: Charanjit Dunaway
== END 2023-12-29 13:00 | disposition home health service (06) ==
LOC: ER 12:50 → 2ND 12:59
PROVIDERS: Admitting Provider Internal Medicine Adolescent Medicine; Emergency Provider Emergency Medicine; PCP Physician Assistant; Visit Provider Internal Medicine Adolescent Medicine
DX: A41.9 Sepsis, unspecified organism (principal); J18.9 Pneumonia, unspecified organism; J44.0 Chronic obstructive pulmonary disease with (acute) lower respiratory infection; E66.9 Obesity, unspecified; F32.1 Major depressive disorder, single episode, moderate; F41.9 Anxiety disorder, unspecified; C34.92 Malignant neoplasm of unspecified part of left bronchus or lung; I10 Essential (primary) hypertension; F17.210 Nicotine dependence, cigarettes, uncomplicated; Z79.899 Other long term (current) drug therapy; Z68.33 Body mass index [BMI] 33.0-33.9, adult; E55.9 Vitamin D deficiency, unspecified; Y95 Nosocomial condition
CPT/HCPCS: 36415; 71275; 73030; 80053; 80202; 81001; 82803; 83735; 83880; 84484; 85007; 85025; 85027; 85610; 87040; 87070; 87086; 87205; 87581; 87632; 87635; 87798; 93005; 94640; 94761; 97163; 97166; 99291; G0378; J1650; J2185; J3370; J7030; J7120; J7620; Q9967

== ENCOUNTER 2024-01-04 08:10 | Outpatient (CLI) | payer MEDICARE, MEDICAID, SELFPAY ==
--- NOTE | 2024-01-04 08:27 | XR_ITS ---
FINAL REPORT CLINICAL HISTORY: Rt Humerus surgery last week, pain FINDINGS: RIGHT HUMERUS 2 views were obtained. There are postoperative changes of the humerus with screw plate and screws associated with proximal humeral fracture. Visualized joint spaces are normally aligned. Soft tissues are unremarkable. IMPRESSION: Proximal humeral fracture with sideplate and screw fixation. Reviewed, Interpreted and Dictated by Bran Domínguez III, MD Transcribed by Taylor Davis Authenticated and [facility]
== END 2024-01-04 23:59 | disposition home or self-care (01) ==
LOC: RAD 08:11
PROVIDERS: PCP Physician Assistant; Visit Provider Orthopaedic Surgery
DX: Z98.890 Other specified postprocedural states (principal); M79.621 Pain in right upper arm
CPT/HCPCS: 73060

== ENCOUNTER 2024-02-19 08:41 | Outpatient (CLI) | payer MEDICARE, MEDICAID, SELFPAY ==
--- NOTE | 2024-02-19 08:42 | XR_ITS ---
FINAL REPORT CLINICAL HISTORY: osteoporosis COMPARISON: 04/17/2020 FINDINGS: Using L1-4, the bone mineral density of the spine is 0.779 g/cm2, corresponding to T-score of -2.4 which is consistent with osteopenia. This previously measured 0.685 with a T-score of -3.3. Using the left hip, the bone mineral density of the femoral neck is 0.661 g/cm2, corresponding to a T-score of -2.3 which is consistent with osteopenia. Previously this measured 0.673 with a T-score of -2.2. Using the right hip, the bone mineral density of the femoral neck is 0.632 g/cm2, corresponding to a T-score of -2.0 which is consistent with osteopenia. This previously measured 0.641 with a T-score of -1.9. FRAX 10 year fracture risk is 4.6% for a hip fracture and 29% for a major osteoporotic fracture.. NOTE: T-score: Standard deviation compared with peak bone mass of young adult mean. *Following the recommendations of the International Society of Bone densitometry, classification of hip BMD is based on the lower of two T-scores; total hip or femoral neck. IMPRESSION: Diminished bone mineral density consistent with osteopenia. Reviewed, Interpreted and Dictated by Shanique Singh MD Transcribed by Izabel Hanna Authenticated and [facility]
== END 2024-02-19 23:59 | disposition home or self-care (01) ==
LOC: RAD 08:42
PROVIDERS: PCP Physician Assistant; Visit Provider Physician Assistant
DX: M81.0 Age-related osteoporosis without current pathological fracture (principal)
CPT/HCPCS: 77080

== ENCOUNTER 2024-03-07 08:30 | Outpatient (CLI) | payer MEDICARE, MEDICAID, SELFPAY ==
--- NOTE | 2024-03-07 08:35 | XR_ITS ---
FINAL REPORT CLINICAL HISTORY: Right Humerus fx 3 months post surgery COMPARISON: 01/04/2024 FINDINGS: Two views of the right humerus were obtained. There are postoperative changes of the proximal humerus with a side plate and screws. The subacute proximal humeral fracture appears stable. There are mild degenerative changes. There is no acute soft tissue abnormality. IMPRESSION: Stable exam. Reviewed, Interpreted and Dictated by Bran Domínguez III, MD Transcribed by Danielle Garg Authenticated and . [facility]
== END 2024-03-07 23:59 | disposition home or self-care (01) ==
LOC: RAD 08:32
PROVIDERS: PCP Family Medicine; Visit Provider Physician Assistant Surgical
DX: M79.621 Pain in right upper arm (principal); S42.291A Other displaced fracture of upper end of right humerus, initial encounter for closed fracture
CPT/HCPCS: 73060

== ENCOUNTER 2024-08-13 01:51 | Emergency (ER) | payer MEDICARE, MEDICAID, SELFPAY ==
--- NOTE | 2024-08-13 01:48 | XR_ITS ---
PROCEDURE INFORMATION: Exam: XR Chest Exam date and time: 08/13/2024 2:03 AM Age: 63 years old Clinical indication: Shortness of breath; Additional info: SOA TECHNIQUE: Imaging protocol: Radiologic exam of the chest. Views: 1 view. COMPARISON: CT ANGIO CHEST PE PROTOCOL 12/27/2023 11:16 AM FINDINGS: Lungs: Chronic right perihilar density. No consolidation. Pleural spaces: Unremarkable. No pleural effusion. No pneumothorax. Heart/Mediastinum: Unremarkable. No cardiomegaly. Bones/joints: Unremarkable. IMPRESSION: No acute findings. Likely posttreatment perihilar chronic density.
[2024-08-13 01:52] VITALS: BP 128/85; PULSE 85; RESP 32; TEMP 36.9; O2SAT 93; BMI 35.2
[2024-08-13 01:59] LABS: Lactate Venous 1.1 mmol/L (0.4-2.0); VBG Base Excess -2.5 mmol/L (-2.4-2.3); VBG HCO3 25.3 mmol/L (23-30); VBG Oxygen Saturation 77.2 % (50-70); VBG PH 7.21 mmol/L (7.31-7.41); VBG PO2 47.4 mmol/L (28-40); VBG Total CO2 27.3 mmol/L (23-27)
[2024-08-13 02:00] LABS: VBG PCO2 64.2 mmol/L (35-51)
[2024-08-13] MEDS: MAGNESIUM SULFATE IN WATER 2 GM/50 ML PIGGYBACK IV (02:02)
[2024-08-13] MEDS: IPRATROPIUM/ALBUTEROL 3 ML NEB 6 ML IH (02:02)
--- NOTE | 2024-08-13 02:02 | ECG_ITS ---
APPROVED REPORT Exam: Resting ECG HR:79 bpm ECG Measurements Heart Rate 79 AXES OK 184 P 75 QRSd 67 QRS -36 QT 357 T 28 QTc 391 Conclusion SINUS RHYTHM LOW QRS VOLTAGE [QRS DEFLECTION < 0.5/1.0 mV IN LIMB/CHEST LEADS] POSSIBLE RIGHT VENTRICULAR CONDUCTION DELAY [RSR (QR) IN V1/V2] ABNORMAL ECG UNCONFIRMED REPORT Electronically signed by : NEHAL ECKERT, 08/14/2024 05:51:03
[2024-08-13 02:12] LABS: Basophils # 0.1 K/mm3 (0-0.2); Basophils % 0.7 % (0.1-2.0); Eosinophils # 0.2 K/mm3 (0.0-0.4); Eosinophils % 2.2 % (0.1-12.0); Hematocrit 44.5 % (37.0-47.0); Hemoglobin 14.1 g/dL (12.2-16.2); Lymphocytes # 1.3 K/mm3 (0.7-4.5); Lymphocytes % 13.5 % (10-50); Mean Corpuscular HGB Conc 31.7 g/dL (31.8-35.4); Mean Corpuscular Hemoglobin 32.8 pg (27.0-31.2); Mean Corpuscular Volume 103.5 fl (81-99); Mean Platelet Volume 10.9 fl (7.4-10.4); Monocytes # 1.3 K/mm3 (0.1-1.0); Monocytes % 13.7 % (1.7-9.3); Neutrophils # 6.6 K/mm3 (1.8-7.8); Platelet Count 296 K/mm3 (142-424); Red Cell Distribution Width 13.3 % (11.5-17.5); White Blood Count 9.6 K/mm3 (4.8-10.8)
[2024-08-13 02:21] LABS: Coronavirus 19, PCR Not Detected (NotDetected); Influenza A, PCR Not Detected (NotDetected); Influenza B, PCR Not Detected (NotDetected)
[2024-08-13 02:23] LABS: Albumin Level 4.5 g/dl (3.5-5.0); Chloride 104 mmol/L (98-107); Potassium 4.7 mmoL/L (3.5-5.1); Sodium 135 mmol/L (136-145)
[2024-08-13 02:26] LABS: Alanine Aminotransferase 22 U/L (12-78); Albumin/Globulin Ratio 1.9 (1.1-1.8); Alkaline Phosphatase 62 U/L (38-126); Anion Gap 6.7 mEq/L (5-15); Aspartate Amino Transferase 27 U/L (14-36); Bilirubin,Total 0.4 mg/dl (0.2-1.3); Blood Urea Nitrogen 24 mg/dl (7-17); Carbon Dioxide 29 mmol/L (22.0-30.0); Creatinine Clearance Estimated 60 mL/min (50-200); Estimated Glomerular Filt Rate 45 ml/min (>60); GFR (African American) 55 ML/MIN (>60); Globulin 2.4 g/dL (1.3-3.2); Total Protein,Serum 6.9 g/dl (6.3-8.2)
[2024-08-13 02:27] LABS: Calcium 9.4 mg/dl (8.4-10.2); Glucose 97 mg/dl (74-100)
[2024-08-13 02:30] VITALS: BP 97/68; PULSE 78; RESP 20; O2SAT 99
--- NOTE | 2024-08-13 02:33 | HMH.EDGENADL ---
Discharge Plan Disposition Patient Disposition: Home, Self-Care Prescriptions Prescriptions: New azithromycin 250 mg tablet See Rx Instructions .ROUTE .COMPLEX Qty: 4 0RF Rx Instructions: For 250 mg dose pack: take 500 mg today (day 1), then 250 mg for 4 days (days 2-5) prednisone 50 mg tablet 50 mg PO DAILY 5 Days Qty: 5 0RF No Action alendronate 70 mg tablet 70 mg PO WEEKLY Qty: 14 3RF atorvastatin 10 mg tablet 10 mg PO HS Qty: 90 3RF diclofenac sodium [Arthritis Pain (diclofenac)] 1 % gel 2 g topical QIDP PRN (Reason: Mild Pain (Scale Score 1-4)) Qty: 100 12RF Rx Instructions: apply to single elbow, wrist or hand; for hand includes palm/fingers/back of hand ergocalciferol (vitamin D2) 1,250 mcg (50,000 unit) capsule 1,250 mcg PO WEEKLY Qty: 14 3RF famotidine 20 mg tablet 20 mg PO DAILY Qty: 90 3RF Linzess 72 mcg capsule 72 mcg PO DAILY Qty: 90 3RF propranolol 60 mg capsule,extended release 24 hr 60 mg PO DAILY Qty: 90 3RF Spiriva Respimat 2.5 mcg/actuation mist 1 puff inhalation DAILY Qty: 12 3RF lisinopril 20 mg tablet 20 mg PO DAILY Qty: 90 3RF prednisone 20 mg tablet 20 mg PO BID Qty: 10 0RF ergocalciferol (vitamin D2) 50 mcg (2,000 unit) capsule 50 mcg PO DAILY Qty: 90 0RF Combivent Respimat 20-100 mcg/actuation mist See Rx Instructions .ROUTE .COMPLEX Qty: 12 3RF Dose Instruction: INHALE 1 PUFF BY MOUTH EVERY 6 HOURS NEEDED FOR SHORTNESS OF BREATH OR WHEEZING Rx Instructions: INHALE 1 PUFF BY MOUTH EVERY 6 HOURS NEEDED FOR SHORTNESS OF BREATH OR WHEEZING fluticasone propionate [Flonase Allergy Relief] 50 mcg/actuation spray,suspension 1 spray intranasal DAILY 90 Days Qty: 16 2RF Rx Instructions: administer into each nostril ipratropium-albuterol 0.5 mg-3 mg(2.5 mg base)/3 mL solution for nebulization See Rx Instructions .ROUTE .COMPLEX Qty: 180 0RF Dose Instruction: INHALE CONTENTS OF 1 VIAL VIA NEBULIZER FOUR TIMES A DAY NEEDED FOR SHORTNESS OF BREATH OR WHEEZING Rx Instructions: INHALE CONTENTS OF 1 VIAL VIA NEBULIZER FOUR TIMES A DAY NEEDED FOR SHORTNESS OF BREATH OR WHEEZING oxycodone-acetaminophen 5-325 mg tablet 1 tab PO TID PRN (Reason: pain) Qty: 90 0RF fluticasone furoate-vilanterol [Breo Ellipta] 200-25 mcg/dose blister with device 1 inh inhalation DAILY Qty: 90 3RF Referrals Follow up/Referrals: Provider,Referral, MD [Referring] - See instructions Activity Restrictions/Add. Instructions Additional Instructions/Restrictions: Please follow-up with your primary care provider. Please return to the emergency department if you develop any new or worsening symptoms or become concerned for your health. Please take azithromycin and steroids as prescribed for treatment of COPD exacerbation Clinical Impressions Clinical Impression: Acute exacerbation of chronic obstructive pulmonary disease (COPD) Respiratory failure Qualifiers: Chronicity: acute Respiratory failure complication: hypoxia and hypercapnia Qualified Code(s): J96.01 - Acute respiratory failure with hypoxia Print Language Print Language: Kinyarwanda Discharge ED Provider: Osmar Waller Adult HPI General Chief complaint: Shortness of Breath/Dyspnea Stated complaint: SOB Time Seen by Provider: 08/13/24 01:55 Mode of Arrival: EMS Source of Information: Patient and EMS Description of Symptoms (Recalled from ER Triage Doc. by RN): pt presents with c/o productive cough and shortness of air that began approx 1.5 days ago with use of home O2. History of Present Illness HPI narrative: 63-year-old female history of COPD presents for shortness of breath. She reports it has been getting worse over the last couple of days, but symptomatically worse today. She has as needed oxygen at home and but has been using it recently. Denies any fever at home. Reports that she is coughing but is not productive. Reports this is the worst she has felt. EMS reports that she was severely tachypneic and somewhat hypoxic on their arrival. Significantly improved with DuoNeb, Solu-Medrol and supplemental oxygen. Related Data Previous Rx's ?Medication ?Instructions ?Recorded alendronate 70 mg tablet 70 mg PO WEEKLY #14 tabs 01/30/24 atorvastatin 10 mg tablet 10 mg PO HS #90 tabs 01/30/24 diclofenac sodium 1 % topical gel 2 g topical QIDP PRN Mild Pain 01/30/24 (Arthritis Pain (diclofenac)) (Scale Score 1-4) #100 grams ergocalciferol (vitamin D2) 1,250 1,250 mcg PO WEEKLY #14 caps 01/30/24 mcg (50,000 unit) capsule famotidine 20 mg tablet 20 mg PO DAILY #90 tabs 01/30/24 linaclotide 72 mcg capsule 72 mcg PO DAILY #90 caps 01/30/24 (Linzess) lisinopril 20 mg tablet 20 mg PO DAILY #90 tabs 01/30/24 propranolol 60 mg capsule,24 60 mg PO DAILY #90 caps 01/30/24 hr,extended release tiotropium bromide 2.5 1 puff inhalation DAILY #12 grams 01/30/24 mcg/actuation mist for inhalation (Spiriva Respimat) ergocalciferol (vitamin D2) 50 mcg 50 mcg PO DAILY vit d deficiency 04/12/24 (2,000 unit) capsule #90 caps ipratropium 20 mcg-albuterol 100 See Rx Instructions .Route 05/15/24 mcg/actuation mist for inhalation .COMPLEX #12 grams (Combivent Respimat) fluticasone propionate 50 1 spray intranasal DAILY 90 days 05/31/24 mcg/actuation nasal #16 grams spray,suspension (Flonase Allergy Relief) prednisone 20 mg tablet 20 mg PO BID #10 tabs 06/14/24 fluticasone furoate 200 1 inh inhalation DAILY COPD #90 ea 08/09/24 mcg-vilanterol 25 mcg/dose inhalation powder (Breo Ellipta) ipratropium 0.5 mg-albuterol 3 mg See Rx Instructions .Route 08/09/24 (2.5 mg base)/3 mL nebulization .COMPLEX #180 mL soln oxycodone-acetaminophen 5 mg-325 1 tab PO TID PRN pain #90 tabs 08/09/24 mg tablet azithromycin 250 mg tablet See Rx Instructions PO .COMPLEX #4 08/13/24 tabs prednisone 50 mg tablet 50 mg PO DAILY 5 days #5 tabs 08/13/24 Allergies Allergy/AdvReac Type Severity Reaction Status Date / Time ceftriaxone (From Rocephin) Allergy Severe Hives Verified 06/14/24 08:38 levofloxacin (From LEVAQUIN) Allergy Severe Fainting Verified 06/14/24 08:38 Penicillins (PENICILLINS) Allergy Mild Hives Verified 06/14/24 08:38 [facility] Disclaimer: The information contained in this section may have been updated after the patient was seen, as this information can be updated by other users. Medical History Breast cancer screening by mammogram Right radial fracture Status post open reduction internal fixation with volar plating History of chemotherapy History of radiation therapy Lung cancer History of fracture of finger right middle Bronchiolitis obliterans organizing pneumonia Depression Cancer related pain Anxiety Primary lung adenocarcinoma BMI 32.0-32.9,adult Abnormal weight Diverticulosis Toenail deformity BMI 31.0-31.9,adult Vitamin D deficiency Hypertension Surgical History History of lung biopsy History of tonsillectomy Family History Other No significant family history Social History Smoking Status: Current every day smoker tobacco type: cigarettes packs per day: 1 years smoked: 40 second hand exposure: Yes alcohol intake: never substance use type: denies use current occupational status: disabled Travel in the last 8 weeks: None household members: spouse housing: house lives independently: No marital status: education level: high school service: No custodial: No caffeine: No special hector needs: No agree to transfusion: No do you feel safe at home: Yes victim of physical abuse: No victim of emotional abuse: No victim of sexual abuse: No would you like helpful sources: No Other Medical History Have you received the Flu Vaccine for this season: No Have you received the Pneumonia Vaccine: Yes ROS Obtained: Yes All systems reviewed & no additional complaints except as documented Physical Exam General General appearance: alert and in no apparent distress Head Head exam: atraumatic and normocephalic Eye Eye exam: Present normal appearance, PERRL and EOMI ENT ENT exam: Present normal oropharynx and normal external ear exam Neck Neck exam: Present normal inspection and full ROM Chest Chest inspection: Present normal inspection and symmetric chest wall rise; Absent tenderness Respiratory Respiratory exam: Present respiratory distress (Accessory muscle use, diffuse wheezing with prolonged expiratory phase) Cardiovascular Cardiovascular exam: Present regular rate and normal rhythm Abdominal Exam Abdominal exam: Present soft; Absent distention, tenderness or guarding Extremities Exam Extremities exam: Present normal inspection; Absent edema or joint swelling Back Exam Back exam: Present normal inspection; Absent tenderness Neurological Exam Neurological exam: Present alert and oriented X3; Absent motor sensory deficit Psychiatric Psychiatric exam: Present normal affect and normal mood Skin Skin exam: Present warm, dry and normal color Lymphatic Lymphatic Findings: no adenopathy Medical Decision Making Medical Records Medical records reviewed: Yes I reviewed the patient's medical records. Screening: Per USPSTF and CDC recommendations, given the prevalence of disease in our region, it is our hospital?s policy to screen for HIV and viral Hepatitis for all patients aged 18 and over and those with ongoing risk factors. Vikram Inquiry Pt receiving controlled substance: No Vikram was queried for this patient: No Vital Signs: 08/13/24 01:52 08/13/24 02:30 08/13/24 03:00 Temperature 98.5 F Temperature Source Oral Pulse Rate 78 79 Pulse Rate [Radial] 85 Respiratory Rate 32 H 20 26 H Blood Pressure 97/68 L 110/75 Blood Pressure [Right Arm] 128/85 Blood Pressure Mean [Right Arm] 99 Blood Pressure Position Blood Pressure Position [Right Arm] Sitting 02 Sat by Pulse Oximetry 93 L 99 100 Oxygen Delivery Method Nasal Cannula Oxygen Flow Rate (LPM) 3 08/13/24 04:21 Temperature 98 F Temperature Source Pulse Rate 87 Pulse Rate [Radial] Respiratory Rate 24 Blood Pressure 101/67 L Blood Pressure [Right Arm] Blood Pressure Mean [Right Arm] Blood Pressure Position Sitting Blood Pressure Position [Right Arm] 02 Sat by Pulse Oximetry Oxygen Delivery Method Room Air Oxygen Flow Rate (LPM) Lab Data Lab results reviewed: Yes I reviewed the patient's lab results. Lab Results 08/13/24 01:49: WBC 9.6, RBC 4.30, Hgb 14.1, Hct 44.5, MCV 103.5 H, MCH 32.8 H, MCHC 31.7 L, RDW 13.3, Plt Count 296, MPV 10.9 H, Neut % (Auto) 69.0, Lymph % (Auto) 13.5, Curry % (Auto) 13.7 H, Eos % (Auto) 2.2, Baso % (Auto) 0.7, Neut # (Auto) 6.6, Lymph # (Auto) 1.3, Curry # (Auto) 1.3 H, Eos # (Auto) 0.2, Baso # (Auto) 0.1, Sodium 135 L, Potassium 4.7, Chloride 104, Carbon Dioxide 29, Anion Gap 6.7, BUN 24 H, Creatinine 1.20 H, Estimated Creat Clear 60, Estimated GFR 45 L, Est GFR ( Amer) 55 L, Glucose 97, Calcium 9.4, Total Bilirubin 0.4, AST 27, ALT 22, Alkaline Phosphatase 62, Troponin I < 0.01, Total Protein 6.9, Albumin 4.5, Globulin 2.4, Albumin/Globulin Ratio 1.9 H 08/13/24 01:56: VBG pH 7.21 L, VBG pCO2 64.2 H, VBG pO2 47.4 H, VBG HCO3 25.3, VBG Total CO2 27.3 H, VBG O2 Saturation 77.2 H, VBG Base Excess -2.5 L, VBG Lactic Acid 1.1 08/13/24 02:09: SARS-CoV-2 (PCR) Not detected, Influenza A Untype (PCR) Not detected, Influenza Type B (PCR) Not detected 08/13/24 01:49 08/13/24 01:49 Orders (Tests/Meds): ED MEDICATIONS Discontinued Medications Generic Name Dose Route Start Last Admin Trade Name Freq PRN Reason Stop Dose Admin Albuterol/Ipratropium 6 ml 08/13/24 01:48 08/13/24 02:02 Ipratropium/Albuterol 3 Ml Neb IH 08/13/24 01:49 6 ml ONCE ONE Administration Azithromycin 500 mg 08/13/24 04:09 08/13/24 04:14 Azithromycin 250mg Tablet PO 08/13/24 04:10 500 mg ONCE ONE Administration Magnesium Sulfate 2 gm in 50 mls @ 150 mls/hr 08/13/24 01:48 08/13/24 02:02 Magnesium Sulfate 2gm/50ml Premix IV 08/13/24 02:07 150 mls/hr ONCE ONE Administration ORDERS Category Date Time Status CXR --portable [XR chest portable] Stat Exams 08/13/24 01:48 Completed CBC w/Auto Diff [Complete Blood Count Auto Diff] Stat Lab 08/13/24 01:49 Completed CMP [Comprehensive Metabolic Panel] Stat Lab 08/13/24 01:49 Completed Rapid PCR Covid and Flu A/B Stat Lab 08/13/24 02:09 Completed Trop I [Troponin I] Stat Lab 08/13/24 01:49 Completed VBG [Venous Blood Gas] Stat RT 08/13/24 01:56 Completed ECG Data Tracing #1: I reviewed this ECG and interpreted as documented below: Sinus rhythm, wandering baseline limits interpretation, no obvious ST elevation. Enlarged T waves noted. ECG initial impression date: 08/13/24 ECG initial impression time: 02:02 HEART Score History (anamnesis): Slightly suspicious ECG: Non-specific disturbance Age: 45-65 years Risk factors: 1-2 risk factors Troponin: </= normal limit HEART Score: 3 Medical Decision Narrative: 63-year-old female with history of COPD presents with significant shortness of breath. History was obtained via interactive discussion with patient, EMS. On arrival, patient is afebrile, hemodynamically stable, in respiratory distress with prolonged expiratory phase, diffuse inspiratory and expiratory wheeze, accessory muscle use, patient requiring nasal cannula to maintain saturations Differential includes but is not limited to COPD exacerbation, pneumonia, URI,. Patient was given 1 DuoNeb and 125 Solu-Medrol EMS. She was given 2 DuoNebs and 2 g IV magnesium in ED for symptomatic management and correction of underlying abnormalities. Workup initiated including chest x-ray CBC CMP EKG troponin chest x-ray COVID flu swab. On re-evaluation, patient reports marked symptomatic improvement. She is still wheezing on exam but is no longer in distress. Satting low 90s on room air. Laboratory workup independently interpreted by me and significant for VBG with pH 7.21, pCO2 64, COVID flu negative, no significant leukocytosis, no significant electrolyte. Imaging independently interpreted by me and significant for no acute opacity. See radiology read for full review of final results. Given patient history, exam and workup, patient's presentation most likely represents acute COPD exacerbation. Given patient's persistent wheezing, I have recommended patient be admitted for continued treatment of her COPD exacerbation. Patient refused. She was discharged with prescription for azithromycin and steroids. Given a dose of azithromycin prior to discharge.. Procedures Risk/Benefits of Procedure(s) Were Explained: Yes Critical Care Critical Care Time Critical Care Time: Yes Attestation: On 08/13/24, the high probability of a clinically significant, sudden or life threatening deterioration of the following system(s) respiratory required my full and direct attention, intervention and personal management. The time I documented below is in addition to time spent performing reported procedures but includes the following listed in this critical care notation. Total Time Total Critical Care Time: 45
[2024-08-13 02:40] LABS: Troponin I < 0.01 ng/ml (0.00-0.034)
[2024-08-13 03:00] VITALS: BP 110/75; PULSE 79; RESP 26; O2SAT 100
[2024-08-13] MEDS: AZITHROMYCIN 250MG TABLET 500 MG PO (04:14)
[2024-08-13 04:21] VITALS: BP 101/67; PULSE 87; RESP 24; TEMP 36.6; O2SAT 96
== END 2024-08-13 04:22 | disposition home or self-care (01) ==
PROVIDERS: Emergency Provider Emergency Medicine; PCP Family Medicine
DX: J96.90 Respiratory failure, unspecified, unspecified whether with hypoxia or hypercapnia (principal); J44.1 Chronic obstructive pulmonary disease with (acute) exacerbation; R05.9 Cough, unspecified; F17.210 Nicotine dependence, cigarettes, uncomplicated
CPT/HCPCS: 71045; 80053; 82803; 84484; 85025; 87636; 93005; 96365; 99291; J3475; J7620

== ENCOUNTER 2024-08-19 08:08 | Outpatient (CLI) | payer MEDICARE, MEDICAID, SELFPAY ==
--- NOTE | 2024-08-19 08:09 | MM_ITS ---
PROCEDURE INFORMATION: Exam: MG Bilateral Screening 3D Mammography Exam date and time: 08/19/2024 8:28 AM Age: 64 years old Clinical indication: Screening mammogram TECHNIQUE: Imaging protocol: Bilateral Screening tomosynthesis and 2D mammography including computer-aided detection (CAD) when performed. COMPARISON: 1. MG MM DIG SCREENING MAMM BI W/CAD 08/18/2023 7:52 AM 2. MG MM DIG SCREENING MAMM BI W/CAD 09/29/2021 7:59 AM 3. MG MM DIG SCREENING MAMM BI W/CAD 04/17/2020 8:29 AM 4. MG SCBI MM Dig screening mamm BI w/CAD 06/19/2017 8:42 AM FINDINGS: MAMMOGRAPHY: Breast composition: There are scattered areas of fibroglandular density. Mass: None. Architectural distortion: No new or suspicious architectural distortion. Calcifications: No new or suspicious calcifications are present Asymmetric density: No new or suspicious asymmetric density is present Skin thickening: None. Axillary adenopathy: None. IMPRESSION: No mammographic evidence of malignancy. Recommend annual screening mammography unless otherwise clinically indicated. ASSESSMENT: BI-RADS category 1: Negative.
== END 2024-08-19 23:59 | disposition home or self-care (01) ==
LOC: RAD 08:09
PROVIDERS: PCP Family Medicine; Visit Provider Physician Assistant
DX: Z12.31 Encounter for screening mammogram for malignant neoplasm of breast (principal)
CPT/HCPCS: 77063; 77067

== ENCOUNTER 2024-09-12 09:18 | Outpatient (CLI) | payer MEDICARE, MEDICAID, SELFPAY ==
[2024-09-12 19:50] LABS: Alanine Aminotransferase 19 U/L (12-78); Albumin Level 3.9 g/dl (3.5-5.0); Albumin/Globulin Ratio 1.4 (1.1-1.8); Alkaline Phosphatase 75 U/L (38-126); Aspartate Amino Transferase 21 U/L (14-36); Bilirubin,Total 0.7 mg/dl (0.2-1.3); Blood Urea Nitrogen 23 mg/dl (7-17); Calcium 9.2 mg/dl (8.4-10.2); Carbon Dioxide 26 mmol/L (22.0-30.0); Chloride 103 mmol/L (98-107); Cholesterol 182 mg/dl (140-200); Estimated Glomerular Filt Rate 84 ml/min (>60); GFR (African American) 101 ML/MIN (>60); Globulin 2.7 g/dL (1.3-3.2); Glucose 115 mg/dl (74-100); HDL Cholesterol 60 mg/dl (40-60); Sodium 139 mmol/L (136-145); Total Protein,Serum 6.6 g/dl (6.3-8.2); Triglycerides 232 mg/dl (30-150); VLDL Cholesterol 46 mg/dL (0-40)
[2024-09-12 20:01] LABS: Direct LDL Cholesterol 66.11 mg/dL (100-129)
[2024-09-12 20:08] LABS: 25-OH Vitamin D, Total 36.3 ng/mL (30-100)
== END 2024-09-12 23:59 | disposition home or self-care (01) ==
LOC: LAB.DROPOF 09-13 11:37
PROVIDERS: PCP Family Medicine; Visit Provider Family Medicine
DX: J44.1 Chronic obstructive pulmonary disease with (acute) exacerbation (principal); I10 Essential (primary) hypertension; E55.9 Vitamin D deficiency, unspecified; E66.811 Obesity, class 1; Z68.37 Body mass index [BMI] 37.0-37.9, adult; Z72.0 Tobacco use
CPT/HCPCS: 80053; 80061; 82306

== ENCOUNTER 2025-01-31 09:09 | Outpatient (CLI) | payer MEDICARE, MEDICAID, SELFPAY ==
[2025-01-31 15:23] LABS: Hematocrit 42.7 % (37.0-47.0); Hemoglobin 13.5 g/dL (12.2-16.2); Immature Granulocytes % 0.7 %; Mean Corpuscular HGB Conc 31.6 g/dL (31.8-35.4); Mean Corpuscular Hemoglobin 32.1 pg (27.0-31.2); Mean Corpuscular Volume 101.7 fl (81-99); Nucleated Red Blood Cells % 0 %; Platelet Count 322 K/mm3 (142-424); Red Blood Count 4.20 M/mm3 (4.20-5.40); Red Cell Distribution Width-SD 49.3 fL; White Blood Count 11.5 K/mm3 (4.8-10.8)
[2025-01-31 17:52] LABS: Albumin Level 4.1 g/dl (3.5-5.0); Chloride 102 mmol/L (98-107); Sodium 138 mmol/L (136-145)
[2025-01-31 17:53] LABS: Potassium 5.7 mmoL/L (3.5-5.1)
[2025-01-31 17:55] LABS: Alanine Aminotransferase 13 U/L (12-78); Albumin/Globulin Ratio 1.7 (1.1-1.8); Anion Gap 8.7 mEq/L (5-15); Aspartate Amino Transferase 19 U/L (14-36); Blood Urea Nitrogen 19 mg/dl (7-17); Carbon Dioxide 33 mmol/L (22.0-30.0); Creatinine,Serum 0.70 mg/dl (0.52-1.04); Estimated Glomerular Filt Rate 84 ml/min (>60); GFR (African American) 101 ML/MIN (>60); Globulin 2.4 g/dL (1.3-3.2); Total Protein,Serum 6.5 g/dl (6.3-8.2)
[2025-01-31 17:56] LABS: Alkaline Phosphatase 67 U/L (38-126); Bilirubin,Total 0.2 mg/dl (0.2-1.3); Calcium 9.8 mg/dl (8.4-10.2); Cholesterol 186 mg/dl (140-200); Glucose 103 mg/dl (74-100); HDL Cholesterol 50 mg/dl (40-60); Triglycerides 355 mg/dl (30-150)
--- OUTSIDE RECORDS SUMMARY | 2025-02-03 09:36 | XMS_ITS | Clinical Summary ---
Author Organization Healthcare Address [address] [id number] Care Team Providers Care Analytical Lab Technician Name Role Phone Felisa Brown Primary Care Provider [phone] Family History Medical History Relation Name Comments Conversions - Other Mother acute go uty arthritis Conversions - Other Other 1 Emphysem a/COPD Rheum arthritis Other 2 Relation Name Status Comments Mother Other 1 Other 2 Social History Tobacco Use Types Packs/Day Years Used Date Smoking Tobacco: Every Day Comments Unknown Sex and Gender Information Value Date Recorded Sex Assigned at Not on file Legal Sex Female 6:15 PM EDT Gender Identity Not on file Sexual Orientation Not on file Last Filed Vital Signs Vital Sign Reading Time Taken Comments Blood Pressure - - Pulse - - Temperature - - Respiratory Rate - - Oxygen Saturation - - Inhaled Oxygen Concentration - - Weight 82.1 kg (181 lb) 01/10/2017 8:57 AM EDT Height 152.4 cm (5') 01/10/2017 8:57 AM EDT Body Mass Index 35.35 01/10/2017 8:57 AM EDT Plan of Treatment Not on file Care Teams Analytical Lab Technician Relationship Specialty Start Date End Date Felisa Brown PA [address] [place] [address] PCP - General 10/09/20
--- OUTSIDE RECORDS SUMMARY | 2025-02-03 09:36 | XMS_ITS | Clinical Summary ---
Author Organization [facility] Address [address] [place] [address] Care Team Providers Care Rnp Name Role Phone Unavailable Primary Care Provider Unavailabl e Social History Tobacco Use Types Packs/Day Years Used Date Smoking Tobacco: Never Assessed Abuse Screen Answer Date Recorded Unsafe at Home or Work/School Not on file Feels Threatened by Someone? Not on file 03/2023 Does Anyone Keep You from Co ntacting Others or Doint Things Outside the Home? Not on file 03/08/2023 Physical Sign of Abuse Present Not on file 1 Housing Stability Answer Date Recorded Current Living Arrangements Not on file 02/26 Potentially Unsafe Housing Conditions Not on ibis e 03/08/2023 Family and Community Support Answer Aleks e Recorded Help with Day-to-Day Activities Not on file 03/08/2023 Lonely or Isolated Not on file 03/08/2023 Employment Answer Date Recorded Do you want help finding or keeping work or a cheli b? Not on file 03/08/2023 Disabilities Answer Date Recorded Concentrating, Remembering, or Making Decisions Difficulty Not on file 03/08/2023 Doing Errands Independently Difficulty Not on fi le 03/08/2023 Education Answer Date Recorded Help with school or training? Not on file Preferred Language Not on file 03/08/2023 Comments Unknown Sex and Gender Information Value Date Recorded Sex Assigned at Not on file Legal Sex Female 12:10 PM EDT Gender Identity Not on file Sexual Orientation Not on file Plan of Treatment Health Maintenance Due Date Last Done Comments ANNUAL PHYSICAL 1960 DXA SCAN 1958 HEPATITIS C SCREENING 1958 TDAP/TD VACCINES (1 - Tdap) 1977 MAMMOGRAM 1998 COLOGUARD 08/16/2003 COLON CANCER SCREENING 5 YEAR SIGMOIDOSCOPY 08/16/2003 COLONOSCOPY 08/16/2003 COLORECTAL CANCER SCREENING 08/16/2003 CT COLONOGRAPHY 08/16/2003 FECAL OCCULT BLOOD TEST 08/16/2003 FIT Testing (1 year) 08/16/2003 Pneumococcal Vaccine 50+ (1 of 1 - PCV) 2008 ZOSTER VACCINE (1 of 2) 2008 COVID-19 Vaccine (1 - season) 2025 INFLUENZA VACCINE 02/26/2025
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
== END 2025-01-31 23:59 ==
LOC: LAB.DROPOF 02-03 09:30
PROVIDERS: PCP Family Medicine; Visit Provider Family Medicine
DX: E78.5 Hyperlipidemia, unspecified (principal); I10 Essential (primary) hypertension; J44.0 Chronic obstructive pulmonary disease with (acute) lower respiratory infection
CPT/HCPCS: 80053; 80061; 85025

== ENCOUNTER 2025-02-03 10:35 | Outpatient (CLI) | payer MEDICARE, MEDICAID, SELFPAY ==
--- NOTE | 2025-02-03 10:30 | CT_ITS ---
FINAL REPORT TECHNIQUE: Thin section axial images were obtained from the lung apices through the upper abdomen without contrast. This study was performed with techniques to keep radiation doses as low as reasonably achievable (ALARA). Individualized dose reduction techniques using automated exposure control or adjustment of mA and/or kV according to the patient's size were employed. CLINICAL HISTORY: follow-up lung cancer COMPARISON: 03/01/2022 FINDINGS: There is no mediastinal, left hilar, or axillary lymphadenopathy. There is soft tissue in the region of the right hilum, stable from the prior exam. No pleural or pericardial effusion. There is evidence of prior granulomatous disease. There is patchy airspace disease in the lingula and the right lung, which has improved since prior exam. There is geographic airspace disease in the medial right lung, which is stable, that may be secondary to radiation therapy. There is a new 5 mm left upper lobe nodule best seen on image #17 of series 2. No other nodules are identified. No consolidation is present. There is a hypodense left renal image that may represent a cyst. A right shoulder arthroplasty has been performed since the prior exam. IMPRESSION: Geographic airspace disease is present in the mid right lung, stable, that may be secondary to radiation therapy. There is patchy airspace disease in the lingula and the right lung, improved. There is a new 5 mm left upper lobe, without other new nodules or consolidation. Reviewed, Interpreted and Dictated by Seema Ibarra MD Transcribed by Patricia Pickens Authenticated and [facility]
--- OUTSIDE RECORDS SUMMARY | 2025-02-03 10:38 | XMS_ITS | Clinical Summary ---
Author Organization [facility] Address [address] [place] [address] Phone Care Team Providers Care Laboratory Administrative Director Name Role Phone Unavailable Primary Care Provider [...] Type:Not on file Address: [address] [place] [id number]
--- OUTSIDE RECORDS SUMMARY | 2025-02-03 10:38 | XMS_ITS | Clinical Summary ---
Author Organization Healthcare Address [address] [id number] Care Team Providers Care Traffic Warehouse Supervisor Name Role Phone Felisa Brown Primary Care Provider [phone] Family History Medical History Relation Name Comments [...] of Treatment Not on file Care Teams Traffic Warehouse Supervisor Relationship Specialty Start Date End Date Felisa Brown PA [address] [facility] [place] [address] PCP - General 10/09/20
--- OUTSIDE RECORDS SUMMARY | 2025-02-03 10:38 | XMS_ITS | Clinical Summary ---
Author Organization [facility] Address [address] [place] [address] Care Team Providers Care Felling Machine Operator Name Role Phone Unavailable Primary Care Provider [...]
[2025-02-03 12:01] LABS: Chloride 106 mmol/L (98-107); Potassium 4.5 mmoL/L (3.5-5.1); Sodium 139 mmol/L (136-145)
[2025-02-03 12:04] LABS: Blood Urea Nitrogen 22 mg/dl (7-17); Creatinine,Serum 0.70 mg/dl (0.52-1.04); Estimated Glomerular Filt Rate 84 ml/min (>60); GFR (African American) 101 ML/MIN (>60)
[2025-02-03 12:05] LABS: Calcium 9.9 mg/dl (8.4-10.2); Glucose 120 mg/dl (74-100)
[2025-02-03 12:06] LABS: Anion Gap 9.5 mEq/L (5-15); Carbon Dioxide 28 mmol/L (22.0-30.0)
== END 2025-02-03 23:59 | disposition home or self-care (01) ==
LOC: RAD 10:36
PROVIDERS: PCP Family Medicine; Visit Provider Family Medicine
DX: C34.90 Malignant neoplasm of unspecified part of unspecified bronchus or lung (principal); J98.4 Other disorders of lung; E87.5 Hyperkalemia; R91.1 Solitary pulmonary nodule
CPT/HCPCS: 36415; 71250; 80048

== ENCOUNTER 2025-02-12 06:33 | Outpatient (CLI) | payer MEDICARE, MEDICAID, SELFPAY ==
--- NOTE | 2025-02-12 | CA_ITS ---
APPROVED REPORT Exam: Pharmacologic Technologist: Elysia England Ht: 4 ft 11 in Wt: 197 lbs BSA: 1.83 m2 HR: 77 bpm BP: 126/77 mmHg Stress Test Details Test: Lexiscan HR Resting HR: 77 bpm Max Heart Rate (APMHR): 154.116031 bpm Max HR Achieved: 102 bpm Target HR (85% APMHR): 130.860799 bpm % of APMHR: 66.23 Recovery HR: 93 bpm BP Resting BP: 126.0/77.0 mmHg Max BP: 126.0/77.0 mmHg Recovery BP: 111.0/73.0 mmHg ECG Resting ECG: Sinus rhythm, peaked T waves Stress ECG Conclusion Wheezing prior to test. Patient used Combivent inhaler just prior to start of test. Wheezing continued. 0843 - Spoke with Tapan [facility] order to give Albuterol nebulizer PRN for worsening wheezing. Tolerated Lexiscan well, mild dyspnea throughout testing. Symptoms: Dyspnea Arrhythmias/Ectopy: PAC ST-T Changes: Less than 0.[address] segment changes. Conclusion: Non-diagnostic ECG/Lexiscan. Electronically signed by : Clementina Castrejon MD 02/12/2025 12:40:06
--- OUTSIDE RECORDS SUMMARY | 2025-02-12 06:35 | XMS_ITS | Clinical Summary ---
Author Organization [facility] ystem Address [address] [place] [address] Care Team Providers Care Transformation Architect Name Role Phone Unavailable Primary Care Provider [...]
--- OUTSIDE RECORDS SUMMARY | 2025-02-12 06:35 | XMS_ITS | Clinical Summary ---
Author Organization Healthcare Address [address] [id number] Care Team Providers Care Tester Printed Circuit Boards Name Role Phone Felisa Brown Primary Care Provider [phone] Family History Medical History Relation Name Comments [...] of Treatment Not on file Care Teams Tester Printed Circuit Boards Relationship Specialty Start Date End Date Felisa Brown PA [address] [facility] [place] [address] PCP - General 10/09/20
--- OUTSIDE RECORDS SUMMARY | 2025-02-12 06:35 | XMS_ITS | Clinical Summary ---
Author Organization [facility] Address [address] [place] [address] Phone Care Team Providers Care Gas Maker Name Role Phone Unavailable Primary Care Provider [...] Type:Not on file Address: [address] [place] [id number]
--- NOTE | 2025-02-12 07:00 | NM_ITS ---
APPROVED REPORT Exam: Nuclear Stress Test Indication: soa Patient Location: Outpatient Stress Tech: Elysia England NC Tech:Trina Pickens ODELL RT(R)(N) Ht: 5 ft 0 in Wt: 190 lbs Bra Size: 46d HR: 77 bpm BP: 126/77 mmHg BSA: 1.83 m2 TID: 0.96 History: Dyspnea Procedure: Patient received 0.4 mg of intravenous Lexiscan, resting heart rate 77 bpm, resting blood pressure 126/77 mmHg, with Lexiscan maximum heart rate achieved was 196 bpm which is 85 % of the maximum predicted heart rate and blood pressure was 110/70 mmHg. With Lexiscan, patient denied any complaint of chest pain. The patient is not able to lay on her abdomen for prone images. Cardiac Stress and Resting SPECT Images: Cardiac Stress and Resting SPECT images were obtained using technetium 99m Myoview 32.7 mCi stress and 10.25 mCi at rest. The patient could not lie on her abdomen. Therefore, prone stress imaging could not be performed. This may affect the diagnostic interpretation of the study findings. Resting and stress imaging in supine positions demonstrate no evidence of fixed or reversible perfusion defects. Gated imaging demonstrates normal global and regional LV systolic function. LVEF is calculated at 67%. Conclusion: No evidence of fixed or reversible perfusion defects. Gated imaging demonstrates normal global and regional LV systolic function. LVEF is calculated at 67%. Electronically signed by : Clementina Castrejon MD 02/12/2025 12:39:22
[2025-02-12 08:30] VITALS: BP 126/77; PULSE 77; RESP 16
[2025-02-12] MEDS: ISOTOPE MYOVIEW (PER STUDY) 1 DOSE IV (10:21)
[2025-02-12] MEDS: SODIUM CHLORIDE 0.9% 10ML SYR (RAD ONLY) 10 ML IV ×2 (10:21)
== END 2025-02-12 23:59 | disposition home or self-care (01) ==
LOC: RAD 06:34
PROVIDERS: PCP Family Medicine; Visit Provider Family Medicine
DX: I49.1 Atrial premature depolarization (principal); Z72.0 Tobacco use
CPT/HCPCS: 78452; 93017; 93018; A9502; J2785

== ENCOUNTER 2025-05-20 10:04 | Outpatient (CLI) | payer MEDICARE, MEDICAID, SELFPAY ==
--- OUTSIDE RECORDS SUMMARY | 2025-05-20 10:07 | XMS_ITS | Clinical Summary ---
Author Organization [facility] Address [address] [place] [address] Phone Care Team Providers Care Platform Loader Name Role Phone Unavailable Primary Care Provider [...] 08/16/2003 Low Dose Lung Cancer Screening 2008 RSV or 60+ (1 - Ris k 50-74 years 1-dose series) 2008 Zoster (1 of 2) 2008 Breast Cancer Screening 09/13/2017 09/14/2015 Bone Density Screening 08/16/2023 COVID-19 Vaccine ( - 2024-2 6 season) 2025 Influenza Vaccine (#1) 2025 Hepatitis [...] Type:Not on file Address: [address] [place] [id number]
--- OUTSIDE RECORDS SUMMARY | 2025-05-20 10:07 | XMS_ITS | Clinical Summary ---
Author Organization Healthcare Address [address] [id number] Care Team Providers Care Slag Production Worker Name Role Phone Felisa Brown Primary Care Provider [phone] Family History Medical History Relation Name Comments [...] of Treatment Not on file Care Teams Slag Production Worker Relationship Specialty Start Date End Date Felisa Brown PA [address] [facility] [place] [address] PCP - General 10/09/20
--- OUTSIDE RECORDS SUMMARY | 2025-05-20 10:07 | XMS_ITS | Clinical Summary ---
Author Organization [facility] Address [address] [place] [address] Care Team Providers Care Atm Technician Name Role Phone Unavailable Primary Care Provider [...] 2008 ZOSTER VACCINE (1 of 2) 2008 INFLUENZA VACCINE 12/27/2024 COVID-19 Vaccine (1 - season) 2025
--- NOTE | 2025-05-20 10:30 | CT_ITS ---
FINAL REPORT CLINICAL HISTORY: evaluation, SOA COMPARISON: 02/03/2025 FINDINGS: CT CHEST without contrast COMPARISON: 02/03/2025. TECHNIQUE: Axial CT without contrast This study was performed with techniques to keep radiation doses as low as reasonably achievable, (ALARA). Individualized dose reduction techniques using automated exposure control or adjustment of mA and/or kV according to the patient's size were employed. FINDINGS: No acute lung disease is present . There are fibrotic changes in the medial right lung, likely secondary to prior radiation therapy. There is a 3 mm right upper lobe lateral subpleural nodule, best seen on image #85 of series 3, stable. Lingular scarring is present as well, also stable. Changes of emphysema are again noted. No pleural or pericardial effusion is seen . No adenopathy or mass lesion is present . There is a borderline fusiform ascending aortic aneurysm measuring up to 39 mm in diameter. No obvious liver or adrenal masses are identified. IMPRESSION: 1. Stable exam when compared to the prior chest CT of 02/03/2025. This study was performed using automated techniques to achieve radiation exposure as low as reasonably achievable Reviewed, Interpreted and Dictated by Shanique Singh MD Transcribed by Patricia Pickens Authenticated and [facility]
== END 2025-05-20 23:59 | disposition home or self-care (01) ==
LOC: RAD 10:05
PROVIDERS: PCP Family Medicine; Visit Provider Internal Medicine Medical Oncology
DX: R06.02 Shortness of breath (principal); Z85.118 Personal history of other malignant neoplasm of bronchus and lung
CPT/HCPCS: 71250

== ENCOUNTER 2025-05-25 09:46 | Emergency (ER) | payer MEDICARE, MEDICAID, SELFPAY ==
[2025-05-25] VITALS (22 sets, daily range): BP systolic 95–179; BP diastolic 70–146; PULSE 74–129; RESP 16; TEMP 36.9; O2SAT 94–99; BMI 32.1
--- OUTSIDE RECORDS SUMMARY | 2025-05-25 09:54 | XMS_ITS | Clinical Summary ---
Author Organization [facility] Address [address] [place] [address] Care Team Providers Care Banking Representative Name Role Phone Unavailable Primary Care Provider [...]
--- OUTSIDE RECORDS SUMMARY | 2025-05-25 09:54 | XMS_ITS | Clinical Summary ---
Author Organization Healthcare Address [address] [id number] Care Team Providers Care Solar Thermal Technician Name Role Phone Felisa Brown Primary Care Provider [phone] Family History Medical History Relation Name Comments [...] of Treatment Not on file Care Teams Solar Thermal Technician Relationship Specialty Start Date End Date Felisa Brown PA [address] [facility] [place] [address] PCP - General 10/09/20
--- OUTSIDE RECORDS SUMMARY | 2025-05-25 09:54 | XMS_ITS | Clinical Summary ---
Author Organization [facility] Address [address] [place] [address] Phone Care Team Providers Care Elevator Supervisor Name Role Phone Unavailable Primary Care Provider [...] Type:Not on file Address: [address] [place] [id number]
--- NOTE | 2025-05-25 10:12 | XR_ITS ---
PROCEDURE INFORMATION: Exam: XR Right Foot Exam date and time: 05/25/2025 10:37 AM Age: 64 years old Clinical indication: Pain; Foot; Right TECHNIQUE: Imaging protocol: Radiologic exam of the right foot. Views: 3 or more views. COMPARISON: CR XR ANKLE RT MIN 3V 05/25/2025 10:37 AM FINDINGS: Bones/joints: Degenerative changes in the 1st metatarsal phalangeal joint and IP joint. Degenerative changes in the tarsal bones and tarsometatarsal joints. There is no evidence of acute fracture.There is no evidence of malalignment or dislocation. Soft tissues: Soft tissue swelling over the dorsum of the foot IMPRESSION: 1. Degenerative changes in the 1st metatarsal phalangeal joint and IP joint. 2. There is no evidence of acute fracture.There is no evidence of malalignment or dislocation.
--- NOTE | 2025-05-25 10:12 | XR_ITS ---
PROCEDURE INFORMATION: Exam: XR Right Ankle Exam date and time: 05/25/2025 10:37 AM Age: 64 years old Clinical indication: Pain; Ankle; Right; Additional info: Pain and swelling TECHNIQUE: Imaging protocol: Radiologic exam of the right ankle. Views: 3 or more views. COMPARISON: CR XR FOOT RT MIN 3V 05/25/2025 10:37 AM FINDINGS: Bones/joints: There is no evidence of acute fracture.There is no evidence of malalignment or dislocation. . Degenerative changes in the tibiotalar joint Soft tissues: Soft tissue swelling of the ankle IMPRESSION: There is no evidence of acute fracture.There is no evidence of malalignment or dislocation.
--- NOTE | 2025-05-25 10:17 | [facility].EDGENADL ---
Discharge Plan Disposition Chief Complaint: Extremity Injury, Lower Prescriptions Prescriptions: No Action fluticasone propionate [Flonase Allergy Relief] 50 mcg/actuation spray,suspension 1 spray intranasal ONCE PRN Rx Instructions: administer into each nostril alendronate 70 mg tablet 70 mg PO WEEKLY Qty: 14 3RF atorvastatin 10 mg tablet 10 mg PO HS Qty: 90 3RF diclofenac sodium [Arthritis Pain (diclofenac)] 1 % gel 2 g topical QIDP PRN (Reason: Mild Pain (Scale Score 1-4)) Qty: 100 12RF Rx Instructions: apply to single elbow, wrist or hand; for hand includes palm/fingers/back of hand ergocalciferol (vitamin D2) 1,250 mcg (50,000 unit) capsule 1,250 mcg PO WEEKLY Qty: 14 3RF famotidine 20 mg tablet 20 mg PO DAILY Qty: 90 3RF Combivent Respimat 20-100 mcg/actuation mist See Rx Instructions .ROUTE .COMPLEX Qty: 12 3RF Dose Instruction: INHALE 1 PUFF BY MOUTH EVERY 6 HOURS NEEDED FOR SHORTNESS OF BREATH OR WHEEZING Rx Instructions: INHALE 1 PUFF BY MOUTH EVERY 6 HOURS NEEDED FOR SHORTNESS OF BREATH OR WHEEZING Linzess 72 mcg capsule 72 mcg PO DAILY Qty: 90 3RF lisinopril 10 mg tablet 10 mg PO DAILY Qty: 90 3RF propranolol 60 mg capsule,extended release 24 hr 60 mg PO DAILY Qty: 90 3RF albuterol sulfate [Ventolin HFA] 90 mcg/actuation HFA aerosol inhaler 2 puff inhalation Q4-6H PRN (Reason: shortness of breath or wheezing) Qty: 8.5 12RF Breztri Aerosphere 160-9-4.8 mcg/actuation HFA aerosol inhaler 2 inh inhalation BID 90 Days Qty: 10.7 3RF ipratropium-albuterol 0.5 mg-3 mg(2.5 mg base)/3 mL solution for nebulization See Rx Instructions .ROUTE .COMPLEX Qty: 180 2RF Dose Instruction: INHALE CONTENTS OF 1 VIAL VIA NEBULIZER FOUR TIMES A DAY NEEDED FOR SHORTNESS OF BREATH OR WHEEZING Rx Instructions: INHALE CONTENTS OF 1 VIAL VIA NEBULIZER FOUR TIMES A DAY NEEDED FOR SHORTNESS OF BREATH OR WHEEZING oxycodone-acetaminophen 5-325 mg tablet 1 tab PO TID PRN (Reason: pain) Qty: 90 0RF Referrals Follow up/Referrals: Ji Madrigal MD [Primary Care Provider, Family Practice] - See instructions Print Language Print Language: Japanese Discharge ED Provider: Bebo Lainez General Adult HPI <Janet Gipson (ED), PHOTOGRAPHIC LITHOGRAPHER - Last Filed: 05/25/25 12:43> General Chief complaint: Extremity Injury, Lower Stated complaint: Right foot pain Time Seen by Provider: 05/25/25 10:04 Mode of Arrival: Wheelchair Source of Information: Patient Description of Symptoms (Recalled from ER Triage Doc. by RN): Patient states her right foot started hurting yesterday and now she is unable to walk on it. Patient denies any injury to foot. History of Present Illness HPI narrative: 64-year-old female presents to the ED today for complaint of right foot and ankle pain. She says it started yesterday but woke up today with worsening pain. She has had no trauma or falls. She says she can move her ankle but it hurts to walk on it or put pressure on it. It is very swollen. She has no known history of gout or RA. But she is concerned about these things as her mother from gout and rheumatoid arthritis . Patient does have history of respiratory failure, COPD, osteoporosis, chronic pain, adenocarcinoma and hypertension. Related Data Home Medications ?Medication ?Instructions ?Recorded ?Confirmed fluticasone propionate 50 1 spray intranasal ONCE PRN 10/11/24 03/06/25 mcg/actuation nasal spray,suspension (Flonase Allergy Relief) Previous Rx's ?Medication ?Instructions ?Recorded albuterol sulfate 90 mcg/actuation 2 puff inhalation Q4-6H PRN 01/31/25 aerosol inhaler (Ventolin HFA) shortness of breath or wheezing #8.5 grams alendronate 70 mg tablet 70 mg PO WEEKLY #14 tabs 01/31/25 atorvastatin 10 mg tablet 10 mg PO HS #90 tabs 01/31/25 diclofenac sodium 1 % topical gel 2 g topical QIDP PRN Mild Pain 01/31/25 (Arthritis Pain (diclofenac)) (Scale Score 1-4) #100 grams ergocalciferol (vitamin D2) 1,250 1,250 mcg PO WEEKLY #14 caps 01/31/25 mcg (50,000 unit) capsule famotidine 20 mg tablet 20 mg PO DAILY #90 tabs 01/31/25 ipratropium 20 mcg-albuterol 100 See Rx Instructions .Route 01/31/25 mcg/actuation mist for inhalation .COMPLEX #12 grams (Combivent Respimat) linaclotide 72 mcg capsule 72 mcg PO DAILY #90 caps 01/31/25 (Linzess) lisinopril 10 mg tablet 10 mg PO DAILY #90 tabs 01/31/25 propranolol 60 mg capsule,24 60 mg PO DAILY #90 caps 01/31/25 hr,extended release budesonide 160 mcg-glycopyr 9 2 inh inhalation BID 90 days #10.7 02/24/25 mcg-formot 4.8 mcg/actuation HFA grams inhaler (Breztri Aerosphere) ipratropium 0.5 mg-albuterol 3 mg See Rx Instructions .Route 04/02/25 (2.5 mg base)/3 mL nebulization .COMPLEX #180 mL soln oxycodone-acetaminophen 5 mg-325 1 tab PO TID PRN pain #90 tabs 05/06/25 mg tablet Allergies Allergy/AdvReac Type Severity Reaction Status Date / Time ceftriaxone (From Rocephin) Allergy Severe Hives Verified 05/25/25 10:03 levofloxacin (From LEVAQUIN) Allergy Severe Fainting Verified 05/25/25 10:03 Penicillins (PENICILLINS) Allergy Mild Hives Verified 05/25/25 10:03 PFS <Janet Gipson (ED), PHOTOGRAPHIC LITHOGRAPHER - Last Filed: 05/25/25 12:43> [facility] Disclaimer: The information contained in this section may have been updated after the patient was seen, as this information can be updated by other users. Medical History Pulmonary emphysema Smoking greater than 30 pack years Lung nodule Hyperkalemia Hyperlipidemia Screening for cervical cancer Breast cancer screening by mammogram Right radial fracture Status post open reduction internal fixation with volar plating History of chemotherapy History of radiation therapy Lung cancer History of fracture of finger right middle Bronchiolitis obliterans organizing pneumonia Depression Cancer related pain Anxiety Primary lung adenocarcinoma BMI 32.0-32.9,adult Abnormal weight Diverticulosis Toenail deformity BMI 31.0-31.9,adult Vitamin D deficiency Hypertension Surgical History History of lung biopsy History of tonsillectomy Family History Other No significant family history Social History Smoking Status: Current every day smoker tobacco type: cigarettes packs per day: 1 years smoked: 40 second hand exposure: Yes alcohol intake: never substance use type: denies use current occupational status: disabled Travel in the last 8 weeks?: None household members: spouse housing: house lives independently: No marital status: education level: high school service: No intermediate: No caffeine: No special hector needs: No agree to transfusion: No do you feel safe at home: Yes victim of physical abuse: No victim of emotional abuse: No victim of sexual abuse: No would you like helpful sources: No Have you lived/traveled outside [place] in past 30 days?: No Contact w/someone who lives/traveled outside [place] past 30 days?: No Exposure to someone with infectious disease in past 14 days?: No Do you have a fever (greater than 100.4 F or 38 C)?: No Have you tested positive for COVID-19?: No Exposed to someone with COVID-19 in past 14 days?: No Do you have a sore throat?: No Do you have a cough?: No Do you have any weakness?: No Do you have any diarrhea?: No Are you experiencing any unusual bleeding?: No Do you have any muscle aches/pain?: No Do you have any abdominal pain?: No Are you experiencing loss of taste or smell?: No Other Medical History Have you received the Flu Vaccine for this season: No Have you received the Pneumonia Vaccine: No <Janet Gipson (ED), PHOTOGRAPHIC LITHOGRAPHER - Last Filed: 05/25/25 12:43> ROS Obtained: Yes Systems reviewed as appropriate & no additional complaints except as documented Constitutional Constitutional: Reports as per HPI Physical Exam <Janet Gipson (ED), PHOTOGRAPHIC LITHOGRAPHER - Last Filed: 05/25/25 12:43> General General appearance: alert Head Head exam: normocephalic Eye Eye exam: Present PERRL and EOMI ENT ENT exam: Present normal oropharynx and mucous membranes moist Neck Neck exam: Present full ROM and trachea midline Respiratory Respiratory exam: Present normal lung sounds bilaterally Cardiovascular Cardiovascular exam: Present regular rate, normal rhythm, +S1 and +S2 Extremities Exam Extremities exam: Present tenderness, edema and other (Warm, erythematous on the lateral portion of the foot) Neurological Exam Neurological exam: Present alert and oriented X3 Skin Skin exam: Present warm, dry and erythema Medical Decision Making <Janet Gipson (ED), PHOTOGRAPHIC LITHOGRAPHER - Last Filed: 05/25/25 12:43> Medical Records Screening: Per USPSTF and CDC recommendations, given the prevalence of disease in our region, it is our hospital?s policy to screen for HIV and viral Hepatitis for all patients aged 18 and over and those with ongoing risk factors. Vikram Inquiry Pt receiving controlled substance: No Vikram was queried for this patient: No Vital Signs: 05/25/25 09:58 05/25/25 09:59 05/25/25 10:15 Temperature 98.4 F Temperature Source Oral Pulse Rate 115 H 125 H Pulse Rate [Right Brachial] 120 H Respiratory Rate 16 Blood Pressure 128/93 H 125/97 H Blood Pressure [Right Arm] 128/93 H Blood Pressure Mean Blood Pressure Mean [Right Arm] 104 Blood Pressure Source [Right Arm] Automatic Cuff Blood Pressure Position [Right Arm] Sitting 02 Sat by Pulse Oximetry 94 L 97 96 Oxygen Delivery Method Nasal Cannula Nasal Cannula Nasal Cannula Oxygen Flow Rate (LPM) 2 2 2 05/25/25 10:32 05/25/25 10:45 05/25/25 11:00 Temperature Temperature Source Pulse Rate 74 111 H 111 H Pulse Rate [Right Brachial] Respiratory Rate Blood Pressure 179/146 H Blood Pressure [Right Arm] Blood Pressure Mean Blood Pressure Mean [Right Arm] Blood Pressure Source [Right Arm] Blood Pressure Position [Right Arm] 02 Sat by Pulse Oximetry 96 96 97 Oxygen Delivery Method Nasal Cannula Oxygen Flow Rate (LPM) 2 05/25/25 11:13 05/25/25 11:15 05/25/25 11:27 Temperature Temperature Source Pulse Rate 109 H 107 H 129 H Pulse Rate [Right Brachial] Respiratory Rate Blood Pressure 120/92 H 120/88 Blood Pressure [Right Arm] Blood Pressure Mean Blood Pressure Mean [Right Arm] Blood Pressure Source [Right Arm] Blood Pressure Position [Right Arm] 02 Sat by Pulse Oximetry 97 96 97 Oxygen Delivery Method Nasal Cannula Nasal Cannula Nasal Cannula Oxygen Flow Rate (LPM) 2 2 2 05/25/25 11:30 05/25/25 11:45 05/25/25 12:00 Temperature Temperature Source Pulse Rate 101 H Pulse Rate [Right Brachial] Respiratory Rate Blood Pressure 116/83 95/70 L Blood Pressure [Right Arm] Blood Pressure Mean 89 78 Blood Pressure Mean [Right Arm] Blood Pressure Source [Right Arm] Blood Pressure Position [Right Arm] 02 Sat by Pulse Oximetry 98 Oxygen Delivery Method Nasal Cannula Oxygen Flow Rate (LPM) 2 05/25/25 12:01 Temperature Temperature Source Pulse Rate 118 H Pulse Rate [Right Brachial] Respiratory Rate Blood Pressure 118/92 H Blood Pressure [Right Arm] Blood Pressure Mean Blood Pressure Mean [Right Arm] Blood Pressure Source [Right Arm] Blood Pressure Position [Right Arm] 02 Sat by Pulse Oximetry 97 Oxygen Delivery Method Nasal Cannula Oxygen Flow Rate (LPM) 2 Lab Data Lab Results 05/25/25 10:15: WBC 16.0 H, RBC 3.71 L, Hgb 11.8 L, Hct 36.5 L, MCV 98.4, MCH 31.8 H, MCHC 32.3, RDW 13.2, Plt Count 293, MPV 10.1, Neut % (Auto) 79.6, Lymph % (Auto) 8.4 L, Humphreys % (Auto) 10.5 H, Eos % (Auto) 0.3, Baso % (Auto) 0.3, Neut # (Auto) 12.7 H, Lymph # (Auto) 1.3, Humphreys # (Auto) 1.7 H, Eos # (Auto) 0.0, Baso # (Auto) 0.1, Total Counted 100, Neutrophils % (Manual) 75, Lymphocytes % (Manual) 10, Monocytes % (Manual) 14 H, Eosinophils % (Manual) 1, Platelet Estimate Normal, RBC Morphology Normal, ESR 49 H, Sodium 133 L, Potassium 4.5, Chloride 102, Carbon Dioxide 25, Anion Gap 10.5, BUN 16, Creatinine 0.70, Estimated Creat Clear 67, Estimated GFR 84, Est GFR ( Amer) 101, Glucose 129 H, Calcium 9.4, Total Bilirubin 0.8, AST 28, ALT 21, Alkaline Phosphatase 60, C-Reactive Protein 75.5 H, Total Protein 7.0, Albumin 4.1, Globulin 2.9, Albumin/Globulin Ratio 1.4 05/25/25 11:30: Fluid Source Synovial, Fluid Volume 1.5, Fluid Appearance Cloudy, Fluid RBC (Auto) 8000, Fld Tot Nucleated Cell 56573, Synov Monosodium Urate Absent, Synov Ca Pyrophos Dihyd Absent, Syn A. prevotii/vaginalis PCR Not detected, Syn B. fragilis (PCR) Not detected, Syn blaCTX-M Ceph Res Gene Not applicable, Syn blaIMP Carb Res Gene Not applicable, Syn blaKPC Carb Res Gene Not applicable, Syn blaNDM Carb Res Gene Not applicable, Syn blaVIM Carb Res Gene Not applicable, Syn C. albicans (PCR) Not detected, Syn Rocio sp. (PCR) Not detected, Syn C. avidum/granul (PCR) Not detected, Syn Citrobacter sp. (PCR) Not detected, Syn C. perfringens (PCR) Not detected, Syn E. cloacae cmplx (PCR) Not detected, Syn E. faecalis (PCR) Not detected, Syn E. faecium (PCR) Not detected, Syn E. coli (PCR) Not detected, Syn Finegoldia magna (PCR) Not detected, Syn H. influenzae (PCR) Not detected, Syn Kingella kingae (PCR) Not detected, Syn K. pneumoniae grp PCR Not detected, Syn K. aerogenes (PCR) Not detected, Syn mecA/C&MREJ A R Gene Not applicable, Syn M. morganii (PCR) Not detected, Syn N. gonorrhoeae (PCR) Not detected, Syn OXA-48 Carb Res Gene Not applicable, Syn Parvimonas micra (PCR) Not detected, Syn Peptoniphilus (PCR) Not detected, Syn P. anaerobius (PCR) Not detected, Syn Proteus sp. (PCR) Not detected, Syn P. aeruginosa (PCR) Not detected, Syn Salmonella sp. (PCR) Not detected, Syn S. marcescens (PCR) Not detected, Syn S. lugdunensis (PCR) Not detected, Syn S. aureus (PCR) Not detected, Syn Streptococcus sp (PCR) Not detected, Syn S. agalactiae (PCR) Not detected, Syn S. pneumoniae (PCR) Not detected, Syn S. pyogenes (PCR) Not detected, Syn Tyson/B-Vanc Res Genes Not applicable 05/25/25 10:15 05/25/25 10:15 Orders (Tests/Meds): ED MEDICATIONS Generic Name Dose Route Start Last Admin Trade Name Manny PRN Reason Stop Dose Admin Cefepime HCl 2 gm/ Sodium 100 mls @ 200 mls/hr 05/25/25 12:53 Chloride IV 05/25/25 13:22 ONCE ONE Lactated Ringer's 1,000 mls @ 999 mls/hr 05/25/25 12:56 Lactated Ringer's 1000 Ml Bag IV 05/25/25 13:56 .Q1H1M ONE Vancomycin/PEG/NADA/Lysine/Water 1.5 gm in 300 mls @ 150 mls/hr 05/25/25 13:15 Vancomycin 1.5gm/300ml (Peg) Premix IV 05/25/25 15:14 ONCE ONE Miscellaneous 1 each 05/25/25 13:00 Vancomycin Consult Request NOTAPPLIC 06/24/25 12:59 CONSULT PHARMACY [facility]EL Discontinued Medications Generic Name Dose Route Start Last Admin Trade Name Manny PRN Reason Stop Dose Admin Dexamethasone Sodium Phosphate 8 mg 05/25/25 10:13 05/25/25 10:23 Dexamethasone 4mg/Ml 1ml Vial IV 05/25/25 10:14 8 mg ONCE ONE Administration Lactated Ringer's 500 mls @ 999 mls/hr 05/25/25 11:35 05/25/25 11:52 Lactated Ringer's 500ml IV 05/25/25 12:05 999 mls/hr .Q31M ONE Administration Ketorolac Tromethamine 15 mg 05/25/25 10:13 05/25/25 10:24 Ketorolac 15mg/Ml Vial IV 05/25/25 10:14 15 mg ONCE ONE Administration Lidocaine HCl 15 ml 05/25/25 11:05 05/25/25 11:18 Lidocaine 1% 20ml Mdv SUBCUT 05/25/25 11:06 5 ml ONCE ONE Administration Midazolam HCl 1 mg 05/25/25 11:07 05/25/25 11:10 Midazolam 2mg/2ml Vial IV 05/25/25 11:08 1 mg ONCE ONE Administration Trimethoprim/Sulfamethoxazole 1 each 05/25/25 12:43 05/25/25 12:56 Sulfa/Trimethoprim 1 Tablet PO 05/25/25 12:44 Not Given ONCE ONE ORDERS Category Date Time Status Ankle XR -Right minimum 3 Views [XR ankle RT min 3V] Exams 05/25/25 10:12 Completed Stat Foot XR right minimum 3 views [XR foot RT min 3V] Stat Exams 05/25/25 10:12 Completed POCUS Point of Care (ER Only) Stat Exams 05/25/25 10:17 Completed Body Fluid: Cell Count w/ Diff Stat Lab 05/25/25 11:30 Results CBC [Complete Blood Count Auto Diff] Stat Lab 05/25/25 10:15 Completed CRP [C-Reactive Protein] Stat Lab 05/25/25 10:15 Completed Comprehensive Metabolic Panel Stat Lab 05/25/25 10:15 Completed ESR [Erythrocyte Sedimentation Rate] Stat Lab 05/25/25 10:15 Completed Joint Infection Panel, PCR Stat Lab 05/25/25 11:30 Completed Synovial Fluid Crystals Stat Lab 05/25/25 11:30 Results Body Fluid Cult & Gram Stain Stat Micro 05/25/25 11:30 Results Medical Decision Narrative: patient is a 64-year-old female presenting to the emergency department for evaluation of right foot and ankle pain. Patient is hemodynamically stable and nontoxic-appearing upon arrival, afebrile. Differential diagnosis includes cellulitis, septic arthritis, among others. Workup will be conducted with hematologic labs, specific imaging. Initial inventions include analgesics, antibiotics. Dr. Lainez and I discussed giving IV fluids judiciously as patient needs. We did not want to give the sepsis bolus as she has pulmonary emphysema and respiratory failure history. Initial workup reviewed by me [hematologic labs are remarkable for:]. [Imaging informally interpreted by me and remarkable for:] [Formal imaging read remarkable for:] Upon repeat evaluation [patient's pain is improved, appears better perfused, appears the same, appears worse, etc.]. Due to this [additional interventions, patient is appropriate for discharge, patient requires admission, etc.]. <Bebo Lainez MD - Last Filed: 05/25/25 13:06> Vital Signs: 05/25/25 09:58 05/25/25 09:59 05/25/25 10:15 Temperature 98.4 F Temperature Source Oral Pulse Rate 115 H 125 H Pulse Rate [Right Brachial] 120 H Respiratory Rate 16 Blood Pressure 128/93 H 125/97 H Blood Pressure [Right Arm] 128/93 H Blood Pressure Mean Blood Pressure Mean [Right Arm] 104 Blood Pressure Source [Right Arm] Automatic Cuff Blood Pressure Position [Right Arm] Sitting 02 Sat by Pulse Oximetry 94 L 97 96 Oxygen Delivery Method Nasal Cannula Nasal Cannula Nasal Cannula Oxygen Flow Rate (LPM) 2 2 2 05/25/25 10:32 05/25/25 10:45 05/25/25 11:00 Temperature Temperature Source Pulse Rate 74 111 H 111 H Pulse Rate [Right Brachial] Respiratory Rate Blood Pressure 179/146 H Blood Pressure [Right Arm] Blood Pressure Mean Blood Pressure Mean [Right Arm] Blood Pressure Source [Right Arm] Blood Pressure Position [Right Arm] 02 Sat by Pulse Oximetry 96 96 97 Oxygen Delivery Method Nasal Cannula Oxygen Flow Rate (LPM) 2 05/25/25 11:13 05/25/25 11:15 05/25/25 11:27 Temperature Temperature Source Pulse Rate 109 H 107 H 129 H Pulse Rate [Right Brachial] Respiratory Rate Blood Pressure 120/92 H 120/88 Blood Pressure [Right Arm] Blood Pressure Mean Blood Pressure Mean [Right Arm] Blood Pressure Source [Right Arm] Blood Pressure Position [Right Arm] 02 Sat by Pulse Oximetry 97 96 97 Oxygen Delivery Method Nasal Cannula Nasal Cannula Nasal Cannula Oxygen Flow Rate (LPM) 2 2 2 05/25/25 11:30 05/25/25 11:45 05/25/25 12:00 Temperature Temperature Source Pulse Rate 101 H Pulse Rate [Right Brachial] Respiratory Rate Blood Pressure 116/83 95/70 L Blood Pressure [Right Arm] Blood Pressure Mean 89 78 Blood Pressure Mean [Right Arm] Blood Pressure Source [Right Arm] Blood Pressure Position [Right Arm] 02 Sat by Pulse Oximetry 98 Oxygen Delivery Method Nasal Cannula Oxygen Flow Rate (LPM) 2 05/25/25 12:01 Temperature Temperature Source Pulse Rate 118 H Pulse Rate [Right Brachial] Respiratory Rate Blood Pressure 118/92 H Blood Pressure [Right Arm] Blood Pressure Mean Blood Pressure Mean [Right Arm] Blood Pressure Source [Right Arm] Blood Pressure Position [Right Arm] 02 Sat by Pulse Oximetry 97 Oxygen Delivery Method Nasal Cannula Oxygen Flow Rate (LPM) 2 Lab Data Lab Results 05/25/25 10:15: WBC 16.0 H, RBC 3.71 L, Hgb 11.8 L, Hct 36.5 L, MCV 98.4, MCH 31.8 H, MCHC 32.3, RDW 13.2, Plt Count 293, MPV 10.1, Neut % (Auto) 79.6, Lymph % (Auto) 8.4 L, Humphreys % (Auto) 10.5 H, Eos % (Auto) 0.3, Baso % (Auto) 0.3, Neut # (Auto) 12.7 H, Lymph # (Auto) 1.3, Humphreys # (Auto) 1.7 H, Eos # (Auto) 0.0, Baso # (Auto) 0.1, Total Counted 100, Neutrophils % (Manual) 75, Lymphocytes % (Manual) 10, Monocytes % (Manual) 14 H, Eosinophils % (Manual) 1, Platelet Estimate Normal, RBC Morphology Normal, ESR 49 H, Sodium 133 L, Potassium 4.5, Chloride 102, Carbon Dioxide 25, Anion Gap 10.5, BUN 16, Creatinine 0.70, Estimated Creat Clear 67, Estimated GFR 84, Est GFR ( Amer) 101, Glucose 129 H, Calcium 9.4, Total Bilirubin 0.8, AST 28, ALT 21, Alkaline Phosphatase 60, C-Reactive Protein 75.5 H, Total Protein 7.0, Albumin 4.1, Globulin 2.9, Albumin/Globulin Ratio 1.4 05/25/25 11:30: Fluid Source Synovial, Fluid Volume 1.5, Fluid Appearance Cloudy, Fluid RBC (Auto) 8000, Fld Tot Nucleated Cell 76053, Synov Monosodium Urate Absent, Synov Ca Pyrophos Dihyd Absent, Syn A. prevotii/vaginalis PCR Not detected, Syn B. fragilis (PCR) Not detected, Syn blaCTX-M Ceph Res Gene Not applicable, Syn blaIMP Carb Res Gene Not applicable, Syn blaKPC Carb Res Gene Not applicable, Syn blaNDM Carb Res Gene Not applicable, Syn blaVIM Carb Res Gene Not applicable, Syn C. albicans (PCR) Not detected, Syn Rocio sp. (PCR) Not detected, Syn C. avidum/granul (PCR) Not detected, Syn Citrobacter sp. (PCR) Not detected, Syn C. perfringens (PCR) Not detected, Syn E. cloacae cmplx (PCR) Not detected, Syn E. faecalis (PCR) Not detected, Syn E. faecium (PCR) Not detected, Syn E. coli (PCR) Not detected, Syn Finegoldia magna (PCR) Not detected, Syn H. influenzae (PCR) Not detected, Syn Kingella kingae (PCR) Not detected, Syn K. pneumoniae grp PCR Not detected, Syn K. aerogenes (PCR) Not detected, Syn mecA/C&MREJ A R Gene Not applicable, Syn M. morganii (PCR) Not detected, Syn N. gonorrhoeae (PCR) Not detected, Syn OXA-48 Carb Res Gene Not applicable, Syn Parvimonas micra (PCR) Not detected, Syn Peptoniphilus (PCR) Not detected, Syn P. anaerobius (PCR) Not detected, Syn Proteus sp. (PCR) Not detected, Syn P. aeruginosa (PCR) Not detected, Syn Salmonella sp. (PCR) Not detected, Syn S. marcescens (PCR) Not detected, Syn S. lugdunensis (PCR) Not detected, Syn S. aureus (PCR) Not detected, Syn Streptococcus sp (PCR) Not detected, Syn S. agalactiae (PCR) Not detected, Syn S. pneumoniae (PCR) Not detected, Syn S. pyogenes (PCR) Not detected, Syn Tyson/B-Vanc Res Genes Not applicable Orders (Tests/Meds): ED MEDICATIONS Generic Name Dose Route Start Last Admin Trade Name Freq PRN Reason Stop Dose Admin Cefepime HCl 2 gm/ Sodium 100 mls @ 200 mls/hr 05/25/25 12:53 Chloride IV 05/25/25 13:22 ONCE ONE Lactated Ringer's 1,000 mls @ 999 mls/hr 05/25/25 12:56 Lactated Ringer's 1000 Ml Bag IV 05/25/25 13:56 .Q1H1M ONE Vancomycin/PEG/NADA/Lysine/Water 1.5 gm in 300 mls @ 150 mls/hr 05/25/25 13:15 Vancomycin 1.5gm/300ml (Peg) Premix IV 05/25/25 15:14 ONCE ONE Miscellaneous 1 each 05/25/25 13:00 Vancomycin Consult Request NOTAPPLIC 06/24/25 12:59 CONSULT PHARMACY [facility]UEL Discontinued Medications Generic Name Dose Route Start Last Admin Trade Name Freq PRN Reason Stop Dose Admin Dexamethasone Sodium Phosphate 8 mg 05/25/25 10:13 05/25/25 10:23 Dexamethasone 4mg/Ml 1ml Vial IV 05/25/25 10:14 8 mg ONCE ONE Administration Lactated Ringer's 500 mls @ 999 mls/hr 05/25/25 11:35 05/25/25 11:52 Lactated Ringer's 500ml IV 05/25/25 12:05 999 mls/hr .Q31M ONE Administration Ketorolac Tromethamine 15 mg 05/25/25 10:13 05/25/25 10:24 Ketorolac 15mg/Ml Vial IV 05/25/25 10:14 15 mg ONCE ONE Administration Lidocaine HCl 15 ml 05/25/25 11:05 05/25/25 11:18 Lidocaine 1% 20ml Mdv SUBCUT 05/25/25 11:06 5 ml ONCE ONE Administration Midazolam HCl 1 mg 05/25/25 11:07 05/25/25 11:10 Midazolam 2mg/2ml Vial IV 05/25/25 11:08 1 mg ONCE ONE Administration Trimethoprim/Sulfamethoxazole 1 each 05/25/25 12:43 05/25/25 12:56 Sulfa/Trimethoprim 1 Tablet PO 05/25/25 12:44 Not Given ONCE ONE ORDERS Category Date Time Status Ankle XR -Right minimum 3 Views [XR ankle RT min 3V] Exams 05/25/25 10:12 Completed Stat Foot XR right minimum 3 views [XR foot RT min 3V] Stat Exams 05/25/25 10:12 Completed POCUS Point of Care (ER Only) Stat Exams 05/25/25 10:17 Completed Body Fluid: Cell Count w/ Diff Stat Lab 05/25/25 11:30 Results CBC [Complete Blood Count Auto Diff] Stat Lab 05/25/25 10:15 Completed CRP [C-Reactive Protein] Stat Lab 05/25/25 10:15 Completed Comprehensive Metabolic Panel Stat Lab 05/25/25 10:15 Completed ESR [Erythrocyte Sedimentation Rate] Stat Lab 05/25/25 10:15 Completed Joint Infection Panel, PCR Stat Lab 05/25/25 11:30 Completed Synovial Fluid Crystals Stat Lab 05/25/25 11:30 Results Body Fluid Cult & Gram Stain Stat Micro 05/25/25 11:30 Results Medical Decision Narrative: patient is a 64-year-old female presenting to the emergency department for evaluation of right foot and ankle pain. Patient is hemodynamically stable and nontoxic-appearing upon arrival, afebrile. Differential diagnosis includes cellulitis, septic arthritis, among others. Workup will be conducted with hematologic labs, specific imaging. Initial inventions include analgesics, antibiotics. Dr. Lainez and I discussed giving IV fluids judiciously as patient needs. We did not want to give the sepsis bolus as she has pulmonary emphysema and respiratory failure history. Initial work reviewed by me significant leukocytosis of 16,000, mildly elevated ESR, no JOY or critical electrolyte abnormality CRP elevated 75.5. Synovial fluid significantly elevated nucleated cell count 85,485, crystals pending. I discussed the need for washout with the patient given that this is an emergent problem and patient was originally apprehensive and wanted to go home to watch the [email or web address] game. We do not have Ortho at this hospital she will require transfer. After multiple prolonged discussions patient was agreeable to staying. We will initiate antibiotics with vancomycin and cefepime. She has hives to ceftriaxone however chance of cross-reactivity with site change is low and benefits outweigh the risk we will proceed with cefepime at this time. Tissue reperfusion assessment performed agree with ongoing fluid resuscitation will initiate another liter of Ringer's at this time. Procedure: Procedure performed by Bebo Lainez. Procedure performed was ultrasound-guided arthrocentesis. Using linear probe over the right lateral ankle joint area of effusion was identified with surrounding cellulitic cobblestoning changes. This was marked and patient was consented, anxiolysis was performed with 1 mg of Versed, numbed with lidocaine 1% without epinephrine approximately 5 cc, anesthesia achieved. Using sterile technique a 20-gauge needle was advanced into the joint space and 2 cc of thick purulent material was removed. Patient tolerated the procedure well. There were no immediate complications. Critical Care <Janet Gipson (EB), PHOTOGRAPHIC LITHOGRAPHER - Last Filed: 05/25/25 12:43> Critical Care Time Critical Care Time: No
[2025-05-25] MEDS: DEXAMETHASONE 4MG/ML 1ML VIAL 8 MG IV (10:23)
[2025-05-25 10:24] LABS: Hematocrit 36.5 % (37.0-47.0); Hemoglobin 11.8 g/dL (12.2-16.2); Immature Granulocytes % 0.9 %; Mean Corpuscular HGB Conc 32.3 g/dL (31.8-35.4); Mean Corpuscular Hemoglobin 31.8 pg (27.0-31.2); Mean Corpuscular Volume 98.4 fl (81-99); Nucleated Red Blood Cells % 0 %; Platelet Count 293 K/mm3 (142-424); Red Blood Count 3.71 M/mm3 (4.20-5.40); Red Cell Distribution Width-SD 47.0 fL; White Blood Count 16.0 K/mm3 (4.8-10.8)
[2025-05-25] MEDS: KETOROLAC 15MG/ML VIAL 15 MG IV (10:24)
[2025-05-25 10:36] LABS: Albumin Level 4.1 g/dl (3.5-5.0); Chloride 102 mmol/L (98-107); Potassium 4.5 mmoL/L (3.5-5.1); Sodium 133 mmol/L (136-145)
[2025-05-25 10:38] LABS: Blood Urea Nitrogen 16 mg/dl (7-17); Creatinine Clearance Estimated 67 mL/min (50-200); Creatinine,Serum 0.70 mg/dl (0.52-1.04); Estimated Glomerular Filt Rate 84 ml/min (>60); GFR (African American) 101 ML/MIN (>60)
[2025-05-25 10:39] LABS: Alanine Aminotransferase 21 U/L (12-78); Albumin/Globulin Ratio 1.4 (1.1-1.8); Alkaline Phosphatase 60 U/L (38-126); Anion Gap 10.5 mEq/L (5-15); Aspartate Amino Transferase 28 U/L (14-36); Bilirubin,Total 0.8 mg/dl (0.2-1.3); Calcium 9.4 mg/dl (8.4-10.2); Carbon Dioxide 25 mmol/L (22.0-30.0); Globulin 2.9 g/dL (1.3-3.2); Glucose 129 mg/dl (74-100); Total Protein,Serum 7.0 g/dl (6.3-8.2)
[2025-05-25 10:46] LABS: C-Reactive Protein 75.5 mg/L (0-4)
[2025-05-25] MEDS: MIDAZOLAM 2MG/2ML VIAL 1 MG IV (11:10)
[2025-05-25 11:16] LABS: RBC Morphology Normal; Total Cells Counted 100
[2025-05-25] MEDS: LIDOCAINE 1% 20ML MDV 15 ML SUBCUT (11:18)
[2025-05-25] MEDS: RINGERS SOLUTION,LACTATED 500 ML 999 ML IV (11:52)
[2025-05-25 12:34] LABS: Appearance,Body Fld. Cloudy; Source, Body Fld. Synovial; Volume,Body Fld. 1.5 mL
[2025-05-25 12:35] LABS: RBC,Body Fluid 8000 cells/uL (< 10 X 10^3); TNC,Body Fluid 85485 cells/uL (< 1000)
--- NOTE | 2025-05-25 12:42 | PC.NURSE ---
called [facility] per Dr Lainez for pt transfer for septic arthritis. During call pt refused to be transferred. transfer was cancelled.
[2025-05-25 12:57] LABS: Bacteroides fragilis Not Detected; Citrobacter Not Detected; Enterococcus faecalis Not Detected; Enterococcus faecium Not Detected; Klebsiella aerogenes Not Detected; Klebsiella pneumoniae group Not Detected; Morganella morganii Not Detected; Proteus spp. Not Detected; Salmonella spp. Not Detected; Serratia marcescens Not Detected; Staphylococcus lugdunensis Not Detected; Streptococcus pyogenes Not Detected; Streptococcus spp. Not Detected
[2025-05-25 13:02] LABS: Ca pyrophosphate dihyd Absent
--- NOTE | 2025-05-25 13:02 | PC.NURSE ---
Patient wants to transfer to [facility] now. Called [facility] for transfer
[2025-05-25] MEDS: CEFEPIME HCL 2 GM in 0.9 % SODIUM CHLORIDE 100 ML IV (13:10)
[2025-05-25] MEDS: LACTATED RINGERS 1000ML 1,000 ML 999 ML IV (13:10)
[2025-05-25 13:21] LABS: Mononuclear WBCs,Body Fluid 12 %; Polynuclear WBC,Body Fluid 88 %
[2025-05-25] MEDS: VANCOMYCIN/WATER FOR INJ (PEG) 1.5 GM/300 ML PIGGYBACK IV (13:46)
== END 2025-05-25 14:49 | disposition short-term general hospital (02) ==
PROVIDERS: Nurse Practitioner; Emergency Provider Emergency Medicine; PCP Family Medicine
DX: M00.871 Arthritis due to other bacteria, right ankle and foot (principal); M79.671 Pain in right foot
CPT/HCPCS: 20606; 73610; 73630; 80053; 85007; 85025; 85651; 86140; 87070; 87205; 87999; 89051; 89060; 96365; 96366; 96367; 96375; 99285; J0692; J1100; J1885; J2250; J3375; J7120